=== PATIENT | female | born 1965 | race Caucasian/White ===

== ENCOUNTER 2016-03-02 14:25 | Outpatient (CLI) | payer MEDICAID | END 2016-03-02 14:26 | disposition home or self-care (01) | DX: Z13.9 Encounter for screening, unspecified (principal); Z79.899 Other long term (current) drug therapy; E03.9 Hypothyroidism, unspecified ==

== ENCOUNTER 2016-04-10 16:21 | Emergency (ER) | payer MEDICAID ==
[2016-04-10] MEDS ORDERED: oxyCOD/ACETAMIN 5 MG/325 MG TABLET PO STA (18:02)
[2016-04-10] MEDS ORDERED: oxyCOD/ACETAMIN 5 MG/325 MG TABLET PO ONE (18:12)
== END 2016-04-10 19:00 | disposition home or self-care (01) ==
DX: M79.671 Pain in right foot (principal); G89.29 Other chronic pain; Z87.81 Personal history of (healed) traumatic fracture; I10 Essential (primary) hypertension; E03.9 Hypothyroidism, unspecified; F17.200 Nicotine dependence, unspecified, uncomplicated
CPT/HCPCS: 73630; 99283; A9270

== ENCOUNTER 2016-04-14 11:06 | Outpatient (CLI) | payer MEDICAID | END 2016-04-14 11:07 | disposition home or self-care (01) | DX: M20.12 Hallux valgus (acquired), left foot (principal); M79.89 Other specified soft tissue disorders ==

== ENCOUNTER 2016-06-12 14:33 | Outpatient (CLI) | payer MEDICAID | END 2016-06-12 14:34 | disposition home or self-care (01) | DX: M19.071 Primary osteoarthritis, right ankle and foot (principal); R22.41 Localized swelling, mass and lump, right lower limb; Z98.890 Other specified postprocedural states ==

== ENCOUNTER 2016-06-19 18:24 | Emergency (ER) | payer MEDICAID ==
[2016-06-19 18:30] VITALS: BP 118/84
--- NOTE | 2016-06-19 18:45 | ED Physician Documentation ---
PD HPI LOWER EXT INJURY - Stated complaint Stated Complaint: LT ANKLE INJURY - Chief complaint Chief Complaint: Ext Problem - History obtained from History obtained from: Patient - History of Present Illness PD HPI LOW EXT INJURY LOCATION: Left, Ankle Type of injury: Fall Where injury occurred: Home Timing - onset: How many hours ago (1) Timing - duration: Hours (1) Timing - details: Abrupt onset Pain level max: 8 Pain level now: 8 Improved by: Rest, Ice Worsened by: Moving, Palpating Associated symptoms: No: Weakness, Numbness, Tingling, Swelling Contributing factors: No: Anticoagulated, Prior ortho surgery Recently seen: Not recently seen - Additional information Additional information: tripped and fell in the backyard today Review of Systems Constitutional: denies: Fever, Chills Skin: denies: Rash Musculoskeletal: denies: Neck pain, Back pain Neurologic: denies: Focal weakness, Numbness, Altered mental status, Head injury , LOC PD PAST MEDICAL HISTORY - Past Medical History Cardiovascular: Hypertension Respiratory: None Neuro: None Endocrine/Autoimmune: HyPOthyroidism GI: GERD, Ulcers, Other : None HEENT: Chronic vision loss Psych: Depression, Anxiety Musculoskeletal: Fibromyalgia, Chronic back pain Derm: None - Past Surgical History Past Surgical History: Yes 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, Tubal ligation - Present Medications Home Medications: Ambulatory Orders Medication Instructions Recorded Confirmed Levothyroxine [Synthroid] 100 mcg PO QDAC 06/23/12 05/27/14 Omeprazole 20 mg PO DAILY 06/23/12 05/27/14 Paroxetine HCl [Paxil] 40 mg PO DAILY 08/14/12 05/27/14 Baclofen 1 - 2 tab PO QPM PRN 10/07/12 05/27/14 Triamterene/Hydrochlorothiazid 1 each PO DAILY 10/07/12 05/27/14 [Triamterene-Hctz 37.5-25 mg Tb] Clonazepam 1 mg ORAL QPM 12/27/13 05/27/14 Iron 65 mg ORAL DAILY 12/27/13 05/27/14 Multivitamin [Multivitamins] 1 tab ORAL DAILY 12/27/13 05/27/14 Lisinopril 5 mg PO DAILY PRN 04/16/14 05/27/14 Trazodone HCl 100 mg PO DAILY 04/16/14 05/27/14 Baclofen 10 mg PO BID #14 tablet 04/05/15 Oxycodone HCl/Acetaminophen 1 - 2 each PO Q6H PRN #15 tablet 05/27/14 [Percocet 5-325 mg Tablet] HYDROcod/ACETAM 5/325 [[place] 5/325] 1 - 2 ea PO Q6H PRN #20 tablet 04/10/16 Hydrocodone/Acetaminophen 1 - 2 each PO Q6H PRN #14 tablet 06/19/16 [Hydrocodon-Acetaminophen 5-325] - Allergies Allergies/Adverse Reactions: Allergies Allergy/AdvReac Type Severity Reaction Status Date / Time felodipine Allergy Severe Respiratory Verified 04/10/16 16:37 Sulfa (Sulfonamide Allergy Intermediate Itching Verified 04/10/16 16:37 Antibiotics) gabapentin AdvReac Edema Verified 04/10/16 16:37 tramadol AdvReac Edema Verified 04/10/16 16:37 plendil Allergy Intermediate Unknown. Uncoded 05/27/14 12:01 tape Allergy Mild Hives Uncoded 05/27/14 12:01 - Social History Does the pt smoke?: Yes Smoking Status: Current every day smoker Does the pt drink ETOH?: No Does the pt have substance abuse?: No - Immunizations Immunizations are current?: Yes - POLST Patient has POLST: No PD ED PE NORMAL - Vitals Vital signs reviewed: Yes - General General: Alert and oriented X 3, No acute distress - HEENT HEENT: Moist mucous membranes - Derm Derm: Warm and dry - Extremities Extremities: Other (Tender to palpation over the lateral malleolus of the left ankle. Otherwise normal examination of the left lower extremity ankle and foot. Neurovascularly intact. No swelling or deformity) - Neuro Neuro: Alert and oriented X 3 - Psych Psych: Normal mood, Normal affect Results - Vitals Vitals: Vital Signs - 24 hr 06/19/16 18:28 Temperature 36.1 C L Heart Rate 82 Respiratory 18 Rate Blood Pressure 118/84 H O2 Saturation 99 Oxygen O2 Source Room air - Rads (name of study) Left ankle x-ray Radiology: Prelim report reviewed, EMP read contemporaneously, See rad report ( No acute fracture or dislocation) PD MEDICAL DECISION MAKING - ED course Complexity details: reviewed results, re-evaluated patient, considered differential, d/w patient ED course: Patient with a left ankle sprain. Placed in a gel splint for comfort. Has crutches at home. Counseled regarding missed fractures secondary to acute swelling and may need repeat xrays if not improving. Pain is well controlled. Patient counseled regarding signs and symptoms for which I believe and urgent re -evaluation would be necessary. Patient with good understanding of and agreement to plan and is comfortable going home at this time This document was made in part using voice recognition software. While efforts are made to proofread this document, sound alike and grammatical errors may occur. Departure - Departure Disposition: 01 Home, Self Care Clinical Impression: Left ankle sprain Qualifiers: Encounter type: initial encounter Involved ligament of ankle: unspecified ligament Qualified Code(s): S93.402A - Sprain of unspecified ligament of left ankle, initial encounter Condition: Good Instructions: ED Sprain Ankle W X Ray Follow-Up: Kwan Valdez MD [Primary Care Provider] - Within 1 week Prescriptions: Hydrocodone/Acetaminophen [Hydrocodon-Acetaminophen 5-325] 1 - 2 each PO Q6H PRN #14 tablet PRN Reason: pain Comments: Wear the splint as needed for comfort. Follow-up with your doctor in 1 week for further evaluation. Your x-rays are normal tonight. Do not drink alcohol or drive while on narcotic pain medicine. Note that many narcotic pain relievers also contain tylenol/acetaminophen. Please ensure that your total dose of acetaminophen from all sources does not exceed 3 grams (3000mg) per day. You may constipated on this medication, take a stool softener such as "Colace" twice a day while you are on it. Also recommend a [id number]-ufl-fldmphw laxative such as senna or MiraLAX any day that you do not have a bowel movement. If you received narcotic pain medication in the emergency department, do not drive or operate machinery for the next 24 hours. Discharge Date/Time: 06/19/16 19:35
[2016-06-19] MEDS ORDERED: IBUPROFEN 800 MG TABLET PO STA (19:17)
[2016-06-19] MEDS ORDERED: IBUPROFEN 800 MG TABLET PO ONE (19:18)
--- NOTE | 2016-06-19 19:19 | XRAY Preliminary Report ---
Exam: XR Ankle 3 View LT IMPRESSION: Normal ankle radiography. [facility] SITE ID: [id number]
--- NOTE | 2016-06-19 19:22 | XRAY Report ---
EXAM: LEFT ANKLE RADIOGRAPHY EXAM DATE: 06/19/2016 07:04 PM. CLINICAL HISTORY: Fall, L lateral malleolus TTP. COMPARISON: None. TECHNIQUE: 3 views. FINDINGS: Bones: Normal. No fractures or bone lesions. Joints: Normal. No effusion. No subluxations. The ankle mortise is normally aligned. Soft Tissues: Normal. No soft tissue swelling. IMPRESSION: Normal ankle radiography. [facility] Referring Provider Line: [phone] SITE ID: [id number]
[2016-06-19] MEDS ORDERED: HYDROcod/ACETAM 5/325 MG TABLET PO STA (19:25)
[2016-06-19] MEDS ORDERED: HYDROcod/ACETAM 5/325 MG TABLET ONE (19:25)
== END 2016-06-19 19:35 | disposition home or self-care (01) ==
LOC: ED 18:24
DX: S93.402A Sprain of unspecified ligament of left ankle, initial encounter (principal); W01.0XXA Fall on same level from slipping, tripping and stumbling without subsequent striking against object, initial encounter; Y92.017 Garden or yard in single-family (private) house as the place of occurrence of the external cause; E03.9 Hypothyroidism, unspecified; K21.9 Gastro-esophageal reflux disease without esophagitis; M79.7 Fibromyalgia; Z87.11 Personal history of peptic ulcer disease; F17.200 Nicotine dependence, unspecified, uncomplicated
CPT/HCPCS: 99283

== ENCOUNTER 2016-08-15 16:36 | Emergency (ER) | payer MEDICAID ==
[2016-08-15] MEDS ORDERED: oxyCOD/ACETAMIN 5 MG/325 MG TABLET PO STA (16:49)
[2016-08-15] MEDS ORDERED: DEXAMETHASONE 10 MG/ML VIAL PO STA (16:49)
[2016-08-15] MEDS ORDERED: oxyCOD/ACETAMIN 5 MG/325 MG TABLET PO ONE (16:51)
[2016-08-15] MEDS ORDERED: CHERRY SYRUP 10 ML UDC PO ONE (16:51)
[2016-08-15] MEDS ORDERED: DEXAMETHASONE 10 MG/ML VIAL ONE (16:51)
--- NOTE | 2016-08-15 16:53 | ED Physician Documentation ---
PD HPI BACK INJURY - Stated complaint Stated Complaint: GLF/BACK HIP PX - History obtained from History obtained from: Patient - History of Present Illness Location: Right, Lower Type of injury: Fall Where injury occurred: Home Timing - onset: How many days ago (3) Timing - duration: Days (3) Timing - details: Gradual onset, Still present Quality: Pain, Spasm, Sharp Improved by: Rest, Immobilization Worsened by: Moving, Palpating Associated symptoms: No: Fever, Weakness, Numbness, Incontinent of urine, Unable to urinate, Hematuria, Incontinent of stool Contributing factors: No: Anticoagulated Similar symptoms before: Has not had sx before Recently seen: Not recently seen - Additional information Additional information: 50y/o female fell at home landing on her buttocks and bruising the buttocks and causing some pain in the upper lumbar spine. She has pain with movement and she is able to walk with a slight limp. Review of Systems Constitutional: denies: Fever, Chills, Myalgias Eyes: denies: Decreased vision Ears: denies: Loss of hearing, Ear pain Nose: denies: Congestion Throat: denies: Sore throat Cardiac: denies: Chest pain / pressure Respiratory: denies: Dyspnea, Cough GI: reports: Nausea. denies: Abdominal Pain, Vomiting : denies: Dysuria, Frequency Musculoskeletal: reports: Back pain, Extremity pain. 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, Tubal ligation - Present Medications Home Medications: Ambulatory Orders Medication Instructions Recorded Confirmed Levothyroxine [Synthroid] 100 mcg PO QDAC 06/23/12 08/15/16 Omeprazole 20 mg PO DAILY 06/23/12 08/15/16 Paroxetine HCl [Paxil] 40 mg PO DAILY 08/14/12 08/15/16 Baclofen 1 - 2 tab PO QPM PRN 10/07/12 08/15/16 Triamterene/Hydrochlorothiazid 1 each PO DAILY 10/07/12 08/15/16 [Triamterene-Hctz 37.5-25 mg Tb] Clonazepam 1 mg ORAL QPM 12/27/13 08/15/16 Lisinopril 5 mg PO DAILY PRN 04/16/14 08/15/16 Baclofen 10 mg PO BID #14 tablet 05/27/14 08/15/16 Cyclobenzaprine [Flexeril] 10 mg PO TID PRN #20 tablet 08/15/16 Oxycodone HCl/Acetaminophen 1 - 2 each PO Q6HR PRN #20 tablet 08/15/16 [Oxycodone-Acetaminophen 5-325] - Allergies Allergies/Adverse Reactions: Allergies Allergy/AdvReac Type Severity Reaction Status Date / Time felodipine Allergy Severe Respiratory Verified 08/15/16 16:45 Sulfa (Sulfonamide Allergy Intermediate Itching Verified 08/15/16 16:45 Antibiotics) gabapentin AdvReac Edema Verified 08/15/16 16:45 tramadol AdvReac Edema Verified 08/15/16 16:45 plendil Allergy Intermediate Unknown. Uncoded 08/15/16 16:45 tape Allergy Mild Hives Uncoded 08/15/16 16:45 - Social History Does the pt smoke?: Yes Smoking Status: Current every day smoker Does the pt drink ETOH?: No Does the pt have substance abuse?: No - Immunizations Immunizations are current?: Yes - POLST Patient has POLST: No PD ED PE NORMAL - Vitals Vital signs reviewed: Yes (tachy ) - General General: Alert and oriented X 3, Well developed/nourished, Other (The patient appears to be in pain with working supervisor tone and flat affect as well as tears. ) - HEENT HEENT: Atraumatic, PERRL, EOMI - Respiratory Respiratory: No respiratory distress - Back Back: No CVA TTP, Other (point tenderness to the L1 area is mild ) - Derm Derm: Normal color, Warm and dry, No rash - Extremities Extremities: No deformity, No edema, Other (There is a bruise of the stated age over the left ishial tuberosity. ) - Neuro Neuro: Alert and oriented X 3, No motor deficit, No sensory deficit, Normal speech - Psych Psych: Normal mood, Normal affect Results - Vitals Vitals: Vital Signs - 24 hr 06/24/17 06/24/17 16:40 16:47 Temperature 37.1 C Heart Rate 108 H Respiratory 16 Rate Blood Pressure 122/93 H O2 Saturation 96 Oxygen O2 Source Room air - Rads (name of study) l/S spine Radiology: Prelim report reviewed (Impression: Minor thoracolumbar junction dextroscoliosis with anterolisthesis L4 on L5, new since 2013. No significant disc space narrowing or lumbar vertebral compression fracture. No other new findings.), EMP read indepedently, See rad report PD MEDICAL DECISION MAKING - ED course Complexity details: reviewed old records, reviewed results, re-evaluated patient , considered differential, d/w patient ED course: 50y/o female with a fall landing on her buttocks and causing back pain. There does not appear to be any compression fracture associated. She is given decadron and percocet and we will provide a small amount of pain medication and prescribe a muscle relaxant. Departure - Departure Disposition: 01 Home, Self Care Clinical Impression: Strain of back muscle Contusion of buttock Qualifiers: Encounter type: initial encounter Qualified Code(s): S30.0XXA - Contusion of lower back and pelvis, initial encounter Condition: Stable Instructions: ED Low Back Pain Injury Follow-Up: Kwan Valdez MD [Primary Care Provider] - Prescriptions: Oxycodone HCl/Acetaminophen [Oxycodone-Acetaminophen 5-325] 1 - 2 each PO Q6HR PRN #20 tablet PRN Reason: Pain Cyclobenzaprine [Flexeril] 10 mg PO TID PRN #20 tablet PRN Reason: Spasms
--- NOTE | 2016-08-15 17:38 | XRAY Preliminary Report ---
Exam: XR Lumbar Spine 2 View IMPRESSION: Minor thoracolumbar junction dextroscoliosis with anterior listhesis L4 on L5, both new s ashley 12/10/2013. No significant disk space narrowing or lumbar vertebral compression fracture. No oth er new findings. [facility] SITE ID: [id number]
--- NOTE | 2016-08-15 17:41 | XRAY Report ---
EXAM: LUMBOSACRAL SPINE RADIOGRAPHY EXAM DATE: 08/15/2016 05:21 PM. CLINICAL HISTORY: Fall/compression pain in the upper lumbar area. COMPARISONS: 11/30/[address] with reformatted images.. TECHNIQUE: 3 views. FINDINGS: Alignment: Minor thoracolumbar junction dextroscoliosis. Minimal anterior listhesis L4 on L5; vertebr al bodies otherwise unremarkable in alignment. Bones: No fractures or bone lesions. Disks: Normal. Disk heights are maintained. Facets: Minimal lower lumbar degenerative changes. Sacroiliac Joints: Unremarkable. Soft Tissues: Left upper quadrant surgical clips IMPRESSION: Minor thoracolumbar junction dextroscoliosis with anterior listhesis L4 on L5, both new s ashley 12/10/2013. No significant disk space narrowing or lumbar vertebral compression fracture. No oth er new findings. [facility] Referring Provider Line: [phone] SITE ID: [id number]
[2016-08-15 18:12] VITALS: BP 112/79
== END 2016-08-15 18:11 | disposition home or self-care (01) ==
LOC: ED 16:36
DX: S39.012A Strain of muscle, fascia and tendon of lower back, initial encounter (principal); S30.0XXA Contusion of lower back and pelvis, initial encounter; W18.30XA Fall on same level, unspecified, initial encounter; Y92.009 Unspecified place in unspecified non-institutional (private) residence as the place of occurrence of the external cause; I10 Essential (primary) hypertension; M79.7 Fibromyalgia; F17.200 Nicotine dependence, unspecified, uncomplicated
CPT/HCPCS: 72100; 99283; 99284; A9270

== ENCOUNTER 2016-09-10 18:23 | Emergency (ER) | payer MEDICAID ==
[2016-09-10 18:39] VITALS: BP 138/100
== END 2016-09-10 21:13 | disposition left against medical advice (07) ==
LOC: ED 18:23
DX: Z53.21 Procedure and treatment not carried out due to patient leaving prior to being seen by health care provider (principal)
CPT/HCPCS: 99281

== ENCOUNTER 2016-09-11 12:31 | Emergency (ER) | payer MEDICAID ==
[2016-09-11 12:48] VITALS: BP 138/92
--- NOTE | 2016-09-11 14:09 | ED Physician Documentation ---
PD HPI BACK PAIN - Stated complaint Stated Complaint: SHARP THORACIC PAIN - Chief complaint Chief Complaint: Back Pain - History obtained from History obtained from: Patient, Family - History of Present Illness Timing - onset: How many days ago (2) Timing - duration: Days (2) Timing - details: Gradual onset Pain level max: 8 Pain level now: 8 Location: Mid Quality: Pain, Spasm, Similar to prior episodes Associated symptoms: No: Fever, Weakness, Numbness, Incontinent of urine, Unable to urinate, Hematuria, Incontinent of stool Improves with: Rest Worsened by: Movement Contributing factors: No: Lifting, Twisting, Trauma, Anticoagulated, Cancer, IVDA Similar symptoms before: Diagnosis (chronic back pain.) Recently seen: Emergency Dept ([facility] last night for same.) - Additional information Additional information: Patient is a 50-year-old female with a history of fibromyalgia and chronic back pain who states she has been having increasing pain over the past few days. Saw her primary care provider who did trigger point injections and Depo-Medrol injections into her back. She states the last time that was used, created a pain crisis for her. She states that Tylenol 3's have helped in the past. Denies any fevers, vomiting, IV drug use. 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 : None HEENT: Chronic vision loss Psych: Depression, Anxiety Musculoskeletal: Fibromyalgia, Chronic back pain Derm: None - Past Surgical History Past Surgical History: Yes 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, Tubal ligation - Present Medications Home Medications: Ambulatory Orders Medication Instructions Recorded Confirmed Levothyroxine [Synthroid] 100 mcg PO QDAC 06/23/12 08/15/16 Omeprazole 20 mg PO DAILY 06/23/12 08/15/16 Paroxetine HCl [Paxil] 40 mg PO DAILY 08/14/12 08/15/16 Triamterene/Hydrochlorothiazid 1 each PO DAILY 10/07/12 08/15/16 [Triamterene-Hctz 37.5-25 mg Tb] Clonazepam 1 mg ORAL QPM 12/27/13 08/15/16 Lisinopril 5 mg PO DAILY PRN 04/16/14 08/15/16 Cyclobenzaprine [Flexeril] 10 mg PO TID PRN #20 tablet 08/15/16 Acetaminophen/Cod 300/30 [Tylenol 1 each PO Q4-6H PRN #20 tablet 09/11/16 #3] - Allergies Allergies/Adverse Reactions: Allergies Allergy/AdvReac Type Severity Reaction Status Date / Time felodipine Allergy Severe Respiratory Verified 09/11/16 12:48 Sulfa (Sulfonamide Allergy Intermediate Itching Verified 09/11/16 12:48 Antibiotics) gabapentin AdvReac Edema Verified 09/11/16 12:48 tramadol AdvReac Edema Verified 09/11/16 12:48 plendil Allergy Intermediate Unknown. Uncoded 09/11/16 12:48 tape Allergy Mild Hives Uncoded 09/11/16 12:48 - Social History Does the pt smoke?: Yes Smoking Status: Current every day smoker Does the pt drink ETOH?: No Does the pt have substance abuse?: No - Immunizations Immunizations are current?: Yes - POLST Patient has POLST: No PD ED PE NORMAL - Vitals Vital signs reviewed: Yes - General General: Alert and oriented X 3, No acute distress - HEENT HEENT: Moist mucous membranes - Neck Neck: Supple, no meningeal sign - Cardiac Cardiac: RRR, Strong equal pulses - Respiratory Respiratory: No respiratory distress, Clear bilaterally - Abdomen Abdomen: Soft, Non tender, Non distended - Back Back: No spinal TTP, Other (Mild swelling and ecchymosis from the trigger point injections to the right of the thoracic spine. No midline tenderness. No step- off or deformity. No tenderness to palpation or percussion. There is mild paraspinal spasm) - Derm Derm: Warm and dry - Extremities Extremities: No tenderness to palpate, No edema, No calf tenderness / cord - Neuro Neuro: Alert and oriented X 3, No motor deficit, No sensory deficit - Psych Psych: Normal mood, Normal affect Results - Vitals Vitals: Vital Signs - 24 hr 09/11/16 12:44 Temperature 37.1 C Heart Rate 81 Respiratory 14 Rate Blood Pressure 138/92 H O2 Saturation 100 Oxygen O2 Source Room air PD MEDICAL DECISION MAKING - ED course Complexity details: reviewed old records, considered differential (no cauda equina, no spinal epidural abscess, no fracture, no aortic dissection or evidence of aneursym rupture), d/w patient ED course: Patient is a 50-year-old female who presents to the emergency department with acute on chronic back pain. States the Tylenol with codeine is helped in the past. Will prescribe this for her. We will have her follow-up with her doctor for further evaluation and care. She is ambulating quite well in the emergency department. No acute distress. No evidence of epidural abscess or cauda equina. Patient counseled regarding signs and symptoms for which I believe and urgent re-evaluation would be necessary. Patient with good understanding of and agreement to plan and is comfortable going home at this time This document was made in part using voice recognition software. While efforts are made to proofread this document, sound alike and grammatical errors may occur. Departure - Departure Disposition: 01 Home, Self Care Clinical Impression: Back pain Qualifiers: Back pain location: thoracic back pain Chronicity: unspecified Back pain laterality: bilateral Qualified Code(s): M54.6 - Pain in thoracic spine Condition: Good Instructions: ED Neck Back Pain General Follow-Up: Kwan Valdez MD [Primary Care Provider] - Within 1 week Prescriptions: Acetaminophen/Cod 300/30 [Tylenol #3] 1 each PO Q4-6H PRN #20 tablet PRN Reason: back pain Comments: Return if you worsen. This should improve over the next few days. Do not drink alcohol or drive while on narcotic pain medicine. Note that many narcotic pain relievers also contain tylenol/acetaminophen. Please ensure that your total dose of acetaminophen from all sources does not exceed 3 grams (3000mg) per day. You may constipated on this medication, take a stool softener such as "Colace" twice a day while you are on it. Also recommend a yirz-wvj-madsaud laxative such as senna or MiraLAX any day that you do not have a bowel movement. If you received narcotic pain medication in the emergency department, do not drive or operate machinery for the next 24 hours. Discharge Date/Time: 09/11/16 14:33
== END 2016-09-11 14:33 | disposition home or self-care (01) ==
LOC: ED 12:31
DX: M54.6 Pain in thoracic spine (principal); I10 Essential (primary) hypertension; M79.7 Fibromyalgia; G89.29 Other chronic pain; F17.200 Nicotine dependence, unspecified, uncomplicated
CPT/HCPCS: 99283

== ENCOUNTER 2016-09-13 16:51 | Emergency (ER) | payer MEDICAID ==
--- NOTE | 2016-09-13 17:18 | ED Physician Documentation ---
PD HPI BACK PAIN - Stated complaint Stated Complaint: BACK PX/TYLER - Chief complaint Chief Complaint: Back Pain - History obtained from History obtained from: Patient - History of Present Illness Timing - onset: How many days ago (several) Timing - duration: Days (several) Timing - details: Gradual onset Pain level max: 10 Pain level now: 10 Location: Mid Quality: Pain, Spasm, Aching, Similar to prior episodes Associated symptoms: No: Fever, Weakness, Numbness, Incontinent of urine, Unable to urinate, Hematuria, Incontinent of stool Improves with: Rest Worsened by: Movement Contributing factors: No: Lifting, Twisting, Trauma, IVDA Similar symptoms before: Diagnosis (Chronic back pain) Recently seen: Emergency Dept (Has been seen in the emergency department a few days ago, was seen by her doctor before that and seen at [facility] emergency department as well. Recently prescribed Tylenol 3 here as this has helped in the past, but states the pain is increasing again.) Review of Systems Constitutional: denies: Fever, Chills Nose: denies: Rhinorrhea / runny nose, Congestion GI: denies: Abdominal Pain, Nausea, Vomiting, Diarrhea Skin: denies: Rash Musculoskeletal: denies: Neck pain Neurologic: denies: Focal weakness, Numbness, Seizure, Confused, Altered mental status, Headache PD PAST MEDICAL HISTORY - Past Medical History Past Medical History: Yes Cardiovascular: Hypertension Respiratory: None Neuro: None Endocrine/Autoimmune: HyPOthyroidism GI: GERD, Ulcers, Other MARKET CONSULTANT: None : None HEENT: Chronic vision loss Psych: Depression, Anxiety Musculoskeletal: Fibromyalgia, Chronic back pain Derm: None - Past Surgical History Past Surgical History: Yes General: Appendectomy /MARKET CONSULTANT: section, Tubal ligation - Present Medications Home Medications: Ambulatory Orders Medication Instructions Recorded Confirmed Levothyroxine [Synthroid] 100 mcg PO QDAC 06/23/12 09/13/16 Omeprazole 20 mg PO DAILY 06/23/12 09/13/16 Paroxetine HCl [Paxil] 40 mg PO DAILY 08/14/12 09/13/16 Triamterene/Hydrochlorothiazid 1 each PO DAILY 10/07/12 09/13/16 [Triamterene-Hctz 37.5-25 mg Tb] Clonazepam 1 mg ORAL QPM 12/27/13 09/13/16 Lisinopril 5 mg PO DAILY PRN 04/16/14 09/13/16 Cyclobenzaprine [Flexeril] 10 mg PO TID PRN #20 tablet 08/15/16 09/13/16 Acetaminophen/Cod 300/30 [Tylenol 1 each PO Q4-6H PRN #20 tablet 09/11/16 #3] Oxycodone HCl/Acetaminophen 1 - 2 each PO Q6H PRN #10 tablet 09/13/16 [Percocet 5-325 mg Tablet] diazePAM [Valium] 5 - 10 mg PO TID PRN #15 tablet 09/13/16 - Allergies Allergies/Adverse Reactions: Allergies Allergy/AdvReac Type Severity Reaction Status Date / Time felodipine Allergy Severe Respiratory Verified 09/11/16 12:48 Sulfa (Sulfonamide Allergy Intermediate Itching Verified 09/11/16 12:48 Antibiotics) gabapentin AdvReac Edema Verified 09/11/16 12:48 tramadol AdvReac Edema Verified 09/11/16 12:48 plendil Allergy Intermediate Unknown. Uncoded 09/11/16 12:48 tape Allergy Mild Hives Uncoded 09/11/16 12:48 - Social History Does the pt smoke?: Yes Smoking Status: Current every day smoker Does the pt drink ETOH?: No Does the pt have substance abuse?: No - Immunizations Immunizations are current?: Yes - POLST Patient has POLST: No PD ED PE NORMAL - Vitals Vital signs reviewed: Yes - General General: Alert and oriented X 3, No acute distress, Well developed/nourished - HEENT HEENT: Atraumatic, PERRL, Ears normal, Moist mucous membranes, Pharynx benign - Neck Neck: Supple, no meningeal sign, No bony TTP - Cardiac Cardiac: RRR, Strong equal pulses - Respiratory Respiratory: No respiratory distress, Clear bilaterally - Abdomen Abdomen: Soft, Non tender, Non distended - Back Back: No spinal TTP, Other (Tender to palpation to the right of the lower thoracic spine, approximately T10 through T12. No midline tenderness. paraspinal spasm present.) - Derm Derm: Warm and dry - Extremities Extremities: Other (normal bilateral lower extremity patellar and ankle jerk reflexes. Normal great toe extension bilaterally) - Neuro Neuro: Alert and oriented X 3, registered dietetic technician 2-12 intact, No motor deficit, No sensory deficit, Normal speech - Psych Psych: Normal mood, Normal affect Results - Vitals Vitals: Vital Signs - 24 hr 09/13/16 09/13/16 16:55 18:44 Temperature 36.6 C Heart Rate 93 76 Respiratory 18 19 Rate Blood Pressure 123/84 H 122/65 O2 Saturation 98 97 Oxygen O2 Source Room air - Rads (name of study) Thoracic spine x-ray Radiology: Prelim report reviewed, EMP read contemporaneously, See rad report ( Normal thoracic spine radiography. ) PD MEDICAL DECISION MAKING - ED course Complexity details: reviewed old records, reviewed results, re-evaluated patient , considered differential (no cauda equina, no spinal epidural abscess, no fracture, no aortic dissection or evidence of aneursym rupture), d/w patient ED course: Patient is a 50-year-old female who presents to the emergency department with acute on chronic back pain. States that the pain medications at home are not helping. She was given pain medication here and greatly improved. Is able to ambulate well. Has a friend driving her home. She is well-appearing, nontoxic. Afebrile. No evidence of epidural abscess, cauda equina. No evidence of fracture. Patient counseled regarding signs and symptoms for which I believe and urgent re-evaluation would be necessary. Patient with good understanding of and agreement to plan and is comfortable going home at this time This document was made in part using voice recognition software. While efforts are made to proofread this document, sound alike and grammatical errors may occur. Departure - Departure Disposition: 01 Home, Self Care Clinical Impression: Back pain Qualifiers: Back pain location: thoracic back pain Chronicity: acute Back pain laterality: right Qualified Code(s): M54.6 - Pain in thoracic spine Back strain Qualifiers: Encounter type: initial encounter Qualified Code(s): S39.012A - Strain of muscle, fascia and tendon of lower back, initial encounter Condition: Good Instructions: ED Spasm Back No Trauma Follow-Up: Kwan Valdez MD [Primary Care Provider] - Within 1 week Prescriptions: Oxycodone HCl/Acetaminophen [Percocet 5-325 mg Tablet] 1 - 2 each PO Q6H PRN # 10 tablet PRN Reason: pain diazePAM [Valium] 5 - 10 mg PO TID PRN #15 tablet PRN Reason: Spasms Comments: Return if you worsen. This should improve over the next few days. Do not drink alcohol or drive while on narcotic pain medicine. Note that many narcotic pain relievers also contain tylenol/acetaminophen. Please ensure that your total dose of acetaminophen from all sources does not exceed 3 grams (3000mg) per day. You may constipated on this medication, take a stool softener such as "Colace" twice a day while you are on it. Also recommend a [id number] laxative such as senna or MiraLAX any day that you do not have a bowel movement. If you received narcotic pain medication in the emergency department, do not drive or operate machinery for the next 24 hours. Discharge Date/Time: 09/13/16 18:48
[2016-09-13] MEDS ORDERED: diazePAM 5 MG TABLET PO STA ×2 (17:31→18:34)
[2016-09-13] MEDS ORDERED: oxyCODONE 5 MG TABLET PO STA (17:31)
[2016-09-13] MEDS ORDERED: oxyCODONE 5 MG TABLET ONE (17:33)
[2016-09-13] MEDS ORDERED: diazePAM 5 MG TABLET PO ONE ×2 (17:33→18:40)
--- NOTE | 2016-09-13 18:27 | XRAY Preliminary Report ---
Exam: XR Thoracic Spine 2 View IMPRESSION: Normal thoracic spine radiography. [facility] SITE ID: [id number]
--- NOTE | 2016-09-13 18:29 | XRAY Report ---
EXAM: THORACIC SPINE RADIOGRAPHY EXAM DATE: 09/13/2016 05:57 PM. CLINICAL HISTORY: Low thoracic back pain. COMPARISON: None. TECHNIQUE: 2 views. FINDINGS: Alignment: Normal. No spondylolisthesis or scoliosis. Bones: No fractures or bone lesions. Disks: Normal. Disk heights are maintained. Soft Tissues: Normal. The visualized lungs and cardiomediastinal silhouette are normal. IMPRESSION: Normal thoracic spine radiography. [facility] Referring Provider Line: [phone] SITE ID: [id number]
[2016-09-13 18:46] VITALS: BP 122/65
== END 2016-09-13 18:48 | disposition home or self-care (01) ==
LOC: ED 16:51
DX: M54.6 Pain in thoracic spine (principal); S39.012A Strain of muscle, fascia and tendon of lower back, initial encounter; X50.0XXA Overexertion from strenuous movement or load, initial encounter; I10 Essential (primary) hypertension; E03.9 Hypothyroidism, unspecified; K21.9 Gastro-esophageal reflux disease without esophagitis; M79.7 Fibromyalgia; Z87.11 Personal history of peptic ulcer disease; F17.200 Nicotine dependence, unspecified, uncomplicated
CPT/HCPCS: 72070; 99283; A9270

== ENCOUNTER 2016-10-09 07:50 | Outpatient (CLI) | payer MEDICAID ==
[2016-10-09 12:33] LABS: BASOPHILS # (AUTO) 0.1 10^3/uL (0.0-0.1); EOSINOPHILS # (AUTO) 0.2 10^3/uL (0.0-0.7); LYMPHOCYTES # (AUTO) 3.1 10^3/uL (1.5-3.5)
[2016-10-09 12:37] LABS: EOSINOPHILS % (AUTO) 1.4 %; HCT - HEMATOCRIT 45.4 % (37.0-47.0); HGB - HEMOGLOBIN 15.3 g/dL (12.0-16.0); IMMATURE RETIC FRACTION 0.51; LYMPHOCYTES % (AUTO) 24.4 %; MEAN CORPUSCULAR HEMOGLOBIN 30.8 pg (27.0-31.0); MEAN CORPUSCULAR HGB CONC 33.6 g/dL (32.0-36.0); MEAN CORPUSCULAR VOLUME 91.8 fL (81.0-99.0); MEAN PLATELET VOLUME 7.7 fL (7.9-10.8); MONOCYTES # (AUTO) 0.7 10^3/uL (0.0-1.0); MONOCYTES % (AUTO) 5.6 %; NEUTROPHILS # (AUTO) 8.6 10^3/uL (1.5-6.6); NEUTROPHILS % (AUTO) 67.6 %; RED BLOOD COUNT 4.95 10^6/uL (4.20-5.40); RED CELL DISTRIBUTION WIDTH 13.6 % (12.0-15.0); UNCORRECTED WHITE BLOOD COUNT 12.8 x10^3/uL; WHITE BLOOD COUNT 12.8 x10^3/uL (4.8-10.8)
[2016-10-09 13:23] LABS: FERRITIN 91.3 ng/mL (11.0-306.8)
[2016-10-09 13:25] LABS: ALBUMIN/GLOBULIN RATIO 1.2 (1.0-2.2); BILIRUBIN,TOTAL 0.6 mg/dL (0.2-1.0); CALCIUM 9.9 mg/dL (8.5-10.3); CREATININE 0.9 mg/dL (0.4-1.0); POTASSIUM 3.5 mmol/L (3.5-5.0); TOTAL PROTEIN 8.6 g/dL (6.7-8.2)
[2016-10-09 13:36] LABS: THYROID STIMULATING HORMONE 1.41 uIU/mL (0.34-5.60)
== END 2016-10-09 07:51 | disposition home or self-care (01) ==
LOC: LAB.N 07:50
PROVIDERS: ATTEND Family Medicine
DX: R60.9 Edema, unspecified (principal); E03.9 Hypothyroidism, unspecified
CPT/HCPCS: 36415; 80053; 82728; 83540; 84439; 84443; 84466; 84481; 85025; 85044

== ENCOUNTER 2016-10-14 09:01 | Emergency (ER) | payer MEDICAID ==
--- NOTE | 2016-10-14 09:30 | ED Physician Documentation ---
PD HPI LOWER EXT INJURY - Stated complaint Stated Complaint: FOOT PX - Chief complaint Chief Complaint: General - History obtained from History obtained from: Patient, Family - History of Present Illness PD HPI LOW EXT INJURY LOCATION: Right, Foot Type of injury: Blunt / blow Where injury occurred: Home Timing - onset: Enter time (1614), Yesterday Timing - duration: Hours Timing - details: Abrupt onset, Still present Improved by: Rest, Immobilization Worsened by: Moving, Palpating Associated symptoms: Swelling. No: Weakness, Numbness, Tingling Contributing factors: No: Anticoagulated Similar symptoms before: Diagnosis (foot fracture) Recently seen: Not recently seen - Additional information Additional information: 50-year-old female with a history of fibromyalgia and chronic back pain has had a lot of surgery done to her right foot and last night or yesterday afternoon she was in front of her vanity putting on her contact lens when she put her foot behind her and then when she let her foot go forward it kicked the vanity. She has pain over the first and second metatarsal and is limping she was unable to sleep last night. Review of Systems Constitutional: denies: Fever Eyes: denies: Decreased vision Ears: denies: Ear pain Nose: denies: Congestion Respiratory: denies: Cough GI: denies: Vomiting Skin: denies: Rash Musculoskeletal: reports: Back pain, Extremity pain, Joint pain, Extremity swelling, Joint swelling, Pain with weight bearing. 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 : None HEENT: Chronic vision loss Psych: Depression, Anxiety Musculoskeletal: Fibromyalgia, Chronic back pain Derm: None - Past Surgical History Past Surgical History: Yes General: Appendectomy /BALLISTICS EXPERT FORENSIC: section, Tubal ligation - Present Medications Home Medications: Ambulatory Orders Medication Instructions Recorded Confirmed Levothyroxine [Synthroid] 100 mcg PO QDAC 06/23/12 10/14/16 Omeprazole 40 mg PO DAILY 06/23/12 10/14/16 Paroxetine HCl [Paxil] 40 mg PO DAILY 08/14/12 10/14/16 Triamterene/Hydrochlorothiazid 1 each PO DAILY 10/07/12 10/14/16 [Triamterene-Hctz 37.5-25 mg Tb] Lisinopril 2.5 mg PO DAILY PRN 04/16/14 10/14/16 Cyclobenzaprine [Flexeril] 10 mg PO TID PRN #20 tablet 08/15/16 10/14/16 Oxycodone HCl/Acetaminophen 1 each PO Q4HR PRN #10 tablet 10/14/16 [Oxycodone-Acetaminophen 5-325] - Allergies Allergies/Adverse Reactions: Allergies Allergy/AdvReac Type Severity Reaction Status Date / Time felodipine Allergy Severe Respiratory Verified 09/11/16 12:48 Sulfa (Sulfonamide Allergy Intermediate Itching Verified 09/11/16 12:48 Antibiotics) gabapentin AdvReac Edema Verified 09/11/16 12:48 tramadol AdvReac Edema Verified 09/11/16 12:48 plendil Allergy Intermediate Unknown. Uncoded 09/11/16 12:48 tape Allergy Mild Hives Uncoded 09/11/16 12:48 depomedrol Allergy Unknown Uncoded 10/14/16 09:19 - Social History Does the pt smoke?: Yes Smoking Status: Current every day smoker Does the pt drink ETOH?: No Does the pt have substance abuse?: No - Immunizations Immunizations are current?: Yes - POLST Patient has POLST: No PD ED PE NORMAL - Vitals Vital signs reviewed: Yes (Hypertensive and tachycardic) - General General: Alert and oriented X 3, No acute distress, Well developed/nourished - HEENT HEENT: Atraumatic, PERRL - Respiratory Respiratory: No respiratory distress - Derm Derm: Normal color, Warm and dry, No rash - Extremities Extremities: Other (There are surgical scars of the first and second metatarsals on the right foot. She has tenderness over the distal interphalangeal space of the first and second metatarsal. She is able to bear weight on her heel and has pain with any movement of the foot. The distal neurovascular components are intact.) - Neuro Neuro: Alert and oriented X 3, No motor deficit, No sensory deficit, Normal speech - Psych Psych: Normal mood, Normal affect Results - Vitals Vitals: Vital Signs - 24 hr 10/14/16 10/14/16 09:25 09:59 Temperature 37.1 C Heart Rate 108 H 87 Respiratory 16 16 Rate Blood Pressure 144/116 H 130/100 H O2 Saturation 99 98 Oxygen O2 Source Room air - Rads (name of study) right foot Radiology: Prelim report reviewed (Impression: 1. Stable appearance of extensive fusion hardware across the first and second tarsometatarsal joints. No evidence of for hardware loosening or failure.2. No acute fractures or dislocations are seen.3. Less distinct transverse lucency at the base of the second metatarsal could represent a healed fracture.4. Stable medial subluxation at the first MTP joint.), EMP read indepedently, See rad report Departure - Departure Disposition: 01 Home, Self Care Clinical Impression: Foot contusion Qualifiers: Encounter type: initial encounter Laterality: right Qualified Code(s): S90.31XA - Contusion of right foot, initial encounter Condition: Stable Instructions: ED Contusion Foot Follow-Up: Kwan Valdez MD [Primary Care Provider] - Prescriptions: Oxycodone HCl/Acetaminophen [Oxycodone-Acetaminophen 5-325] 1 each PO Q4HR PRN # 10 tablet PRN Reason: Pain Discharge Date/Time: 10/14/16 10:41
[2016-10-14] MEDS ORDERED: DEXAMETHASONE 10 MG/ML VIAL PO STA (09:47)
[2016-10-14] MEDS ORDERED: DEXAMETHASONE 10 MG/ML VIAL ONE (09:53)
[2016-10-14 10:00] VITALS: BP 130/100
--- NOTE | 2016-10-14 10:08 | XRAY Preliminary Report ---
Exam: XR Foot 3 View RT IMPRESSION: 1. Stable appearance of extensive fusion hardware across the first and second tarsometatarsal joints. No evidence for hardware loosening or failure. 2. No acute fractures or dislocations are seen. 3. Less distinct transverse lucency at the base of the second metatarsal could represent healed fract ure. 4. Stable medial subluxation at the first MTP joint. [facility] SITE ID: [id number]
--- NOTE | 2016-10-14 10:11 | XRAY Report ---
EXAM: RIGHT FOOT RADIOGRAPHY EXAM DATE: 10/14/2016 09:43 AM. CLINICAL HISTORY: Kick, 1st and 2nd MT pain. COMPARISON: 04/10/2016. TECHNIQUE: 3 views. FINDINGS: Bones: Again noted is hardware for fusion across the first and second tarsometatarsal joints. Hardwar e appears intact without evidence for loosening or break. The subtle lucency at the base of the secon d metatarsal is less distinct compared to prior. No other fracture lines are seen. Joints: Again seen is mild medial subluxation of the first MTP joint. Otherwise alignment is preserve d. Soft Tissues: Normal. No soft tissue swelling. IMPRESSION: 1. Stable appearance of extensive fusion hardware across the first and second tarsometatarsal joints. No evidence for hardware loosening or failure. 2. No acute fractures or dislocations are seen. 3. Less distinct transverse lucency at the base of the second metatarsal could represent healed fract ure. 4. Stable medial subluxation at the first MTP joint. [facility] Referring Provider Line: [phone] SITE ID: [id number]
== END 2016-10-14 10:41 | disposition home or self-care (01) ==
LOC: ED 09:01
DX: S90.31XA Contusion of right foot, initial encounter (principal); W22.09XA Striking against other stationary object, initial encounter; Y92.009 Unspecified place in unspecified non-institutional (private) residence as the place of occurrence of the external cause; I10 Essential (primary) hypertension; M79.7 Fibromyalgia; G89.29 Other chronic pain
CPT/HCPCS: 99283

== ENCOUNTER 2016-10-23 16:50 | Outpatient (CLI) | payer MEDICAID ==
--- NOTE | 2016-10-24 16:58 | Ultrasound Report ---
EXAM: THYROID ULTRASOUND EXAM DATE: 10/23/2016 05:21 p.m. CLINICAL HISTORY: Dysphagia, goiter, hypothyroidism. COMPARISON: 09/21/2012. TECHNIQUE: Real time sonographic imaging of the thyroid was performed by the tapper hand. Multiple re presentative static images were saved for review. FINDINGS: THYROID GLAND: Right Lobe: 5.7 x 2.4 x 3.3 cm, volume 23.3 cc, previously 5.5 x 2.8 x 2.8 cm. There is again severe nodular heterogeneous echotexture without increased blood flow or calcification. Right Lobe Nodules: No discrete nodule can be measured. Left Lobe: 4.9 x 2.4 x 2.5 cm, volume 14.9 cc, previously 4.3 x 2.4 x 2.1 cm. There is again severe n odular heterogeneous echotexture without increased blood flow or calcification.. Left Lobe Nodules: No discrete nodule can be measured. Isthmus: 0.8 cm AP, previously 0.7 cm. Isthmic Nodules: No discrete nodule can be measured.. LYMPH NODES: No adenopathy demonstrated in the central or lateral compartment. IMPRESSION: Minimal interval change of the diffusely enlarged thyroid with severe nodular heterogeneous echotextu re without increased blood flow or calcification, suggesting multinodular goiter, otherwise, nonspeci fic. [facility] Referring Provider Line: [phone] SITE ID: [id number]
== END 2016-10-23 16:51 | disposition home or self-care (01) ==
LOC: DI 16:50
PROVIDERS: ATTEND Family Medicine
DX: E04.0 Nontoxic diffuse goiter (principal); E03.9 Hypothyroidism, unspecified; R13.10 Dysphagia, unspecified
CPT/HCPCS: 76536

== ENCOUNTER 2016-10-25 17:52 | Emergency (ER) | payer MEDICAID ==
[2016-10-25 18:03] VITALS: BP 131/86
--- NOTE | 2016-10-25 18:45 | ED Physician Documentation ---
PD HPI LOWER EXT INJURY - Stated complaint Stated Complaint: L FOOT PX - Chief complaint Chief Complaint: Ext Problem - History obtained from History obtained from: Patient - History of Present Illness PD HPI LOW EXT INJURY LOCATION: Left, Ankle Type of injury: Twist Where injury occurred: Home Timing - onset: Today Timing - duration: Hours (1) Timing - details: Abrupt onset Pain level max: 8 Pain level now: 8 Improved by: Rest, Immobilization Worsened by: Moving, Palpating Associated symptoms: No: Weakness, Numbness, Tingling, Swelling Contributing factors: No: Anticoagulated Recently seen: Not recently seen - Additional information Additional information: states inverted her L ankle stepping on a dog toy today. Review of Systems Neurologic: denies: Focal weakness, Numbness PD PAST MEDICAL HISTORY - Past Medical History Cardiovascular: Hypertension Respiratory: None Neuro: None Endocrine/Autoimmune: HyPOthyroidism GI: GERD, Ulcers, Other CONNIE SCRATCHER: None : None HEENT: Chronic vision loss Psych: Depression, Anxiety Musculoskeletal: Fibromyalgia, Chronic back pain Derm: None - Past Surgical History Past Surgical History: Yes General: Appendectomy /CONNIE SCRATCHER: section, Tubal ligation - Present Medications Home Medications: Ambulatory Orders Medication Instructions Recorded Confirmed Levothyroxine [Synthroid] 100 mcg PO QDAC 06/23/12 10/25/16 Omeprazole 40 mg PO DAILY 06/23/12 10/25/16 Paroxetine HCl [Paxil] 40 mg PO DAILY 08/14/12 10/25/16 Triamterene/Hydrochlorothiazid 1 each PO DAILY 10/07/12 10/25/16 [Triamterene-Hctz 37.5-25 mg Tb] Lisinopril 2.5 mg PO DAILY PRN 04/16/14 10/25/16 Cyclobenzaprine [Flexeril] 10 mg PO TID PRN #20 tablet 08/15/16 10/25/16 oxyCODONE [Roxicodone] 5 mg PO Q4-6H PRN #10 tablet 10/25/16 - Allergies Allergies/Adverse Reactions: Allergies Allergy/AdvReac Type Severity Reaction Status Date / Time felodipine Allergy Severe Respiratory Verified 10/25/16 18:16 Sulfa (Sulfonamide Allergy Intermediate Itching Verified 10/25/16 18:16 Antibiotics) gabapentin AdvReac Edema Verified 10/25/16 18:16 tramadol AdvReac Edema Verified 10/25/16 18:16 plendil Allergy Intermediate Unknown. Uncoded 10/25/16 18:16 tape Allergy Mild Hives Uncoded 10/25/16 18:16 depomedrol Allergy Unknown Uncoded 10/25/16 18:16 - Social History Does the pt smoke?: Yes Smoking Status: Current every day smoker Does the pt drink ETOH?: No Does the pt have substance abuse?: No - Immunizations Immunizations are current?: Yes - POLST Patient has POLST: No PD ED PE NORMAL - Vitals Vital signs reviewed: Yes - General General: Alert and oriented X 3, No acute distress - Derm Derm: Warm and dry - Extremities Extremities: Other (L ankle - TTP over the medial malleolus. NVI. no STS. o/w normal exam of the foot and ankle. ) - Neuro Neuro: Alert and oriented X 3 Results - Vitals Vitals: Vital Signs - 24 hr 10/25/16 18:01 Temperature 36.7 C Heart Rate 109 H Respiratory 18 Rate Blood Pressure 131/86 H O2 Saturation 99 Oxygen O2 Source Room air - Rads (name of study) L ankle xray Radiology: Prelim report reviewed, EMP read contemporaneously, See rad report ( Normal ankle radiography. ) PD MEDICAL DECISION MAKING - ED course Complexity details: reviewed results, re-evaluated patient, considered differential, d/w patient ED course: Patient is a 50-year-old female who presents to the emergency department with what appears to be a left ankle sprain. She states she cannot use crutches, so was placed in a walking boot. Will prescribe a small amount of pain medication for home. She is well-appearing, nontoxic. Afebrile. Counseled regarding missed fractures secondary to acute swelling and may need repeat xrays if not improving. Patient counseled regarding signs and symptoms for which I believe and urgent re-evaluation would be necessary. Patient with good understanding of and agreement to plan and is comfortable going home at this time This document was made in part using voice recognition software. While efforts are made to proofread this document, sound alike and grammatical errors may occur. Departure - Departure Disposition: 01 Home, Self Care Clinical Impression: Left ankle sprain Qualifiers: Encounter type: initial encounter Involved ligament of ankle: unspecified ligament Qualified Code(s): S93.402A - Sprain of unspecified ligament of left ankle, initial encounter Condition: Good Instructions: ED Sprain Ankle Follow-Up: Kwan Valdez MD [Primary Care Provider] - Within 1 week Prescriptions: oxyCODONE [Roxicodone] 5 mg PO Q4-6H PRN #10 tablet PRN Reason: ankle pain Comments: Return if you worsen. Wear the boot for the next several days, then start ranging your foot and ankle gently. Follow up with your doctor in 1 week for further evaluation. Do not drink alcohol or drive while on narcotic pain medicine. Note that many narcotic pain relievers also contain tylenol/acetaminophen. Please ensure that your total dose of acetaminophen from all sources does not exceed 3 grams (3000mg) per day. You may constipated on this medication, take a stool softener such as "Colace" twice a day while you are on it. Also recommend a agof-tvt-uyctpnl laxative such as senna or MiraLAX any day that you do not have a bowel movement. If you received narcotic pain medication in the emergency department, do not drive or operate machinery for the next 24 hours. Discharge Date/Time: 10/25/16 19:51
--- NOTE | 2016-10-25 19:18 | XRAY Preliminary Report ---
Exam: XR Ankle 3 View LT IMPRESSION: Normal ankle radiography. [facility] SITE ID: [id number]
--- NOTE | 2016-10-25 19:20 | XRAY Report ---
EXAM: LEFT ANKLE RADIOGRAPHY EXAM DATE: 10/25/2016 06:26 PM. CLINICAL HISTORY: Rolled ankle stepping on a dog toy. COMPARISON: 06/19/2016. TECHNIQUE: 3 views. FINDINGS: Bones: Normal. No fractures or bone lesions. Joints: Normal. No effusion. No subluxations. The ankle mortise is normally aligned. Soft Tissues: Normal. No soft tissue swelling. IMPRESSION: Normal ankle radiography. [facility] Referring Provider Line: [phone] SITE ID: [id number]
[2016-10-25] MEDS ORDERED: oxyCODONE 5 MG TABLET PO STA (19:33)
[2016-10-25] MEDS ORDERED: oxyCODONE 5 MG TABLET ONE (19:41)
== END 2016-10-25 19:51 | disposition home or self-care (01) ==
LOC: ED 17:52
DX: S93.402A Sprain of unspecified ligament of left ankle, initial encounter (principal); X50.0XXA Overexertion from strenuous movement or load, initial encounter; Y92.019 Unspecified place in single-family (private) house as the place of occurrence of the external cause; I10 Essential (primary) hypertension; E03.9 Hypothyroidism, unspecified; K21.9 Gastro-esophageal reflux disease without esophagitis; M79.7 Fibromyalgia; Z87.11 Personal history of peptic ulcer disease; F17.200 Nicotine dependence, unspecified, uncomplicated
CPT/HCPCS: 73610; 99283; A9270

== ENCOUNTER 2016-11-08 14:10 | Emergency (ER) | payer MEDICAID ==
[2016-11-08 14:20] VITALS: BP 129/89
[2016-11-08] MEDS ORDERED: PROCHLORPERAZINE 10 MG/2 ML VIAL IVP STA (15:33)
[2016-11-08] MEDS ORDERED: diphenhydrAMINE INJ 50 MG/ML VIAL IVP STA (15:33)
[2016-11-08] MEDS ORDERED: SODIUM CHLORIDE 0.9% 1,000 ML IV ONE (15:33)
[2016-11-08] MEDS ORDERED: ACETAMINOPHEN 1,000 MG/100 ML 100 ML IV STA (15:33)
[2016-11-08] MEDS ORDERED: ACETAMINOPHEN 1,000 MG/100 ML 100 ML IV ONE (15:55)
[2016-11-08] MEDS ORDERED: diphenhydrAMINE INJ 50 MG/ML VIAL ONE (15:55)
[2016-11-08] MEDS ORDERED: METOCLOPRAMIDE 10 MG/2 ML VIAL ONE (15:55)
--- NOTE | 2016-11-08 15:56 | ED Physician Documentation ---
History of Present Illness - Stated complaint Stated Complaint: HEADACHE - Chief complaint Chief Complaint: Neuro - Additonal information Additional information: hx from pt to ER with a diffuse TYLER R > L spreads down neck and into upper back gradually worsening since yesterday no fever no neck stiffness no numbness no weakness denies CO exposure - on one else at home is ill and not using furnace this year yet Review of Systems Constitutional: denies: Fever, Chills GI: denies: Abdominal Pain, Nausea, Vomiting Neurologic: reports: Headache. 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 HEENT: Chronic vision loss Psych: Depression, Anxiety Musculoskeletal: Fibromyalgia, Chronic back pain Derm: None - Past Surgical History Past Surgical History: Yes General: Appendectomy /SPORTS TRAINER: section, Tubal ligation - Present Medications Home Medications: Ambulatory Orders Medication Instructions Recorded Confirmed Levothyroxine [Synthroid] 100 mcg PO QDAC 06/23/12 11/08/16 Omeprazole 40 mg PO DAILY 06/23/12 11/08/16 Paroxetine HCl [Paxil] 40 mg PO DAILY 08/14/12 11/08/16 Triamterene/Hydrochlorothiazid 1 each PO DAILY 10/07/12 11/08/16 [Triamterene-Hctz 37.5-25 mg Tb] Lisinopril 2.5 mg PO DAILY PRN 04/16/14 11/08/16 Butalbital/Aspirin/Caffeine 1 each PO Q6H PRN #4 capsule 11/08/16 [Fiorinal 50-325-40 mg Capsule] - Allergies Allergies/Adverse Reactions: Allergies Allergy/AdvReac Type Severity Reaction Status Date / Time felodipine Allergy Severe Respiratory Verified 11/08/16 15:28 Sulfa (Sulfonamide Allergy Intermediate Itching Verified 11/08/16 15:28 Antibiotics) gabapentin AdvReac Edema Verified 11/08/16 15:28 tramadol AdvReac Edema Verified 11/08/16 15:28 plendil Allergy Intermediate Unknown. Uncoded 11/08/16 15:28 tape Allergy Mild Hives Uncoded 11/08/16 15:28 depomedrol Allergy Unknown Uncoded 11/08/16 15:28 - Social History Does the pt smoke?: Yes Smoking Status: Current every day smoker Does the pt drink ETOH?: No Does the pt have substance abuse?: No - Immunizations Immunizations are current?: Yes - POLST Patient has POLST: No PD ED PE NORMAL - Vitals Vital signs reviewed: Yes - General General: Alert and oriented X 3 - HEENT HEENT: PERRL, Other (globes soft, no TA TTP) - Neck Neck: Supple, no meningeal sign - Cardiac Cardiac: RRR - Respiratory Respiratory: No respiratory distress, Clear bilaterally - Derm Derm: Normal color - Extremities Extremities: No deformity - Neuro Neuro: Alert and oriented X 3, occupational therapy technician 2-12 intact, No motor deficit, No sensory deficit, Normal speech Results - Vitals Vitals: Vital Signs - 24 hr 11/08/16 11/08/16 14:17 14:20 Temperature 36.5 C Heart Rate 77 Respiratory 17 Rate Blood Pressure 129/89 H O2 Saturation 100 Oxygen O2 Source Room air PD MEDICAL DECISION MAKING - ED course ED course: TYLER without red flags will tx symptomatically planned on ofirmev or toradol but pt states she has maxed out apap and motrin already tried just compazine and benadryl and IVF but complazine burned her arm and the IV was painful so not all IVF got infused so gave 10 PO oxycodone and pt felt better and was able to go home did consider fiorinal but not avaiable at so wrote rx for same - hx PUD but if takes with food should be OK for isolated doses Departure - Departure Disposition: 01 Home, Self Care Clinical Impression: Headache Qualifiers: Headache type: unspecified Headache chronicity pattern: acute headache Intractability: not intractable Qualified Code(s): R51 - Headache Condition: Good Instructions: ED Cephalgia Unspecified Follow-Up: Kwan Valdez MD [Primary Care Provider] - Prescriptions: Butalbital/Aspirin/Caffeine [Fiorinal 50-325-40 mg Capsule] 1 each PO Q6H PRN # 4 capsule PRN Reason: Headache Comments: Rest and drink fluids Off work two days Follow up with your PMD for a recheck Return if worse Forms: Activity restrictions Discharge Date/Time: 11/08/16 17:49
[2016-11-08] MEDS ORDERED: KETOROLAC 60 MG/2 ML VIAL IVP STA (15:59)
[2016-11-08] MEDS ORDERED: PROCHLORPERAZINE 10 MG/2 ML VIAL ONE (16:00)
[2016-11-08] MEDS ORDERED: MORPHINE 2 MG/ML SYRINGE IVP STA (16:50)
[2016-11-08] MEDS ORDERED: oxyCODONE 5 MG TABLET PO STA (16:50)
[2016-11-08] MEDS ORDERED: oxyCODONE 5 MG TABLET ONE (16:58)
== END 2016-11-08 17:49 | disposition home or self-care (01) ==
LOC: ED 14:10
DX: R51 Headache (principal); M54.2 Cervicalgia; M54.6 Pain in thoracic spine; M79.7 Fibromyalgia; I10 Essential (primary) hypertension; E03.9 Hypothyroidism, unspecified; F17.200 Nicotine dependence, unspecified, uncomplicated
CPT/HCPCS: 96361; 96374; 96375; 99283; 99284; A9270; J0131

== ENCOUNTER 2016-11-10 18:17 | Emergency (ER) | payer MEDICAID ==
[2016-11-10] MEDS ORDERED: KETOROLAC 30 MG/ML VIAL IM STA (19:41)
[2016-11-10] MEDS ORDERED: SUMAtriptan 6 MG/0.5 ML VIAL SUBQ STA (19:41)
--- NOTE | 2016-11-10 19:43 | ED Physician Documentation ---
PD HPI HEADACHE - Stated complaint Stated Complaint: TYLER - Chief complaint Chief Complaint: Neuro - History obtained from History obtained from: Patient - History of Present Illness Timing - onset: How many days ago (3) Timing - onset during: Rest Timing - duration: Days (3) Timing - details: Gradual onset Pain level max: 8 Pain level now: 8 Worst headache ever?: No: Worst headache ever? Location: Global Quality: Throbbing, Aching. No: Thunderclap Associated symptoms: Eye pain (+photophobia). No: Fever, Stiff neck, Nausea, Vomiting, Weakness, Numbness, Syncope, Seizure, Vision changes Improved by: Rest, Dark room Worsened by: Light, Noise, Moving Contributing factors: No: Anticoagulated, Possible carbon monoxide, Recent illness, Trauma Similar symptoms before: Diagnosis (migraine) Recently seen: Other (seen here recently for same, states not improved and unable to see her PCP.) Review of Systems Ten Systems: 10 systems reviewed and negative Constitutional: denies: Fever, Chills Nose: denies: Rhinorrhea / runny nose, Congestion Respiratory: denies: Cough Skin: denies: Rash Neurologic: denies: Focal weakness, Numbness, Confused, Altered mental status PD PAST MEDICAL HISTORY - Past Medical History Cardiovascular: Hypertension Respiratory: None Neuro: None Endocrine/Autoimmune: HyPOthyroidism GI: GERD, Ulcers, Other 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 HEENT: Chronic vision loss Psych: Depression, Anxiety Musculoskeletal: Fibromyalgia, Chronic back pain Derm: None - Past Surgical History Past Surgical History: Yes General: Appendectomy /AUTO CLUTCH SPECIALIST: section, Tubal ligation - Present Medications Home Medications: Ambulatory Orders Medication Instructions Recorded Confirmed Levothyroxine [Synthroid] 100 mcg PO QDAC 06/23/12 11/10/16 Omeprazole 40 mg PO DAILY 06/23/12 11/10/16 Paroxetine HCl [Paxil] 40 mg PO DAILY 08/14/12 11/10/16 Triamterene/Hydrochlorothiazid 1 each PO DAILY 10/07/12 11/10/16 [Triamterene-Hctz 37.5-25 mg Tb] Lisinopril 2.5 mg PO DAILY PRN 04/16/14 11/10/16 Butalbital/Aspirin/Caffeine 1 each PO Q6H PRN #4 capsule 11/08/16 11/10/16 [Fiorinal 50-325-40 mg Capsule] Promethazine [Phenergan] 25 - 50 mg PO Q6H PRN #10 tab 11/10/16 Sumatriptan [Imitrex] 20 mg NS ONCE PRN #5 spray 11/10/16 Oxycodone HCl/Acetaminophen 1 each PO Q6HR PRN #4 tablet 11/11/16 [Percocet 5-325 mg Tablet] - Allergies Allergies/Adverse Reactions: Allergies Allergy/AdvReac Type Severity Reaction Status Date / Time felodipine Allergy Severe Respiratory Verified 11/10/16 18:34 Sulfa (Sulfonamide Allergy Intermediate Itching Verified 11/10/16 18:34 Antibiotics) gabapentin AdvReac Edema Verified 11/10/16 18:34 tramadol AdvReac Edema Verified 11/10/16 18:34 plendil Allergy Intermediate Unknown. Uncoded 11/10/16 18:34 tape Allergy Mild Hives Uncoded 11/10/16 18:34 depomedrol Allergy Unknown Uncoded 11/10/16 18:34 - Social History Does the pt smoke?: Yes Smoking Status: Current every day smoker Does the pt drink ETOH?: No Does the pt have substance abuse?: No - Immunizations Immunizations are current?: Yes - POLST Patient has POLST: No PD ED PE NORMAL - Vitals Vital signs reviewed: Yes - General General: Alert and oriented X 3, No acute distress, Well developed/nourished, Other (Wearing sunglasses over her glasses) - HEENT HEENT: Atraumatic, PERRL, EOMI, Ears normal, Moist mucous membranes, Pharynx benign - Neck Neck: Supple, no meningeal sign, No bony TTP - Cardiac Cardiac: RRR, Strong equal pulses - Respiratory Respiratory: No respiratory distress, Clear bilaterally - Abdomen Abdomen: Soft, Non tender, Non distended - Back Back: No spinal TTP - Derm Derm: Warm and dry, No rash - Extremities Extremities: No edema - Neuro Neuro: Alert and oriented X 3, pump tender 2-12 intact, No motor deficit, No sensory deficit, Normal speech, Other (Normal cerebellar test) - Psych Psych: Normal mood, Normal affect Results - Vitals Vitals: Oxygen O2 Source Room air PD MEDICAL DECISION MAKING - ED course Complexity details: reviewed old records, reviewed results, re-evaluated patient , considered differential, d/w patient ED course: Patient is a 51-year-old female with a headache for the past several days, given Toradol, Phenergan, Imitrex and her headache nearly resolved. She requests to go home and sleep at this time. No evidence of subarachnoid hemorrhage, tumor, mass. She is very well-appearing, nontoxic. Afebrile. Normal neurological exam. GCS 15. She refused the Benadryl IM. Patient counseled regarding signs and symptoms for which I believe and urgent re- evaluation would be necessary. Patient with good understanding of and agreement to plan and is comfortable going home at this time This document was made in part using voice recognition software. While efforts are made to proofread this document, sound alike and grammatical errors may occur. Departure - Departure Disposition: Home, Self Care Clinical Impression: Headache Qualifiers: Headache type: unspecified Headache chronicity pattern: acute headache Intractability: not intractable Qualified Code(s): R51 - Headache Condition: Good Instructions: ED Cephalgia Unspecified Follow-Up: Kwan Valdez MD [Primary Care Provider] - Within 3 Days Prescriptions: Sumatriptan [Imitrex] 20 mg NS ONCE PRN #5 spray PRN Reason: Headache Promethazine [Phenergan] 25 - 50 mg PO Q6H PRN #10 tab PRN Reason: Nausea / Vomiting Comments: Make sure to follow-up with your doctor on Wednesday as scheduled for further care. Return if you worsen. You are not to drive until tomorrow morning because of the medications you were given tonight. Discharge Date/Time: 11/10/16 22:09
[2016-11-10] MEDS ORDERED: KETOROLAC 60 MG/2 ML VIAL ONE (19:55)
[2016-11-10] MEDS ORDERED: SUMAtriptan 6 MG/0.5 ML VIAL SUBQ ONE (19:55)
[2016-11-10] MEDS ORDERED: PROMETHAZINE 25 MG/1 ML VIAL IM STA (20:52)
[2016-11-10] MEDS ORDERED: diphenhydrAMINE INJ 50 MG/ML VIAL IM STA (20:52)
[2016-11-10] MEDS ORDERED: PROMETHAZINE 25 MG/1 ML VIAL ONE (21:26)
[2016-11-10] MEDS ORDERED: diphenhydrAMINE INJ 50 MG/ML VIAL ONE (21:26)
[2016-11-10 21:56] VITALS: BP 140/84
== END 2016-11-10 22:09 | disposition home or self-care (01) ==
LOC: ED 18:17
DX: R51 Headache (principal); I10 Essential (primary) hypertension; E03.9 Hypothyroidism, unspecified; K21.9 Gastro-esophageal reflux disease without esophagitis; M79.7 Fibromyalgia; Z87.11 Personal history of peptic ulcer disease; F17.200 Nicotine dependence, unspecified, uncomplicated
CPT/HCPCS: 96372; 99283

== ENCOUNTER 2016-11-11 11:42 | Emergency (ER) | payer MEDICAID ==
[2016-11-11] MEDS ORDERED: KETOROLAC 60 MG/2 ML VIAL IM STA (15:39)
[2016-11-11] MEDS ORDERED: oxyCOD/ACETAMIN 5 MG/325 MG TABLET PO STA (15:39)
[2016-11-11] MEDS ORDERED: KETOROLAC 60 MG/2 ML VIAL ONE (15:58)
[2016-11-11] MEDS ORDERED: oxyCOD/ACETAMIN 5 MG/325 MG TABLET PO ONE (15:58)
--- NOTE | 2016-11-11 16:18 | CT Preliminary Report ---
Exam: CT Head W/O IMPRESSION: Normal head CT. [facility] SITE ID: [id number]
--- NOTE | 2016-11-11 16:21 | CT Report ---
EXAM: CT HEAD EXAM DATE: 11/11/2016 03:57 PM. CLINICAL HISTORY: Headache for 3 days. COMPARISON: None. TECHNIQUE: Multiaxial CT images were obtained from the foramen magnum to the vertex. IV contrast: Non e. Reformats: Coronal. In accordance with CT protocol optimization, one or more of the following dose reduction techniques w ere utilized for this exam: automated exposure control, adjustment of mA and/or KV based on patient s ize, or use of iterative reconstructive technique. FINDINGS: Parenchyma: No intraparenchymal hemorrhage. No evidence of mass, midline shift, or CT findings of inf arction. Pinto-white differentiation is distinct. Extraaxial Spaces: Normal for age. No subdural or epidural collections identified. Ventricles: Normal in size and position. Sinuses: Imaged paranasal sinuses, orbits, and mastoids show no significant abnormality. Bones: No evidence of fracture or calvarial defect. Other: None. IMPRESSION: Normal head CT. [facility] Referring Provider Line: [phone] SITE ID: [id number]
--- NOTE | 2016-11-11 16:50 | ED Physician Documentation ---
History of Present Illness - Stated complaint Stated Complaint: TYLER - Chief complaint Chief Complaint: Neuro - Additonal information Additional information: hx from pt 3rd visit for TYLER started approx 5 days gradually progressed to become severe no injury no exposure to ill contacts no fever no neck stiffness no numbnes or weakness no eye pain vision changes no CO exposure no hx same seen X 2 aleready for atraumatic TYLER with nl neuro exam and nor red flags and was txed with a variety of meds such as fiorinal and imitrex s relief Review of Systems Constitutional: denies: Fever, Chills Eyes: denies: Decreased vision, Photophobia Cardiac: denies: Chest pain / pressure Respiratory: denies: Dyspnea GI: denies: Abdominal Pain Musculoskeletal: denies: Neck pain Neurologic: reports: Headache. 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 HEENT: Chronic vision loss Psych: Depression, Anxiety Musculoskeletal: Fibromyalgia, Chronic back pain Derm: None - Past Surgical History Past Surgical History: Yes General: Appendectomy /ELECTRONIC PREPRESS OPERATOR: section, Tubal ligation - Present Medications Home Medications: Ambulatory Orders Medication Instructions Recorded Confirmed Levothyroxine [Synthroid] 100 mcg PO QDAC 06/23/12 11/10/16 Omeprazole 40 mg PO DAILY 06/23/12 11/10/16 Paroxetine HCl [Paxil] 40 mg PO DAILY 08/14/12 11/10/16 Triamterene/Hydrochlorothiazid 1 each PO DAILY 10/07/12 11/10/16 [Triamterene-Hctz 37.5-25 mg Tb] Lisinopril 2.5 mg PO DAILY PRN 04/16/14 11/10/16 Butalbital/Aspirin/Caffeine 1 each PO Q6H PRN #4 capsule 11/08/16 11/10/16 [Fiorinal 50-325-40 mg Capsule] Promethazine [Phenergan] 25 - 50 mg PO Q6H PRN #10 tab 11/10/16 Sumatriptan [Imitrex] 20 mg NS ONCE PRN #5 spray 11/10/16 - Allergies Allergies/Adverse Reactions: Allergies Allergy/AdvReac Type Severity Reaction Status Date / Time felodipine Allergy Severe Respiratory Verified 11/10/16 18:34 Sulfa (Sulfonamide Allergy Intermediate Itching Verified 11/10/16 18:34 Antibiotics) gabapentin AdvReac Edema Verified 11/10/16 18:34 tramadol AdvReac Edema Verified 11/10/16 18:34 plendil Allergy Intermediate Unknown. Uncoded 11/10/16 18:34 tape Allergy Mild Hives Uncoded 11/10/16 18:34 depomedrol Allergy Unknown Uncoded 11/10/16 18:34 - Social History Does the pt smoke?: Yes Smoking Status: Current every day smoker Does the pt drink ETOH?: No Does the pt have substance abuse?: No - Immunizations Immunizations are current?: Yes - POLST Patient has POLST: No PD ED PE NORMAL - Vitals Vital signs reviewed: Yes - General General: Alert and oriented X 3 - HEENT HEENT: PERRL, Other (globes soft no TA TTP) - Neck Neck: Supple, no meningeal sign - Cardiac Cardiac: RRR - Respiratory Respiratory: No respiratory distress, Clear bilaterally - Derm Derm: Normal color - Neuro Neuro: Alert and oriented X 3, internet marketing consultant 2-12 intact, No motor deficit, No sensory deficit, Normal speech Results - Vitals Vitals: Vital Signs - 24 hr 11/11/16 11:58 Temperature 36.2 C L Heart Rate 82 Respiratory 18 Rate Blood Pressure 116/86 H O2 Saturation 100 Oxygen O2 Source Room air - Rads (name of study) CTH Radiology: See rad report (neg) PD MEDICAL DECISION MAKING - ED course ED course: CTH neg no fever doubt meningitis gradual onset doubt SAH TYLER gone after toradol and one percocet Departure - Departure Disposition: 01 Home, Self Care Clinical Impression: Headache Qualifiers: Headache type: unspecified Headache chronicity pattern: acute headache Condition: Good Instructions: ED Cephalgia Unspecified Comments: The CT scan was normal You do not have a fever to suggest meningitis And you feel better So I think it is OK for you to go home now
[2016-11-11 17:06] VITALS: BP 120/90
== END 2016-11-11 17:07 | disposition home or self-care (01) ==
LOC: ED 11:42
DX: R51 Headache (principal); I10 Essential (primary) hypertension; F17.200 Nicotine dependence, unspecified, uncomplicated
CPT/HCPCS: 70450; 96372; 99283; A9270

== ENCOUNTER 2016-12-08 09:29 | Emergency (ER) | payer MEDICAID ==
[2016-12-08 11:23] VITALS: BP 135/93
--- NOTE | 2016-12-08 12:23 | ED Physician Documentation ---
History of Present Illness - Stated complaint Stated Complaint: BACK PX - Chief complaint Chief Complaint: Back Pain - Additonal information Additional information: hx from pt point tenderness to low T spine and numbness to a finger on her L hand no injury no fever no recent surgery dental work IV meds/drugs no other numbness weakness no abd pain no urinary sx no saddle anesthesia Review of Systems Constitutional: denies: Fever Throat: denies: Dental pain / toothache GI: denies: Abdominal Pain : denies: Dysuria, Incontinent, Hematuria Musculoskeletal: reports: Back pain Neurologic: reports: Numbness (a finger L hand - not in lower T dermatome). 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 HEENT: Chronic vision loss Psych: Depression, Anxiety Musculoskeletal: Fibromyalgia, Chronic back pain Derm: None - Past Surgical History Past Surgical History: Yes General: Appendectomy /GEOSPATIAL TECHNICIAN: section, Tubal ligation - Present Medications Home Medications: Ambulatory Orders Medication Instructions Recorded Confirmed Levothyroxine [Synthroid] 100 mcg PO QDAC 06/23/12 12/08/16 Omeprazole 40 mg PO DAILY 06/23/12 12/08/16 Paroxetine HCl [Paxil] 40 mg PO DAILY 08/14/12 12/08/16 Triamterene/Hydrochlorothiazid 1 each PO DAILY 10/07/12 12/08/16 [Triamterene-Hctz 37.5-25 mg Tb] Lisinopril 2.5 mg PO DAILY PRN 04/16/14 12/08/16 Carisoprodol [Soma] 350 mg PO Q8H PRN #15 tablet 12/08/16 Cyclobenzaprine [Flexeril] 10 mg PO TID PRN 12/08/16 12/08/16 Lidocaine Patch 5% [Lidoderm Patch] 1 each TOP DAILY PRN #10 patch 12/08/16 - Allergies Allergies/Adverse Reactions: Allergies Allergy/AdvReac Type Severity Reaction Status Date / Time felodipine Allergy Severe Respiratory Verified 12/08/16 09:47 Sulfa (Sulfonamide Allergy Intermediate Itching Verified 12/08/16 09:47 Antibiotics) gabapentin AdvReac Edema Verified 12/08/16 09:47 tramadol AdvReac Edema Verified 12/08/16 09:47 plendil Allergy Intermediate Unknown. Uncoded 12/08/16 09:47 tape Allergy Mild Hives Uncoded 12/08/16 09:47 depomedrol Allergy Unknown Uncoded 12/08/16 09:47 - Social History Does the pt smoke?: Yes Smoking Status: Current every day smoker Does the pt drink ETOH?: No Does the pt have substance abuse?: No - Immunizations Immunizations are current?: Yes - POLST Patient has POLST: No PD ED PE NORMAL - Vitals Vital signs reviewed: Yes - General General: Alert and oriented X 3 - HEENT HEENT: PERRL - Neck Neck: Supple, no meningeal sign - Cardiac Cardiac: RRR, No murmur - Respiratory Respiratory: No respiratory distress, Clear bilaterally - Abdomen Abdomen: Soft, Non tender, Other (no pulsatile mass) - Back Back: Other (focal TTP approx T 10 s redness warmth swelling etc) - Neuro Neuro: Alert and oriented X 3, Other (denies saddle anesthesia, hip flex knee ext knee dorsi plantar flexion and great toe ext all 5/5, no sensation to legs, no clonus, neg SLR dorinda) Results - Vitals Vitals: Vital Signs - 24 hr 12/08/16 12/08/16 09:43 11:22 Temperature 36.7 C 36.4 C L Heart Rate 83 77 Respiratory 16 18 Rate Blood Pressure 136/91 H 135/93 H O2 Saturation 100 98 Oxygen O2 Source Room air - Rads (name of study) T spine Radiology: See rad report (no acute process, spondylosis) Departure - Departure Disposition: 01 Home, Self Care Clinical Impression: Back pain Qualifiers: Back pain location: thoracic back pain Chronicity: acute Back pain laterality: midline Qualified Code(s): M54.6 - Pain in thoracic spine Condition: Good Instructions: ED Neck Back Pain General Follow-Up: Kwan Valdez MD [Primary Care Provider] - Prescriptions: Carisoprodol [Soma] 350 mg PO Q8H PRN #15 tablet PRN Reason: muscle spasm Lidocaine Patch 5% [Lidoderm Patch] 1 each TOP DAILY PRN #10 patch PRN Reason: Pain Comments: The xray is fine. You have no sign of a spine infection or a herniated disk. I think it is safe for you to go home. I recommend lidocaine patches, muscle relaxants, and tylenol for the pain. Please follow up with your PMD to get your blood pressure rechecked - it was high today Forms: Activity restrictions
--- NOTE | 2016-12-08 12:54 | XRAY Preliminary Report ---
Exam: XR THORACIC SPINE 2 VIEW IMPRESSION: Mild to moderate thoracic spondylosis. No appreciable change. [facility] SITE ID: [id number]
--- NOTE | 2016-12-08 12:56 | XRAY Report ---
EXAM: THORACIC SPINE RADIOGRAPHY EXAM DATE: 12/08/2016 12:23 PM. CLINICAL HISTORY: Point tender T 10. COMPARISON: Thoracic spine 09/13/2016. TECHNIQUE: 2 views. FINDINGS: Alignment: Normal. No spondylolisthesis or scoliosis. There are small anterior osteophytes at multiple levels. There is mild to moderate disk space narrowi ng. No apparent change. Soft Tissues: Unremarkable. The visualized lungs and cardiomediastinal silhouette are normal. IMPRESSION: Mild to moderate thoracic spondylosis. No appreciable change. [facility] Referring Provider Line: [phone] SITE ID: [id number]
== END 2016-12-08 13:17 | disposition home or self-care (01) ==
LOC: ED 09:29
DX: M54.6 Pain in thoracic spine (principal); I10 Essential (primary) hypertension; E03.9 Hypothyroidism, unspecified; F17.200 Nicotine dependence, unspecified, uncomplicated
CPT/HCPCS: 72070; 99283

== ENCOUNTER 2016-12-16 10:33 | Emergency (ER) | payer MEDICAID ==
--- NOTE | 2016-12-16 10:47 | ED Physician Documentation ---
PD HPI BACK PAIN - Stated complaint Stated Complaint: BACK PX - Chief complaint Chief Complaint: Back Pain - History obtained from History obtained from: Patient - History of Present Illness Timing - onset: Yesterday Timing - duration: Days (1) Timing - details: Abrupt onset, Still present Location: Upper, Right Quality: Pain, Spasm, Sharp, Similar to prior episodes Associated symptoms: No: Fever, Weakness, Numbness, Incontinent of urine, Unable to urinate, Hematuria, Incontinent of stool Improves with: Rest, Position Worsened by: Movement Similar symptoms before: Diagnosis (back spasm) Recently seen: Emergency Dept - Additional information Additional information: 51-year-old female with a history of chronic back pain has developed pain in her upper back and the muscles next to her spine. She was seen in the emergency department last week and given lidocaine patches which she states she shredded because they do not stick to her skin. She does have lidocaine gel which she has been using without much relief. She does have some Flexeril at home and she is taking this only at night. She relates that her pain did seem to get better and this is suddenly and abruptly worse beginning yesterday.She states the pain is a very specific area. 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 : None HEENT: Chronic vision loss Psych: Depression, Anxiety Musculoskeletal: Fibromyalgia, Chronic back pain Derm: None - Past Surgical History Past Surgical History: Yes General: Appendectomy /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 EDUCATION: section, Tubal ligation - Present Medications Home Medications: Ambulatory Orders Medication Instructions Recorded Confirmed Levothyroxine [Synthroid] 100 mcg PO QDAC 06/23/12 12/16/16 Omeprazole 40 mg PO DAILY 06/23/12 12/16/16 Paroxetine HCl [Paxil] 40 mg PO DAILY 08/14/12 12/16/16 Triamterene/Hydrochlorothiazid 1 each PO DAILY 10/07/12 12/16/16 [Triamterene-Hctz 37.5-25 mg Tb] Lisinopril 2.5 mg PO DAILY PRN 04/16/14 12/16/16 Cyclobenzaprine [Flexeril] 10 mg PO TID PRN 12/08/16 12/16/16 Acetaminophen [Tylenol] 650 mg PO Q6H PRN 12/16/16 12/16/16 Calcium Acetate 667 mg PO DAILY 12/16/16 12/16/16 Cholecalciferol [Vitamin D3] 5,000 unit PO DAILY 12/16/16 12/16/16 Ferrous Sulfate 325 mg PO DAILY 12/16/16 12/16/16 Multivitamin [Multiple Vitamins] 1 each PO DAILY 12/16/16 12/16/16 Turmeric/Turmeric Root Extract 1 each PO BID 12/16/16 12/16/16 [Turmeric 500 mg Capsule] - Allergies Allergies/Adverse Reactions: Allergies Allergy/AdvReac Type Severity Reaction Status Date / Time felodipine Allergy Severe Respiratory Verified 12/08/16 09:47 Sulfa (Sulfonamide Allergy Intermediate Itching Verified 12/08/16 09:47 Antibiotics) eletriptan [From Relpax] Allergy Unknown Verified 12/16/16 11:42 pregabalin Allergy Unknown Verified 12/16/16 11:42 gabapentin AdvReac Edema Verified 12/08/16 09:47 tramadol AdvReac Edema Verified 12/08/16 09:47 plendil Allergy Intermediate Unknown. Uncoded 12/08/16 09:47 tape Allergy Mild Hives Uncoded 12/08/16 09:47 depomedrol Allergy Unknown Uncoded 12/08/16 09:47 - Social History Does the pt smoke?: Yes Smoking Status: Current every day smoker Does the pt drink ETOH?: No Does the pt have substance abuse?: No - Immunizations Immunizations are current?: Yes - POLST Patient has POLST: No PD ED PE NORMAL - Vitals Vital signs reviewed: Yes (hypertensive) - General General: No acute distress, Well developed/nourished - HEENT HEENT: Atraumatic, PERRL, Other (dry mucous membranes) - Neck Neck: Supple, no meningeal sign - Respiratory Respiratory: No respiratory distress - Back Back: No CVA TTP, No spinal TTP, Other (There is specific tendernes to the right paraspinous muscles at the T6 level. The muscle is firm and appears to be in spasm) - Derm Derm: Normal color, Warm and dry, No rash, Other - Extremities Extremities: No deformity, No edema - Neuro Neuro: No motor deficit, No sensory deficit - Psych Psych: Normal mood, Normal affect Results - Vitals Vitals: Vital Signs - 24 hr 12/16/16 10:36 Temperature 36.0 C L Heart Rate 93 Respiratory 14 Rate Blood Pressure 139/104 H O2 Saturation 99 Oxygen O2 Source Room air PD MEDICAL DECISION MAKING - ED course Complexity details: reviewed old records, considered differential, d/w patient ED course: 51-year-old female with chronic back pain has a specific area of pain and spams and is dehydrated. She is encouraged to hydrate orally and here in the ED we have given her toradal and decadron. Departure - Departure Disposition: 01 Home, Self Care Clinical Impression: Spasm of back muscles, Dehydration Condition: Stable Instructions: ED Dehydration, ED Spasm Back No Trauma Follow-Up: Kwan Valdez MD [Primary Care Provider] -
[2016-12-16] MEDS ORDERED: DEXAMETHASONE 10 MG/ML VIAL PO STA (11:08)
[2016-12-16] MEDS ORDERED: KETOROLAC 60 MG/2 ML VIAL IM STA (11:08)
[2016-12-16] MEDS ORDERED: KETOROLAC 60 MG/2 ML VIAL ONE (11:22)
[2016-12-16] MEDS ORDERED: CHERRY SYRUP 10 ML UDC PO ONE (11:23)
[2016-12-16] MEDS ORDERED: DEXAMETHASONE 10 MG/ML VIAL ONE (11:23)
[2016-12-16 12:04] VITALS: BP 126/97
== END 2016-12-16 12:07 | disposition home or self-care (01) ==
LOC: ED 10:33
DX: E86.0 Dehydration (principal); M62.830 Muscle spasm of back; I10 Essential (primary) hypertension; E03.9 Hypothyroidism, unspecified; K21.9 Gastro-esophageal reflux disease without esophagitis; M79.7 Fibromyalgia; Z87.11 Personal history of peptic ulcer disease; F17.200 Nicotine dependence, unspecified, uncomplicated
CPT/HCPCS: 96372; 99283; 99284; A9270

== ENCOUNTER 2017-01-12 12:38 | Day surgery (SDC) | payer MEDICAID ==
[2017-01-12 13:00] LABS: HCG UR QUAL NEGATIVE
[2017-01-12] MEDS ORDERED: LACTATED RINGERS 1,000 ML IV ONE (13:23)
[2017-01-12] MEDS ORDERED: BENZOCAINE/TETRACAINE/BUTAMBEN SPRAY 56 GM TOP ONE ×2 (14:20→14:38)
[2017-01-12] MEDS ORDERED: PROPOFOL 200 MG/20 ML VIAL IVP ONE (14:45)
[2017-01-12] MEDS ORDERED: MORPHINE 10 MG/ML VIAL IVP ONE (14:45)
[2017-01-12] MEDS ORDERED: LIDOCAINE-MPF 2% 5 ML VIAL IM ONE (14:45)
[2017-01-12 15:27] VITALS: BP 141/85
== END 2017-01-12 12:39 | disposition home or self-care (01) ==
LOC: SDS 12:38
PROVIDERS: ATTEND Surgery
PROC: 0DB38ZX Excision of Lower Esophagus, Via Natural or Artificial Opening Endoscopic, Diagnostic (ICD-10-PCS; principal; 2017-01-12 14:00)
DX: R13.10 Dysphagia, unspecified (principal); B37.81 Candidal esophagitis
CPT/HCPCS: 43239; 81025; A9270; J7120

== ENCOUNTER 2017-01-13 13:21 | Emergency (ER) | payer MEDICAID ==
[2017-01-13 13:40] VITALS: BP 156/97
[2017-01-13] MEDS ORDERED: oxyCOD/ACETAMIN 5 MG/325 MG TABLET PO STA (14:08)
[2017-01-13] MEDS ORDERED: LIDOCAINE VISCOUS 2% 15 ML UDC MM STA (14:08)
[2017-01-13] MEDS ORDERED: MAG HYDROX/AL HYDROX/SIMETH 30 ML UDC PO STA (14:08)
--- NOTE | 2017-01-13 14:11 | ED Physician Documentation ---
PD HPI HEENT - Stated complaint Stated Complaint: TYLER/ST - Chief complaint Chief Complaint: Heent - History obtained from History obtained from: Patient - History of Present Illness Timing - onset: Other (She had an upper endoscopy yesterday for chronic dysphagia. Upon awakening from anesthesia she noted pain of the soft palate that has been persistent ever since. She denies any throat pain/ retropharyngeal pain, chest pain. She is not coughing up anything. No vomiting. 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 HEENT: Chronic vision loss Psych: Depression, Anxiety Musculoskeletal: Fibromyalgia, Chronic back pain Derm: None - Past Surgical History Past Surgical History: Yes General: Appendectomy Ortho: Other /CONSTRUCTION PROJECT 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: section, Tubal ligation - Present Medications Home Medications: Ambulatory Orders Medication Instructions Recorded Confirmed Levothyroxine [Synthroid] 100 mcg PO QDAC 06/23/12 01/13/17 Omeprazole 40 mg PO BID 06/23/12 01/13/17 Paroxetine HCl [Paxil] 40 mg PO DAILY 08/14/12 01/13/17 Triamterene/Hydrochlorothiazid 1 each PO DAILY 10/07/12 01/13/17 [Triamterene-Hctz 37.5-25 mg Tb] Lisinopril 2.5 mg PO DAILY PRN 04/16/14 01/13/17 Cyclobenzaprine [Flexeril] 10 mg PO TID PRN 12/08/16 01/13/17 Acetaminophen [Tylenol] 650 mg PO Q6H PRN 12/16/16 01/13/17 Calcium Acetate 667 mg PO DAILY 12/16/16 01/13/17 Cholecalciferol [Vitamin D3] 5,000 unit PO DAILY 12/16/16 01/13/17 Ferrous Sulfate 325 mg PO DAILY 12/16/16 01/13/17 Multivitamin [Multiple Vitamins] 1 each PO DAILY 12/16/16 01/13/17 Turmeric/Turmeric Root Extract 1 each PO BID 12/16/16 01/13/17 [Turmeric 500 mg Capsule] Oxycodone HCl/Acetaminophen 1 - 2 tab PO Q4H PRN #10 tablet 01/13/17 [Percocet 5-325 mg Tablet] - Allergies Allergies/Adverse Reactions: Allergies Allergy/AdvReac Type Severity Reaction Status Date / Time felodipine Allergy Severe Respiratory Verified 12/23/16 15:17 Sulfa (Sulfonamide Allergy Intermediate Itching Verified 12/23/16 15:17 Antibiotics) eletriptan [From Relpax] Allergy Unknown Verified 12/23/16 15:17 pregabalin Allergy Unknown Verified 12/23/16 15:17 gabapentin AdvReac Edema Verified 12/23/16 15:17 tramadol AdvReac Edema Verified 12/23/16 15:17 plendil Allergy Intermediate Unknown. Uncoded 12/23/16 15:17 tape Allergy Mild Hives Uncoded 12/23/16 15:17 depomedrol Allergy Unknown Uncoded 12/23/16 15:17 - Social History Does the pt smoke?: Yes Smoking Status: Current every day smoker Does the pt drink ETOH?: No Does the pt have substance abuse?: No - Immunizations Immunizations are current?: Yes - POLST Patient has POLST: No PD ED PE NORMAL - Vitals Vital signs reviewed: Yes - General General: Alert and oriented X 3, No acute distress - HEENT HEENT: Other (Mild redness of the tonsillar pillars and soft palate without overt obvious injury. The retropharynx that is visualized appears normal.) - Cardiac Cardiac: RRR, No murmur - Respiratory Respiratory: No respiratory distress, Clear bilaterally - Neuro Neuro: Alert and oriented X 3, Normal speech - Psych Psych: Normal mood, Normal affect Results - Vitals Vitals: Vital Signs - 24 hr 01/13/17 13:38 Temperature 36.9 C Heart Rate 115 H Respiratory 18 Rate Blood Pressure 156/97 H O2 Saturation 98 Oxygen O2 Source Room air PD MEDICAL DECISION MAKING - ED course ED course: Given that the pain is of the soft palate not where the biopsies were taken I have a low suspicion for significant injury. She was administered a GI cocktail and a few Percocet. Departure - Departure Disposition: 01 Home, Self Care Clinical Impression: Post procedure discomfort Condition: Good Record reviewed to determine appropriate education?: Yes Prescriptions: Oxycodone HCl/Acetaminophen [Percocet 5-325 mg Tablet] 1 - 2 tab PO Q4H PRN #10 tablet PRN Reason: Pain Comments: Return if worse or if you develop throat pain or chest pain or fevers. Your blood pressure was elevated today on check into the emergency department. This does not mean that you have hypertension, it is a common phenomenon to come to the emergency department and have elevated blood pressure. I recommend that you see your primary care physician within the week to have it rechecked when you are feeling better. Do not drink or drive while taking narcotic pain medication. Note that many narcotic pain relievers also contain Tylenol/acetaminophen. Please ensure that your total dose of acetaminophen from all sources does not exceed 3 g (3000 mg) per day. You may get constipated while on this medication. Take a stool softener such as Colace twice a day while you are on it. Also add an euim-[id number] laxative such as senna or MiraLAX on any day that you do not have a bowel movement. If you received a narcotic pain medication or sedative while in the emergency department, do not drive for the next 24 hours.
[2017-01-13] MEDS ORDERED: HYDROcod/ACETAM 5/325 MG TABLET ONE (14:20)
[2017-01-13] MEDS ORDERED: MAG HYDROX/AL HYDROX/SIMETH 30 ML UDC ONE (14:20)
[2017-01-13] MEDS ORDERED: LIDOCAINE VISCOUS 2% 15 ML UDC MM ONE (14:20)
[2017-01-13] MEDS ORDERED: oxyCOD/ACETAMIN 5 MG/325 MG TABLET PO ONE (14:25)
== END 2017-01-13 14:22 | disposition home or self-care (01) ==
LOC: ED 13:21
DX: G89.18 Other acute postprocedural pain (principal); I10 Essential (primary) hypertension; E78.00 Pure hypercholesterolemia, unspecified; K21.9 Gastro-esophageal reflux disease without esophagitis; Z87.11 Personal history of peptic ulcer disease; M79.7 Fibromyalgia; F17.200 Nicotine dependence, unspecified, uncomplicated
CPT/HCPCS: 99283; A9270

== ENCOUNTER 2017-01-22 10:26 | Emergency (ER) | payer MEDICAID ==
[2017-01-22 10:42] VITALS: BP 140/107
--- NOTE | 2017-01-22 11:20 | XRAY Preliminary Report ---
Exam: XR HAND 3 VIEW RT IMPRESSION: No acute bony pathology right hand radiography. [facility] SITE ID: [id number]
--- NOTE | 2017-01-22 11:23 | XRAY Report ---
EXAM: RIGHT HAND RADIOGRAPHY EXAM DATE: 01/22/2017 11:09 AM. CLINICAL HISTORY: Trauma. Pain COMPARISON: None. TECHNIQUE: 3 views. FINDINGS: Bones: Normal. No fractures or bone lesions. Joints: Normal. No subluxations or significant degenerative change. Soft Tissues: Mild soft tissue swelling. IMPRESSION: No acute bony pathology right hand radiography. [facility] Referring Provider Line: [phone] SITE ID: [id number]
[2017-01-22] MEDS ORDERED: ACETAMINOPHEN 325 MG TABLET PO STA (12:12)
[2017-01-22] MEDS ORDERED: ACETAMINOPHEN 325 MG TABLET PO ONE (12:12)
--- NOTE | 2017-01-22 12:19 | ED Physician Documentation ---
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 HEENT: Chronic vision loss Psych: Depression, Anxiety Musculoskeletal: Fibromyalgia, Chronic back pain Derm: None - Past Surgical History Past Surgical History: Yes General: Appendectomy Ortho: Other /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: section, Tubal ligation - Present Medications Home Medications: Ambulatory Orders Medication Instructions Recorded Confirmed Levothyroxine [Synthroid] 100 mcg PO QDAC 06/23/12 01/22/17 Omeprazole 40 mg PO BID 06/23/12 01/22/17 Paroxetine HCl [Paxil] 40 mg PO DAILY 08/14/12 01/22/17 Triamterene/Hydrochlorothiazid 1 each PO DAILY 10/07/12 01/22/17 [Triamterene-Hctz 37.5-25 mg Tb] Lisinopril 2.5 mg PO DAILY PRN 04/16/14 01/22/17 Cyclobenzaprine [Flexeril] 10 mg PO TID PRN 12/08/16 01/22/17 Acetaminophen [Tylenol] 650 mg PO Q6H PRN 12/16/16 01/22/17 Calcium Acetate 667 mg PO DAILY 12/16/16 01/22/17 Cholecalciferol [Vitamin D3] 5,000 unit PO DAILY 12/16/16 01/22/17 Ferrous Sulfate 325 mg PO DAILY 12/16/16 01/22/17 Multivitamin [Multiple Vitamins] 1 each PO DAILY 12/16/16 01/22/17 Turmeric/Turmeric Root Extract 1 each PO BID 12/16/16 01/22/17 [Turmeric 500 mg Capsule] - Allergies Allergies/Adverse Reactions: Allergies Allergy/AdvReac Type Severity Reaction Status Date / Time felodipine Allergy Severe Respiratory Verified 01/22/17 10:42 Sulfa (Sulfonamide Allergy Intermediate Itching Verified 01/22/17 10:42 Antibiotics) eletriptan [From Relpax] Allergy Unknown Verified 01/22/17 10:42 pregabalin Allergy Unknown Verified 01/22/17 10:42 gabapentin AdvReac Edema Verified 01/22/17 10:42 tramadol AdvReac Edema Verified 01/22/17 10:42 plendil Allergy Intermediate Unknown. Uncoded 01/22/17 10:42 tape Allergy Mild Hives Uncoded 01/22/17 10:42 depomedrol Allergy Unknown Uncoded 01/22/17 10:42 - Social History Does the pt smoke?: Yes Smoking Status: Current every day smoker Does the pt drink ETOH?: No Does the pt have substance abuse?: No - Immunizations Immunizations are current?: Yes - POLST Patient has POLST: No PD ED PE NORMAL - Vitals Vital signs reviewed: Yes - Extremities Extremities: Other (R hand with bruising and swelling over 3rd and 4th MC distally, no open wound, nl cascade, limited ROM 2/2 pain, MSV intact) Results - Vitals Vitals: Vital Signs - 24 hr 01/22/17 10:38 Temperature 36.2 C L Heart Rate 96 Respiratory 18 Rate Blood Pressure 140/107 H O2 Saturation 100 Oxygen O2 Source Room air - Rads (name of study) hand Radiology: See rad report (neg) Departure - Departure Disposition: Home, Self Care Clinical Impression: Hand contusion Qualifiers: Encounter type: initial encounter Laterality: right Qualified Code(s): S60.221A - Contusion of right hand, initial encounter Condition: Good Instructions: ED Contusion Hand Comments: Thankfully the xray does not show a fracture Recommend using an MARIA ISABEL wrap and ice for 20 min at a time to decrease the swelling Wear the splint for support and comfort Since you cannot take motrin due to your ulcer history, recommend tylenol for the pain Please get your blood pressure rechecked - it was high today
== END 2017-01-22 12:30 | disposition home or self-care (01) ==
LOC: ED 10:26
DX: S60.221A Contusion of right hand, initial encounter (principal); W22.8XXA Striking against or struck by other objects, initial encounter; I10 Essential (primary) hypertension; E03.9 Hypothyroidism, unspecified; K21.9 Gastro-esophageal reflux disease without esophagitis; Z87.11 Personal history of peptic ulcer disease; M79.7 Fibromyalgia; F17.200 Nicotine dependence, unspecified, uncomplicated
CPT/HCPCS: 99283

== ENCOUNTER 2017-01-22 18:36 | Emergency (ER) | payer MEDICAID ==
--- NOTE | 2017-01-22 20:07 | ED Physician Documentation ---
History of Present Illness - Stated complaint Stated Complaint: COLD FINGERS - Chief complaint Chief Complaint: Ext Problem - History obtained from History obtained from: Patient - History of Present Illness Timing: Today Pain level now: 8 Improved by: rest Worsened by: movement - Additonal information Additional information: patient was T+R from this ED earlier today for right hand injury ,patient states she punched a wood post early this morning. Xrays performed earlier today of right hand were negative for acute process such as fracture. She returns because she feels the fingers have become cold and decreased sensation in 4th webspace. 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 HEENT: Chronic vision loss Psych: Depression, Anxiety Musculoskeletal: Fibromyalgia, Chronic back pain Derm: None - Past Surgical History Past Surgical History: Yes General: Appendectomy Ortho: Other /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 FINISHER: section, Tubal ligation - Present Medications Home Medications: Ambulatory Orders Medication Instructions Recorded Confirmed Levothyroxine [Synthroid] 100 mcg PO QDAC 06/23/12 01/22/17 Omeprazole 40 mg PO BID 06/23/12 01/22/17 Paroxetine HCl [Paxil] 40 mg PO DAILY 08/14/12 01/22/17 Triamterene/Hydrochlorothiazid 1 each PO DAILY 10/07/12 01/22/17 [Triamterene-Hctz 37.5-25 mg Tb] Lisinopril 2.5 mg PO DAILY PRN 04/16/14 01/22/17 Cyclobenzaprine [Flexeril] 10 mg PO TID PRN 12/08/16 01/22/17 Acetaminophen [Tylenol] 650 mg PO Q6H PRN 12/16/16 01/22/17 Calcium Acetate 667 mg PO DAILY 12/16/16 01/22/17 Cholecalciferol [Vitamin D3] 5,000 unit PO DAILY 12/16/16 01/22/17 Ferrous Sulfate 325 mg PO DAILY 12/16/16 01/22/17 Multivitamin [Multiple Vitamins] 1 each PO DAILY 12/16/16 01/22/17 Turmeric/Turmeric Root Extract 1 each PO BID 12/16/16 01/22/17 [Turmeric 500 mg Capsule] - Allergies Allergies/Adverse Reactions: Allergies Allergy/AdvReac Type Severity Reaction Status Date / Time felodipine Allergy Severe Respiratory Verified 01/22/17 10:42 Sulfa (Sulfonamide Allergy Intermediate Itching Verified 01/22/17 10:42 Antibiotics) eletriptan [From Relpax] Allergy Unknown Verified 01/22/17 10:42 pregabalin Allergy Unknown Verified 01/22/17 10:42 gabapentin AdvReac Edema Verified 01/22/17 10:42 tramadol AdvReac Edema Verified 01/22/17 10:42 plendil Allergy Intermediate Unknown. Uncoded 01/22/17 10:42 tape Allergy Mild Hives Uncoded 01/22/17 10:42 depomedrol Allergy Unknown Uncoded 01/22/17 10:42 - Social History Does the pt smoke?: Yes Smoking Status: Current every day smoker Does the pt drink ETOH?: No Does the pt have substance abuse?: No - Immunizations Immunizations are current?: Yes - POLST Patient has POLST: No PD ED PE NORMAL - Vitals Vital signs reviewed: Yes - General General: Alert and oriented X 3, No acute distress, Well developed/nourished - Neuro Neuro: No motor deficit, No sensory deficit (LTS intact right hand including 4th webspace) PD ED PE EXPANDED - Extremities Extremities: Tenderness, Swelling, Bruising, Other (brisk capillary refill in all digits of right hand. I do not appreciate any significant difference in tactile temperature of the right hand and right digits compared to other hand or right wrist) BEATRICE UE/Hands Visual: 1 - bruising, swelling, tenderness Results - Vitals Vitals: Vital Signs - 24 hr 01/22/17 01/22/17 19:00 21:17 Temperature 36.8 C 36.7 C Heart Rate 85 86 Respiratory 16 20 Rate Blood Pressure 139/98 H 137/79 H O2 Saturation 99 98 Oxygen O2 Source Room air PD MEDICAL DECISION MAKING - ED course Complexity details: reviewed old records, considered differential, d/w patient ED course: Patient requests Toradol, a dose of which is given in ED. She also feels the splint provided on previous visit is not adequately covering the injured area, and thus a sugar-tong splint is placed and patient provided with sling. Departure - Departure Disposition: 01 Home, Self Care Clinical Impression: Hand contusion Condition: Good Instructions: ED Sling, ED Splint Care Fiberglass, ED Sprain Hand Follow-Up: Kwan Valdez MD [Primary Care Provider] - Discharge Date/Time: 01/22/17 21:22
[2017-01-22] MEDS ORDERED: KETOROLAC 60 MG/2 ML VIAL IM STA (20:25)
[2017-01-22] MEDS ORDERED: KETOROLAC 60 MG/2 ML VIAL ONE (20:56)
[2017-01-22] MEDS ORDERED: HYDROcod/ACET 5/325 Prepack 6 PO STA (21:16)
[2017-01-22 21:19] VITALS: BP 137/79
[2017-01-22] MEDS ORDERED: HYDROcod/ACET 5/325 Prepack 6 PO ONE (21:25)
--- NOTE | 2017-01-22 21:39 | ED Physician Documentation ---
ED Addendum - Addendum Addendum: 01/22/17 21:39 unscheduled return visit - chart accessed for follow up and educational purposes
== END 2017-01-22 21:22 | disposition home or self-care (01) ==
LOC: ED 18:36
DX: S60.221A Contusion of right hand, initial encounter (principal); W22.8XXA Striking against or struck by other objects, initial encounter; I10 Essential (primary) hypertension; E03.9 Hypothyroidism, unspecified; K21.9 Gastro-esophageal reflux disease without esophagitis; M79.7 Fibromyalgia; Z87.11 Personal history of peptic ulcer disease; F17.200 Nicotine dependence, unspecified, uncomplicated
CPT/HCPCS: 29105; 73130; 96372; 99283; A9270

== ENCOUNTER 2017-02-07 10:48 | Emergency (ER) | payer MEDICAID ==
[2017-02-07] MEDS ORDERED: oxyCODONE 5 MG TABLET PO STA (12:32)
--- NOTE | 2017-02-07 12:36 | ED Physician Documentation ---
PD HPI BACK PAIN - Stated complaint Stated Complaint: BACK PAIN - Chief complaint Chief Complaint: Back Pain - History obtained from History obtained from: Patient - History of Present Illness Timing - onset: Other (She developed moderate to severe knifelike sharp back pain in the mid thorax yesterday which is nonradiating. There is no associated weakness, numbness, or tingling of the extremities. No saddle anesthesia, no fevers, no cough.) Review of Systems Constitutional: denies: Fever, Chills Ears: reports: Reviewed and negative Cardiac: denies: Chest pain / pressure, Palpitations Respiratory: denies: Dyspnea, Cough PD PAST MEDICAL HISTORY - Past Medical History Past Medical History: Yes Cardiovascular: Hypertension Respiratory: None Neuro: None Endocrine/Autoimmune: HyPOthyroidism GI: GERD, Ulcers, Other IMPRESS ASSOCIATE: None : None HEENT: Chronic vision loss Psych: Depression, Anxiety Musculoskeletal: Fibromyalgia, Chronic back pain Derm: None - Past Surgical History Past Surgical History: Yes General: Appendectomy Ortho: Other /IMPRESS ASSOCIATE: section, Tubal ligation - Present Medications Home Medications: Ambulatory Orders Medication Instructions Recorded Confirmed Levothyroxine [Synthroid] 100 mcg PO QDAC 06/23/12 02/07/17 Omeprazole 20 mg PO BID 06/23/12 02/07/17 Paroxetine HCl [Paxil] 40 mg PO DAILY 08/14/12 02/07/17 Triamterene/Hydrochlorothiazid 1 each PO DAILY 10/07/12 02/07/17 [Triamterene-Hctz 37.5-25 mg Tb] Lisinopril 2.5 mg PO DAILY PRN 04/16/14 02/07/17 Cyclobenzaprine [Flexeril] 10 mg PO DAILY 12/08/16 02/07/17 Acetaminophen [Tylenol] 650 mg PO Q6H PRN 12/16/16 02/07/17 Calcium Acetate 667 mg PO DAILY 12/16/16 02/07/17 Cholecalciferol [Vitamin D3] 10,000 unit PO DAILY 12/16/16 02/07/17 Ferrous Sulfate 325 mg PO DAILY 12/16/16 02/07/17 Multivitamin [Multiple Vitamins] 1 each PO DAILY 12/16/16 02/07/17 Turmeric/Turmeric Root Extract 2 each PO BID 12/16/16 02/07/17 [Turmeric 500 mg Capsule] oxyCODONE [Roxicodone] 5 mg PO Q4-6H PRN #10 tablet 02/07/17 - Allergies Allergies/Adverse Reactions: Allergies Allergy/AdvReac Type Severity Reaction Status Date / Time felodipine Allergy Severe Respiratory Verified 02/07/17 10:56 Sulfa (Sulfonamide Allergy Intermediate Itching Verified 02/07/17 10:56 Antibiotics) eletriptan [From Relpax] Allergy Unknown Verified 02/07/17 10:56 pregabalin Allergy Unknown Verified 02/07/17 10:56 gabapentin AdvReac Edema Verified 02/07/17 10:56 tramadol AdvReac Edema Verified 02/07/17 10:56 plendil Allergy Intermediate Unknown. Uncoded 02/07/17 10:56 tape Allergy Mild Hives Uncoded 02/07/17 10:56 depomedrol Allergy Unknown Uncoded 02/07/17 10:56 - Social History Does the pt smoke?: Yes Smoking Status: Current every day smoker Does the pt drink ETOH?: No Does the pt have substance abuse?: No - Immunizations Immunizations are current?: Yes - POLST Patient has POLST: No PD ED PE NORMAL - Vitals Vital signs reviewed: Yes - General General: Alert and oriented X 3, No acute distress - Cardiac Cardiac: RRR, No murmur - Respiratory Respiratory: No respiratory distress, Clear bilaterally - Extremities Extremities: Other (Tenderness of the musculature of the mid back, around T8, no overlying skin changes or rash to suggest shingles. The patient has equal and normal Achilles and patellar reflexes bilaterally. Normal sensation in all areas of the legs. Patient denies saddle anesthesia. Normal strength in flexion-extension at the ankles, knees, and flexion of the hips.) - Neuro Neuro: Alert and oriented X 3 Eye Opening: Spontaneous Motor: Obeys Commands Verbal: Oriented GCS Score: 15 - Psych Psych: Normal mood, Normal affect Results - Vitals Vitals: Vital Signs - 24 hr 02/07/17 10:54 Temperature 36.4 C L Heart Rate 97 Respiratory 18 Rate Blood Pressure 140/115 H O2 Saturation 92 Oxygen O2 Source Room air Departure - Departure Disposition: 01 Home, Self Care Clinical Impression: Back pain Qualifiers: Back pain location: thoracic back pain Chronicity: acute Back pain laterality: midline Qualified Code(s): M54.6 - Pain in thoracic spine Condition: Good Record reviewed to determine appropriate education?: Yes Instructions: ED Neck Back Pain General Prescriptions: oxyCODONE [Roxicodone] 5 mg PO Q4-6H PRN #10 tablet PRN Reason: Pain Comments: Call your doctor to arrange a follow-up appointment, make the next available appointment. In the interim, return anytime if worse or if new symptoms develop. Your blood pressure was elevated today on check into the emergency department. This does not mean that you have hypertension, it is a common phenomenon to come to the emergency department and have elevated blood pressure. I recommend that you see your primary care physician within the week to have it rechecked when you are feeling better.
[2017-02-07 12:50] VITALS: BP 127/87
== END 2017-02-07 12:45 | disposition home or self-care (01) ==
LOC: ED 10:48
DX: M54.6 Pain in thoracic spine (principal); I10 Essential (primary) hypertension; E03.9 Hypothyroidism, unspecified; K21.9 Gastro-esophageal reflux disease without esophagitis; M79.7 Fibromyalgia; Z87.11 Personal history of peptic ulcer disease; F17.200 Nicotine dependence, unspecified, uncomplicated
CPT/HCPCS: 99283; A9270

== ENCOUNTER 2017-02-19 12:20 | Emergency (ER) | payer MEDICAID ==
[2017-02-19 12:27] VITALS: BP 150/96
--- NOTE | 2017-02-19 13:36 | ED Physician Documentation ---
PD HPI HEENT - Stated complaint Stated Complaint: TOOTH PAIN - Chief complaint Chief Complaint: Heent - History obtained from History obtained from: Patient - History of Present Illness Timing - onset: Yesterday Timing - details: Abrupt onset (tooth broke and is hurting. She tried to get into dentist but no appt until next week.), Still present Location: Tooth (right upper 2nd molar.) Associated symptoms: No: Fever, Congestion, Swollen nodes Similar symptoms before: Diagnosis (dental pain/infection.) Recently seen: Not recently seen Review of Systems Constitutional: denies: Fever, Chills Nose: denies: Rhinorrhea / runny nose, Congestion Throat: reports: Dental pain / toothache. denies: Oral lesions / sores, Sore throat PD PAST MEDICAL HISTORY - Past Medical History Cardiovascular: Hypertension Respiratory: None Neuro: None Endocrine/Autoimmune: HyPOthyroidism GI: GERD, Ulcers, Other DRILL RUNNER: None : None HEENT: Chronic vision loss Psych: Depression, Anxiety Musculoskeletal: Fibromyalgia, Chronic back pain Derm: None - Past Surgical History Past Surgical History: Yes General: Appendectomy Ortho: Other /DRILL RUNNER: section, Tubal ligation - Present Medications Home Medications: Ambulatory Orders Medication Instructions Recorded Confirmed Levothyroxine [Synthroid] 100 mcg PO QDAC 06/23/12 02/19/17 Omeprazole 20 mg PO BID 06/23/12 02/19/17 Paroxetine HCl [Paxil] 40 mg PO DAILY 08/14/12 02/19/17 Triamterene/Hydrochlorothiazid 1 each PO DAILY 10/07/12 02/19/17 [Triamterene-Hctz 37.5-25 mg Tb] Lisinopril 2.5 mg PO DAILY PRN 04/16/14 02/19/17 Cyclobenzaprine [Flexeril] 10 mg PO DAILY 12/08/16 02/19/17 Acetaminophen [Tylenol] 650 mg PO Q6H PRN 12/16/16 02/19/17 Calcium Acetate 667 mg PO DAILY 12/16/16 02/19/17 Cholecalciferol [Vitamin D3] 10,000 unit PO DAILY 12/16/16 02/19/17 Ferrous Sulfate 325 mg PO DAILY 12/16/16 02/19/17 Multivitamin [Multiple Vitamins] 1 each PO DAILY 12/16/16 02/19/17 Turmeric/Turmeric Root Extract 2 each PO BID 12/16/16 02/19/17 [Turmeric 500 mg Capsule] Cephalexin [Keflex] 500 mg PO TID #15 capsule 02/19/17 HYDROcod/ACETAM 5/325 [[place] 5/325] 1 tab PO Q6H PRN #15 tablet 02/19/17 - Allergies Allergies/Adverse Reactions: Allergies Allergy/AdvReac Type Severity Reaction Status Date / Time felodipine Allergy Severe Respiratory Verified 02/07/17 10:56 Sulfa (Sulfonamide Allergy Intermediate Itching Verified 02/07/17 10:56 Antibiotics) eletriptan [From Relpax] Allergy Unknown Verified 02/07/17 10:56 pregabalin Allergy Unknown Verified 02/07/17 10:56 gabapentin AdvReac Edema Verified 02/07/17 10:56 tramadol AdvReac Edema Verified 02/07/17 10:56 plendil Allergy Intermediate Unknown. Uncoded 02/07/17 10:56 tape Allergy Mild Hives Uncoded 02/07/17 10:56 depomedrol Allergy Unknown Uncoded 02/07/17 10:56 - Social History Does the pt smoke?: Yes Smoking Status: Current every day smoker Does the pt drink ETOH?: No Does the pt have substance abuse?: No - Immunizations Immunizations are current?: Yes - POLST Patient has POLST: No PD ED PE NORMAL - Vitals Vital signs reviewed: Yes - General General: Alert and oriented X 3, No acute distress, Well developed/nourished - HEENT HEENT: Ears normal, Pharynx benign. No: Dentition benign (terrible teeth generally. The one hurting has broken back quarter with caries to center. Amenable to temporary filling. Mild swelling of gum. No fluctuance. ) - Neck Neck: Supple, no meningeal sign, No adenopathy - Cardiac Cardiac: RRR, No murmur - Respiratory Respiratory: Clear bilaterally - Abdomen Abdomen: Soft, Non tender - Derm Derm: Normal color, Warm and dry, No rash Results - Vitals Vitals: Oxygen O2 Source Room air PD MEDICAL DECISION MAKING - ED course Complexity details: considered differential (temporary filling with Cavit. Meds for pain and infection. Has many ED visits, with pattern to suggest poor pain tolerance rather than abuse. ), d/w patient Departure - Departure Disposition: 01 Home, Self Care Clinical Impression: Pain, dental, Dental caries Condition: Stable Record reviewed to determine appropriate education?: Yes Instructions: ED Cavity Dental Follow-Up: SAMY TY [Primary Care Provider] - Prescriptions: Cephalexin [Keflex] 500 mg PO TID #15 capsule HYDROcod/ACETAM 5/325 [[place] 5/325] 1 tab PO Q6H PRN #15 tablet PRN Reason: Pain Comments: Drink lots of fluids. Try not to chew on that side. Hopefully the temporary filling will stay in place until he follow-up with the dentist next week. Use some ibuprofen or Aleve naproxen twice daily. Add Tylenol or hydrocodone if needed for pain. There is concern for early infection with the pain and so use cephalexin 3 times a day for the next 5 days. Follow-up with the dentist next week if possible. Discharge Date/Time: 02/19/17 14:03
== END 2017-02-19 14:03 | disposition home or self-care (01) ==
LOC: ED 12:20
DX: K02.9 Dental caries, unspecified (principal); K08.89 Other specified disorders of teeth and supporting structures; I10 Essential (primary) hypertension; K21.9 Gastro-esophageal reflux disease without esophagitis; E03.9 Hypothyroidism, unspecified; M79.7 Fibromyalgia; Z87.11 Personal history of peptic ulcer disease; F17.200 Nicotine dependence, unspecified, uncomplicated
CPT/HCPCS: 99283

== ENCOUNTER 2017-02-22 12:26 | Emergency (ER) | payer MEDICAID ==
[2017-02-22 12:33] VITALS: BP 137/109
--- NOTE | 2017-02-22 12:50 | ED Physician Documentation ---
History of Present Illness - Stated complaint Stated Complaint: TOOTH PX - Chief complaint Chief Complaint: Heent - Additonal information Additional information: hx from pt 51 f freq ER pt last seen 02/19 when her upper right first molar broke cavit placed, keflex and #15 vicodin rx cannot get into dentist until 03/11 temp cavity fell out it hurts again no fever Review of Systems Constitutional: denies: Fever Throat: reports: Dental pain / toothache PD PAST MEDICAL HISTORY - Past Medical History Cardiovascular: Hypertension Respiratory: None Neuro: None Endocrine/Autoimmune: HyPOthyroidism GI: GERD, Ulcers, Other 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 ASSEMBLER: None : None HEENT: Chronic vision loss Psych: Depression, Anxiety Musculoskeletal: Fibromyalgia, Chronic back pain Derm: None - Past Surgical History Past Surgical History: Yes General: Appendectomy Ortho: Other /CRUSHER ASSEMBLER: section, Tubal ligation - Present Medications Home Medications: Ambulatory Orders Medication Instructions Recorded Confirmed Levothyroxine [Synthroid] 100 mcg PO QDAC 06/23/12 02/22/17 Omeprazole 20 mg PO BID 06/23/12 02/22/17 Paroxetine HCl [Paxil] 40 mg PO DAILY 08/14/12 02/22/17 Triamterene/Hydrochlorothiazid 1 each PO DAILY 10/07/12 02/22/17 [Triamterene-Hctz 37.5-25 mg Tb] Lisinopril 2.5 mg PO DAILY PRN 04/16/14 02/22/17 Cyclobenzaprine [Flexeril] 10 mg PO DAILY 12/08/16 02/22/17 Acetaminophen [Tylenol] 650 mg PO Q6H PRN 12/16/16 02/22/17 Calcium Acetate 667 mg PO DAILY 12/16/16 02/22/17 Cholecalciferol [Vitamin D3] 10,000 unit PO DAILY 12/16/16 02/22/17 Ferrous Sulfate 325 mg PO DAILY 12/16/16 02/22/17 Multivitamin [Multiple Vitamins] 1 each PO DAILY 12/16/16 02/22/17 Turmeric/Turmeric Root Extract 2 each PO BID 12/16/16 02/22/17 [Turmeric 500 mg Capsule] Cephalexin [Keflex] 500 mg PO TID #15 capsule 02/19/17 02/22/17 HYDROcod/ACETAM 5/325 [[place] 5/325] 1 tab PO Q6H PRN #15 tablet 02/19/17 - Allergies Allergies/Adverse Reactions: Allergies Allergy/AdvReac Type Severity Reaction Status Date / Time felodipine Allergy Severe Respiratory Verified 02/22/17 12:33 Sulfa (Sulfonamide Allergy Intermediate Itching Verified 02/22/17 12:33 Antibiotics) eletriptan [From Relpax] Allergy Unknown Verified 02/22/17 12:33 pregabalin Allergy Unknown Verified 02/22/17 12:33 gabapentin AdvReac Edema Verified 02/22/17 12:33 tramadol AdvReac Edema Verified 02/22/17 12:33 plendil Allergy Intermediate Unknown. Uncoded 02/22/17 12:33 tape Allergy Mild Hives Uncoded 02/22/17 12:33 depomedrol Allergy Unknown Uncoded 02/22/17 12:33 - Social History Does the pt smoke?: Yes Smoking Status: Current every day smoker Does the pt drink ETOH?: No Does the pt have substance abuse?: No - Immunizations Immunizations are current?: Yes - POLST Patient has POLST: No PD ED PE NORMAL - Vitals Vital signs reviewed: Yes - HEENT HEENT: Other (upper right 1st molar with posterior inner corner of enamel broken on but no visibl dentin, no trismus) - Cardiac Cardiac: RRR - Respiratory Respiratory: No respiratory distress, Clear bilaterally Results - Vitals Vitals: Vital Signs - 24 hr 02/22/17 12:28 Temperature 36.5 C Heart Rate 100 Respiratory 16 Rate Blood Pressure 137/109 H O2 Saturation 100 Oxygen O2 Source Room air PD MEDICAL DECISION MAKING - ED course ED course: pt has an [facility] per [facility] (and most recent er visit 02/19) pt has had 524 controlled substance units rxed by 7 diff providers over the last 6 months including #10 percocet on 02/07, #30 percocet on 02/12, and then another 15 vicodin on 02/19 not yet in [facility] system (so #55 narcotics in last 2 weeks) offered pt tylenol for pain and to replace cavit she requests another doctor other EMP on at this time is with another pt pt has received a medical screening exam and does not appear to have an imminently life threatening issue - will dc to fup dental pt advised she did want cavit placed used topical lido first then carefully dried tooth and filled defect with cavit and smoothed it down pt was upset, says she never asked for narcotics, I advised that I has simply told the nurse when nurse came to me to advise pt was in pain after I had offered tylenol that i did not feel narcotics were the correct / appropriate med for this type of issue, and that I was happy to tx her with lidocaine tylenol and the cavit cavit placed pt still seems disgruntled pt departed - did not wait for dc instructions as she already had similar from Dr Garsia two days ago verbally advised to fup high BP Departure - Departure Disposition: Home, Self Care Clinical Impression: Pain, dental Condition: Good Instructions: ED Tooth Pain Follow-Up: SAMY TY [Primary Care Provider] - Comments: At this point the tooth does not look infected Although painful this does not appear to b a life or limb threatening medical problem Finish the antibiotics you have already started Call the dentist again tomorrow to try and get seen sooner. Tylenol and orajel as needed for the pain
== END 2017-02-22 13:14 | disposition home or self-care (01) ==
LOC: ED 12:26
DX: K08.89 Other specified disorders of teeth and supporting structures (principal); I10 Essential (primary) hypertension; E03.9 Hypothyroidism, unspecified; F17.200 Nicotine dependence, unspecified, uncomplicated
CPT/HCPCS: 99282; 99283

== ENCOUNTER 2017-02-24 12:09 | Emergency (ER) | payer MEDICAID ==
[2017-02-24 12:21] VITALS: BP 134/97
[2017-02-24] MEDS ORDERED: BUPIVACAINE 0.5% PF 30 ML VIAL SUBQ STA (12:41)
--- NOTE | 2017-02-24 12:44 | ED Physician Documentation ---
History of Present Illness - Stated complaint Stated Complaint: TOOTH PX - Chief complaint Chief Complaint: Heent - History obtained from History obtained from: Patient, Family - History of Present Illness Timing: How many weeks ago (1) Pain level max: 8 Pain level now: 8 - Additonal information Additional information: Patient is a 51 year old female that presents to the emergency department with dental pain for the past week. States chipped her tooth and unable to see her dentist until 03/11. Told today to come in every day at 0745 and they will work her in. Seen here twice in the past week for this. No fevers. no facial swelling. Review of Systems Constitutional: denies: Fever, Chills Throat: denies: Sore throat Respiratory: denies: Cough GI: denies: Vomiting PD PAST MEDICAL HISTORY - Past Medical History Past Medical History: Yes Cardiovascular: Hypertension Respiratory: None Neuro: None Endocrine/Autoimmune: HyPOthyroidism GI: GERD, Ulcers, Other PRACTICE LEAD: None : None HEENT: Chronic vision loss Psych: Depression, Anxiety Musculoskeletal: Fibromyalgia, Chronic back pain Derm: None - Past Surgical History Past Surgical History: Yes General: Appendectomy Ortho: Other /PRACTICE LEAD: section, Tubal ligation - Present Medications Home Medications: Ambulatory Orders Medication Instructions Recorded Confirmed Levothyroxine [Synthroid] 100 mcg PO QDAC 06/23/12 02/22/17 Omeprazole 20 mg PO BID 06/23/12 02/22/17 Paroxetine HCl [Paxil] 40 mg PO DAILY 08/14/12 02/22/17 Triamterene/Hydrochlorothiazid 1 each PO DAILY 10/07/12 02/22/17 [Triamterene-Hctz 37.5-25 mg Tb] Lisinopril 2.5 mg PO DAILY PRN 04/16/14 02/22/17 Cyclobenzaprine [Flexeril] 10 mg PO DAILY 12/08/16 02/22/17 Acetaminophen [Tylenol] 650 mg PO Q6H PRN 12/16/16 02/22/17 Calcium Acetate 667 mg PO DAILY 12/16/16 02/22/17 Cholecalciferol [Vitamin D3] 10,000 unit PO DAILY 12/16/16 02/22/17 Ferrous Sulfate 325 mg PO DAILY 12/16/16 02/22/17 Multivitamin [Multiple Vitamins] 1 each PO DAILY 12/16/16 02/22/17 Turmeric/Turmeric Root Extract 2 each PO BID 12/16/16 02/22/17 [Turmeric 500 mg Capsule] Cephalexin [Keflex] 500 mg PO TID #15 capsule 02/19/17 02/22/17 HYDROcod/ACETAM 5/325 [[place] 5/325] 1 tab PO Q6H PRN #15 tablet 02/19/17 - Allergies Allergies/Adverse Reactions: Allergies Allergy/AdvReac Type Severity Reaction Status Date / Time felodipine Allergy Severe Respiratory Verified 02/22/17 12:33 Sulfa (Sulfonamide Allergy Intermediate Itching Verified 02/22/17 12:33 Antibiotics) eletriptan [From Relpax] Allergy Unknown Verified 02/22/17 12:33 pregabalin Allergy Unknown Verified 02/22/17 12:33 gabapentin AdvReac Edema Verified 02/22/17 12:33 tramadol AdvReac Edema Verified 02/22/17 12:33 plendil Allergy Intermediate Unknown. Uncoded 02/22/17 12:33 tape Allergy Mild Hives Uncoded 02/22/17 12:33 depomedrol Allergy Unknown Uncoded 02/22/17 12:33 - Social History Does the pt smoke?: Yes Smoking Status: Current every day smoker Does the pt drink ETOH?: No Does the pt have substance abuse?: No - Immunizations Immunizations are current?: Yes - POLST Patient has POLST: No PD ED PE NORMAL - Vitals Vital signs reviewed: Yes - General General: Alert and oriented X 3, No acute distress - Derm Derm: Warm and dry - Neuro Neuro: Alert and oriented X 3 PD ED PE EXPANDED - HEENT HEENT Visual: 1 - tenderness (small chip on posterior buccal aspect of tooth 2) Results - Vitals Vitals: Vital Signs - 24 hr 02/24/17 12:19 Temperature 36.3 C L Heart Rate 110 H Respiratory 20 Rate Blood Pressure 134/97 H O2 Saturation 100 Oxygen O2 Source Room air PD MEDICAL DECISION MAKING - ED course Complexity details: reviewed old records, re-evaluated patient, considered differential, d/w patient ED course: Patient is a 51-year-old female who presents to the emergency department with recurrent dental pain. 6ml of 0.5% Marcaine with epinephrine was used to anesthetize the area, she states she had minimal relief with this. Cavit was then placed over the tooth and she states that at least the cold air is not hurting anymore. She states that she cannot take nonsteroidal anti- inflammatories for pain secondary to a GI issue approximately 7 years ago. She has had several narcotic prescriptions over the past year from multiple different providers and I do not feel comfortable prescribing narcotics at this time. Will utilize Tylenol until she can see her dentist in the morning. Patient counseled regarding signs and symptoms for which I believe and urgent re -evaluation would be necessary. Patient with good understanding of and agreement to plan and is comfortable going home at this time This document was made in part using voice recognition software. While efforts are made to proofread this document, sound alike and grammatical errors may occur. Departure - Departure Disposition: 01 Home, Self Care Clinical Impression: Pain, dental Condition: Good Instructions: ED Tooth Pain Follow-Up: SAMY TY [Primary Care Provider] - Tomorrow Comments: You need to follow up with your doctor and dentist tomorrow for further care. Please arrive at [facility] at [phone] for help
== END 2017-02-24 13:47 | disposition home or self-care (01) ==
LOC: ED 12:09
DX: K08.89 Other specified disorders of teeth and supporting structures (principal); I10 Essential (primary) hypertension; F17.200 Nicotine dependence, unspecified, uncomplicated; E03.9 Hypothyroidism, unspecified
CPT/HCPCS: 99282; 99283

== ENCOUNTER 2017-04-09 09:18 | Emergency (ER) | payer MEDICAID ==
--- NOTE | 2017-04-09 09:30 | ED Physician Documentation ---
PD HPI UPPER EXT INJURY - Stated complaint Stated Complaint: RIGHT FINGER INJURY - Chief complaint Chief Complaint: Ext Problem - History obtained from History obtained from: Patient - History of Present Illness Location: Right, Finger Type of injury: Blunt / blow Where injury occurred: Home Timing - onset: How many days ago (3) Worsened by: Palpating Associated symptoms: Swelling Similar symptoms before: Has not had sx before - Treatment prior to arrival Treatment prior to arrival: Tylenol - Additonal information Additional information: The patient is a 51-year-old female who slammed her right index finger in a sliding glass door at home 3 days ago. She presents now because of increased pain and swelling. She is right-hand dominant. She denies any other injuries. 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 HEENT: Chronic vision loss Psych: Depression, Anxiety Musculoskeletal: Fibromyalgia, Chronic back pain Derm: None - Past Surgical History Past Surgical History: Yes General: Appendectomy Ortho: Other /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: section, Tubal ligation - Present Medications Home Medications: Ambulatory Orders Medication Instructions Recorded Confirmed Levothyroxine [Synthroid] 112 mcg PO QDAC 06/23/12 04/09/17 Omeprazole 20 mg PO BID 06/23/12 04/09/17 Paroxetine HCl [Paxil] 40 mg PO DAILY 08/14/12 04/09/17 Triamterene/Hydrochlorothiazid 1 each PO DAILY 10/07/12 04/09/17 [Triamterene-Hctz 37.5-25 mg Tb] Acetaminophen [Tylenol] 650 mg PO Q6H PRN 12/16/16 04/09/17 Calcium Acetate 667 mg PO DAILY 12/16/16 04/09/17 Cholecalciferol [Vitamin D3] 10,000 unit PO DAILY 12/16/16 04/09/17 Ferrous Sulfate 325 mg PO DAILY 12/16/16 04/09/17 Multivitamin [Multiple Vitamins] 1 each PO DAILY 12/16/16 04/09/17 Turmeric/Turmeric Root Extract 2 each PO BID 12/16/16 04/09/17 [Turmeric 500 mg Capsule] Cephalexin [Keflex] 500 mg PO TID #15 capsule 02/19/17 04/09/17 Atorvastatin [Lipitor] 1 tab PO DAILY 04/09/17 04/09/17 HYDROcod/ACETAM 5/325 [Vicodin 1 ea PO Q6H PRN #12 tablet 04/09/17 5/325] - Allergies Allergies/Adverse Reactions: Allergies Allergy/AdvReac Type Severity Reaction Status Date / Time felodipine Allergy Severe Respiratory Verified 04/09/17 09:29 Sulfa (Sulfonamide Allergy Intermediate Itching Verified 04/09/17 09:29 Antibiotics) eletriptan [From Relpax] Allergy Unknown Verified 04/09/17 09:29 pregabalin Allergy Unknown Verified 04/09/17 09:29 gabapentin AdvReac Edema Verified 04/09/17 09:29 tramadol AdvReac Edema Verified 04/09/17 09:29 plendil Allergy Intermediate Unknown. Uncoded 04/09/17 09:29 tape Allergy Mild Hives Uncoded 04/09/17 09:29 depomedrol Allergy Unknown Uncoded 04/09/17 09:29 - Social History Does the pt smoke?: Yes Smoking Status: Current every day smoker Does the pt drink ETOH?: No Does the pt have substance abuse?: No - Immunizations Immunizations are current?: Yes - POLST Patient has POLST: No PD ED PE NORMAL - Vitals Vital signs reviewed: Yes (normal) - General General: Alert and oriented X 3, Well developed/nourished, Other (Odor of cigarette smoke.) - HEENT HEENT: Atraumatic - Respiratory Respiratory: No respiratory distress - Derm Derm: No rash - Extremities Extremities: Other (There is swelling at the distal phalanx of the right index finger, with associated tenderness to palpation. There is no ecchymosis or break in the integument. There is no tenderness at the PIP or MCP joints. Distal neurovascular is intact.) - Neuro Neuro: Alert and oriented X 3, No motor deficit, No sensory deficit Results - Vitals Vitals: Vital Signs - 24 hr 04/09/17 09:23 Temperature 36.6 C Heart Rate 101 H Respiratory 12 Rate Blood Pressure 114/80 O2 Saturation 99 Oxygen O2 Source Room air - Rads (name of study) Right index finger Radiology: Prelim report reviewed, EMP read contemporaneously, See rad report ( Normal right index finger radiography.) PD MEDICAL DECISION MAKING - ED course Complexity details: reviewed results, re-evaluated patient, considered differential, d/w patient ED course: The patient's presentation is most consistent with contusion to the right index finger. There is no evidence of fracture or dislocation on radiographic imaging. I discussed with the patient the x-ray results, expected course of healing, symptomatic treatment and outpatient follow-up, as well as potentially worrisome signs or symptoms that should prompt reevaluation in the emergency department. Departure - Departure Disposition: 01 Home, Self Care Clinical Impression: Contusion of right index finger Condition: Stable Instructions: ED Contusion Finger Follow-Up: SAMY TY [Primary Care Provider] - Prescriptions: HYDROcod/ACETAM 5/325 [Vicodin 5/325] 1 ea PO Q6H PRN #12 tablet PRN Reason: Pain Comments: Keep your right hand elevated as much of the time as possible. Using Tylenol as needed for discomfort. Follow up with your primary physician, or return to the emergency department, if you develop increasing pain or swelling, any sign of infection, or otherwise worsening symptoms.
--- NOTE | 2017-04-09 10:18 | XRAY Report ---
EXAM: RIGHT INDEX FINGER DIGIT RADIOGRAPHY EXAM DATE: 04/09/2017 09:45 AM. CLINICAL HISTORY: Injury distal phalanx right index finger. Pain and swelling 3 days after crush inju ry to distal phalanx. COMPARISON: None. TECHNIQUE: 3 views. FINDINGS: Bones: Normal. No fracture or bone lesion. Joints: Normal. No subluxations. Soft Tissues: Normal. No soft tissue swelling. IMPRESSION: Normal right index finger radiography. [facility] Referring Provider Line: [phone] SITE ID: [id number]
[2017-04-09 10:49] VITALS: BP 141/99
== END 2017-04-09 10:48 | disposition home or self-care (01) ==
LOC: ED 09:18
DX: S60.021A Contusion of right index finger without damage to nail, initial encounter (principal); W23.0XXA Caught, crushed, jammed, or pinched between moving objects, initial encounter; Y92.009 Unspecified place in unspecified non-institutional (private) residence as the place of occurrence of the external cause; I10 Essential (primary) hypertension; E03.9 Hypothyroidism, unspecified; F17.200 Nicotine dependence, unspecified, uncomplicated
CPT/HCPCS: 73140; 99283

== ENCOUNTER 2017-04-14 09:52 | Emergency (ER) | payer MEDICAID ==
[2017-04-14 10:11] VITALS: BP 143/103
--- NOTE | 2017-04-14 11:00 | ED Physician Documentation ---
History of Present Illness - Stated complaint Stated Complaint: JAW PX - Chief complaint Chief Complaint: Heent - Additonal information Additional information: hx from pt had upper right tooth extraction mid February Dr Makenna Srivastava per pt she has had pain since, she states the tooth was difficult to extract and she thinks there was a fracture to the underlying bone and tooth shards have been coming out of the site no fever pt states her dentist referred her to oral surgery Dr Roe Srivastava but her appt is not until 06/16 per [facility] pt has had approx 160 percocet 10/325 from her dentist in the last month Review of Systems Constitutional: denies: Fever Throat: reports: Dental pain / toothache PD PAST MEDICAL HISTORY - Past Medical History Cardiovascular: Hypertension Respiratory: None Neuro: None Endocrine/Autoimmune: HyPOthyroidism GI: GERD, Ulcers, Other HEAD OF STRATEGY: None : None HEENT: Chronic vision loss Psych: Depression, Anxiety Musculoskeletal: Fibromyalgia, Chronic back pain Derm: None - Past Surgical History Past Surgical History: Yes General: Appendectomy Ortho: Other /HEAD OF STRATEGY: section, Tubal ligation - Present Medications Home Medications: Ambulatory Orders Medication Instructions Recorded Confirmed Levothyroxine [Synthroid] 112 mcg PO QDAC 06/23/12 04/09/17 Omeprazole 20 mg PO BID 06/23/12 04/09/17 Paroxetine HCl [Paxil] 40 mg PO DAILY 08/14/12 04/09/17 Triamterene/Hydrochlorothiazid 1 each PO DAILY 10/07/12 04/09/17 [Triamterene-Hctz 37.5-25 mg Tb] Acetaminophen [Tylenol] 650 mg PO Q6H PRN 12/16/16 04/09/17 Calcium Acetate 667 mg PO DAILY 12/16/16 04/09/17 Cholecalciferol [Vitamin D3] 10,000 unit PO DAILY 12/16/16 04/09/17 Ferrous Sulfate 325 mg PO DAILY 12/16/16 04/09/17 Multivitamin [Multiple Vitamins] 1 each PO DAILY 12/16/16 04/09/17 Turmeric/Turmeric Root Extract 2 each PO BID 12/16/16 04/09/17 [Turmeric 500 mg Capsule] Cephalexin [Keflex] 500 mg PO TID #15 capsule 02/19/17 04/09/17 Atorvastatin [Lipitor] 1 tab PO DAILY 04/09/17 04/09/17 HYDROcod/ACETAM 5/325 [Vicodin 1 ea PO Q6H PRN #12 tablet 04/09/17 5/325] Amoxicillin 500 mg PO Q8H #21 capsule 04/14/17 - Allergies Allergies/Adverse Reactions: Allergies Allergy/AdvReac Type Severity Reaction Status Date / Time felodipine Allergy Severe Respiratory Verified 04/09/17 09:29 Sulfa (Sulfonamide Allergy Intermediate Itching Verified 04/09/17 09:29 Antibiotics) eletriptan [From Relpax] Allergy Unknown Verified 04/09/17 09:29 pregabalin Allergy Unknown Verified 04/09/17 09:29 gabapentin AdvReac Edema Verified 04/09/17 09:29 tramadol AdvReac Edema Verified 04/09/17 09:29 plendil Allergy Intermediate Unknown. Uncoded 04/09/17 09:29 tape Allergy Mild Hives Uncoded 04/09/17 09:29 depomedrol Allergy Unknown Uncoded 04/09/17 09:29 - Social History Does the pt smoke?: Yes Smoking Status: Current every day smoker Does the pt drink ETOH?: No Does the pt have substance abuse?: No - Immunizations Immunizations are current?: Yes - POLST Patient has POLST: No PD ED PE NORMAL - Vitals Vital signs reviewed: Yes - HEENT HEENT: Other (upper right molar extraction site s bleeding or drainage or sig swelling, tender, no trismus) - Cardiac Cardiac: RRR - Respiratory Respiratory: No respiratory distress, Clear bilaterally Results - Vitals Vitals: Vital Signs - 24 hr 04/14/17 10:08 Temperature 36.4 C L Heart Rate 83 Respiratory 17 Rate Blood Pressure 143/103 H O2 Saturation 100 Oxygen O2 Source Room air PD MEDICAL DECISION MAKING - ED course ED course: I called oral surgeon office - staff confirm appt 06/16, state referral was for continued pain, will ask dr jackson can be seen sooner but he is not available at this time Departure - Departure Disposition: 01 Home, Self Care Clinical Impression: Pain, dental Condition: Good Instructions: ED Tooth Pain Follow-Up: Joce Srivastava DDS [Provider Admit Priv/Credential] - Prescriptions: Amoxicillin 500 mg PO Q8H #21 capsule Comments: Unfortunately this post extraction dental pain is not a problem that can be fixed in the ER The site does not look infected but I cannot be sure that there is not an infection developing deep in the socket and causing the increased pain so I have prescribed an antibiotic. I called the oral surgeon and the staff state they will ask the doctor if you can be sooner and call you if that is possible Please get your blood pressure rechecked - it is high today
== END 2017-04-14 11:10 | disposition home or self-care (01) ==
LOC: ED 09:52
DX: K08.89 Other specified disorders of teeth and supporting structures (principal); E03.9 Hypothyroidism, unspecified; K21.9 Gastro-esophageal reflux disease without esophagitis; M79.7 Fibromyalgia; Z87.11 Personal history of peptic ulcer disease; F17.200 Nicotine dependence, unspecified, uncomplicated
CPT/HCPCS: 99283

== ENCOUNTER 2017-05-04 09:19 | Outpatient (CLI) | payer MEDICAID ==
--- NOTE | 2017-05-04 10:24 | Ultrasound Report ---
THYROID ULTRASOUND: 05/04/2017 COMPARISON: Thyroid ultrasound 10/23/2016. INDICATION: Goiter. TECHNIQUE: Sonographic evaluation of the thyroid was performed. FINDINGS: Right lobe 5.8 x 3.7 x 3.2 cm. Volume 36 mL. Left lobe 5.2 x 2.7 x 2.3 cm. Volume 17 mL. The thyroid is overall enlarged and heterogeneous. It contains too many to count nodules throughout that abut each other. No dominant nodule is identified. No lymphadenopathy. IMPRESSION: MULTINODULAR THYROID WITH A GROSSLY ENLARGED AND HETEROGENEOUS APPEARANCE. THE NODULES ARE ABUTTING EACH OTHER AND CANNOT BE EVALUATED SEPARATELY. NO APPRECIABLE DIRECTOR OF ADULT EPILEPSY THE STUDY INTERVAL. TD: 05/04/2017 10:23 PRIYANK
== END 2017-05-04 09:20 | disposition home or self-care (01) ==
LOC: DI 09:19
PROVIDERS: ATTEND Surgery
DX: E04.2 Nontoxic multinodular goiter (principal)
CPT/HCPCS: 76536

== ENCOUNTER 2017-05-18 13:05 | Emergency (ER) | payer MEDICAID ==
[2017-05-18 13:23] VITALS: BP 127/96
--- NOTE | 2017-05-18 13:55 | ED Physician Documentation ---
PD HPI HEENT - Stated complaint Stated Complaint: RT SIDE FACIAL PX - Chief complaint Chief Complaint: Heent - History obtained from History obtained from: Patient - History of Present Illness Timing - duration: Weeks Timing - details: Gradual onset, Still present, Waxing and waning Location: Tooth (with pain extending to face area.) Associated symptoms: No: Fever, Facial swelling Similar symptoms before: Diagnosis (dental pain and had extraction of one tooth and needs another out, but referrred to oral surgeon but appt not until May ( Dr. 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 - Present Medications Home Medications: Ambulatory Orders Medication Instructions Recorded Confirmed Levothyroxine [Synthroid] 112 mcg PO QDAC 06/23/12 04/09/17 Omeprazole 20 mg PO BID 06/23/12 04/09/17 Paroxetine HCl [Paxil] 40 mg PO DAILY 08/14/12 04/09/17 Triamterene/Hydrochlorothiazid 1 each PO DAILY 10/07/12 04/09/17 [Triamterene-Hctz 37.5-25 mg Tb] Acetaminophen [Tylenol] 650 mg PO Q6H PRN 12/16/16 04/09/17 Calcium Acetate 667 mg PO DAILY 12/16/16 04/09/17 Cholecalciferol [Vitamin D3] 10,000 unit PO DAILY 12/16/16 04/09/17 Ferrous Sulfate 325 mg PO DAILY 12/16/16 04/09/17 Multivitamin [Multiple Vitamins] 1 each PO DAILY 12/16/16 04/09/17 Turmeric/Turmeric Root Extract 2 each PO BID 12/16/16 04/09/17 [Turmeric 500 mg Capsule] Atorvastatin [Lipitor] 1 tab PO DAILY 04/09/17 04/09/17 HYDROcod/ACETAM 5/325 [Lutz 5/325] 1 tab PO TID PRN #20 tablet 05/18/17 - Allergies Allergies/Adverse Reactions: Allergies Allergy/AdvReac Type Severity Reaction Status Date / Time felodipine Allergy Severe Respiratory Verified 04/09/17 09:29 Sulfa (Sulfonamide Allergy Intermediate Itching Verified 04/09/17 09:29 Antibiotics) eletriptan [From Relpax] Allergy Unknown Verified 04/09/17 09:29 pregabalin Allergy Unknown Verified 04/09/17 09:29 gabapentin AdvReac Edema Verified 04/09/17 09:29 tramadol AdvReac Edema Verified 04/09/17 09:29 plendil Allergy Intermediate Unknown. Uncoded 04/09/17 09:29 tape Allergy Mild Hives Uncoded 04/09/17 09:29 depomedrol Allergy Unknown Uncoded 04/09/17 09:29 - Social History Does the pt smoke?: Yes Smoking Status: Current every day smoker Does the pt drink ETOH?: No Does the pt have substance abuse?: No - Immunizations Immunizations are current?: Yes - POLST Patient has POLST: No PD ED PE NORMAL - Vitals Vital signs reviewed: Yes - General General: Alert and oriented X 3, Well developed/nourished - HEENT HEENT: Pharynx benign, Other (no redness nor swelling of the upper teeth nor gums. Tender to touch. No rash of face. ). No: Dentition benign - Neck Neck: Supple, no meningeal sign, No adenopathy - Cardiac Cardiac: RRR, No murmur - Respiratory Respiratory: Clear bilaterally Results - Vitals Vitals: Oxygen O2 Source Room air PD MEDICAL DECISION MAKING - ED course Complexity details: reviewed old records (she did not have an [facility] report.), re- evaluated patient (dental block infraorbital with good cessation of the pain. ) , d/w patient Departure - Departure Disposition: 01 Home, Self Care Clinical Impression: Pain, dental Condition: Stable Record reviewed to determine appropriate education?: Yes Instructions: ED Tooth Pain Follow-Up: Joce Srivastava DDS [Provider Admit Priv/Credential] - Prescriptions: HYDROcod/ACETAM 5/325 [Lutz 5/325] 1 tab PO TID PRN #20 tablet PRN Reason: Pain Comments: Follow-up with oral surgeon at their earliest availability. Tylenol initially for pain. Add hydrocodone if needed. The numbing medicine will help for a good part of the afternoon into this evening should. Hopefully will be easier controlling the pain starting from at a lower level. Discharge Date/Time: 05/18/17 14:34
[2017-05-18] MEDS ORDERED: oxyCOD/ACETAMIN 5 MG/325 MG TABLET PO STA (14:16)
== END 2017-05-18 14:34 | disposition home or self-care (01) ==
LOC: ED 13:05
DX: K08.89 Other specified disorders of teeth and supporting structures (principal); I10 Essential (primary) hypertension; E03.9 Hypothyroidism, unspecified; K21.9 Gastro-esophageal reflux disease without esophagitis; Z87.11 Personal history of peptic ulcer disease; M79.7 Fibromyalgia; F17.200 Nicotine dependence, unspecified, uncomplicated
CPT/HCPCS: 64450; 99283; A9270

== ENCOUNTER 2017-06-06 16:06 | Emergency (ER) | payer MEDICAID ==
[2017-06-06 16:16] VITALS: BP 153/89
--- NOTE | 2017-06-06 16:19 | ED Physician Documentation ---
PD HPI UPPER EXT INJURY - Stated complaint Stated Complaint: L THUMB PX - Chief complaint Chief Complaint: Ext Problem - History obtained from History obtained from: Patient - History of Present Illness Location: Left, Finger (thumb base) Type of injury: Twist (she picked up a can of beans at the grocery store and felt abrupt onset of pain at the base of the thumb. 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 : None HEENT: Chronic vision loss Psych: Depression, Anxiety Musculoskeletal: Fibromyalgia, Chronic back pain Derm: None - Past Surgical History Past Surgical History: Yes General: Appendectomy Ortho: Other /SUPERVISOR HOME ECONOMICS: section, Tubal ligation - Present Medications Home Medications: Ambulatory Orders Medication Instructions Recorded Confirmed Levothyroxine [Synthroid] 112 mcg PO QDAC 06/23/12 06/06/17 Omeprazole 20 mg PO BID 06/23/12 06/06/17 Paroxetine HCl [Paxil] 40 mg PO DAILY 08/14/12 06/06/17 Triamterene/Hydrochlorothiazid 1 each PO DAILY 10/07/12 06/06/17 [Triamterene-Hctz 37.5-25 mg Tb] Acetaminophen [Tylenol] 650 mg PO Q6H PRN 12/16/16 06/06/17 Calcium Acetate 667 mg PO DAILY 12/16/16 06/06/17 Cholecalciferol [Vitamin D3] 10,000 unit PO DAILY 12/16/16 06/06/17 Ferrous Sulfate 325 mg PO DAILY 12/16/16 06/06/17 Multivitamin [Multiple Vitamins] 1 each PO DAILY 12/16/16 06/06/17 Turmeric/Turmeric Root Extract 2 each PO BID 12/16/16 06/06/17 [Turmeric 500 mg Capsule] Atorvastatin [Lipitor] 1 tab PO DAILY 04/09/17 06/06/17 - Allergies Allergies/Adverse Reactions: Allergies Allergy/AdvReac Type Severity Reaction Status Date / Time felodipine Allergy Severe Respiratory Verified 06/06/17 16:21 Sulfa (Sulfonamide Allergy Intermediate Itching Verified 06/06/17 16:21 Antibiotics) eletriptan [From Relpax] Allergy Unknown Verified 06/06/17 16:21 pregabalin Allergy Unknown Verified 06/06/17 16:21 gabapentin AdvReac Edema Verified 06/06/17 16:21 tramadol AdvReac Edema Verified 06/06/17 16:21 plendil Allergy Intermediate Unknown. Uncoded 06/06/17 16:21 tape Allergy Mild Hives Uncoded 06/06/17 16:21 depomedrol Allergy Unknown Uncoded 06/06/17 16:21 - Social History Does the pt smoke?: Yes Smoking Status: Current every day smoker Does the pt drink ETOH?: No Does the pt have substance abuse?: No - Immunizations Immunizations are current?: Yes - POLST Patient has POLST: No PD ED PE NORMAL - Vitals Vital signs reviewed: Yes - General General: Alert and oriented X 3, Well developed/nourished, Other (appears in pain and is holding thumb stiffly to reduce motion. ) Results - Vitals Vitals: Vital Signs - 24 hr 06/06/17 16:13 Temperature 36.2 C L Heart Rate 100 Respiratory 18 Rate Blood Pressure 153/89 H O2 Saturation 99 Oxygen O2 Source Room air - Rads (name of study) left thumb Radiology: Prelim report reviewed (arthritic changes; no fractures), EMP read contemporaneously PD MEDICAL DECISION MAKING - ED course Complexity details: reviewed results, re-evaluated patient (Patient more comfortable with the splint but still hurting. Requests "something stronger" for the pain of it; I discussed with her that the pain came with movement and the splint should minimize and thus treat that. ), considered differential, d/w patient Departure - Departure Disposition: 01 Home, Self Care Clinical Impression: Thumb sprain Qualifiers: Encounter type: initial encounter Sprain of finger site: metacarpophalangeal joint Laterality: left Qualified Code(s): S63.642A - Sprain of metacarpophalangeal joint of left thumb, initial encounter Condition: Stable Record reviewed to determine appropriate education?: Yes Instructions: ED Sprain Finger Follow-Up: SAMY TY [Primary Care Provider] - Comments: The x-ray appears normal except maybe a little arthritis in the base of the thumb. No chips or fractures. 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 Use the thumb splint for the next several days to week. Tylenol or ibuprofen if needed for pains. Recheck if not improved over the next several days to a week. As it does improve, you can progress range of motion as tolerated. Discharge Date/Time: 06/06/17 17:03
[2017-06-06] MEDS ORDERED: HYDROcod/ACETAM 5/325 MG TABLET PO STA (16:26)
--- NOTE | 2017-06-06 16:53 | XRAY Report ---
EXAM: LEFT FIRST DIGIT RADIOGRAPHY EXAM DATE: 06/06/2017 04:28 PM. CLINICAL HISTORY: Left thumb pain abruptly today. No known trauma. COMPARISON: None. TECHNIQUE: 3 views. FINDINGS: Bones: Normal. No fracture or bone lesion. Joints: Mild first carpometacarpal osteoarthritis with mild osteophytes. No subluxation. Soft Tissues: Normal. No soft tissue swelling. IMPRESSION: No acute findings. Mild first carpometacarpal osteoarthritis. [facility] Referring Provider Line: [phone] SITE ID: [id number]
--- NOTE | 2017-06-06 16:53 | XRAY Preliminary Report ---
Exam: XR FINGER(S) LT IMPRESSION: No acute findings. Mild first carpometacarpal osteoarthritis. [facility] SITE ID: [id number]
== END 2017-06-06 17:03 | disposition home or self-care (01) ==
LOC: ED 16:06
DX: S63.642A Sprain of metacarpophalangeal joint of left thumb, initial encounter (principal); X50.1XXA Overexertion from prolonged static or awkward postures, initial encounter; Y92.512 Supermarket, store or market as the place of occurrence of the external cause; I10 Essential (primary) hypertension; E03.9 Hypothyroidism, unspecified; K21.9 Gastro-esophageal reflux disease without esophagitis; M79.7 Fibromyalgia; Z87.11 Personal history of peptic ulcer disease; F17.200 Nicotine dependence, unspecified, uncomplicated
CPT/HCPCS: 29125; 73140; 99283; A9270

== ENCOUNTER 2017-06-14 19:01 | Emergency (ER) | payer MEDICAID ==
[2017-06-14 19:11] VITALS: BP 146/101
[2017-06-14] MEDS ORDERED: oxyCOD/ACETAMIN 5 MG/325 MG TABLET PO STA (19:16)
--- NOTE | 2017-06-14 19:18 | ED Physician Documentation ---
PD HPI LOWER EXT INJURY - Stated complaint Stated Complaint: RIGHT FOOT INJ - Chief complaint Chief Complaint: Ext Problem - History obtained from History obtained from: Patient - History of Present Illness PD HPI LOW EXT INJURY LOCATION: Other (She has a history of Lisfranc fracture and extensive surgeries of the right foot. She presents with acute severe foot pain in the area of the distal first metatarsal that started while driving today. 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 : None HEENT: Chronic vision loss Psych: Depression, Anxiety Musculoskeletal: Fibromyalgia, Chronic back pain Derm: None - Past Surgical History Past Surgical History: Yes General: Appendectomy Ortho: Other /MEDICAL RECORD LIBRARIAN: section, Tubal ligation - Present Medications Home Medications: Ambulatory Orders Medication Instructions Recorded Confirmed Levothyroxine [Synthroid] 112 mcg PO QDAC 06/23/12 06/06/17 Omeprazole 20 mg PO BID 06/23/12 06/06/17 Paroxetine HCl [Paxil] 40 mg PO DAILY 08/14/12 06/06/17 Triamterene/Hydrochlorothiazid 1 each PO DAILY 10/07/12 06/06/17 [Triamterene-Hctz 37.5-25 mg Tb] Acetaminophen [Tylenol] 650 mg PO Q6H PRN 12/16/16 06/06/17 Calcium Acetate 667 mg PO DAILY 12/16/16 06/06/17 Cholecalciferol [Vitamin D3] 10,000 unit PO DAILY 12/16/16 06/06/17 Ferrous Sulfate 325 mg PO DAILY 12/16/16 06/06/17 Multivitamin [Multiple Vitamins] 1 each PO DAILY 12/16/16 06/06/17 Turmeric/Turmeric Root Extract 2 each PO BID 12/16/16 06/06/17 [Turmeric 500 mg Capsule] Atorvastatin [Lipitor] 1 tab PO DAILY 04/09/17 06/06/17 - Allergies Allergies/Adverse Reactions: Allergies Allergy/AdvReac Type Severity Reaction Status Date / Time felodipine Allergy Severe Respiratory Verified 06/14/17 19:11 Sulfa (Sulfonamide Allergy Intermediate Itching Verified 06/14/17 19:11 Antibiotics) eletriptan [From Relpax] Allergy Unknown Verified 06/14/17 19:11 pregabalin Allergy Unknown Verified 06/14/17 19:11 gabapentin AdvReac Edema Verified 06/14/17 19:11 tramadol AdvReac Edema Verified 06/14/17 19:11 plendil Allergy Intermediate Unknown. Uncoded 06/06/17 16:21 tape Allergy Mild Hives Uncoded 06/06/17 16:21 depomedrol Allergy Unknown Uncoded 06/06/17 16:21 - Social History Does the pt smoke?: Yes Smoking Status: Current every day smoker Does the pt drink ETOH?: No Does the pt have substance abuse?: No - Immunizations Immunizations are current?: Yes - POLST Patient has POLST: No PD ED PE NORMAL - Vitals Vital signs reviewed: Yes - General General: Alert and oriented X 3, Other (She is tearful but consolable and distractible.) - Extremities Extremities: Other (Right foot has surgical scars over the top and she has significant pes planus, She is focally tender on the underside of the distal first metacarpal without warmth or swelling. She has pain especially with dorsiflexion of the first toe.) - Neuro Neuro: Alert and oriented X 3, Normal speech Results - Vitals Vitals: Vital Signs - 24 hr 06/14/17 19:09 Temperature 36.7 C Heart Rate 103 H Respiratory 19 Rate Blood Pressure 146/101 H O2 Saturation 97 Oxygen O2 Source Room air - Rads (name of study) R foot XR Radiology: EMP read contemporaneously (Stable fusions, no acute disease.) PD MEDICAL DECISION MAKING - ED course Complexity details: reviewed old records ([facility]/[employer]TR[employer]ION OPER[facility] and records here- 26 ED visits in the last year, many narcotics from a variety of providers (quantity 429 per SEAL EXTRUSION OPERATOR), was comfortable appearing at dischg until told no rx for narcs then tearful again but understanding.) Departure - Departure Disposition: 01 Home, Self Care Clinical Impression: Right foot pain Condition: Good Record reviewed to determine appropriate education?: Yes Comments: Follow-up with your primary care physician or orthopedic surgeon for further evaluation and treatment. The policy of this emergency department is to not give more than 3 prescriptions for narcotics or other controlled substances in any 1 year. You have already surpassed this benchmark and we cannot prescribe narcotics for you. I encourage you to follow up with your primary care physician or to establish care with a primary care physician for ongoing pain management. You are always welcome to seek emergency care here for this or new issues but there will likely be limitations in the prescription of narcotic pain medication. Your blood pressure was elevated today on check into the emergency department. This does not mean that you have hypertension, it is a common phenomenon to come to the emergency department and have elevated blood pressure. I recommend that you see your primary care physician within the week to have it rechecked when you are feeling better. Discharge Date/Time: 06/14/17 20:21
--- NOTE | 2017-06-14 20:16 | XRAY Report ---
EXAM: RIGHT FOOT RADIOGRAPHY EXAM DATE: 06/14/2017 07:39 PM. CLINICAL HISTORY: Foot pain, extensive surgeries. COMPARISON: 04/10/2016. TECHNIQUE: 3 views. FINDINGS: Bones: Stable appearance of first and second tarsal metatarsal fusion hardware. No evidence of hardwa re fracture or loosening. Lucency at the proximal second metatarsal is stable most likely postoperati ve or posttraumatic fracture defect. Joints: Stable moderate first MTP joint subluxation. No new dislocations. Soft Tissues: Normal. No soft tissue swelling. IMPRESSION: 1. No acute fracture or dislocation. 2. Stable appearance of first and second tarsometatarsal joint fusion. 3. Stable moderate first MTP joint subluxation. [facility] Referring Provider Line: [phone] SITE ID: [id number]
== END 2017-06-14 20:21 | disposition home or self-care (01) ==
LOC: ED 19:01
DX: M79.671 Pain in right foot (principal); I10 Essential (primary) hypertension; E03.8 Other specified hypothyroidism; F17.200 Nicotine dependence, unspecified, uncomplicated
CPT/HCPCS: 73630; 99282; 99283; A9270

== ENCOUNTER 2018-02-11 13:37 | Emergency (ER) | payer MEDICAID ==
[2018-02-11 13:47] VITALS: BP 156/90
[2018-02-11] MEDS: HYDROcod/ACETAM 5/325 MG TABLET PO STA (16:22)
--- NOTE | 2018-02-11 16:25 | XRAY Report ---
Reason: Bilateral ankle pain, sudden onset today Procedure Date: 02/11/2018 Accession Number: [id number] / [id number] Procedure: XR - Ankle 3 View LT CPT Code: FULL RESULT: EXAM: LEFT ANKLE RADIOGRAPHY EXAM DATE: 02/11/2018 04:04 PM. CLINICAL HISTORY: Bilateral ankle pain, sudden onset today. COMPARISON: LEG LOWER RT 12/23/2016 3:41 PM. TECHNIQUE: 3 views. FINDINGS: Bones: No fracture. There is moderate sclerosis and spurring at the dorsal midfoot. Joints: Joint space and alignment is preserved. Soft Tissues: No radiodense foreign body. IMPRESSION: 1. No fracture. 2. Chronic appearing spurring and degenerative disease of the dorsal midfoot [facility]
--- NOTE | 2018-02-11 16:30 | XRAY Report ---
Reason: Bilateral ankle pain; no trauma. Procedure Date: 02/11/2018 Accession Number: [id number] / [id number] Procedure: XR - Ankle 3 View RT CPT Code: FULL RESULT: EXAM: RIGHT ANKLE RADIOGRAPHY EXAM DATE: 02/11/2018 04:04 PM. CLINICAL HISTORY: Bilateral ankle pain; no trauma. COMPARISON: LEG LOWER RT 12/23/2016 3:41 PM XR ANKLE COMPLETE MIN 3 VIEW 01/27/2011 12:10 PM. TECHNIQUE: 3 views. FINDINGS: Bones: No inferior tibia or fibula fracture. There are findings of previous surgery of the first and second cuneiforms and metatarsals. Joints: Joint space and alignment of the ankle is preserved. Soft Tissues: Normal. No soft tissue swelling. IMPRESSION: 1. No acute fracture or dislocation of the ankle. 2. Chronic deformity of the midfoot with previous surgery and ORIF. [facility]
--- NOTE | 2018-02-11 16:47 | ED Physician Documentation ---
PD HPI LOWER EXT INJURY - Stated complaint Stated Complaint: BILAT ANKLE PX - Chief complaint Chief Complaint: Ext Problem - History obtained from History obtained from: Patient - History of Present Illness PD HPI LOW EXT INJURY LOCATION: Right, Left, Ankle Type of injury: Other (No specific injury.) Worsened by: Other (Weightbearing.) - Additional information Additional information: The patient is a 52-year-old female with a history of chronic back pain and fibromyalgia, who presents with bilateral ankle pain that she describes as chronic aching pain secondary arthritis, but that became suddenly much worse this morning. She denies any recent traumatic injury. She has undergone surgery on her right foot for a Lisfranc fracture in the remote past. 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 HEENT: Chronic vision loss Psych: Depression, Anxiety Musculoskeletal: Fibromyalgia, Chronic back pain Derm: None - Past Surgical History Past Surgical History: Yes General: Appendectomy Ortho: Other /TEACHER'S ASSISTANT: section, Tubal ligation - Present Medications Home Medications: Ambulatory Orders Medication Instructions Recorded Confirmed Levothyroxine [Synthroid] 112 mcg PO QDAC 06/23/12 06/06/17 Omeprazole 20 mg PO BID 06/23/12 06/06/17 Paroxetine HCl [Paxil] 40 mg PO DAILY 08/14/12 06/06/17 Triamterene/Hydrochlorothiazid 1 each PO DAILY 10/07/12 06/06/17 [Triamterene-Hctz 37.5-25 mg Tb] Acetaminophen [Tylenol] 650 mg PO Q6H PRN 12/16/16 06/06/17 Calcium Acetate 667 mg PO DAILY 12/16/16 06/06/17 Cholecalciferol [Vitamin D3] 10,000 unit PO DAILY 12/16/16 06/06/17 Ferrous Sulfate 325 mg PO DAILY 12/16/16 06/06/17 Multivitamin [Multiple Vitamins] 1 each PO DAILY 12/16/16 06/06/17 Atorvastatin [Lipitor] 1 tab PO DAILY 04/09/17 06/06/17 Hydrocodone/Acetaminophen 1 - 2 each PO Q6H PRN #14 tablet 02/11/18 [Hydrocodon-Acetaminophen 5-325] - Allergies Allergies/Adverse Reactions: Allergies Allergy/AdvReac Type Severity Reaction Status Date / Time felodipine Allergy Severe Respiratory Verified 06/14/17 19:11 Sulfa (Sulfonamide Allergy Intermediate Itching Verified 06/14/17 19:11 Antibiotics) eletriptan [From Relpax] Allergy Unknown Verified 06/14/17 19:11 pregabalin Allergy Unknown Verified 06/14/17 19:11 gabapentin AdvReac Edema Verified 06/14/17 19:11 tramadol AdvReac Edema Verified 06/14/17 19:11 plendil Allergy Intermediate Unknown. Uncoded 06/06/17 16:21 tape Allergy Mild Hives Uncoded 06/06/17 16:21 depomedrol Allergy Unknown Uncoded 06/06/17 16:21 - Social History Does the pt smoke?: Yes Smoking Status: Current every day smoker Does the pt drink ETOH?: No Does the pt have substance abuse?: No - Immunizations Immunizations are current?: Yes - POLST Patient has POLST: No PD ED PE NORMAL - Vitals Vital signs reviewed: Yes (hypertensive) - General General: Alert and oriented X 3, Well developed/nourished, Other (Overweight and ill kempt, with poor dental and body hygiene.) - HEENT HEENT: Atraumatic - Respiratory Respiratory: No respiratory distress - Derm Derm: No rash - Extremities Extremities: No calf tenderness / cord, Other (Examination of the right lower extremity reveals well-healed surgical scars over the dorsum of the right foot. There is soft tissue tenderness to palpation around both the right and left ankles, with no specific bony tenderness palpated. There is no ecchymosis, erythema, warmth to palpation, or break in the integument. Distal neurovascular is intact. The tenderness is located mostly over the anterior aspects of the ankles.) - Neuro Neuro: Alert and oriented X 3, No motor deficit, No sensory deficit Results - Vitals Vitals: Oxygen O2 Source Room air - Rads (name of study) Right ankle Radiology: Prelim report reviewed, EMP read contemporaneously, See rad report (No acute fracture or dislocation of the ankle. Chronic deformity of the midfoot with previous surgery and ORIF.) Left ankle Radiology: Prelim report reviewed, EMP read contemporaneously, See rad report (No fracture. Chronic appearing spurring and degenerative disease of the dorsal midfoot.) PD MEDICAL DECISION MAKING - ED course Complexity details: reviewed old records, reviewed results, re-evaluated patient, considered differential, d/w patient, d/w family ED course: The patient's presentation is most consistent with arthritic type pain of both ankles. There is no evidence of acute bony abnormality on radiographic imaging. There is no warmth or erythema to suggest an acute infectious process. I doubt gouty arthritis. Treatment in the emergency department included administration of Vicodin one tablet orally. She is being discharged with prescription for Vicodin, 14 tablets. I discussed with her the results of the x-rays, symptomatic treatment and outpatient follow-up, as well as potentially worrisome signs or symptoms that should prompt reevaluation in the emergency department. Departure - Departure Disposition: 01 Home, Self Care Clinical Impression: Arthritic-like pain Qualifiers: Joint pain location: ankle Laterality: bilateral Qualified Code(s): M25.571 - Pain in right ankle and joints of right foot Condition: Stable Instructions: ED Joint Pain Follow-Up: SAMY TY [Primary Care Provider] - Prescriptions: Hydrocodone/Acetaminophen [Hydrocodon-Acetaminophen 5-325] 1 - 2 each PO Q6H PRN #14 tablet PRN Reason: pain Comments: Soak your feet and ankles in Epsom salts. Keep your feet elevated as much of the time as possible. You can use Vicodin as prescribed if needed for pain. You can also use Tylenol, but be aware that there is also acetaminophen (Tylenol) in Vicodin. Follow-up with your primary physician within 2 weeks. Call to schedule an appointment. Return to the emergency department if you develop increasing pain or swelling in your ankles, or otherwise worsening symptoms. Discharge Date/Time: 02/11/18 16:58
== END 2018-02-11 16:58 | disposition home or self-care (01) ==
LOC: ED 13:37
DX: M25.571 Pain in right ankle and joints of right foot (principal); M79.7 Fibromyalgia; I10 Essential (primary) hypertension; E03.9 Hypothyroidism, unspecified; F17.200 Nicotine dependence, unspecified, uncomplicated
CPT/HCPCS: 73610; 99283; A9270

== ENCOUNTER 2018-03-14 12:58 | Emergency (ER) | payer MEDICAID ==
--- NOTE | 2018-03-14 15:32 | ED Physician Documentation ---
PD HPI LOWER EXT INJURY - Stated complaint Stated Complaint: R LEG PX - Chief complaint Chief Complaint: General - History obtained from History obtained from: Patient - History of Present Illness PD HPI LOW EXT INJURY LOCATION: Right, Thigh (inguinal area) Type of injury: Fall, Twist (she tripped over her dog when walking in hallway during the night, and had external rotation and abduction of right leg with onset of pain in right inguinal area, which was worse the next morning and has continue to pain her with walking into today.) Where injury occurred: Home Timing - onset: Yesterday Timing - duration: Days (02/23) Timing - details: Abrupt onset, Still present Worsened by: Palpating, Other (walking and internally rotating her leg.) Associated symptoms: No: Weakness, Numbness, Swelling Contributing factors: No: Anticoagulated Similar symptoms before: Has not had sx before Recently seen: Not recently seen Review of Systems Constitutional: denies: Fever, Chills, Myalgias Skin: denies: Rash, Lesions Neurologic: denies: Focal weakness, Numbness PD PAST MEDICAL HISTORY - Past Medical History Cardiovascular: Hypertension Respiratory: None Neuro: None Endocrine/Autoimmune: HyPOthyroidism GI: GERD, Ulcers, Other 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 HEENT: Chronic vision loss Psych: Depression, Anxiety Musculoskeletal: Fibromyalgia, Chronic back pain Derm: None - Past Surgical History Past Surgical History: Yes General: Appendectomy Ortho: Other /BOAT WORKER: section, Tubal ligation - Present Medications Home Medications: Ambulatory Orders Medication Instructions Recorded Confirmed Levothyroxine [Synthroid] 112 mcg PO QDAC 06/23/12 06/06/17 Omeprazole 20 mg PO BID 06/23/12 06/06/17 Paroxetine HCl [Paxil] 40 mg PO DAILY 08/14/12 06/06/17 Triamterene/Hydrochlorothiazid 1 each PO DAILY 10/07/12 06/06/17 [Triamterene-Hctz 37.5-25 mg Tb] Acetaminophen [Tylenol] 650 mg PO Q6H PRN 12/16/16 06/06/17 Calcium Acetate 667 mg PO DAILY 12/16/16 06/06/17 Cholecalciferol [Vitamin D3] 10,000 unit PO DAILY 12/16/16 06/06/17 Ferrous Sulfate 325 mg PO DAILY 12/16/16 06/06/17 Multivitamin [Multiple Vitamins] 1 each PO DAILY 12/16/16 06/06/17 Atorvastatin [Lipitor] 1 tab PO DAILY 04/09/17 06/06/17 Hydrocodone/Acetaminophen [[place] 1 each PO Q6H PRN #15 tablet 03/14/18 5-325 Tablet] - Allergies Allergies/Adverse Reactions: Allergies Allergy/AdvReac Type Severity Reaction Status Date / Time felodipine Allergy Severe Respiratory Verified 03/14/18 13:13 Sulfa (Sulfonamide Allergy Intermediate Itching Verified 03/14/18 13:13 Antibiotics) eletriptan [From Relpax] Allergy Unknown Verified 03/14/18 13:13 pregabalin Allergy Unknown Verified 03/14/18 13:13 gabapentin AdvReac Edema Verified 03/14/18 13:13 tramadol AdvReac Edema Verified 03/14/18 13:13 plendil Allergy Intermediate Unknown. Uncoded 03/14/18 13:13 tape Allergy Mild Hives Uncoded 03/14/18 13:13 depomedrol Allergy Unknown Uncoded 03/14/18 13:13 - Social History Does the pt smoke?: Yes Smoking Status: Current every day smoker Does the pt drink ETOH?: No Does the pt have substance abuse?: No - Immunizations Immunizations are current?: Yes - POLST Patient has POLST: No PD ED PE NORMAL - Vitals Vital signs reviewed: Yes - General General: Alert and oriented X 3, No acute distress, Well developed/nourished - Abdomen Abdomen: Soft, Non tender - Female Female : Deferred - Rectal Rectal: Deferred - Back Back: No CVA TTP - Derm Derm: Normal color, Warm and dry - Extremities Extremities: Other (right inguinal area with tenderness at muscle. No limitation on rotational movement. ) - Neuro Neuro: No motor deficit, No sensory deficit Results - Vitals Vitals: Oxygen O2 Source Room air - Rads (name of study) right hip Radiology: Prelim report reviewed (no fracture) Departure - Departure Disposition: 01 Home, Self Care Clinical Impression: Strain of right inguinal muscle Qualifiers: Encounter type: initial encounter Qualified Code(s): S39.013A - Strain of muscle, fascia and tendon of pelvis, initial encounter Condition: Stable Record reviewed to determine appropriate education?: Yes Instructions: ED Strain Groin Follow-Up: NEWLON,SAMY A [Primary Care Provider] - Prescriptions: Hydrocodone/Acetaminophen [[place] 5-325 Tablet] 1 each PO Q6H PRN #15 tablet PRN Reason: Pain Comments: Your x-ray appears normal. Presume a muscle strain and inguinal area. Heat and gentle stretching to the area. Tylenol for mild pain. Add hydrocodone if needed for worse pain short-term. I presume that should get better over several days or so. Discharge Date/Time: 03/14/18 17:11
[2018-03-14] MEDS ORDERED: HYDROcod/ACETAM 5/325 MG TABLET PO STA (16:01)
[2018-03-14 17:09] VITALS: BP 129/93
--- NOTE | 2018-03-14 17:12 | XRAY Report ---
Reason: fall last night; hip pain with walking Procedure Date: 03/14/2018 Accession Number: [id number] / [id number] Procedure: XR - Hip w/Pelvis 2-3V RT CPT Code: FULL RESULT: EXAM: RIGHT HIP RADIOGRAPHY EXAM DATE: 03/14/2018 04:14 PM. CLINICAL HISTORY: Fall last night; hip pain with walking. COMPARISON: XR HIP UNILAT MIN 2 VIEW 06/03/2012 12:56 PM. TECHNIQUE: 2 views. FINDINGS: Bones: Normal. No fractures or bone lesion. Joints: Normal. No dislocation. The hip joint space is preserved. Soft Tissues: Normal. No soft tissue swelling. IMPRESSION: Normal hip radiography. If symptoms persist, a MRI may be beneficial. [facility]
== END 2018-03-14 17:11 | disposition home or self-care (01) ==
LOC: ED 12:58
DX: S39.013A Strain of muscle, fascia and tendon of pelvis, initial encounter (principal); M79.651 Pain in right thigh; W01.0XXA Fall on same level from slipping, tripping and stumbling without subsequent striking against object, initial encounter; X50.1XXA Overexertion from prolonged static or awkward postures, initial encounter; Y93.01 Activity, walking, marching and hiking; Y92.009 Unspecified place in unspecified non-institutional (private) residence as the place of occurrence of the external cause; I10 Essential (primary) hypertension; M79.7 Fibromyalgia; F17.200 Nicotine dependence, unspecified, uncomplicated
CPT/HCPCS: 73502; 99283; A9270

== ENCOUNTER 2018-06-11 14:05 | Emergency (ER) | payer MEDICAID ==
[2018-06-11 14:09] VITALS: BP 149/108
--- NOTE | 2018-06-11 14:14 | ED Physician Documentation ---
PD HPI LOWER EXT INJURY - Stated complaint Stated Complaint: R KNEE PX - Chief complaint Chief Complaint: Ext Problem - History obtained from History obtained from: Patient - History of Present Illness PD HPI LOW EXT INJURY LOCATION: Right, Knee Type of injury: Other (She is not aware of any particular injury but has noticed pain in the anterior medial aspect of the knee with some clicking and popping at times and giving out at times. She notes it uncomfortable mostly with walking down steps. It is not as uncomfortable going up steps. She states she does have some arthritis in the knee. No known meniscal problems in the past.). No: Fall, Twist Timing - onset: How many days ago Timing - duration: Days Timing - details: Gradual onset, Waxing and waning Worsened by: Other (walking) Associated symptoms: No: Weakness, Numbness, Swelling Similar symptoms before: Has not had sx before Review of Systems Constitutional: denies: Fever, Chills, Myalgias Skin: denies: Rash, Lesions Musculoskeletal: reports: Back pain (chronic) Neurologic: denies: Focal weakness, Numbness PD PAST MEDICAL HISTORY - Past Medical History Cardiovascular: Hypertension Respiratory: None Neuro: None Endocrine/Autoimmune: HyPOthyroidism GI: GERD, Ulcers, Other SAP ARCHITECT: None : None HEENT: Chronic vision loss Psych: Depression, Anxiety Musculoskeletal: Fibromyalgia, Chronic back pain Derm: None - Past Surgical History Past Surgical History: Yes General: Appendectomy Ortho: Other /SAP ARCHITECT: section, Tubal ligation - Present Medications Home Medications: Ambulatory Orders Medication Instructions Recorded Confirmed Levothyroxine [Synthroid] 112 mcg PO QDAC 06/23/12 06/06/17 RX: Omeprazole 20 mg PO BID 06/23/12 06/06/17 Paroxetine HCl [Paxil] 40 mg PO DAILY 08/14/12 06/06/17 Triamterene/Hydrochlorothiazid 1 each PO DAILY 10/07/12 06/06/17 [Triamterene-Hctz 37.5-25 mg Tb] Acetaminophen [Tylenol] 650 mg PO Q6H PRN 12/16/16 06/06/17 Cholecalciferol [Vitamin D3] 10,000 unit PO DAILY 12/16/16 06/06/17 Multivitamin [Multiple Vitamins] 1 each PO DAILY 12/16/16 06/06/17 RX: Calcium Acetate 667 mg PO DAILY 12/16/16 06/06/17 RX: Ferrous Sulfate 325 mg PO DAILY 12/16/16 06/06/17 RX: Atorvastatin [Lipitor] 1 tab PO DAILY 04/09/17 06/06/17 Hydrocodone/Acetaminophen [[place] 1 each PO Q6H PRN #15 tablet 03/14/18 5-325 Tablet] Hydrocodone/Acetaminophen [[place] 1 each PO Q6H PRN #20 tablet 06/11/18 5-325 Tablet] - Allergies Allergies/Adverse Reactions: Allergies Allergy/AdvReac Type Severity Reaction Status Date / Time felodipine Allergy Severe Respiratory Verified 03/14/18 13:13 Sulfa (Sulfonamide Allergy Intermediate Itching Verified 03/14/18 13:13 Antibiotics) eletriptan [From Relpax] Allergy Unknown Verified 03/14/18 13:13 pregabalin Allergy Unknown Verified 03/14/18 13:13 gabapentin AdvReac Edema Verified 03/14/18 13:13 tramadol AdvReac Edema Verified 03/14/18 13:13 plendil Allergy Intermediate Unknown. Uncoded 03/14/18 13:13 tape Allergy Mild Hives Uncoded 03/14/18 13:13 depomedrol Allergy Unknown Uncoded 03/14/18 13:13 - Social History Does the pt smoke?: Yes Smoking Status: Current every day smoker Does the pt drink ETOH?: No Does the pt have substance abuse?: No - Immunizations Immunizations are current?: Yes - POLST Patient has POLST: No PD ED PE NORMAL - Vitals Vital signs reviewed: Yes - General General: Alert and oriented X 3, Well developed/nourished - Derm Derm: Normal color, Warm and dry, No rash - Extremities Extremities: Other (The right knee is tender along the anterior aspect and slightly to the medial. There is some tenderness along the joint line anteromedially as well. No effusion is noted. The back of the knee is not tender. There is no calf tenderness. Cruciate ligament testing is without any pain or laxity. There is some pain but no clicking noted on meniscal stress testing. She can go to full extension. There is no locking.) - Neuro Neuro: No motor deficit, No sensory deficit Results - Vitals Vitals: Vital Signs - 24 hr 06/11/18 14:07 Temperature 36.9 C Heart Rate 104 H Respiratory 16 Rate Blood Pressure 149/108 H O2 Saturation 100 Oxygen O2 Source Room air Departure - Departure Disposition: 01 Home, Self Care Clinical Impression: Right anterior knee pain, Acute meniscal injury of right knee Condition: Stable Record reviewed to determine appropriate education?: Yes Instructions: ED Meniscal Injury Knee Poss Follow-Up: [facility] [Provider Group] Prescriptions: Hydrocodone/Acetaminophen [[place] 5-325 Tablet] 1 each PO Q6H PRN #20 tablet PRN Reason: Pain Comments: Use the knee brace when up and around for the next couple of weeks. It sounds likely that you have a meniscal injury and this may improve with just the knee brace given a bit of time. Consider the possibility of a patellar tendon inflammation as well though that typically when give you the popping and giving out. Follow-up with your primary care or more appropriately the orthopedic folk in the next week or 2 to see how much improvement you have had with the knee brace and any further treatment or testing. Discharge Date/Time: 06/11/18 14:51
[2018-06-11] MEDS ORDERED: HYDROcod/ACETAM 5/325 MG TABLET PO STA (14:37)
== END 2018-06-11 14:51 | disposition home or self-care (01) ==
LOC: ED 14:05
DX: M25.561 Pain in right knee (principal); S83.8X1A Sprain of other specified parts of right knee, initial encounter; X50.9XXA Other and unspecified overexertion or strenuous movements or postures, initial encounter; W19.XXXA Unspecified fall, initial encounter; I10 Essential (primary) hypertension; E03.9 Hypothyroidism, unspecified; M79.7 Fibromyalgia; F17.200 Nicotine dependence, unspecified, uncomplicated
CPT/HCPCS: 99283; A9270

== ENCOUNTER 2018-07-06 17:51 | Emergency (ER) | payer MEDICAID ==
[2018-07-06 18:08] LABS: BILIRUBIN,URINE NEGATIVE (NEGATIVE); GLUCOSE, URINE (UA) NEGATIVE (NEGATIVE); KETONES,URINE (UA) NEGATIVE (NEGATIVE); LEUKOCYTE ESTERASE, URINE NEGATIVE (NEGATIVE); NITRITE,URINE NEGATIVE (NEGATIVE); OCCULT BLOOD,URINE TRACE-INTA (NEGATIVE); PH,URINE 7.5 PH (5.0-7.5); PROTEIN,URINE NEGATIVE (NEGATIVE); UROBILINOGEN,URINE 0.2 (NORMAL) E.U./dL (NORMAL)
[2018-07-06 18:11] LABS: CLARITY,URINE CLEAR (CLEAR); HCG UR QUAL NEGATIVE
[2018-07-06] MEDS ORDERED: HYDROmorphone 1 MG/ML CARPUJECT IVP STA ×3 (18:31→20:03)
[2018-07-06 18:32] LABS: BASOPHILS % (AUTO) 0.2 %; EOSINOPHILS # (AUTO) 0.2 10^3/uL (0.0-0.7); EOSINOPHILS % (AUTO) 1.4 %; HGB - HEMOGLOBIN 14.2 g/dL (12.0-16.0); LYMPHOCYTES # (AUTO) 4.4 10^3/uL (1.5-3.5); LYMPHOCYTES % (AUTO) 31.4 %; MEAN CORPUSCULAR HGB CONC 33.8 g/dL (32.0-36.0); MEAN CORPUSCULAR VOLUME 91.7 fL (81.0-99.0); MEAN PLATELET VOLUME 7.7 fL (7.9-10.8); MONOCYTES # (AUTO) 0.6 10^3/uL (0.0-1.0); MONOCYTES % (AUTO) 4.2 %; NEUTROPHILS # (AUTO) 8.8 10^3/uL (1.5-6.6); NEUTROPHILS % (AUTO) 62.8 %; PLT - PLATELET COUNT 389 10^3/uL (130-450); RED BLOOD COUNT 4.58 10^6/uL (4.20-5.40); RED CELL DISTRIBUTION WIDTH 13.2 % (12.0-15.0)
--- NOTE | 2018-07-06 18:33 | ED Physician Documentation ---
PD HPI ABD PAIN - Stated complaint Stated Complaint: R SIDE PX - Chief complaint Chief Complaint: Abd Pain - History obtained from History obtained from: Patient - History of Present Illness Timing - onset: Today Timing - duration: Days (1) Timing - details: Abrupt onset Pain level max: 10 Pain level now: 10 Quality: Aching, Pain Location: RUQ Radiation: Other (nothing) Improved by: Other (nothing) Worsened by: Eating, Palpation, Other Associated symptoms: Nausea. No: Fever, Vomiting, Hematemesis, Diarrhea, Constipation, Melena, Hematochezia Similar symptoms before: Has not had sx before Review of Systems Ten Systems: 10 systems reviewed and negative Constitutional: reports: Chills. 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 : None HEENT: Chronic vision loss Psych: Depression, Anxiety Musculoskeletal: Fibromyalgia, Chronic back pain Derm: None - Past Surgical History Past Surgical History: Yes General: Appendectomy Ortho: Other /CHILD WELFARE COUNSELOR: section, Tubal ligation - Present Medications Home Medications: Ambulatory Orders Medication Instructions Recorded Confirmed Levothyroxine [Synthroid] 112 mcg PO QDAC 06/23/12 07/06/18 Omeprazole 20 mg PO BID 06/23/12 07/06/18 Paroxetine HCl [Paxil] 40 mg PO DAILY 08/14/12 07/06/18 Triamterene/Hydrochlorothiazid 1 each PO DAILY 10/07/12 07/06/18 [Triamterene-Hctz 37.5-25 mg Tb] Acetaminophen [Tylenol] 650 mg PO Q6H PRN 12/16/16 06/06/17 Calcium Acetate 667 mg PO DAILY 12/16/16 06/06/17 Cholecalciferol [Vitamin D3] 10,000 unit PO DAILY 12/16/16 06/06/17 Ferrous Sulfate 325 mg PO DAILY 12/16/16 06/06/17 Multivitamin [Multiple Vitamins] 1 each PO DAILY 12/16/16 06/06/17 Atorvastatin [Lipitor] 1 tab PO DAILY 04/09/17 07/06/18 Hydrocodone/Acetaminophen [[place] 1 each PO Q6H PRN #15 tablet 03/14/18 5-325 Tablet] Hydrocodone/Acetaminophen [[place] 1 each PO Q6H PRN #20 tablet 06/11/18 5-325 Tablet] Oxycodone HCl/Acetaminophen 1 - 2 each PO Q6H PRN #10 tablet 07/06/18 [Percocet 5-325 mg Tablet] - Allergies Allergies/Adverse Reactions: Allergies Allergy/AdvReac Type Severity Reaction Status Date / Time felodipine Allergy Severe Respiratory Verified 07/06/18 18:54 Sulfa (Sulfonamide Allergy Intermediate Itching Verified 07/06/18 18:54 Antibiotics) eletriptan [From Relpax] Allergy Unknown Verified 07/06/18 18:54 pregabalin Allergy Unknown Verified 07/06/18 18:54 gabapentin AdvReac Edema Verified 07/06/18 18:54 tramadol AdvReac Edema Verified 07/06/18 18:54 plendil Allergy Intermediate Unknown. Uncoded 07/06/18 18:54 tape Allergy Mild Hives Uncoded 07/06/18 18:54 depomedrol Allergy Unknown Uncoded 07/06/18 18:54 - Social History Does the pt smoke?: Yes Smoking Status: Current every day smoker Does the pt drink ETOH?: No Does the pt have substance abuse?: No - Immunizations Immunizations are current?: Yes - POLST Patient has POLST: No PD ED PE NORMAL - Vitals Vital signs reviewed: Yes - General General: Alert and oriented X 3, Well developed/nourished, Other (Appears uncomfortable) - HEENT HEENT: Moist mucous membranes - Neck Neck: Supple, no meningeal sign - Cardiac Cardiac: RRR - Respiratory Respiratory: No respiratory distress, Clear bilaterally - Abdomen Abdomen: Soft, Non distended, Other (Tender palpation right upper quadrant. Positive Fox sign) - Back Back: No CVA TTP, No spinal TTP - Derm Derm: Warm and dry - Extremities Extremities: No calf tenderness / cord - Neuro Neuro: Alert and oriented X 3 Results - Vitals Vitals: Vital Signs - 24 hr 07/06/18 07/06/18 07/06/18 18:03 19:54 21:18 Temperature 36.3 C L 37.1 C Heart Rate 94 65 86 Respiratory 18 16 18 Rate Blood Pressure 137/109 H 136/82 H 137/119 H O2 Saturation 99 100 99 Oxygen O2 Source Room air - Labs Labs: Laboratory Tests 07/06/18 07/06/18 07/06/18 18:03 18:25 18:25 WBC 14.0 H RBC 4.58 Hgb 14.2 Hct 42.0 MCV 91.7 MCH 31.0 MCHC 33.8 RDW 13.2 Plt Count 389 MPV 7.7 L Neut # (Auto) 8.8 H Lymph # (Auto) 4.4 [place] # (Auto) 0.6 Eos # (Auto) 0.2 Baso # (Auto) 0.0 Absolute Nucleated RBC 0.01 Nucleated RBC % 0.0 Sodium 135 Potassium 3.5 Chloride 96 L Carbon Dioxide 26 Anion Gap 13.0 BUN 17 Creatinine 0.9 Estimated GFR (MDRD) 66 L Glucose 90 Calcium 9.5 Total Bilirubin 0.5 AST 25 ALT 20 Alkaline Phosphatase 61 Total Protein 7.3 Albumin 4.2 Globulin 3.1 Albumin/Globulin Ratio 1.4 Lipase 31 Urine Color YELLOW Urine Clarity CLEAR Urine pH 7.5 Ur Specific [place] 1.010 Urine Protein NEGATIVE Urine Glucose (UA) NEGATIVE Urine Ketones NEGATIVE Urine Occult Blood TRACE-INTA Urine Nitrite NEGATIVE Urine Bilirubin NEGATIVE Urine Urobilinogen 0.2 (NORMAL) Ur Leukocyte Esterase NEGATIVE Ur Microscopic Review NOT INDICATED Urine Culture Comments NOT INDICATED Urine HCG, Qual NEGATIVE - Rads (name of study) Right upper quadrant ultrasound Radiology: Prelim report reviewed, EMP read contemporaneously, See rad report (Negative right upper quadrant ultrasound. ) CT abd/pelvis Radiology: Prelim report reviewed, EMP read contemporaneously, See rad report (No bowel obstruction, fluid collection or acute inflammatory process. 2. No urinary tract stones or obstructive changes. ) PD MEDICAL DECISION MAKING - ED course Complexity details: reviewed old records, reviewed results, re-evaluated patient, considered differential, d/w patient ED course: 52-year-old female with abdominal pain of unclear etiology. Pain controlled in the emergency department. Will prescribe a small amount of pain medication for home. She is well-appearing, nontoxic. Afebrile. No vomiting. No acute findings on CT or ultrasound. Patient counseled regarding signs and symptoms for which I believe and urgent re-evaluation would be necessary. Patient with good understanding of and agreement to plan and is comfortable going home at this time This document was made in part using voice recognition software. While efforts are made to proofread this document, sound alike and grammatical errors may occur. Departure - Departure Disposition: 01 Home, Self Care Clinical Impression: Abdominal pain Qualifiers: Abdominal location: generalized Qualified Code(s): R10.84 - Generalized abdominal pain Condition: Good Instructions: ED Abdominal Pain Unkn Cause Follow-Up: [facility] [Primary Care Provider] - Within 1 week Prescriptions: Oxycodone HCl/Acetaminophen [Percocet 5-325 mg Tablet] 1 - 2 each PO Q6H PRN #10 tablet PRN Reason: pain Comments: The cause of your pain is unclear today. Return if you worsen. Follow-up with your doctor for further care. There are no acute laboratory abnormalities, ultrasound abnormalities or CT scan abnormalities to explain your symptoms today. Do not drink alcohol or drive while on narcotic pain medicine. Note that many narcotic pain relievers also contain tylenol/acetaminophen. Please ensure that your total dose of acetaminophen from all sources does not exceed 3 grams (3000mg) per day. You may constipated on this medication, take a stool softener such as "Colace" twice a day while you are on it. Also recommend a [id number] laxative such as senna or MiraLAX any day that you do not have a bowel movement. If you received narcotic pain medication in the emergency department, do not drive or operate machinery for the next 24 hours.
[2018-07-06 18:55] LABS: ALBUMIN 4.2 g/dL (3.2-5.5); ALBUMIN/GLOBULIN RATIO 1.4 (1.0-2.2); BILIRUBIN,TOTAL 0.5 mg/dL (0.2-1.0); CALCIUM 9.5 mg/dL (8.5-10.3); CREATININE 0.9 mg/dL (0.4-1.0); TOTAL PROTEIN 7.3 g/dL (6.7-8.2)
[2018-07-06] MEDS ORDERED: IOVERSOL 320 100 ML VIAL IVP ONE ×2 (20:47→21:12)
--- NOTE | 2018-07-06 21:00 | Ultrasound Report ---
Reason: RUQ abd pain Procedure Date: 07/06/2018 Accession Number: [id number] / [id number] Procedure: US - Abdomen Limited CPT Code: FULL RESULT: EXAM: ABDOMEN ULTRASOUND LIMITED, RUQ EXAM DATE: 07/06/2018 08:00 PM. CLINICAL HISTORY: Right upper quadrant pain COMPARISON: ABDOMEN/PELVIS W/ 11/30/2013 3:13 PM. TECHNIQUE: Real-time scanning was performed with static images obtained. FINDINGS: Liver: Submitted images of liver demonstrate no focal lesions. Main portal vein flow: Hepatopetal. Gallbladder: No stones, wall thickening, or sonographic Fox's sign. Biliary System: CBD measures 4 mm. No intrahepatic or extrahepatic ductal dilatation. Other: The visualized pancreas is unremarkable. The right kidney demonstrates no hydronephrosis. IMPRESSION: Negative right upper quadrant ultrasound. RADIA
--- NOTE | 2018-07-06 21:53 | CT Report ---
Reason: R abd pain Procedure Date: 07/06/2018 Accession Number: [id number] / [id number] Procedure: CT - Abdomen/Pelvis W CPT Code: FULL RESULT: EXAM: CT ABDOMEN AND PELVIS EXAM DATE: 07/06/2018 09:14 PM. CLINICAL HISTORY: Right abdominal pain. COMPARISONS: ABDOMEN/PELVIS W/ 11/30/2013 3:13 PM. TECHNIQUE: Routine helical CT imaging was performed through the abdomen and pelvis. IV contrast: Optiray-320 100 mL. Enteric contrast: No. Reconstructions: Coronal and sagittal. In accordance with CT protocol optimization, one or more of the following dose reduction techniques were utilized for this exam: automated exposure control, adjustment of mA and/or KV based on patient size, or use of iterative reconstructive technique. FINDINGS: Lung Bases: Unremarkable. Liver: Normal. No masses. Gallbladder/Bile Ducts: Unremarkable. Spleen: Normal. Pancreas: Normal. Adrenal Glands: Normal. Kidneys: Normal. No masses or hydronephrosis. Peritoneal Cavity/Bowel: Normal. No free fluid, free air or adenopathy. No masses or acute inflammatory process. No evidence of appendicitis or other acute inflammatory process. Pelvic Organs: Normal. The bladder and visualized pelvic organs are within normal limits. Vasculature: No aneurysms or other significant abnormality. Bones: No significant abnormality. Other: None. IMPRESSION: 1. No bowel obstruction, fluid collection or acute inflammatory process. 2. No urinary tract stones or obstructive changes. RADIA
[2018-07-06] MEDS ORDERED: oxyCODONE 5 MG TABLET PO STA (22:19)
[2018-07-06 22:34] VITALS: BP 132/105
== END 2018-07-06 22:37 | disposition home or self-care (01) ==
LOC: ED 17:51
DX: R10.84 Generalized abdominal pain (principal); I10 Essential (primary) hypertension; F17.200 Nicotine dependence, unspecified, uncomplicated
CPT/HCPCS: 36415; 74177; 76705; 80053; 81003; 81025; 83690; 85025; 96374; 96376; 99283; 99284; A9270; J1170; Q9967; 81001; 87086

== ENCOUNTER 2018-07-08 12:21 | Emergency (ER) | payer MEDICAID ==
[2018-07-08] MEDS ORDERED: IOVERSOL 320 100 ML VIAL IVP ONE ×3 (12:22→17:09)
[2018-07-08] MEDS ORDERED: MAG HYDROX/AL HYDROX/SIMETH 30 ML UDC PO STA (12:41)
[2018-07-08] MEDS ORDERED: LIDOCAINE VISCOUS 2% 15 ML UDC MM STA (12:41)
--- NOTE | 2018-07-08 12:44 | ED Physician Documentation ---
PD HPI ABD PAIN - Stated complaint Stated Complaint: ABD PX - Chief complaint Chief Complaint: Abd Pain - History obtained from History obtained from: Patient - History of Present Illness Timing - onset: Other (52-year-old woman with history of perforated peptic ulcer and incisional hernia repair presents with 2 days of gradual but progressive aching right-sided upper abdominal pain radiating to the back. She was seen here 2 days ago, labs were notable for a white count of 14 but she always has a leukocytosis and that is within range for her, she had an abdominal CT that was basically normal. Since then the pain is worse. She has no appetite. Pain does not change with eating. She feels slightly short of breath with it, but she thinks because of the pain and anxiety of it. She denies pedal edema or calf pain. No recent travel. No fevers. No nausea or changes in her bowel movements.) Review of Systems Ten Systems: 10 systems reviewed and negative Constitutional: denies: Fever, Chills Cardiac: denies: Chest pain / pressure, Palpitations Respiratory: reports: Dyspnea. denies: Cough GI: reports: Abdominal Pain. 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 HEENT: Chronic vision loss Psych: Depression, Anxiety Musculoskeletal: Fibromyalgia, Chronic back pain Derm: None - Past Surgical History Past Surgical History: Yes General: Appendectomy Ortho: Other /PRECISION MACHINIST: section, Tubal ligation - Present Medications Home Medications: Ambulatory Orders Medication Instructions Recorded Confirmed Levothyroxine [Synthroid] 112 mcg PO QDAC 06/23/12 07/06/18 Omeprazole 20 mg PO BID 06/23/12 07/06/18 Paroxetine HCl [Paxil] 40 mg PO DAILY 08/14/12 07/06/18 Triamterene/Hydrochlorothiazid 1 each PO DAILY 10/07/12 07/06/18 [Triamterene-Hctz 37.5-25 mg Tb] Acetaminophen [Tylenol] 650 mg PO Q6H PRN 12/16/16 06/06/17 Calcium Acetate 667 mg PO DAILY 12/16/16 06/06/17 Cholecalciferol [Vitamin D3] 10,000 unit PO DAILY 12/16/16 06/06/17 Ferrous Sulfate 325 mg PO DAILY 12/16/16 06/06/17 Multivitamin [Multiple Vitamins] 1 each PO DAILY 12/16/16 06/06/17 Atorvastatin [Lipitor] 1 tab PO DAILY 04/09/17 07/06/18 Hydrocodone/Acetaminophen [[place] 1 each PO Q6H PRN #15 tablet 03/14/18 5-325 Tablet] Hydrocodone/Acetaminophen [[place] 1 each PO Q6H PRN #20 tablet 06/11/18 5-325 Tablet] Oxycodone HCl/Acetaminophen 1 - 2 each PO Q6H PRN #10 tablet 07/06/18 [Percocet 5-325 mg Tablet] Morphine Ir [Ms Ir] 15 mg PO Q6H PRN #15 tablet 07/08/18 - Allergies Allergies/Adverse Reactions: Allergies Allergy/AdvReac Type Severity Reaction Status Date / Time felodipine Allergy Severe Respiratory Verified 07/08/18 12:31 Sulfa (Sulfonamide Allergy Intermediate Itching Verified 07/08/18 12:31 Antibiotics) eletriptan [From Relpax] Allergy Unknown Verified 07/08/18 12:31 pregabalin Allergy Unknown Verified 07/08/18 12:31 gabapentin AdvReac Edema Verified 07/08/18 12:31 tramadol AdvReac Edema Verified 07/08/18 12:31 plendil Allergy Intermediate Unknown. Uncoded 07/08/18 12:31 depomedrol Allergy Unknown Uncoded 07/08/18 12:31 tape AdvReac Mild Hives Uncoded 07/08/18 12:31 - Living Situation Living Situation: reports: With spouse/s.o. - Social History Does the pt smoke?: Yes Smoking Status: Current every day smoker Does the pt drink ETOH?: No Does the pt have substance abuse?: No - Family History Family history: reports: Non contributory - Immunizations Immunizations are current?: Yes - POLST Patient has POLST: No PD ED PE NORMAL - Vitals Vital signs reviewed: Yes - General General: Alert and oriented X 3, Other (Uncomfortable and anxious) - HEENT HEENT: PERRL, EOMI - Neck Neck: Supple, no meningeal sign, No bony TTP - Cardiac Cardiac: RRR, No murmur - Respiratory Respiratory: No respiratory distress, Clear bilaterally - Abdomen Abdomen: Other (Tender in the right upper quadrant without skin changes or surgical signs) - Back Back: No CVA TTP, No spinal TTP - Derm Derm: No rash - Extremities Extremities: No edema, No calf tenderness / cord - Neuro Neuro: Alert and oriented X 3, Normal speech Results - Vitals Vitals: Vital Signs - 24 hr 07/08/18 12:27 Temperature 36.5 C Heart Rate 81 Respiratory 18 Rate Blood Pressure 138/101 H O2 Saturation 100 Oxygen O2 Source Room air - Labs Labs: Laboratory Tests 07/08/18 07/08/18 07/08/18 13:00 13:36 13:36 WBC 11.9 H RBC 4.59 Hgb 14.0 Hct 42.5 MCV 92.7 MCH 30.6 MCHC 33.0 RDW 13.2 Plt Count 385 MPV 7.6 L Neut # (Auto) 7.4 H Lymph # (Auto) 3.5 [place] # (Auto) 0.5 Eos # (Auto) 0.3 Baso # (Auto) 0.1 Absolute Nucleated RBC 0.00 Nucleated RBC % 0.0 D-Dimer Sodium 138 Potassium 3.9 Chloride 101 Carbon Dioxide 25 Anion Gap 12.0 BUN 16 Creatinine 0.9 Estimated GFR (MDRD) 66 L Glucose 104 H Calcium 9.6 Total Bilirubin 0.5 AST 23 ALT 20 Alkaline Phosphatase 65 Total Protein 7.3 Albumin 4.3 Globulin 3.0 Albumin/Globulin Ratio 1.4 Lipase 30 Urine Color DARK YELLOW Urine Clarity CLOUDY Urine pH 7.5 Ur Specific [place] 1.010 Urine Protein TRACE Urine Glucose (UA) NEGATIVE Urine Ketones NEGATIVE Urine Occult Blood TRACE-INTA Urine Nitrite NEGATIVE Urine Bilirubin NEGATIVE Urine Urobilinogen 0.2 (NORMAL) Ur Leukocyte Esterase SMALL H Urine RBC 0-5 Urine WBC 11-25 H Ur Squamous Epith Cells MANY Squamous H Urine Bacteria Few Ur Microscopic Review INDICATED Urine Culture Comments NOT INDICATED 07/08/18 13:36 WBC RBC Hgb Hct MCV MCH MCHC RDW Plt Count MPV Neut # (Auto) Lymph # (Auto) [place] # (Auto) Eos # (Auto) Baso # (Auto) Absolute Nucleated RBC Nucleated RBC % D-Dimer 292.2 H Sodium Potassium Chloride Carbon Dioxide Anion Gap BUN Creatinine Estimated GFR (MDRD) Glucose Calcium Total Bilirubin AST ALT Alkaline Phosphatase Total Protein Albumin Globulin Albumin/Globulin Ratio Lipase Urine Color Urine Clarity Urine pH Ur Specific [place] Urine Protein Urine Glucose (UA) Urine Ketones Urine Occult Blood Urine Nitrite Urine Bilirubin Urine Urobilinogen Ur Leukocyte Esterase Urine RBC Urine WBC Ur Squamous Epith Cells Urine Bacteria Ur Microscopic Review Urine Culture Comments - Rads (name of study) CT A/P with PO/IV contrast Radiology: EMP read contemporaneously (normal) PD MEDICAL DECISION MAKING - ED course ED course: 52-year-old woman with right upper quadrant pain. No shingles rash. She had a fairly thorough work-up the other day, but the pain is recurrent and she is very frustrated by it. We discussed potential repeat scanning and after discussion she wanted to go ahead with it, this was negative. Follow-up with GI was recommended. She chronically has a leukocytosis and this is within her normal range. Departure - Departure Disposition: 01 Home, Self Care Clinical Impression: Abdominal pain Qualifiers: Abdominal location: right upper quadrant Qualified Code(s): R10.11 - Right upper quadrant pain Condition: Good Record reviewed to determine appropriate education?: Yes Instructions: ED Abdominal Pain Unkn Cause Prescriptions: Morphine Ir [Ms Ir] 15 mg PO Q6H PRN #15 tablet PRN Reason: Pain Comments: Followup with your physician and discuss referral to GI. Return if worse.
[2018-07-08] MEDS ORDERED: HYDROmorphone 1 MG/ML CARPUJECT IVP STA (13:07)
[2018-07-08] MEDS ORDERED: ONDANSETRON 4 MG/2 ML VIAL IVP STA (13:18)
[2018-07-08 13:40] LABS: BASOPHILS # (AUTO) 0.1 10^3/uL (0.0-0.1); BASOPHILS % (AUTO) 1.2 %; EOSINOPHILS # (AUTO) 0.3 10^3/uL (0.0-0.7); EOSINOPHILS % (AUTO) 2.2 %; LYMPHOCYTES # (AUTO) 3.5 10^3/uL (1.5-3.5); LYMPHOCYTES % (AUTO) 29.7 %; MEAN CORPUSCULAR HEMOGLOBIN 30.6 pg (27.0-31.0); MEAN CORPUSCULAR VOLUME 92.7 fL (81.0-99.0); MEAN PLATELET VOLUME 7.6 fL (7.9-10.8); MONOCYTES # (AUTO) 0.5 10^3/uL (0.0-1.0); MONOCYTES % (AUTO) 4.4 %; NEUTROPHILS # (AUTO) 7.4 10^3/uL (1.5-6.6); NEUTROPHILS % (AUTO) 62.5 %; PLT - PLATELET COUNT 385 10^3/uL (130-450); RED BLOOD COUNT 4.59 10^6/uL (4.20-5.40); RED CELL DISTRIBUTION WIDTH 13.2 % (12.0-15.0); WHITE BLOOD COUNT 11.9 x10^3/uL (4.8-10.8)
[2018-07-08 13:52] LABS: ALBUMIN 4.3 g/dL (3.2-5.5); ALBUMIN/GLOBULIN RATIO 1.4 (1.0-2.2); BILIRUBIN,TOTAL 0.5 mg/dL (0.2-1.0); CALCIUM 9.6 mg/dL (8.5-10.3); CREATININE 0.9 mg/dL (0.4-1.0); TOTAL PROTEIN 7.3 g/dL (6.7-8.2)
[2018-07-08] MEDS ORDERED: MORPHINE 10 MG/ML VIAL IVP STA ×2 (13:55→16:24)
[2018-07-08] MEDS ORDERED: KETOROLAC 30 MG/ML VIAL IVP STA (13:55)
[2018-07-08 14:37] LABS: BILIRUBIN,URINE NEGATIVE (NEGATIVE); GLUCOSE, URINE (UA) NEGATIVE (NEGATIVE); KETONES,URINE (UA) NEGATIVE (NEGATIVE); LEUKOCYTE ESTERASE, URINE SMALL (NEGATIVE); NITRITE,URINE NEGATIVE (NEGATIVE); OCCULT BLOOD,URINE TRACE-INTA (NEGATIVE); PH,URINE 7.5 PH (5.0-7.5); PROTEIN,URINE TRACE mg/dL (NEGATIVE); UROBILINOGEN,URINE 0.2 (NORMAL) E.U./dL (NORMAL)
[2018-07-08 14:38] LABS: CLARITY,URINE CLOUDY (CLEAR)
[2018-07-08 14:46] LABS: BACTERIA,URINE Few /HPF (None Seen); RBC,URINE 0-5 /HPF (0-5); SQUAMOUS EPITHELIAL CELL,UR MANY Squamous (<= Few)
[2018-07-08] MEDS ORDERED: IOVERSOL 320 50 ML VIAL ONE (16:12)
[2018-07-08] MEDS ORDERED: IOVERSOL 320 50 ML VIAL PO ONE (17:09)
--- NOTE | 2018-07-08 17:58 | CT Report ---
Reason: IV and PO, RUQ pain Procedure Date: 07/08/2018 Accession Number: [id number] / [id number] Procedure: CT - Abdomen/Pelvis W CPT Code: FULL RESULT: EXAM: CT ABDOMEN AND PELVIS EXAM DATE: 07/08/2018 05:11 PM. CLINICAL HISTORY: IV and PO, RUQ pain. COMPARISONS: ABDOMEN/PELVIS W/ 07/06/2018 8:58 PM. TECHNIQUE: Routine helical CT imaging was performed through the abdomen and pelvis. IV contrast: opti 320 90 ml. Enteric contrast: No. Reconstructions: Coronal and sagittal. In accordance with CT protocol optimization, one or more of the following dose reduction techniques were utilized for this exam: automated exposure control, adjustment of mA and/or KV based on patient size, or use of iterative reconstructive technique. FINDINGS: Lung Bases: Unremarkable. Liver: Normal. No masses. Gallbladder/Bile Ducts: Unremarkable. Spleen: Normal. Pancreas: Normal. Adrenal Glands: Normal. Kidneys: Normal. No masses or hydronephrosis. Peritoneal Cavity/Bowel: Normal. No free fluid, free air or adenopathy. No masses or acute inflammatory process. The appendix is not definitively visualized in the right lower quadrant. Pelvic Organs: Normal. The bladder and visualized pelvic organs are within normal limits. Vasculature: No aneurysms or other significant abnormality. Bones: No significant abnormality. Other: None. IMPRESSION: No acute abdominal pathology. [facility]
[2018-07-08 18:20] VITALS: BP 136/98
== END 2018-07-08 18:22 | disposition home or self-care (01) ==
LOC: ED 12:21
DX: R10.11 Right upper quadrant pain (principal); Z87.11 Personal history of peptic ulcer disease; K21.9 Gastro-esophageal reflux disease without esophagitis; I10 Essential (primary) hypertension; F17.200 Nicotine dependence, unspecified, uncomplicated
CPT/HCPCS: 36415; 74177; 80053; 81001; 83690; 85025; 85379; 96374; 96375; 96376; 99283; 99284; A9270; J1170; Q9967; 81003; 87086

== ENCOUNTER 2018-07-14 14:48 | Emergency (ER) | payer MEDICAID ==
[2018-07-14 15:29] LABS: BASOPHILS # (AUTO) 0.2 10^3/uL (0.0-0.1); BASOPHILS % (AUTO) 1.9 %; EOSINOPHILS # (AUTO) 0.1 10^3/uL (0.0-0.7); EOSINOPHILS % (AUTO) 0.7 %; HGB - HEMOGLOBIN 13.7 g/dL (12.0-16.0); LYMPHOCYTES # (AUTO) 3.2 10^3/uL (1.5-3.5); LYMPHOCYTES % (AUTO) 29.3 %; MEAN CORPUSCULAR HEMOGLOBIN 30.9 pg (27.0-31.0); MEAN CORPUSCULAR VOLUME 90.8 fL (81.0-99.0); MEAN PLATELET VOLUME 7.7 fL (7.9-10.8); MONOCYTES # (AUTO) 0.5 10^3/uL (0.0-1.0); MONOCYTES % (AUTO) 4.4 %; NEUTROPHILS % (AUTO) 63.7 %; PLT - PLATELET COUNT 357 10^3/uL (130-450); RED BLOOD COUNT 4.43 10^6/uL (4.20-5.40); RED CELL DISTRIBUTION WIDTH 13.1 % (12.0-15.0)
[2018-07-14 15:56] LABS: ALBUMIN 4.2 g/dL (3.2-5.5); ALBUMIN/GLOBULIN RATIO 1.2 (1.0-2.2); BILIRUBIN,TOTAL 0.6 mg/dL (0.2-1.0); CALCIUM 9.3 mg/dL (8.5-10.3); CREATININE 0.8 mg/dL (0.4-1.0); TOTAL PROTEIN 7.7 g/dL (6.7-8.2)
[2018-07-14] MEDS ORDERED: MORPHINE 10 MG/ML VIAL IM STA (16:06)
[2018-07-14] MEDS ORDERED: METOCLOPRAMIDE 10 MG/2 ML VIAL IM STA (16:07)
--- NOTE | 2018-07-14 16:07 | ED Physician Documentation ---
PD HPI ABD PAIN - Stated complaint Stated Complaint: ABD PX - Chief complaint Chief Complaint: Abd Pain - History obtained from History obtained from: Patient - History of Present Illness Timing - onset: Other (She is on day 9 of right upper quadrant pain that is nonradiating. It is worse with deep breathing but she is not short of breath. New today as she has diarrhea and chills. She is been seen twice so far for this, had 2- CTs and a negative ultrasound. No transaminitis or significant lab abnormalities except for a mild leukocytosis which for her is chronic. She has an appoint with her doctor next . She does not smoke marijuana.) Review of Systems Ten Systems: 10 systems reviewed and negative Constitutional: reports: Chills. denies: Fever Cardiac: denies: Chest pain / pressure, Palpitations Respiratory: denies: Dyspnea, Cough GI: reports: Abdominal Pain, Diarrhea. 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 : None HEENT: Chronic vision loss Psych: Depression, Anxiety Musculoskeletal: Fibromyalgia, Chronic back pain Derm: None - Past Surgical History Past Surgical History: Yes General: Appendectomy Ortho: Other /CRACKER SPRAYER: section, Tubal ligation - Present Medications Home Medications: Ambulatory Orders Medication Instructions Recorded Confirmed Levothyroxine [Synthroid] 112 mcg PO QDAC 06/23/12 07/06/18 Omeprazole 20 mg PO BID 06/23/12 07/06/18 Paroxetine HCl [Paxil] 40 mg PO DAILY 08/14/12 07/06/18 Triamterene/Hydrochlorothiazid 1 each PO DAILY 10/07/12 07/06/18 [Triamterene-Hctz 37.5-25 mg Tb] Acetaminophen [Tylenol] 650 mg PO Q6H PRN 12/16/16 06/06/17 Calcium Acetate 667 mg PO DAILY 12/16/16 06/06/17 Cholecalciferol [Vitamin D3] 10,000 unit PO DAILY 12/16/16 06/06/17 Ferrous Sulfate 325 mg PO DAILY 12/16/16 06/06/17 Multivitamin [Multiple Vitamins] 1 each PO DAILY 12/16/16 06/06/17 Atorvastatin [Lipitor] 1 tab PO DAILY 04/09/17 07/06/18 Hydrocodone/Acetaminophen [[place] 1 each PO Q6H PRN #15 tablet 03/14/18 5-325 Tablet] Hydrocodone/Acetaminophen [[place] 1 each PO Q6H PRN #20 tablet 06/11/18 5-325 Tablet] Oxycodone HCl/Acetaminophen 1 - 2 each PO Q6H PRN #10 tablet 07/06/18 [Percocet 5-325 mg Tablet] Morphine Ir [Ms Ir] 15 mg PO Q6H PRN #15 tablet 07/08/18 oxyCODONE [Roxicodone] 5 mg PO Q4-6H PRN #15 tablet 07/14/18 - Allergies Allergies/Adverse Reactions: Allergies Allergy/AdvReac Type Severity Reaction Status Date / Time felodipine Allergy Severe Respiratory Verified 07/08/18 12:31 Sulfa (Sulfonamide Allergy Intermediate Itching Verified 07/08/18 12:31 Antibiotics) eletriptan [From Relpax] Allergy Unknown Verified 07/08/18 12:31 pregabalin Allergy Unknown Verified 07/08/18 12:31 gabapentin AdvReac Edema Verified 07/08/18 12:31 tramadol AdvReac Edema Verified 07/08/18 12:31 plendil Allergy Intermediate Unknown. Uncoded 07/08/18 12:31 depomedrol Allergy Unknown Uncoded 07/08/18 12:31 tape AdvReac Mild Hives Uncoded 07/08/18 12:31 - Social History Does the pt smoke?: Yes Smoking Status: Current every day smoker Does the pt drink ETOH?: No Does the pt have substance abuse?: No - Immunizations Immunizations are current?: Yes - POLST Patient has POLST: No PD ED PE NORMAL - Vitals Vital signs reviewed: Yes - General General: Alert and oriented X 3, No acute distress (But winces with laughing) - Cardiac Cardiac: RRR, No murmur - Respiratory Respiratory: No respiratory distress, Clear bilaterally - Abdomen Abdomen: Normal bowel sounds, Soft, Other (Focal tenderness in the right upper quadrant without surgical signs) - Extremities Extremities: No edema, No calf tenderness / cord - Neuro Neuro: Alert and oriented X 3, Normal speech - Psych Psych: Normal mood, Normal affect Results - Vitals Vitals: Vital Signs - 24 hr 07/14/18 07/14/18 15:04 16:22 Temperature 37.0 C Heart Rate 88 Respiratory 16 17 Rate Blood Pressure 148/105 H O2 Saturation 99 Oxygen O2 Source Room air - Labs Labs: Laboratory Tests 07/14/18 07/14/18 07/14/18 15:21 15:21 15:58 WBC 11.0 H RBC 4.43 Hgb 13.7 Hct 40.3 MCV 90.8 MCH 30.9 MCHC 34.0 RDW 13.1 Plt Count 357 MPV 7.7 L Neut # (Auto) 7.0 H Lymph # (Auto) 3.2 [place] # (Auto) 0.5 Eos # (Auto) 0.1 Baso # (Auto) 0.2 H Absolute Nucleated RBC 0.00 Nucleated RBC % 0.0 Sodium 137 Potassium 3.7 Chloride 98 L Carbon Dioxide 26 Anion Gap 13.0 BUN 12 Creatinine 0.8 Estimated GFR (MDRD) 76 L Glucose 100 Calcium 9.3 Total Bilirubin 0.6 AST 24 ALT 22 Alkaline Phosphatase 63 Total Protein 7.7 Albumin 4.2 Globulin 3.5 Albumin/Globulin Ratio 1.2 Lipase 31 Urine Color LT. YELLOW Urine Clarity CLEAR Urine pH 7.5 Ur Specific [place] 1.010 Urine Protein NEGATIVE Urine Glucose (UA) NEGATIVE Urine Ketones NEGATIVE Urine Occult Blood SMALL H Urine Nitrite NEGATIVE Urine Bilirubin NEGATIVE Urine Urobilinogen 0.2 (NORMAL) Ur Leukocyte Esterase TRACE H Urine RBC None Seen Urine WBC 4-5 Ur Squamous Epith Cells MOD Squamous H Urine Bacteria None Seen Ur Microscopic Review INDICATED Urine Culture Comments NOT INDICATED Urine HCG, Qual 07/14/18 15:58 WBC RBC Hgb Hct MCV MCH MCHC RDW Plt Count MPV Neut # (Auto) Lymph # (Auto) [place] # (Auto) Eos # (Auto) Baso # (Auto) Absolute Nucleated RBC Nucleated RBC % Sodium Potassium Chloride Carbon Dioxide Anion Gap BUN Creatinine Estimated GFR (MDRD) Glucose Calcium Total Bilirubin AST ALT Alkaline Phosphatase Total Protein Albumin Globulin Albumin/Globulin Ratio Lipase Urine Color Urine Clarity Urine pH Ur Specific [place] 1.010 Urine Protein Urine Glucose (UA) Urine Ketones Urine Occult Blood Urine Nitrite Urine Bilirubin Urine Urobilinogen Ur Leukocyte Esterase Urine RBC Urine WBC Ur Squamous Epith Cells Urine Bacteria Ur Microscopic Review Urine Culture Comments Urine HCG, Qual NEGATIVE PD MEDICAL DECISION MAKING - ED course ED course: This is a 52-year-old woman with ongoing right upper quadrant pain status post negative work-ups. She tried to follow-up with her PCPs office, but they do not have appointments. I did speak with Dr. Robert there and they will get her in for follow-up. Departure - Departure Disposition: 01 Home, Self Care Clinical Impression: Abdominal pain Qualifiers: Abdominal location: right upper quadrant Qualified Code(s): R10.11 - Right upper quadrant pain Condition: Good Record reviewed to determine appropriate education?: Yes Instructions: ED Abdominal Pain Unkn Cause Prescriptions: oxyCODONE [Roxicodone] 5 mg PO Q4-6H PRN #15 tablet PRN Reason: Pain Comments: As discussed, return for any new or worsening symptoms. Follow-up with your primary care physician, let them know I spoke with Dr. Robert today. I think you need follow-up for consideration for EGD and/or HIDA scan.
[2018-07-14 16:08] LABS: BILIRUBIN,URINE NEGATIVE (NEGATIVE); GLUCOSE, URINE (UA) NEGATIVE (NEGATIVE); KETONES,URINE (UA) NEGATIVE (NEGATIVE); LEUKOCYTE ESTERASE, URINE TRACE (NEGATIVE); NITRITE,URINE NEGATIVE (NEGATIVE); OCCULT BLOOD,URINE SMALL (NEGATIVE); PH,URINE 7.5 PH (5.0-7.5); PROTEIN,URINE NEGATIVE (NEGATIVE); UROBILINOGEN,URINE 0.2 (NORMAL) E.U./dL (NORMAL)
[2018-07-14 16:21] LABS: BACTERIA,URINE None Seen /HPF (None Seen); CLARITY,URINE CLEAR (CLEAR); HCG UR QUAL NEGATIVE; RBC,URINE None Seen /HPF (0-5); SQUAMOUS EPITHELIAL CELL,UR MOD Squamous (<= Few)
[2018-07-14 16:50] VITALS: BP 146/100
== END 2018-07-14 16:49 | disposition home or self-care (01) ==
LOC: ED 14:48
DX: R10.11 Right upper quadrant pain (principal); R19.7 Diarrhea, unspecified; I10 Essential (primary) hypertension; F17.200 Nicotine dependence, unspecified, uncomplicated
CPT/HCPCS: 36415; 80053; 81001; 81025; 83690; 85025; 96372; 99283; J2765; 81003; 87086

== ENCOUNTER 2018-07-23 17:47 | Emergency (ER) | payer MEDICAID ==
--- NOTE | 2018-07-23 18:08 | ED Physician Documentation ---
PD HPI ABD PAIN - Stated complaint Stated Complaint: ABDOMINAL PX - Chief complaint Chief Complaint: Abd Pain - History obtained from History obtained from: Patient - History of Present Illness Timing - onset: Today Timing - duration: Hours (2) Timing - details: Abrupt onset Quality: Other ("Intense") Location: RUQ Radiation: Right flank Associated symptoms: Chest pain (Feels bruised along her right anterior lateral chest margin). No: Fever, Nausea, Vomiting, Diarrhea, Dysuria, Hematuria, Dizzy Similar symptoms before: Work up / diagnostics (She has had this pain since July 03 waxing and waning.) Recently seen: Emergency Dept (She was here on July 14, July 05 and July 03) - Additional information Additional information: This is a 52-year-old presents with complaints that "this done saying" will not go away. She is been having right upper quadrant abdominal pain for these 2 weeks is kind of improved and waxing and waning and then it started today at 4 PM and its more intense and feels bruised along the rib margin. She is been into the emergency department 3 times and been to see her primary care provider with the most recent visit to her primary just 3 days ago. She has had ultrasound and CAT scans and now they are trying to get approval to have a HIDA scan done to make sure this is not her gallbladder. She is been nauseous but no vomiting or diarrhea. She had chills but no fever. She feels short of breath but she relates that to her "anxiety" she has not been coughing. She says she has been coming into the emergency department and getting several days with the pain medications. Oxycodone tends to give her good relief. Patient has had prior abdominal surgery in 2010 she had a perforated gastric ulcer in 2012 she had an incisional hernia repair with mesh. She is having pain, in the right flank but denies any history of kidney stones. No dysuria or hematuria. She is status post appendectomy. She does smoke tobacco, denies use of marijuana and only occasionally drinks alcohol. 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 Review of Systems Constitutional: reports: Chills. denies: Fever Cardiac: denies: Chest pain / pressure, Palpitations Respiratory: reports: Dyspnea. denies: Cough GI: reports: Abdominal Pain, Nausea. 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 : None HEENT: Chronic vision loss Psych: Depression, Anxiety Musculoskeletal: Fibromyalgia, Chronic back pain Derm: None - Past Surgical History Past Surgical History: Yes General: Appendectomy Ortho: Other /TIRE LAYER: section, Tubal ligation - Present Medications Home Medications: Ambulatory Orders Medication Instructions Recorded Confirmed Levothyroxine [Synthroid] 112 mcg PO QDAC 06/23/12 07/06/18 Omeprazole 20 mg PO BID 06/23/12 07/06/18 Paroxetine HCl [Paxil] 40 mg PO DAILY 08/14/12 07/06/18 Triamterene/Hydrochlorothiazid 1 each PO DAILY 10/07/12 07/06/18 [Triamterene-Hctz 37.5-25 mg Tb] Acetaminophen [Tylenol] 650 mg PO Q6H PRN 12/16/16 06/06/17 Calcium Acetate 667 mg PO DAILY 12/16/16 06/06/17 Cholecalciferol [Vitamin D3] 10,000 unit PO DAILY 12/16/16 06/06/17 Ferrous Sulfate 325 mg PO DAILY 12/16/16 06/06/17 Multivitamin [Multiple Vitamins] 1 each PO DAILY 12/16/16 06/06/17 Atorvastatin [Lipitor] 1 tab PO DAILY 04/09/17 07/06/18 Hydrocodone/Acetaminophen [[place] 1 each PO Q6H PRN #15 tablet 03/14/18 5-325 Tablet] Hydrocodone/Acetaminophen [[place] 1 each PO Q6H PRN #20 tablet 06/11/18 5-325 Tablet] Oxycodone HCl/Acetaminophen 1 - 2 each PO Q6H PRN #10 tablet 07/06/18 [Percocet 5-325 mg Tablet] Morphine Ir [Ms Ir] 15 mg PO Q6H PRN #15 tablet 07/08/18 oxyCODONE [Roxicodone] 5 mg PO Q4-6H PRN #15 tablet 07/14/18 - Allergies Allergies/Adverse Reactions: Allergies Allergy/AdvReac Type Severity Reaction Status Date / Time felodipine Allergy Severe Respiratory Verified 07/23/18 17:55 Sulfa (Sulfonamide Allergy Intermediate Itching Verified 07/23/18 17:55 Antibiotics) eletriptan [From Relpax] Allergy Unknown Verified 07/23/18 17:55 pregabalin Allergy Unknown Verified 07/23/18 17:55 gabapentin AdvReac Edema Verified 07/23/18 17:55 tramadol AdvReac Edema Verified 07/23/18 17:55 plendil Allergy Intermediate Unknown. Uncoded 07/23/18 17:55 depomedrol Allergy Unknown Uncoded 07/23/18 17:55 tape AdvReac Mild Hives Uncoded 07/23/18 17:55 - Social History Does the pt smoke?: Yes Smoking Status: Current every day smoker Does the pt drink ETOH?: No Does the pt have substance abuse?: No - Immunizations Immunizations are current?: Yes - POLST Patient has POLST: No PD ED PE NORMAL - Vitals Vital signs reviewed: Yes - General General: Alert and oriented X 3, No acute distress, Well developed/nourished, Other (Patient was lying down on her left side covered up with a blanket when I first entered the room. She was grimacing in pain and she rolled over but then sat up pretty much in a crosslegged position with one leg hanging over the edge of the bed did not seem to be in any distress.) - HEENT HEENT: Atraumatic, Moist mucous membranes, Other (No scleral icterus) - Cardiac Cardiac: RRR, No murmur - Respiratory Respiratory: No respiratory distress, Clear bilaterally - Abdomen Abdomen: Normal bowel sounds, Soft, Other (Diffuse tenderness. But the abdomen is soft. There is no guarding. There is a well-healed scar in the midline.) - Back Back: No CVA TTP - Derm Derm: Normal color, Warm and dry, No rash - Extremities Extremities: No edema - Neuro Neuro: Alert and oriented X 3, cryptanalyst 2-12 intact, No motor deficit, No sensory deficit, Normal speech Results - Vitals Vitals: Vital Signs - 24 hr 07/23/18 07/23/18 07/23/18 17:53 19:32 21:40 Temperature 35.7 C L Heart Rate 99 72 67 Respiratory 14 16 16 Rate Blood Pressure 133/97 H 136/90 H 128/77 O2 Saturation 98 100 100 Oxygen O2 Source Room air - Labs Labs: Laboratory Tests 07/23/18 07/23/18 07/23/18 18:00 18:30 18:30 WBC 12.8 H RBC 4.33 Hgb 13.7 Hct 39.1 MCV 90.2 MCH 31.5 H MCHC 35.0 RDW 13.4 Plt Count 315 MPV 8.1 Neut # (Auto) 7.6 H Lymph # (Auto) 4.1 H [place] # (Auto) 0.9 Eos # (Auto) 0.2 Baso # (Auto) 0.1 Absolute Nucleated RBC 0.00 Nucleated RBC % 0.0 Sodium 137 Potassium 3.2 L Chloride 96 L Carbon Dioxide 28 Anion Gap 13.0 BUN 20 Creatinine 0.9 Estimated GFR (MDRD) 66 L Glucose 101 H Calcium 9.7 Total Bilirubin 0.3 AST 23 ALT 19 Alkaline Phosphatase 66 Total Protein 7.5 Albumin 4.2 Globulin 3.3 Albumin/Globulin Ratio 1.3 Lipase 30 Urine Color YELLOW Urine Clarity CLEAR Urine pH 8.0 H Ur Specific [place] <=1.005 Urine Protein NEGATIVE Urine Glucose (UA) NEGATIVE Urine Ketones NEGATIVE Urine Occult Blood TRACE-LYSE Urine Nitrite NEGATIVE Urine Bilirubin NEGATIVE Urine Urobilinogen 0.2 (NORMAL) Ur Leukocyte Esterase NEGATIVE Ur Microscopic Review NOT INDICATED Urine Culture Comments NOT INDICATED PD MEDICAL DECISION MAKING - ED course Complexity details: re-evaluated patient, d/w patient ED course: Patient received 30 mg of Toradol IV. White blood cell count was mildly elevated she says it always runs under 16. Her potassium was slightly low at 3.2 so she was given oral potassium. She had no emesis here. She is not febrile. She is been worked up with CT scans and ultrasound just within the past 2 weeks. I did not feel that any further imaging was needed at this time. She is Trying to get preauthorized to get a HIDA scan done. Patient still com plaining of the same amount of pain that she had when she initially arrived here. I explained to her that I could not provide narcotic prescriptions at discharge but we did give her 4 mg of morphine and 4 Zofran prior to discharge. She needs to follow-up with her primary care provider for any further narcotic medications. She states understanding. Departure - Departure Disposition: 01 Home, Self Care Clinical Impression: Abdominal pain Qualifiers: Abdominal location: right upper quadrant Qualified Code(s): R10.11 - Right upper quadrant pain Condition: Good Instructions: ED Abdominal Pain Unkn Cause Follow-Up: SAMY TY [Primary Care Provider] - Comments: You should call your primary care provider's office on Wednesday about further pain medications and for arranging the HIDA scan.
[2018-07-23] MEDS ORDERED: KETOROLAC 30 MG/ML VIAL IVP STA (18:30)
[2018-07-23 18:40] LABS: BASOPHILS # (AUTO) 0.1 10^3/uL (0.0-0.1); BASOPHILS % (AUTO) 0.4 %; EOSINOPHILS # (AUTO) 0.2 10^3/uL (0.0-0.7); EOSINOPHILS % (AUTO) 1.8 %; HGB - HEMOGLOBIN 13.7 g/dL (12.0-16.0); LYMPHOCYTES # (AUTO) 4.1 10^3/uL (1.5-3.5); MEAN CORPUSCULAR HEMOGLOBIN 31.5 pg (27.0-31.0); MEAN CORPUSCULAR VOLUME 90.2 fL (81.0-99.0); MEAN PLATELET VOLUME 8.1 fL (7.9-10.8); MONOCYTES # (AUTO) 0.9 10^3/uL (0.0-1.0); MONOCYTES % (AUTO) 6.7 %; NEUTROPHILS # (AUTO) 7.6 10^3/uL (1.5-6.6); NEUTROPHILS % (AUTO) 59.1 %; PLT - PLATELET COUNT 315 10^3/uL (130-450); RED BLOOD COUNT 4.33 10^6/uL (4.20-5.40); RED CELL DISTRIBUTION WIDTH 13.4 % (12.0-15.0); WHITE BLOOD COUNT 12.8 x10^3/uL (4.8-10.8)
[2018-07-23 18:40] LABS: BILIRUBIN,URINE NEGATIVE (NEGATIVE); GLUCOSE, URINE (UA) NEGATIVE (NEGATIVE); KETONES,URINE (UA) NEGATIVE (NEGATIVE); LEUKOCYTE ESTERASE, URINE NEGATIVE (NEGATIVE); NITRITE,URINE NEGATIVE (NEGATIVE); OCCULT BLOOD,URINE TRACE-LYSE (NEGATIVE); PROTEIN,URINE NEGATIVE (NEGATIVE); UROBILINOGEN,URINE 0.2 (NORMAL) E.U./dL (NORMAL)
[2018-07-23 18:41] LABS: CLARITY,URINE CLEAR (CLEAR)
[2018-07-23 19:02] LABS: ALBUMIN 4.2 g/dL (3.2-5.5); ALBUMIN/GLOBULIN RATIO 1.3 (1.0-2.2); BILIRUBIN,TOTAL 0.3 mg/dL (0.2-1.0); CALCIUM 9.7 mg/dL (8.5-10.3); CREATININE 0.9 mg/dL (0.4-1.0); TOTAL PROTEIN 7.5 g/dL (6.7-8.2)
[2018-07-23] MEDS ORDERED: POTASSIUM CHLORIDE 20 MEQ TABLET PO STA (21:29)
[2018-07-23 21:41] VITALS: BP 128/77
[2018-07-23] MEDS ORDERED: ONDANSETRON 4 MG/2 ML VIAL IVP STA (22:06)
[2018-07-23] MEDS ORDERED: MORPHINE 2 MG/ML CARPUJECT IVP STA (22:06)
== END 2018-07-23 22:39 | disposition home or self-care (01) ==
LOC: ED 17:47
DX: R10.11 Right upper quadrant pain (principal); E87.6 Hypokalemia; I10 Essential (primary) hypertension; E03.9 Hypothyroidism, unspecified; K21.9 Gastro-esophageal reflux disease without esophagitis; F32.9 Major depressive disorder, single episode, unspecified; F41.9 Anxiety disorder, unspecified; M79.7 Fibromyalgia; G89.29 Other chronic pain; M54.9 Dorsalgia, unspecified; H54.7 Unspecified visual loss; F17.290 Nicotine dependence, other tobacco product, uncomplicated; Z79.891 Long term (current) use of opiate analgesic; Z87.11 Personal history of peptic ulcer disease
CPT/HCPCS: 36415; 80053; 81003; 83690; 85025; 96374; 96375; 99283; A9270; 81001; 87086

== ENCOUNTER 2018-08-28 15:10 | Emergency (ER) | payer MEDICAID ==
[2018-08-28] MEDS ORDERED: PHENAZOPYRIDINE 100 MG TABLET PO STA (15:38)
[2018-08-28] MEDS ORDERED: oxyCODONE 5 MG TABLET PO STA (15:38)
--- NOTE | 2018-08-28 15:40 | ED Physician Documentation ---
History of Present Illness - Stated complaint Stated Complaint: FEMALE - Chief complaint Chief Complaint: UTI - History obtained from History obtained from: Patient - History of Present Illness Timing: Other (She is had about a week and a half of increasing urinary frequency associated with cloudy urine and a low-grade tactile fever with suprapubic and bilateral low back pain without mono lateral flank pain per se. No history of frequent UTIs.) Review of Systems Constitutional: reports: Fever. 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 HEENT: Chronic vision loss Psych: Depression, Anxiety Musculoskeletal: Fibromyalgia, Chronic back pain Derm: None - Past Surgical History Past Surgical History: Yes General: Appendectomy Ortho: Other /TECHNICAL OPERATIONS VICE PRESIDENT: section, Tubal ligation - Present Medications Home Medications: Ambulatory Orders Medication Instructions Recorded Confirmed Levothyroxine [Synthroid] 112 mcg PO QDAC 06/23/12 07/06/18 Omeprazole 20 mg PO BID 06/23/12 07/06/18 Paroxetine HCl [Paxil] 40 mg PO DAILY 08/14/12 07/06/18 Triamterene/Hydrochlorothiazid 1 each PO DAILY 10/07/12 07/06/18 [Triamterene-Hctz 37.5-25 mg Tb] Acetaminophen [Tylenol] 650 mg PO Q6H PRN 12/16/16 06/06/17 Calcium Acetate 667 mg PO DAILY 12/16/16 06/06/17 Cholecalciferol [Vitamin D3] 10,000 unit PO DAILY 12/16/16 06/06/17 Ferrous Sulfate 325 mg PO DAILY 12/16/16 06/06/17 Multivitamin [Multiple Vitamins] 1 each PO DAILY 12/16/16 06/06/17 Atorvastatin [Lipitor] 1 tab PO DAILY 04/09/17 07/06/18 Hydrocodone/Acetaminophen [[place] 1 each PO Q6H PRN #15 tablet 03/14/18 5-325 Tablet] Hydrocodone/Acetaminophen [[place] 1 each PO Q6H PRN #20 tablet 06/11/18 5-325 Tablet] Oxycodone HCl/Acetaminophen 1 - 2 each PO Q6H PRN #10 tablet 07/06/18 [Percocet 5-325 mg Tablet] Morphine Ir [Ms Ir] 15 mg PO Q6H PRN #15 tablet 07/08/18 oxyCODONE [Roxicodone] 5 mg PO Q4-6H PRN #15 tablet 07/14/18 Cephalexin [Keflex] 500 mg PO Q6H #28 capsule 08/28/18 - Allergies Allergies/Adverse Reactions: Allergies Allergy/AdvReac Type Severity Reaction Status Date / Time felodipine Allergy Severe Respiratory Verified 07/23/18 17:55 Sulfa (Sulfonamide Allergy Intermediate Itching Verified 07/23/18 17:55 Antibiotics) eletriptan [From Relpax] Allergy Unknown Verified 07/23/18 17:55 pregabalin Allergy Unknown Verified 07/23/18 17:55 gabapentin AdvReac Edema Verified 07/23/18 17:55 tramadol AdvReac Edema Verified 07/23/18 17:55 plendil Allergy Intermediate Unknown. Uncoded 07/23/18 17:55 depomedrol Allergy Unknown Uncoded 07/23/18 17:55 tape AdvReac Mild Hives Uncoded 07/23/18 17:55 - Social History Does the pt smoke?: Yes Smoking Status: Current every day smoker Does the pt drink ETOH?: Yes Does the pt have substance abuse?: No - Immunizations Immunizations are current?: Yes - POLST Patient has POLST: No PD ED PE NORMAL - Vitals Vital signs reviewed: Yes - General General: Alert and oriented X 3, No acute distress - Abdomen Abdomen: Normal bowel sounds, Soft, Non tender - Back Back: No CVA TTP, No spinal TTP - Neuro Neuro: Alert and oriented X 3, Normal speech Results - Vitals Vitals: Vital Signs - 24 hr 08/28/18 15:19 Temperature 36.6 C Heart Rate 83 Respiratory 18 Rate Blood Pressure 144/92 H O2 Saturation 99 Oxygen O2 Source Room air - Labs Labs: Laboratory Tests 08/28/18 15:25 Urine Color YELLOW Urine Clarity CLEAR Urine pH 7.5 Ur Specific [place] <=1.005 Urine Protein NEGATIVE Urine Glucose (UA) NEGATIVE Urine Ketones NEGATIVE Urine Occult Blood TRACE-INTA Urine Nitrite NEGATIVE Urine Bilirubin NEGATIVE Urine Urobilinogen 0.2 (NORMAL) Ur Leukocyte Esterase TRACE H Urine RBC 0-5 Urine WBC 0-3 Ur Squamous Epith Cells MOD Squamous H Urine Bacteria None Seen Ur Microscopic Review INDICATED Urine Culture Comments NOT INDICATED Departure - Departure Disposition: 01 Home, Self Care Clinical Impression: Cystitis Condition: Good Record reviewed to determine appropriate education?: Yes Health Concerns: pain possible uti Plan of Treatment: +UA, given abx Care Goals: improve pain/infection Assessment: as above Instructions: ED UTI Cystitis Female Prescriptions: Cephalexin [Keflex] 500 mg PO Q6H #28 capsule
[2018-08-28 15:51] LABS: BILIRUBIN,URINE NEGATIVE (NEGATIVE); GLUCOSE, URINE (UA) NEGATIVE (NEGATIVE); KETONES,URINE (UA) NEGATIVE (NEGATIVE); LEUKOCYTE ESTERASE, URINE TRACE (NEGATIVE); NITRITE,URINE NEGATIVE (NEGATIVE); OCCULT BLOOD,URINE TRACE-INTA (NEGATIVE); PH,URINE 7.5 PH (5.0-7.5); PROTEIN,URINE NEGATIVE (NEGATIVE); UROBILINOGEN,URINE 0.2 (NORMAL) E.U./dL (NORMAL)
[2018-08-28 15:56] LABS: CLARITY,URINE CLEAR (CLEAR)
[2018-08-28 16:06] LABS: BACTERIA,URINE None Seen /HPF (None Seen); RBC,URINE 0-5 /HPF (0-5); SQUAMOUS EPITHELIAL CELL,UR MOD Squamous (<= Few)
[2018-08-28] MEDS ORDERED: cephALEXin 250 MG CAPSULE PO STA (16:20)
[2018-08-28] MEDS ORDERED: ONDANSETRON ODT 4 MG TABLET TL STA (16:26)
[2018-08-28 16:35] VITALS: BP 140/107
== END 2018-08-28 16:36 | disposition home or self-care (01) ==
LOC: ED 15:10
DX: N30.90 Cystitis, unspecified without hematuria (principal); I10 Essential (primary) hypertension; F17.200 Nicotine dependence, unspecified, uncomplicated
CPT/HCPCS: 81001; 99282; 99284; A9270; Q0162; 81003; 87086

== ENCOUNTER 2018-09-14 18:28 | Emergency (ER) | payer MEDICAID ==
[2018-09-14] MEDS ORDERED: KETOROLAC 60 MG/2 ML VIAL IM STA (18:54)
[2018-09-14] MEDS ORDERED: oxyCODONE 5 MG TABLET PO STA (18:54)
[2018-09-14] MEDS ORDERED: predniSONE 20 MG TABLET PO STA (18:54)
--- NOTE | 2018-09-14 18:59 | ED Physician Documentation ---
PD HPI BACK INJURY - Stated complaint Stated Complaint: LOW BACK PX - History obtained from History obtained from: Patient - History of Present Illness Location: Right (For the last 2 days after a minor fall 4 days ago she has had pain from the right sacroiliac area radiating into the right hip. Its worse with bending and twisting. No fevers, chills, midline back pain, saddle anesthesia, incontinence, weakness, numbness, or tingling.) Review of Systems Constitutional: denies: Fever, Chills Cardiac: reports: Reviewed and negative Respiratory: reports: Reviewed and negative GI: reports: Reviewed and negative PD PAST MEDICAL HISTORY - Past Medical History Cardiovascular: Hypertension Respiratory: None Neuro: None Endocrine/Autoimmune: HyPOthyroidism GI: GERD, Ulcers, Other EQUIPMENT MANAGER: None : None HEENT: Chronic vision loss Psych: Depression, Anxiety Musculoskeletal: Fibromyalgia, Chronic back pain Derm: None - Past Surgical History Past Surgical History: Yes General: Appendectomy Ortho: Other /EQUIPMENT MANAGER: section, Tubal ligation - Present Medications Home Medications: Ambulatory Orders Medication Instructions Recorded Confirmed Levothyroxine [Synthroid] 112 mcg PO QDAC 06/23/12 07/06/18 Omeprazole 20 mg PO BID 06/23/12 07/06/18 Paroxetine HCl [Paxil] 40 mg PO DAILY 08/14/12 07/06/18 Triamterene/Hydrochlorothiazid 1 each PO DAILY 10/07/12 07/06/18 [Triamterene-Hctz 37.5-25 mg Tb] Acetaminophen [Tylenol] 650 mg PO Q6H PRN 12/16/16 06/06/17 Calcium Acetate 667 mg PO DAILY 12/16/16 06/06/17 Cholecalciferol [Vitamin D3] 10,000 unit PO DAILY 12/16/16 06/06/17 Ferrous Sulfate 325 mg PO DAILY 12/16/16 06/06/17 Multivitamin [Multiple Vitamins] 1 each PO DAILY 12/16/16 06/06/17 Atorvastatin [Lipitor] 1 tab PO DAILY 04/09/17 07/06/18 Hydrocodone/Acetaminophen [[place] 1 each PO Q6H PRN #15 tablet 03/14/18 5-325 Tablet] Hydrocodone/Acetaminophen [[place] 1 each PO Q6H PRN #20 tablet 06/11/18 5-325 Tablet] Oxycodone HCl/Acetaminophen 1 - 2 each PO Q6H PRN #10 tablet 07/06/18 [Percocet 5-325 mg Tablet] Morphine Ir [Ms Ir] 15 mg PO Q6H PRN #15 tablet 07/08/18 oxyCODONE [Roxicodone] 5 mg PO Q4-6H PRN #15 tablet 07/14/18 Cephalexin [Keflex] 500 mg PO Q6H #28 capsule 08/28/18 Ondansetron Odt [Zofran] 4 mg TL Q6H PRN #10 tablet 08/28/18 Oxycodone HCl/Acetaminophen 1 - 2 each PO Q6H PRN #10 tablet 08/28/18 [Percocet 5-325 mg Tablet] Phenazopyridine HCl [Pyridium] 200 mg PO TID PRN #6 tablet 08/28/18 Oxycodone HCl/Acetaminophen 1 - 2 each PO Q6H PRN #10 tablet 09/14/18 [Percocet 5-325 mg Tablet] predniSONE [Deltasone] 20 mg PO [id number] #21 tab 09/14/18 - Allergies Allergies/Adverse Reactions: Allergies Allergy/AdvReac Type Severity Reaction Status Date / Time felodipine Allergy Severe Respiratory Verified 09/14/18 18:40 Sulfa (Sulfonamide Allergy Intermediate Itching Verified 09/14/18 18:40 Antibiotics) eletriptan [From Relpax] Allergy Unknown Verified 09/14/18 18:40 pregabalin Allergy Unknown Verified 09/14/18 18:40 gabapentin AdvReac Edema Verified 09/14/18 18:40 tramadol AdvReac Edema Verified 09/14/18 18:40 plendil Allergy Intermediate Unknown. Uncoded 09/14/18 18:40 depomedrol Allergy Unknown Uncoded 09/14/18 18:40 tape AdvReac Mild Hives Uncoded 09/14/18 18:40 - Social History Does the pt smoke?: Yes Smoking Status: Current every day smoker Does the pt drink ETOH?: Yes Does the pt have substance abuse?: No - Immunizations Immunizations are current?: Yes - POLST Patient has POLST: No PD ED PE NORMAL - Vitals Vital signs reviewed: Yes - General General: Alert and oriented X 3, No acute distress - Back Back: Other (Tender over the right sacroiliac joint without overlying skin changes.) - Extremities Extremities: Other (The patient has equal and normal Achilles and patellar reflexes bilaterally. Normal sensation in all areas of the legs. Patient denies saddle anesthesia. Normal strength in flexion-extension at the ankles, knees, and flexion of the hips.) - Neuro Neuro: Alert and oriented X 3, Normal speech Results - Vitals Vitals: Vital Signs - 24 hr 09/14/18 18:37 Temperature 36.5 C Heart Rate 91 Respiratory 19 Rate Blood Pressure 139/105 H O2 Saturation 98 Oxygen O2 Source Room air Departure - Departure Disposition: Home, Self Care Clinical Impression: Sacroiliac joint disease Condition: Good Record reviewed to determine appropriate education?: Yes Instructions: ED Low Back Pain Injury Prescriptions: Oxycodone HCl/Acetaminophen [Percocet 5-325 mg Tablet] 1 - 2 each PO Q6H PRN #10 tablet PRN Reason: pain predniSONE [Deltasone] 20 mg PO [id number] #21 tab Comments: Call your doctor to arrange a follow-up appointment, make the next available appointment. In the interim, return anytime if worse or if new symptoms develop. Your blood pressure was elevated today on check into the emergency department. This does not mean that you have hypertension, it is a common phenomenon to come to the emergency department and have elevated blood pressure. I recommend that you see your primary care physician within the week to have it rechecked when you are feeling better.
[2018-09-14 19:31] VITALS: BP 152/96
== END 2018-09-14 19:29 | disposition home or self-care (01) ==
LOC: ED 18:28
DX: M53.3 Sacrococcygeal disorders, not elsewhere classified (principal); I10 Essential (primary) hypertension; F17.200 Nicotine dependence, unspecified, uncomplicated
CPT/HCPCS: 96372; 99283; A9270; J7512

== ENCOUNTER 2018-09-16 14:08 | Emergency (ER) | payer MEDICAID ==
--- NOTE | 2018-09-16 14:45 | ED Physician Documentation ---
History of Present Illness - Stated complaint Stated Complaint: REACTION FROM MEDS - Chief complaint Chief Complaint: General - History obtained from History obtained from: Patient - Additonal information Additional information: Patient is a 52-year-old female with multiple neck and back issues at baseline and having recently been seen for lower back pain and placed on narcotic pain medication and oral steroids presenting with concern for reaction to oral steroids. Patient reports that she has had steroid injections in the past which she did not tolerate well. Today, patient reports headache and lightheadedness without syncope, chest pain, difficulty breathing, fever, rash, cough or other complaints. Patient reports persistent discomfort in the low back with pain radiating towards both buttocks and legs. Patient denies change in sensation, strength, range of motion to either leg from baseline, as well as any incontinence or abdominal issues. Patient has primary care follow-up within the next several days. Patient is already an established patient at the spine clinic in [place]. No other improving or worsening factors noted. Review of Systems Constitutional: denies: Fever Cardiac: denies: Chest pain / pressure Respiratory: denies: Dyspnea, Cough GI: denies: Nausea, Vomiting, Diarrhea : denies: Dysuria Skin: denies: Rash Musculoskeletal: reports: Back pain. denies: Extremity pain Neurologic: reports: Headache. denies: Focal weakness, Numbness PD PAST MEDICAL HISTORY - Past Medical History Past Medical History: Yes Cardiovascular: Hypertension Respiratory: None Neuro: None Endocrine/Autoimmune: HyPOthyroidism GI: GERD, Ulcers, Other DATA SUPPORT SPECIALIST: None : None HEENT: Chronic vision loss Psych: Depression, Anxiety Musculoskeletal: Fibromyalgia, Chronic back pain Derm: None - Past Surgical History Past Surgical History: Yes General: Appendectomy Ortho: Other /DATA SUPPORT SPECIALIST: section, Tubal ligation - Present Medications Home Medications: Ambulatory Orders Medication Instructions Recorded Confirmed Levothyroxine [Synthroid] 112 mcg PO QDAC 06/23/12 07/06/18 Omeprazole 20 mg PO BID 06/23/12 07/06/18 Paroxetine HCl [Paxil] 40 mg PO DAILY 08/14/12 07/06/18 Triamterene/Hydrochlorothiazid 1 each PO DAILY 10/07/12 07/06/18 [Triamterene-Hctz 37.5-25 mg Tb] Acetaminophen [Tylenol] 650 mg PO Q6H PRN 12/16/16 06/06/17 Calcium Acetate 667 mg PO DAILY 12/16/16 06/06/17 Cholecalciferol [Vitamin D3] 10,000 unit PO DAILY 12/16/16 06/06/17 Ferrous Sulfate 325 mg PO DAILY 12/16/16 06/06/17 Multivitamin [Multiple Vitamins] 1 each PO DAILY 12/16/16 06/06/17 Atorvastatin [Lipitor] 1 tab PO DAILY 04/09/17 07/06/18 Hydrocodone/Acetaminophen [[place] 1 each PO Q6H PRN #15 tablet 03/14/18 5-325 Tablet] Hydrocodone/Acetaminophen [[place] 1 each PO Q6H PRN #20 tablet 06/11/18 5-325 Tablet] Oxycodone HCl/Acetaminophen 1 - 2 each PO Q6H PRN #10 tablet 07/06/18 [Percocet 5-325 mg Tablet] Morphine Ir [Ms Ir] 15 mg PO Q6H PRN #15 tablet 07/08/18 oxyCODONE [Roxicodone] 5 mg PO Q4-6H PRN #15 tablet 07/14/18 Cephalexin [Keflex] 500 mg PO Q6H #28 capsule 08/28/18 Ondansetron Odt [Zofran] 4 mg TL Q6H PRN #10 tablet 08/28/18 Oxycodone HCl/Acetaminophen 1 - 2 each PO Q6H PRN #10 tablet 08/28/18 [Percocet 5-325 mg Tablet] Phenazopyridine HCl [Pyridium] 200 mg PO TID PRN #6 tablet 08/28/18 Oxycodone HCl/Acetaminophen 1 - 2 each PO Q6H PRN #10 tablet 09/14/18 [Percocet 5-325 mg Tablet] predniSONE [Deltasone] 20 mg PO [id number] #21 tab 09/14/18 - Allergies Allergies/Adverse Reactions: Allergies Allergy/AdvReac Type Severity Reaction Status Date / Time felodipine Allergy Severe Respiratory Verified 09/14/18 18:40 Sulfa (Sulfonamide Allergy Intermediate Itching Verified 09/14/18 18:40 Antibiotics) eletriptan [From Relpax] Allergy Unknown Verified 09/14/18 18:40 pregabalin Allergy Unknown Verified 09/14/18 18:40 gabapentin AdvReac Edema Verified 09/14/18 18:40 tramadol AdvReac Edema Verified 09/14/18 18:40 plendil Allergy Intermediate Unknown. Uncoded 09/14/18 18:40 depomedrol Allergy Unknown Uncoded 09/14/18 18:40 tape AdvReac Mild Hives Uncoded 09/14/18 18:40 - Social History Does the pt smoke?: Yes Smoking Status: Current every day smoker Does the pt drink ETOH?: Yes Does the pt have substance abuse?: No - Immunizations Immunizations are current?: Yes - POLST Patient has POLST: No PD ED PE NORMAL - Vitals Vital signs reviewed: Yes - General General: Alert and oriented X 3, No acute distress, Well developed/nourished - HEENT HEENT: Atraumatic, Moist mucous membranes - Neck Neck: Supple, no meningeal sign - Cardiac Cardiac: RRR, No murmur - Respiratory Respiratory: No respiratory distress, Clear bilaterally - Derm Derm: Normal color, Warm and dry, No rash - Extremities Extremities: No deformity, No tenderness to palpate - Neuro Neuro: Alert and oriented X 3, No motor deficit, No sensory deficit - Psych Psych: Normal mood, Normal affect Results - Vitals Vitals: Vital Signs - 24 hr 09/16/18 14:24 Temperature 36.5 C Heart Rate 84 Respiratory 16 Rate Blood Pressure 138/102 H O2 Saturation 98 Oxygen O2 Source Room air PD MEDICAL DECISION MAKING - ED course Complexity details: reviewed old records, considered differential, d/w patient ED course: Patient presenting with concern for possible reaction to prednisone. Do not see obvious signs of allergic reaction do not have high suspicion for anaphylaxis. Told patient that she may discontinue prednisone if she is not tolerating it well. Patient already has oral narcotic pain medications at home from recent visit to address her low back pain. Do feel this is likely related to herniated disc or sciatica as opposed to vertebral injury, epidural abscess, cauda equina, or other more emergent pathology. Do not feel patient requires further interventions for this or imaging today. Patient did request Toradol, which was provided. Otherwise, recommended close follow-up with primary care physician, spine surgeon, supportive cares, return precautions. Departure - Departure Disposition: 01 Home, Self Care Clinical Impression: Chronic back pain Qualifiers: Back pain location: low back pain Back pain laterality: unspecified Sciatica presence: with sciatica Sciatica laterality: bilateral sciatica Qualified Code(s): M54.41 - Lumbago with sciatica, right side; M54.42 - Lumbago with sciatica, left side; G89.29 - Other chronic pain Medication reaction Qualifiers: Encounter type: initial encounter Qualified Code(s): T50.905A - Adverse effect of unspecified drugs, medicaments and biological substances, initial encounter Condition: Good Instructions: ED Sciatica, ED Low Back Pain Injury Follow-Up: SAMY TY [Primary Care Provider] - Within 3 Days Comments: Recommend continuing home medications as previously instructed, as well as stretching, massage, heat application. Please follow-up with primary care physician in next 2 to 3 days or as scheduled. Also recommend contacting your spine surgeon. Return to ED sooner if experience new injury, worsening symptoms, or have other concerns.
[2018-09-16] MEDS ORDERED: KETOROLAC 60 MG/2 ML VIAL IM STA (14:59)
[2018-09-16 15:50] VITALS: BP 118/68
== END 2018-09-16 15:30 | disposition home or self-care (01) ==
LOC: ED 14:08
DX: R51 Headache (principal); R42 Dizziness and giddiness; T38.0X5A Adverse effect of glucocorticoids and synthetic analogues, initial encounter; M54.41 Lumbago with sciatica, right side; M54.42 Lumbago with sciatica, left side; G89.29 Other chronic pain; I10 Essential (primary) hypertension; F17.200 Nicotine dependence, unspecified, uncomplicated
CPT/HCPCS: 96372; 99282; 99283

== ENCOUNTER 2018-09-23 18:09 | Emergency (ER) | payer MEDICAID, OTHER ==
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
[2018-09-23] MEDS ORDERED: oxyCODONE 5 MG TABLET PO STA (22:29)
--- NOTE | 2018-09-23 23:12 | XRAY Report ---
Reason: injured left upper arm Procedure Date: 09/23/2018 Accession Number: [id number] / [id number] Procedure: XR - Humerus LT CPT Code: FULL RESULT: EXAM: LEFT HUMERUS RADIOGRAPHY EXAM DATE: 09/23/2018 10:46 PM. CLINICAL HISTORY: Pain after injury. COMPARISON: None. TECHNIQUE: 2 views. FINDINGS: Bones: No fracture seen. Joints: No dislocation seen. Joints appear intact as imaged. Soft Tissues: Grossly unremarkable. IMPRESSION: 1. No acute fracture or dislocation seen. [facility]
[2018-09-23] MEDS ORDERED: oxyCODONE/ACET 5/325 Prepack 4 PO STA (23:18)
[2018-09-23 23:40] VITALS: BP 124/94
== END 2018-09-23 23:39 | disposition home or self-care (01) ==
LOC: ED 18:09
DX: S40.022A Contusion of left upper arm, initial encounter (principal); Y04.2XXA Assault by strike against or bumped into by another person, initial encounter; Y92.009 Unspecified place in unspecified non-institutional (private) residence as the place of occurrence of the external cause; I10 Essential (primary) hypertension; F17.200 Nicotine dependence, unspecified, uncomplicated
CPT/HCPCS: 73060; 99283; 99284; A9270

== ENCOUNTER 2018-12-31 14:38 | Emergency (ER) | payer MEDICAID, OTHER ==
--- NOTE | 2018-12-31 17:19 | ED Physician Documentation ---
PD HPI BACK PAIN - Stated complaint Stated Complaint: HIPS/LOW BACK PX - Chief complaint Chief Complaint: Back Pain - History obtained from History obtained from: Patient - History of Present Illness Timing - onset: Today Timing - duration: Hours (3) Timing - details: Gradual onset Quality: Pain Associated symptoms: Numbness. No: Fever, Weakness, Incontinent of urine (Toes of the right foot), Unable to urinate Improves with: Nothing Contributing factors: Lifting, Twisting Recently seen: Not recently seen - Additional information Additional information: Is a 53-year-old woman who presents with complaints that she was moving rocks in the garden at 2 PM today and now she has pain in her lower back into the hips and pain in her between her ribs whenever she breathes. She did not take anything for it before coming in to be evaluated. She had a little nauseous but has had no vomiting. She complains of the middle toes on her right foot are numb. Pain radiates into the right butt cheek but no further down the leg. No dysuria and no incontinence. She reports she just got over "sacroiliitis". Review of Systems GI: reports: Nausea. denies: Abdominal Pain, Vomiting : denies: Dysuria Musculoskeletal: reports: Back pain Neurologic: reports: Numbness PD PAST MEDICAL HISTORY - Past Medical History Cardiovascular: Hypertension Respiratory: None Neuro: None Endocrine/Autoimmune: HyPOthyroidism GI: GERD, Ulcers, Other POEM WRITER: None : None HEENT: Chronic vision loss Psych: Depression, Anxiety Musculoskeletal: Fibromyalgia, Chronic back pain Derm: None - Past Surgical History Past Surgical History: Yes General: Appendectomy Ortho: Other /POEM WRITER: section, Tubal ligation - Present Medications Home Medications: Ambulatory Orders Medication Instructions Recorded Confirmed Levothyroxine [Synthroid] 112 mcg PO QDAC 06/23/12 07/06/18 Omeprazole 20 mg PO BID 06/23/12 07/06/18 PARoxetine HCl [Paxil] 40 mg PO DAILY 08/14/12 07/06/18 Triamterene/Hydrochlorothiazid 1 each PO DAILY 10/07/12 07/06/18 [Triamterene-Hctz 37.5-25 mg Tb] Acetaminophen [Tylenol] 650 mg PO Q6H PRN 12/16/16 06/06/17 Calcium Acetate 667 mg PO DAILY 12/16/16 06/06/17 Cholecalciferol [Vitamin D3] 10,000 unit PO DAILY 12/16/16 06/06/17 Ferrous Sulfate 325 mg PO DAILY 12/16/16 06/06/17 Multivitamin [Multiple Vitamins] 1 each PO DAILY 12/16/16 06/06/17 Atorvastatin [Lipitor] 1 tab PO DAILY 04/09/17 07/06/18 Hydrocodone/Acetaminophen [[place] 1 each PO Q6H PRN #15 tablet 03/14/18 5-325 Tablet] Hydrocodone/Acetaminophen [[place] 1 each PO Q6H PRN #20 tablet 06/11/18 5-325 Tablet] Oxycodone HCl/Acetaminophen 1 - 2 each PO Q6H PRN #10 tablet 07/06/18 [Percocet 5-325 mg Tablet] Morphine Ir [Ms Ir] 15 mg PO Q6H PRN #15 tablet 07/08/18 oxyCODONE [Roxicodone] 5 mg PO Q4-6H PRN #15 tablet 07/14/18 Cephalexin [Keflex] 500 mg PO Q6H #28 capsule 08/28/18 Ondansetron Odt [Zofran] 4 mg TL Q6H PRN #10 tablet 08/28/18 Oxycodone HCl/Acetaminophen 1 - 2 each PO Q6H PRN #10 tablet 08/28/18 [Percocet 5-325 mg Tablet] Phenazopyridine HCl [Pyridium] 200 mg PO TID PRN #6 tablet 08/28/18 Oxycodone HCl/Acetaminophen 1 - 2 each PO Q6H PRN #10 tablet 09/14/18 [Percocet 5-325 mg Tablet] predniSONE [Deltasone] 20 mg PO [id number] #21 tab 09/14/18 Oxycodone HCl/Acetaminophen 1 each PO Q6H PRN #12 tablet 09/23/18 [Percocet 5-325 mg Tablet] - Allergies Allergies/Adverse Reactions: Allergies Allergy/AdvReac Type Severity Reaction Status Date / Time felodipine Allergy Severe Respiratory Verified 12/31/18 14:57 Sulfa (Sulfonamide Allergy Intermediate Itching Verified 12/31/18 14:57 Antibiotics) eletriptan [From Relpax] Allergy Unknown Verified 12/31/18 14:57 prednisone Allergy Unknown Verified 12/31/18 14:57 pregabalin Allergy Unknown Verified 12/31/18 14:57 gabapentin AdvReac Edema Verified 12/31/18 14:57 tramadol AdvReac Edema Verified 12/31/18 14:57 plendil Allergy Intermediate Unknown. Uncoded 09/14/18 18:40 depomedrol Allergy Unknown Uncoded 09/14/18 18:40 tape AdvReac Mild Hives Uncoded 09/14/18 18:40 - Social History Does the pt smoke?: Yes Smoking Status: Current every day smoker Does the pt drink ETOH?: Yes Does the pt have substance abuse?: No - Immunizations Immunizations are current?: Yes - POLST Patient has POLST: No PD ED PE NORMAL - Vitals Vital signs reviewed: Yes - General General: Alert and oriented X 3, No acute distress, Well developed/nourished, Other (Obese 53-year-old woman in no acute distress.) - Back Back: Other (She complains of pain with palpation into the right butt cheek but not in the lumbar midline. There is no bruising or rash.) - Derm Derm: Normal color, Warm and dry, No rash - Extremities Extremities: Other (The right foot has 3 distinct well-healed lacerations across the dorsal aspect of it from prior surgeries. She does have sensation in all of her digits but they are diminished in the second third and fourth toe.) - Neuro Neuro: Alert and oriented X 3, telephone repairer 2-12 intact, No motor deficit, Normal speech - Psych Psych: Normal mood, Normal affect Results - Vitals Vitals: Vital Signs - 24 hr 12/31/18 14:57 Temperature 36.8 C Heart Rate 88 Respiratory 15 Rate Blood Pressure 154/114 H O2 Saturation 96 Oxygen O2 Source Room air PD MEDICAL DECISION MAKING - ED course Complexity details: d/w patient ED course: Patient was given hydrocodone tablet here prior to discharge. She is encouraged to use ibuprofen [id number] which she refused to receive here because she "has a whole bottle at home". Follow-up with her primary care provider if not improving. Departure - Departure Disposition: 01 Home, Self Care Clinical Impression: Back pain Qualifiers: Back pain location: low back pain Chronicity: acute Back pain laterality: right Sciatica presence: with sciatica Sciatica laterality: sciatica of right side Qualified Code(s): M54.41 - Lumbago with sciatica, right side Condition: Good Instructions: ED Low Back Pain Injury, ED Sciatica Follow-Up: SAMY TY [Primary Care Provider] - Comments: Rest and ice the back. Avoid lifting twisting pushing or pulling. Take ibuprofen 4 tablets every 8 hours with food. Gentle stretching exercises are fine. Follow-up with your primary doctor if this is not improving for reevaluation.
[2018-12-31] MEDS ORDERED: HYDROcod/ACETAM 5/325 MG TABLET PO STA (17:24)
[2018-12-31 17:29] LABS: BILIRUBIN,URINE NEGATIVE (NEGATIVE); GLUCOSE, URINE (UA) NEGATIVE (NEGATIVE); KETONES,URINE (UA) NEGATIVE (NEGATIVE); LEUKOCYTE ESTERASE, URINE TRACE (NEGATIVE); NITRITE,URINE NEGATIVE (NEGATIVE); OCCULT BLOOD,URINE TRACE-LYSE (NEGATIVE); PH,URINE 6.5 PH (5.0-7.5); PROTEIN,URINE NEGATIVE (NEGATIVE); UROBILINOGEN,URINE 0.2 (NORMAL) E.U./dL (NORMAL)
[2018-12-31 17:32] LABS: CLARITY,URINE CLEAR (CLEAR)
[2018-12-31 17:37] LABS: BACTERIA,URINE Few /HPF (None Seen); SQUAMOUS EPITHELIAL CELL,UR MOD Squamous (<= Few)
[2018-12-31 17:56] VITALS: BP 131/100
== END 2018-12-31 17:57 | disposition home or self-care (01) ==
LOC: ED 14:38
DX: M54.41 Lumbago with sciatica, right side (principal); I10 Essential (primary) hypertension; F17.200 Nicotine dependence, unspecified, uncomplicated
CPT/HCPCS: 81001; 99282; 99283; A9270; 81003; 87086

== ENCOUNTER 2019-04-12 12:38 | Emergency (ER) | payer OTHER ==
[2019-04-12 12:58] VITALS: BP 123/95
--- NOTE | 2019-04-12 14:41 | ED Physician Documentation ---
PD HPI LOWER EXT INJURY - Stated complaint Stated Complaint: R KNEE PX - Chief complaint Chief Complaint: Trauma Ext - History obtained from History obtained from: Patient - History of Present Illness PD HPI LOW EXT INJURY LOCATION: Right, Knee Type of injury: Fall, Twist (Patient states she was walking down a couple of steps and 1 of them was slippery and she lost her footing. She fell with the twisting of her right knee varus direction and then landed onto the knee with an abrasion and local swelling. She states it hurts for extension of the knee and weightbearing. She denies any locking clicking or giving out. She has an abrasion on the front of the knee and some swelling locally. She states she does have arthritis of the knee but no prior ligament or cartilage problems.) Timing - onset: Yesterday Timing - details: Abrupt onset, Still present Worsened by: Moving, Palpating (anteriorly) Associated symptoms: Swelling. No: Weakness, Numbness Contributing factors: No: Anticoagulated, Prior ortho surgery Similar symptoms before: Has not had sx before Review of Systems Skin: reports: Abrasion (s). denies: Laceration (s) Musculoskeletal: denies: Back pain PD PAST MEDICAL HISTORY - Past Medical History Past Medical History: Yes Cardiovascular: Hypertension Respiratory: None Neuro: None Endocrine/Autoimmune: HyPOthyroidism GI: GERD, Ulcers, Other COOPERER: None : None HEENT: Chronic vision loss Psych: Depression, Anxiety Musculoskeletal: Fibromyalgia, Chronic back pain Derm: None - Past Surgical History Past Surgical History: Yes General: Appendectomy Ortho: Other /COOPERER: section, Tubal ligation - Present Medications Home Medications: Ambulatory Orders Medication Instructions Recorded Confirmed Levothyroxine [Synthroid] 112 mcg PO QDAC 06/23/12 07/06/18 Omeprazole 20 mg PO BID 06/23/12 07/06/18 PARoxetine HCl [Paxil] 40 mg PO DAILY 08/14/12 07/06/18 Triamterene/Hydrochlorothiazid 1 each PO DAILY 10/07/12 07/06/18 [Triamterene-Hctz 37.5-25 mg Tb] Acetaminophen [Tylenol] 650 mg PO Q6H PRN 12/16/16 06/06/17 Calcium Acetate 667 mg PO DAILY 12/16/16 06/06/17 Cholecalciferol [Vitamin D3] 10,000 unit PO DAILY 12/16/16 06/06/17 Ferrous Sulfate 325 mg PO DAILY 12/16/16 06/06/17 Multivitamin [Multiple Vitamins] 1 each PO DAILY 12/16/16 06/06/17 Atorvastatin [Lipitor] 1 tab PO DAILY 04/09/17 07/06/18 Hydrocodone/Acetaminophen [[place] 1 each PO Q6H PRN #15 tablet 03/14/18 5-325 Tablet] Hydrocodone/Acetaminophen [[place] 1 each PO Q6H PRN #20 tablet 06/11/18 5-325 Tablet] Oxycodone HCl/Acetaminophen 1 - 2 each PO Q6H PRN #10 tablet 07/06/18 [Percocet 5-325 mg Tablet] Morphine Ir [Ms Ir] 15 mg PO Q6H PRN #15 tablet 07/08/18 oxyCODONE [Roxicodone] 5 mg PO Q4-6H PRN #15 tablet 07/14/18 Cephalexin [Keflex] 500 mg PO Q6H #28 capsule 08/28/18 Ondansetron Odt [Zofran] 4 mg TL Q6H PRN #10 tablet 08/28/18 Oxycodone HCl/Acetaminophen 1 - 2 each PO Q6H PRN #10 tablet 08/28/18 [Percocet 5-325 mg Tablet] Phenazopyridine HCl [Pyridium] 200 mg PO TID PRN #6 tablet 08/28/18 Oxycodone HCl/Acetaminophen 1 - 2 each PO Q6H PRN #10 tablet 09/14/18 [Percocet 5-325 mg Tablet] predniSONE [Deltasone] 20 mg PO [id number] #21 tab 09/14/18 Oxycodone HCl/Acetaminophen 1 each PO Q6H PRN #12 tablet 09/23/18 [Percocet 5-325 mg Tablet] Oxycodone HCl/Acetaminophen 1 each PO TID PRN #15 tablet 04/12/19 [Percocet 5-325 mg Tablet] - Allergies Allergies/Adverse Reactions: Allergies Allergy/AdvReac Type Severity Reaction Status Date / Time felodipine Allergy Severe Respiratory Verified 04/12/19 12:53 Sulfa (Sulfonamide Allergy Intermediate Itching Verified 04/12/19 12:53 Antibiotics) eletriptan [From Relpax] Allergy Unknown Verified 04/12/19 12:53 prednisone Allergy Unknown Verified 04/12/19 12:53 pregabalin Allergy Unknown Verified 04/12/19 12:53 gabapentin AdvReac Edema Verified 04/12/19 12:53 tramadol AdvReac Edema Verified 04/12/19 12:53 plendil Allergy Intermediate Unknown. Uncoded 09/14/18 18:40 depomedrol Allergy Unknown Uncoded 09/14/18 18:40 tape AdvReac Mild Hives Uncoded 09/14/18 18:40 - Social History Does the pt smoke?: Yes Smoking Status: Current every day smoker Does the pt drink ETOH?: Yes Does the pt have substance abuse?: No - Immunizations Immunizations are current?: Yes - POLST Patient has POLST: No PD ED PE NORMAL - Vitals Vital signs reviewed: Yes - General General: Alert and oriented X 3, No acute distress, Well developed/nourished - Derm Derm: Normal color, Warm and dry - Extremities Extremities: Other (right knee with anterior swelling and abrasion. No redness. No pain nor laxity with cruciate nor collateral testing. Anterior muscular pain with ROM stress. No shifting point of pain medially with ROM, but is locally tender medial anterior joint line around vastus medialis ) - Neuro Neuro: Alert and oriented X 3, No motor deficit, No sensory deficit Results - Vitals Vitals: Vital Signs - 24 hr 04/12/19 12:53 Temperature 36.9 C Heart Rate 102 H Respiratory 18 Rate Blood Pressure 123/95 H O2 Saturation 99 Oxygen O2 Source Room air - Rads (name of study) right knee Radiology: Prelim report reviewed (No fractures.), See rad report PD MEDICAL DECISION MAKING - ED course Complexity details: reviewed old records (Her ID was reviewed. She had been getting consistent prescriptions of oxycodone for a few months the end of last year related to an acute back problem. She states her last prescription was early February and she was tapering down on pain medicine at that time. She is not planned to get a refill and is not on a pain contract. Her any form corroborated this scenario and so I felt it reasonably appropriate to prescribe short-term pain medicine for her acute injury now.), considered differential, d/w patient Departure - Departure Disposition: 01 Home, Self Care Clinical Impression: Accidental fall Qualifiers: Encounter type: initial encounter Qualified Code(s): W19.XXXA - Unspecified fall, initial encounter Knee strain Qualifiers: Encounter type: initial encounter Laterality: right Qualified Code(s): S86.911A - Strain of unspecified muscle(s) and tendon(s) at lower leg level, right leg, initial encounter Knee contusion Qualifiers: Encounter type: initial encounter Laterality: right Qualified Code(s): S80.01XA - Contusion of right knee, initial encounter Condition: Stable Record reviewed to determine appropriate education?: Yes Instructions: ED Sprain Knee Follow-Up: SAMY TY [Primary Care Provider] - Prescriptions: Oxycodone HCl/Acetaminophen [Percocet 5-325 mg Tablet] 1 each PO TID PRN #15 tablet PRN Reason: pain Comments: Elevate the knee often today and tomorrow to reduce swelling. Use the [place] wrap to help reduce swelling as well. Cleanse the abrasion twice daily with soap and water and apply lightly some ointment. Use the knee brace to support the knee when up and around for the next several days to a week or 2 until feeling much improved. Recheck if not improved well over the next several days to week and resolved within 1 to 2 weeks. Discharge Date/Time: 04/12/19 15:34
[2019-04-12] MEDS ORDERED: oxyCODONE 5 MG TABLET PO STA (14:59)
[2019-04-12] MEDS ORDERED: ACETAMINOPHEN 325 MG TABLET PO STA (14:59)
--- NOTE | 2019-04-12 15:17 | XRAY Report ---
Reason: pain/injury Procedure Date: 04/12/2019 Accession Number: [id number] / [id number] Procedure: XR - Knee 3 View RT CPT Code: Final Report FULL RESULT: EXAM: RIGHT KNEE RADIOGRAPHY EXAM DATE: 04/12/2019 01:31 PM. CLINICAL HISTORY: Pain/injury. COMPARISON: None. TECHNIQUE: 3 views. FINDINGS: Bones: No acute fracture or bony lesion. Joints: Normal alignment. Right knee effusion. No significant joint space narrowing. No dislocation. Soft Tissues: No radiopaque foreign bodies. IMPRESSION: 1. No acute osseous abnormalities. 2. Right knee effusion. RADIA
== END 2019-04-12 15:34 | disposition home or self-care (01) ==
LOC: ED 12:38
DX: S86.911A Strain of unspecified muscle(s) and tendon(s) at lower leg level, right leg, initial encounter (principal); M25.461 Effusion, right knee; S80.211A Abrasion, right knee, initial encounter; W10.8XXA Fall (on) (from) other stairs and steps, initial encounter; I10 Essential (primary) hypertension; F17.200 Nicotine dependence, unspecified, uncomplicated
CPT/HCPCS: 73562; 99283; A9270

== ENCOUNTER 2019-06-07 17:48 | Outpatient (CLI) | payer OTHER | END 2019-06-07 17:49 | disposition critical access hospital (66) | LOC: EMS 17:48 | PROVIDERS: ATTEND Surgery | DX: M25.561 Pain in right knee (principal); W18.30XA Fall on same level, unspecified, initial encounter; Y92.009 Unspecified place in unspecified non-institutional (private) residence as the place of occurrence of the external cause | CPT/HCPCS: A0425; A0429 ==

== ENCOUNTER 2019-06-07 18:09 | Emergency (ER) | payer OTHER ==
--- NOTE | 2019-06-07 18:46 | ED Physician Documentation ---
PD HPI LOWER EXT INJURY - Stated complaint Stated Complaint: GLF - Chief complaint Chief Complaint: Ext Problem - History obtained from History obtained from: Patient (the pt states that she occasionally drinks alcohol, several shots at a time. Today, around 1500 she started having shots. She had approximately six shots in a 45 min period. She recalls standing talking with her neice when she fell to the group. She denies hitting her head, losing consciousness. she does have pain to the right knee, medial aspect. She denies nausea, vomiting, dizzinesss ar present. 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 HEENT: Chronic vision loss Psych: Depression, Anxiety Musculoskeletal: Fibromyalgia, Chronic back pain Derm: None - Past Surgical History Past Surgical History: Yes General: Appendectomy Ortho: Other /BROADBAND TECHNICIAN: section, Tubal ligation - Present Medications Home Medications: Ambulatory Orders Medication Instructions Recorded Confirmed Levothyroxine [Synthroid] 112 mcg PO QDAC 06/23/12 07/06/18 Omeprazole 20 mg PO BID 06/23/12 07/06/18 PARoxetine HCl [Paxil] 40 mg PO DAILY 08/14/12 07/06/18 Triamterene/Hydrochlorothiazid 1 each PO DAILY 10/07/12 07/06/18 [Triamterene-Hctz 37.5-25 mg Tb] Acetaminophen [Tylenol] 650 mg PO Q6H PRN 12/16/16 06/06/17 Calcium Acetate 667 mg PO DAILY 12/16/16 06/06/17 Cholecalciferol [Vitamin D3] 10,000 unit PO DAILY 12/16/16 06/06/17 Ferrous Sulfate 325 mg PO DAILY 12/16/16 06/06/17 Multivitamin [Multiple Vitamins] 1 each PO DAILY 12/16/16 06/06/17 Atorvastatin [Lipitor] 1 tab PO DAILY 04/09/17 07/06/18 Hydrocodone/Acetaminophen [[place] 1 each PO Q6H PRN #15 tablet 03/14/18 5-325 Tablet] Hydrocodone/Acetaminophen [[place] 1 each PO Q6H PRN #20 tablet 06/11/18 5-325 Tablet] Oxycodone HCl/Acetaminophen 1 - 2 each PO Q6H PRN #10 tablet 07/06/18 [Percocet 5-325 mg Tablet] Morphine Ir [Ms Ir] 15 mg PO Q6H PRN #15 tablet 07/08/18 oxyCODONE [Roxicodone] 5 mg PO Q4-6H PRN #15 tablet 07/14/18 Cephalexin [Keflex] 500 mg PO Q6H #28 capsule 08/28/18 Ondansetron Odt [Zofran] 4 mg TL Q6H PRN #10 tablet 08/28/18 Oxycodone HCl/Acetaminophen 1 - 2 each PO Q6H PRN #10 tablet 08/28/18 [Percocet 5-325 mg Tablet] Phenazopyridine HCl [Pyridium] 200 mg PO TID PRN #6 tablet 08/28/18 Oxycodone HCl/Acetaminophen 1 - 2 each PO Q6H PRN #10 tablet 09/14/18 [Percocet 5-325 mg Tablet] predniSONE [Deltasone] 20 mg PO [id number] #21 tab 09/14/18 Oxycodone HCl/Acetaminophen 1 each PO Q6H PRN #12 tablet 09/23/18 [Percocet 5-325 mg Tablet] Oxycodone HCl/Acetaminophen 1 each PO TID PRN #15 tablet 04/12/19 [Percocet 5-325 mg Tablet] - Allergies Allergies/Adverse Reactions: Allergies Allergy/AdvReac Type Severity Reaction Status Date / Time felodipine Allergy Severe Respiratory Verified 04/12/19 12:53 Sulfa (Sulfonamide Allergy Intermediate Itching Verified 04/12/19 12:53 Antibiotics) eletriptan [From Relpax] Allergy Unknown Verified 04/12/19 12:53 prednisone Allergy Unknown Verified 04/12/19 12:53 pregabalin Allergy Unknown Verified 04/12/19 12:53 gabapentin AdvReac Edema Verified 04/12/19 12:53 tramadol AdvReac Edema Verified 04/12/19 12:53 plendil Allergy Intermediate Unknown. Uncoded 09/14/18 18:40 depomedrol Allergy Unknown Uncoded 09/14/18 18:40 tape AdvReac Mild Hives Uncoded 09/14/18 18:40 - Social History Does the pt smoke?: Yes Smoking Status: Current every day smoker Does the pt drink ETOH?: Yes Does the pt have substance abuse?: No - Immunizations Immunizations are current?: Yes - POLST Patient has POLST: No PD ED PE NORMAL - General General: Alert and oriented X 3, No acute distress, Well developed/nourished - HEENT HEENT: Atraumatic, PERRL, EOMI, Ears normal, Moist mucous membranes, Pharynx benign - Neck Neck: No bony TTP, No adenopathy - Cardiac Cardiac: RRR, No murmur - Respiratory Respiratory: No respiratory distress, Clear bilaterally - Abdomen Abdomen: Normal bowel sounds, Soft, Non tender, Non distended - Back Back: No CVA TTP - Derm Derm: Normal color, Warm and dry, No rash - Extremities Extremities: No deformity, No calf tenderness / cord. No: No tenderness to palpate PD ED PE EXPANDED - Extremities Extremities: Right knee (mild edema; TTP to the MCL region; w/o crepitus. ) Results - Vitals Vitals: Vital Signs - 24 hr 06/07/19 18:14 Temperature 36.4 C L Heart Rate 80 Respiratory 16 Rate Blood Pressure 139/102 H O2 Saturation 98 Oxygen O2 Source Room air - Rads (name of study) No standard instances Radiology: Final report received (Mild edema/ tissue swelling; no acute fracture noted.) PD MEDICAL DECISION MAKING - ED course Complexity details: reviewed results, re-evaluated patient, d/w patient Departure - Departure Disposition: 01 Home, Self Care Clinical Impression: Knee pain, acute Qualifiers: Laterality: right Qualified Code(s): M25.561 - Pain in right knee Condition: Good Instructions: MCL Sprain, ED Sprain Knee Comments: As I discussed with you, you might want to consider cutting back little bit on your drinking especially given that you are on the peroxetine. There is clinical evidence to show that the paroxetine makes the effects of alcohol worse. You can apply ice to your right knee, inside of and on top to help reduce swelling. Make sure you stay well-hydrated over the next 24 to 36 hours to counteract the alcohol intake & dehydration from it. You may follow-up with your PCP in 1 week should your right knee pain persist that long, sooner if your symptoms worsen. .
--- NOTE | 2019-06-07 19:14 | XRAY Report ---
Reason: right knee pain 2/2 GLF with twisting motion. Procedure Date: 06/07/2019 Accession Number: [id number] / [id number] Procedure: XR - Knee 4 View RT CPT Code: Final Report FULL RESULT: EXAM: RIGHT KNEE RADIOGRAPHY EXAM DATE: 06/07/2019 07:02 PM. CLINICAL HISTORY: Right knee pain 2/2, GLF with twisting motion. COMPARISON: KNEE 3 VIEW RT 04/12/2019 1:03 PM. TECHNIQUE: 4 views. FINDINGS: Bones: Normal. No fractures or bone lesions. Joints: The joint space and alignment appears normal. There is a small suprapatellar joint effusion. Soft Tissues: Normal. No soft tissue swelling. IMPRESSION: Small joint effusion. No acute fracture. RADIA
[2019-06-07 20:30] VITALS: BP 133/92
== END 2019-06-07 20:38 | disposition home or self-care (01) ==
LOC: ED 18:09
DX: M25.561 Pain in right knee (principal); W18.30XA Fall on same level, unspecified, initial encounter; I10 Essential (primary) hypertension; F32.9 Major depressive disorder, single episode, unspecified; F17.200 Nicotine dependence, unspecified, uncomplicated; M25.461 Effusion, right knee; Z79.899 Other long term (current) drug therapy
CPT/HCPCS: 99281; 99283

== ENCOUNTER 2019-07-08 12:13 | Emergency (ER) | payer OTHER ==
[2019-07-08 13:06] LABS: BASOPHILS # (AUTO) 0.1 10^3/uL (0.0-0.1); BASOPHILS % (AUTO) 0.9 %; EOSINOPHILS # (AUTO) 0.2 10^3/uL (0.0-0.7); EOSINOPHILS % (AUTO) 2.2 %; HGB - HEMOGLOBIN 13.2 g/dL (12.0-16.0); LYMPHOCYTES # (AUTO) 3.6 10^3/uL (1.5-3.5); LYMPHOCYTES % (AUTO) 32.2 %; MEAN CORPUSCULAR HEMOGLOBIN 30.7 pg (27.0-31.0); MEAN CORPUSCULAR HGB CONC 32.2 g/dL (32.0-36.0); MEAN CORPUSCULAR VOLUME 95.3 fL (81.0-99.0); MEAN PLATELET VOLUME 9.3 fL (7.9-10.8); MONOCYTES # (AUTO) 0.7 10^3/uL (0.0-1.0); MONOCYTES % (AUTO) 6.7 %; NEUTROPHILS # (AUTO) 6.4 10^3/uL (1.5-6.6); NEUTROPHILS % (AUTO) 57.4 %; PLT - PLATELET COUNT 356 10^3/uL (130-450); RED CELL DISTRIBUTION WIDTH 13.7 % (12.0-15.0); WHITE BLOOD COUNT 11.1 x10^3/uL (4.8-10.8)
[2019-07-08 13:21] LABS: ALBUMIN 4.1 g/dL (3.2-5.5); ALBUMIN/GLOBULIN RATIO 1.3 (1.0-2.2); BILIRUBIN,TOTAL 0.6 mg/dL (0.2-1.0); CALCIUM 9.1 mg/dL (8.5-10.3); CREATININE 0.8 mg/dL (0.4-1.0); TOTAL PROTEIN 7.2 g/dL (6.7-8.2)
[2019-07-08] MEDS ORDERED: HYDROmorphone 1 MG/ML CARPUJECT IVP STA (14:43)
--- NOTE | 2019-07-08 14:50 | ED Physician Documentation ---
PD HPI ABD PAIN - Stated complaint Stated Complaint: ABD PX - Chief complaint Chief Complaint: Abd Pain - History obtained from History obtained from: Patient - History of Present Illness Timing - onset: How many days ago (2) Timing - duration: Days (2) Timing - details: Gradual onset Pain level max: 9 Pain level now: 9 Quality: Aching, Pain Location: RUQ Radiation: Other (Right flank) Improved by: Other (Nothing) Worsened by: Eating Associated symptoms: No: Fever, Nausea, Vomiting, Hematemesis, Diarrhea, Constipation, Melena, Hematochezia, Dysuria, Hematuria, Chest pain Similar symptoms before: Diagnosis (Has had similar pains in the past without cause found) Recently seen: Not recently seen Review of Systems Ten Systems: 10 systems reviewed and negative Constitutional: denies: Fever, Chills Ears: denies: Ear pain Nose: denies: Rhinorrhea / runny nose, Congestion Throat: denies: Sore throat Cardiac: denies: Chest pain / pressure Respiratory: denies: Cough GI: denies: Vomiting, Diarrhea, Hematemesis, Bloody / black stool Skin: denies: Rash Musculoskeletal: denies: Neck pain, Back pain Neurologic: denies: Headache PD PAST MEDICAL HISTORY - Past Medical History Cardiovascular: Hypertension Respiratory: None Neuro: None Endocrine/Autoimmune: HyPOthyroidism GI: GERD, Ulcers, Other 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 : 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 HEENT: Chronic vision loss Psych: Depression, Anxiety Musculoskeletal: Fibromyalgia, Chronic back pain Derm: None - Past Surgical History Past Surgical History: Yes General: Appendectomy Ortho: Other /LINE HELPER: section, Tubal ligation - Present Medications Home Medications: Ambulatory Orders Medication Instructions Recorded Confirmed Levothyroxine [Synthroid] 112 mcg PO QDAC 06/23/12 07/06/18 Omeprazole 20 mg PO BID 06/23/12 07/06/18 PARoxetine HCl [Paxil] 40 mg PO DAILY 08/14/12 07/06/18 Triamterene/Hydrochlorothiazid 1 each PO DAILY 10/07/12 07/06/18 [Triamterene-Hctz 37.5-25 mg Tb] Acetaminophen [Tylenol] 650 mg PO Q6H PRN 12/16/16 06/06/17 Calcium Acetate 667 mg PO DAILY 12/16/16 06/06/17 Cholecalciferol [Vitamin D3] 10,000 unit PO DAILY 12/16/16 06/06/17 Ferrous Sulfate 325 mg PO DAILY 12/16/16 06/06/17 Multivitamin [Multiple Vitamins] 1 each PO DAILY 12/16/16 06/06/17 Atorvastatin [Lipitor] 1 tab PO DAILY 04/09/17 07/06/18 Hydrocodone/Acetaminophen [[place] 1 each PO Q6H PRN #15 tablet 03/14/18 5-325 Tablet] Hydrocodone/Acetaminophen [[place] 1 each PO Q6H PRN #20 tablet 06/11/18 5-325 Tablet] Oxycodone HCl/Acetaminophen 1 - 2 each PO Q6H PRN #10 tablet 07/06/18 [Percocet 5-325 mg Tablet] Morphine Ir [Ms Ir] 15 mg PO Q6H PRN #15 tablet 07/08/18 oxyCODONE [Roxicodone] 5 mg PO Q4-6H PRN #15 tablet 07/14/18 Cephalexin [Keflex] 500 mg PO Q6H #28 capsule 08/28/18 Ondansetron Odt [Zofran] 4 mg TL Q6H PRN #10 tablet 08/28/18 Oxycodone HCl/Acetaminophen 1 - 2 each PO Q6H PRN #10 tablet 08/28/18 [Percocet 5-325 mg Tablet] Phenazopyridine HCl [Pyridium] 200 mg PO TID PRN #6 tablet 08/28/18 Oxycodone HCl/Acetaminophen 1 - 2 each PO Q6H PRN #10 tablet 09/14/18 [Percocet 5-325 mg Tablet] predniSONE [Deltasone] 20 mg PO [id number] #21 tab 09/14/18 Oxycodone HCl/Acetaminophen 1 each PO Q6H PRN #12 tablet 09/23/18 [Percocet 5-325 mg Tablet] Oxycodone HCl/Acetaminophen 1 each PO TID PRN #15 tablet 04/12/19 [Percocet 5-325 mg Tablet] Oxycodone HCl 5 - 10 mg PO Q6H PRN #14 tablet 07/08/19 Sucralfate [Carafate] 1 gm PO ACHS #60 tablet 07/08/19 - Allergies Allergies/Adverse Reactions: Allergies Allergy/AdvReac Type Severity Reaction Status Date / Time felodipine Allergy Severe Respiratory Verified 04/12/19 12:53 Sulfa (Sulfonamide Allergy Intermediate Itching Verified 04/12/19 12:53 Antibiotics) eletriptan [From Relpax] Allergy Unknown Verified 04/12/19 12:53 prednisone Allergy Unknown Verified 04/12/19 12:53 pregabalin Allergy Unknown Verified 04/12/19 12:53 gabapentin AdvReac Edema Verified 04/12/19 12:53 tramadol AdvReac Edema Verified 04/12/19 12:53 plendil Allergy Intermediate Unknown. Uncoded 09/14/18 18:40 depomedrol Allergy Unknown Uncoded 09/14/18 18:40 tape AdvReac Mild Hives Uncoded 09/14/18 18:40 - Social History Does the pt smoke?: Yes Smoking Status: Current every day smoker Does the pt drink ETOH?: Yes Does the pt have substance abuse?: No - Immunizations Immunizations are current?: Yes - POLST Patient has POLST: No PD ED PE NORMAL - Vitals Vital signs reviewed: Yes - General General: Alert and oriented X 3, No acute distress, Well developed/nourished - HEENT HEENT: Moist mucous membranes - Neck Neck: Supple, no meningeal sign - Cardiac Cardiac: RRR, Strong equal pulses - Respiratory Respiratory: No respiratory distress, Clear bilaterally - Abdomen Abdomen: Soft, Non distended, Other (Tender to palpation right upper quadrant. Positive Fox sign) - Back Back: No spinal TTP - Derm Derm: Warm and dry - Extremities Extremities: No edema - Neuro Neuro: Alert and oriented X 3 - Psych Psych: Normal mood, Normal affect Results - Vitals Vitals: Vital Signs - 24 hr 07/08/19 07/08/19 07/08/19 12:24 14:30 15:30 Temperature 36.9 C Heart Rate 86 85 97 Respiratory 18 18 18 Rate Blood Pressure 169/107 H 180/107 H 170/108 H O2 Saturation 99 99 99 07/08/19 16:30 Temperature Heart Rate 75 Respiratory 16 Rate Blood Pressure 164/105 H O2 Saturation 99 Oxygen O2 Source Room air - Labs Labs: Laboratory Tests 07/08/19 07/08/19 12:28 12:48 WBC 11.1 H RBC 4.30 Hgb 13.2 Hct 41.0 MCV 95.3 MCH 30.7 MCHC 32.2 RDW 13.7 Plt Count 356 MPV 9.3 Neut # (Auto) 6.4 Lymph # (Auto) 3.6 H [place] # (Auto) 0.7 Eos # (Auto) 0.2 Baso # (Auto) 0.1 Absolute Nucleated RBC 0.00 Nucleated RBC % 0.0 Sodium 141 Potassium 3.3 L Chloride 102 Carbon Dioxide 30 Anion Gap 9.0 BUN 18 Creatinine 0.8 Estimated GFR (MDRD) 75 L Glucose 114 H Calcium 9.1 Total Bilirubin 0.6 AST 20 ALT 24 Alkaline Phosphatase 72 Total Protein 7.2 Albumin 4.1 Globulin 3.1 Albumin/Globulin Ratio 1.3 Lipase 36 - Rads (name of study) Right upper quadrant ultrasound Radiology: Prelim report reviewed, EMP read contemporaneously, See rad report ( No cholelithiasis or sonographic evidence for acute cholecystitis. 2. Nonspecific mild hepatic enlargement has not significantly changed from prior examinations. This is commonly normal variant, related to patient body habitus. ) PD MEDICAL DECISION MAKING - ED course Complexity details: reviewed results, re-evaluated patient, considered differential, d/w patient ED course: No acute findings on ultrasound or laboratory testing. Pain well controlled. Patient is well-appearing, nontoxic. Afebrile. Tolerating p.o. without difficulty. We will have her follow-up with her doctor for further care. Patient counseled regarding signs and symptoms for which I believe and urgent re-evaluation would be necessary. Patient with good understanding of and agreement to plan and is comfortable going home at this time This document was made in part using voice recognition software. While efforts are made to proofread this document, sound alike and grammatical errors may occur. Departure - Departure Disposition: 01 Home, Self Care Clinical Impression: Abdominal pain Qualifiers: Abdominal location: right upper quadrant Qualified Code(s): R10.11 - Right upper quadrant pain Condition: Good Instructions: ED Abdominal Pain Unkn Cause Follow-Up: SAMY TY [Primary Care Provider] - Within 1 week Prescriptions: Oxycodone HCl 5 - 10 mg PO Q6H PRN #14 tablet PRN Reason: pain Sucralfate [Carafate] 1 gm PO ACHS #60 tablet Comments: The cause of your symptoms is unclear today. Your testing is normal today. Follow-up with your doctor for further care. They may want to repeat an endoscopy. Do not drink alcohol or drive while on narcotic pain medicine. Note that many narcotic pain relievers also contain tylenol/acetaminophen. Please ensure that your total dose of acetaminophen from all sources does not exceed 3 grams (3000mg) per day. You may constipated on this medication, take a stool softener such as "Colace" twice a day while you are on it. Also recommend a hlji-afv-zslcpib laxative such as senna or MiraLAX any day that you do not have a bowel movement. If you received narcotic pain medication in the emergency department, do not drive or operate machinery for the next 24 hours. Discharge Date/Time: 07/08/19 17:54
--- NOTE | 2019-07-08 15:57 | Ultrasound Report ---
Reason: RUQ pain, + fox sign Procedure Date: 07/08/2019 Accession Number: [id number] / [id number] Procedure: US - Abdomen Limited CPT Code: Final Report FULL RESULT: EXAM: ABDOMEN ULTRASOUND LIMITED, RUQ EXAM DATE: 07/08/2019 03:40 PM. CLINICAL HISTORY: RUQ pain, positive Fox sign. COMPARISON: Abdominal ultrasound from 07/06/2018, CT of the abdomen and pelvis from 07/08/2018. TECHNIQUE: Real-time scanning was performed with static images obtained. FINDINGS: Liver: There is mildly coarsened hepatic echotexture. Right hepatic lobe is mildly elongated at 18.1 cm, which is not significantly changed from prior examinations. Hepatic echotexture is within normal limits. Main portal vein flow: Hepatopetal. Gallbladder: No gallstones or gallbladder wall thickening. No pericholecystic fluid. Biliary System: CBD measures 5 mm. No intrahepatic or extrahepatic ductal dilatation. Other: The visualized portions of the pancreas are unremarkable. The distal body and tail are obscured by bowel gas. Right kidney measures 10.2 cm longitudinally. No hydronephrosis. IMPRESSION: 1. No cholelithiasis or sonographic evidence for acute cholecystitis. 2. Nonspecific mild hepatic enlargement has not significantly changed from prior examinations. This is commonly normal variant, related to patient body habitus. RADIA
[2019-07-08 16:31] VITALS: BP 164/105
== END 2019-07-08 17:54 | disposition home or self-care (01) ==
LOC: ED 12:13
DX: R10.11 Right upper quadrant pain (principal); I10 Essential (primary) hypertension; F17.200 Nicotine dependence, unspecified, uncomplicated
CPT/HCPCS: 36415; 76705; 80053; 83690; 85025; 96374; 99284; 99285; J1170

== ENCOUNTER 2019-08-04 18:47 | Outpatient (CLI) | payer OTHER | END 2019-08-04 18:48 | disposition critical access hospital (66) | LOC: EMS 18:47 | PROVIDERS: ATTEND Surgery | DX: R10.9 Unspecified abdominal pain (principal) | CPT/HCPCS: A0425; A0427 ==

== ENCOUNTER 2019-08-04 19:08 | Emergency (ER) | payer OTHER ==
[2019-08-04] MEDS ORDERED: HYDROmorphone 1 MG/ML CARPUJECT IVP STA ×2 (19:29→20:01)
--- NOTE | 2019-08-04 19:30 | ED Physician Documentation ---
PD HPI ABD PAIN - Stated complaint Stated Complaint: ABD PAIN - Chief complaint Chief Complaint: Abd Pain - History obtained from History obtained from: Patient - History of Present Illness Timing - onset: Other (53-year-old woman who had a remote perforated gastric ulcer and followed by an incisional hernia. She has on and off issues with abdominal pain without clear source. Current pain has been going on for about a month, its right upper quadrant pain radiating to the right shoulder and back. Is worse after eating heavy meals. She was seen here and an ultrasound was done that was negative about a month ago. Subsequently followed up with a surgeon who is planning an EGD, but pain was worse today. No vomiting.) Review of Systems Constitutional: denies: Fever, Chills Cardiac: denies: Chest pain / pressure, Palpitations GI: reports: Abdominal Pain. 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 HEENT: Chronic vision loss Psych: Depression, Anxiety Musculoskeletal: Fibromyalgia, Chronic back pain Derm: None - Past Surgical History Past Surgical History: Yes General: Appendectomy Ortho: Other /WOODEN FRAME BUILDER: section, Tubal ligation - Present Medications Home Medications: Ambulatory Orders Medication Instructions Recorded Confirmed Levothyroxine [Synthroid] 112 mcg PO QDAC 06/23/12 07/06/18 Omeprazole 20 mg PO BID 06/23/12 07/06/18 PARoxetine HCl [Paxil] 40 mg PO DAILY 08/14/12 07/06/18 Triamterene/Hydrochlorothiazid 1 each PO DAILY 10/07/12 07/06/18 [Triamterene-Hctz 37.5-25 mg Tb] Acetaminophen [Tylenol] 650 mg PO Q6H PRN 12/16/16 06/06/17 Calcium Acetate 667 mg PO DAILY 12/16/16 06/06/17 Cholecalciferol [Vitamin D3] 10,000 unit PO DAILY 12/16/16 06/06/17 Ferrous Sulfate 325 mg PO DAILY 12/16/16 06/06/17 Multivitamin [Multiple Vitamins] 1 each PO DAILY 12/16/16 06/06/17 Atorvastatin [Lipitor] 1 tab PO DAILY 04/09/17 07/06/18 Hydrocodone/Acetaminophen [[place] 1 each PO Q6H PRN #15 tablet 03/14/18 5-325 Tablet] Hydrocodone/Acetaminophen [[place] 1 each PO Q6H PRN #20 tablet 06/11/18 5-325 Tablet] Oxycodone HCl/Acetaminophen 1 - 2 each PO Q6H PRN #10 tablet 07/06/18 [Percocet 5-325 mg Tablet] Morphine Ir [Ms Ir] 15 mg PO Q6H PRN #15 tablet 07/08/18 oxyCODONE [Roxicodone] 5 mg PO Q4-6H PRN #15 tablet 07/14/18 Cephalexin [Keflex] 500 mg PO Q6H #28 capsule 08/28/18 Ondansetron Odt [Zofran] 4 mg TL Q6H PRN #10 tablet 08/28/18 Oxycodone HCl/Acetaminophen 1 - 2 each PO Q6H PRN #10 tablet 08/28/18 [Percocet 5-325 mg Tablet] Phenazopyridine HCl [Pyridium] 200 mg PO TID PRN #6 tablet 08/28/18 Oxycodone HCl/Acetaminophen 1 - 2 each PO Q6H PRN #10 tablet 09/14/18 [Percocet 5-325 mg Tablet] predniSONE [Deltasone] 20 mg PO [id number] #21 tab 09/14/18 Oxycodone HCl/Acetaminophen 1 each PO Q6H PRN #12 tablet 09/23/18 [Percocet 5-325 mg Tablet] Oxycodone HCl/Acetaminophen 1 each PO TID PRN #15 tablet 04/12/19 [Percocet 5-325 mg Tablet] Oxycodone HCl 5 - 10 mg PO Q6H PRN #14 tablet 07/08/19 Sucralfate [Carafate] 1 gm PO ACHS #60 tablet 07/08/19 - Allergies Allergies/Adverse Reactions: Allergies Allergy/AdvReac Type Severity Reaction Status Date / Time felodipine Allergy Severe Respiratory Verified 04/12/19 12:53 Sulfa (Sulfonamide Allergy Intermediate Itching Verified 04/12/19 12:53 Antibiotics) eletriptan [From Relpax] Allergy Unknown Verified 04/12/19 12:53 prednisone Allergy Unknown Verified 04/12/19 12:53 pregabalin Allergy Unknown Verified 04/12/19 12:53 gabapentin AdvReac Edema Verified 04/12/19 12:53 tramadol AdvReac Edema Verified 04/12/19 12:53 plendil Allergy Intermediate Unknown. Uncoded 09/14/18 18:40 depomedrol Allergy Unknown Uncoded 09/14/18 18:40 tape AdvReac Mild Hives Uncoded 09/14/18 18:40 - Social History Does the pt smoke?: Yes Smoking Status: Current every day smoker Does the pt drink ETOH?: Yes Does the pt have substance abuse?: No - Immunizations Immunizations are current?: Yes - POLST Patient has POLST: No PD ED PE NORMAL - Vitals Vital signs reviewed: Yes - General General: Alert and oriented X 3, No acute distress - Abdomen Abdomen: Normal bowel sounds, Other (Modest right upper quadrant tenderness without surgical signs, extensive midline laparotomy scar) - Neuro Neuro: Alert and oriented X 3, Normal speech Results - Vitals Vitals: Vital Signs - 24 hr 08/04/19 08/04/19 19:10 19:35 Temperature 37.3 C Heart Rate 109 H 105 H Respiratory 18 18 Rate Blood Pressure 152/124 H 141/106 H O2 Saturation 96 100 Oxygen O2 Source Room air - Labs Labs: Laboratory Tests 08/04/19 08/04/19 19:36 19:36 WBC 14.3 H RBC 4.62 Hgb 15.0 Hct 43.5 MCV 94.2 MCH 32.5 H MCHC 34.5 RDW 12.9 Plt Count 355 MPV 9.1 Manual Slide Review Indicated Sodium 137 Potassium 3.5 Chloride 98 L Carbon Dioxide 25 Anion Gap 14.0 H BUN 17 Creatinine 0.8 Estimated GFR (MDRD) 75 L Glucose 88 Calcium 9.2 Total Bilirubin 0.5 AST 20 ALT 24 Alkaline Phosphatase 76 Total Protein 8.0 Albumin 4.4 Globulin 3.6 Albumin/Globulin Ratio 1.2 Lipase 39 PD MEDICAL DECISION MAKING - ED course ED course: 53-year-old woman presents with an exacerbation of chronic unclear abdominal pain. She has appropriate follow-up scheduled with EGD to be done and if normal planning on a HIDA scan and then eventually cholecystectomy even if that is normal per her understanding of the plan. She will much better after pain medication. Note made of the leukocytosis but this is a chronic phenomenon and her baseline is between about 11 and 16,000 for the last several years. Departure - Departure Disposition: Home, Self Care Clinical Impression: Chronic bilateral upper abdominal pain Condition: Good Record reviewed to determine appropriate education?: Yes Instructions: Abdominal Pain Comments: Continue current plan for upper endoscopy followed by HIDA scan and surgical follow-up. Return for new or worsening symptoms.
[2019-08-04 19:42] LABS: BASOPHILS # (AUTO) 0.2 10^3/uL (0.0-0.1); BASOPHILS % (AUTO) 1.2 %; EOSINOPHILS # (AUTO) 0.6 10^3/uL (0.0-0.7); EOSINOPHILS % (AUTO) 4.3 %; LYMPHOCYTES # (AUTO) 6.3 10^3/uL (1.5-3.5); LYMPHOCYTES % (AUTO) 44.4 %; MEAN CORPUSCULAR HEMOGLOBIN 32.5 pg (27.0-31.0); MEAN CORPUSCULAR HGB CONC 34.5 g/dL (32.0-36.0); MEAN CORPUSCULAR VOLUME 94.2 fL (81.0-99.0); MEAN PLATELET VOLUME 9.1 fL (7.9-10.8); MONOCYTES # (AUTO) 0.7 10^3/uL (0.0-1.0); NEUTROPHILS # (AUTO) 6.4 10^3/uL (1.5-6.6); NEUTROPHILS % (AUTO) 44.5 %; PLT - PLATELET COUNT 355 10^3/uL (130-450); RED BLOOD COUNT 4.62 10^6/uL (4.20-5.40); RED CELL DISTRIBUTION WIDTH 12.9 % (12.0-15.0); WHITE BLOOD COUNT 14.3 x10^3/uL (4.8-10.8)
[2019-08-04 19:56] LABS: ALBUMIN 4.4 g/dL (3.2-5.5); ALBUMIN/GLOBULIN RATIO 1.2 (1.0-2.2); BILIRUBIN,TOTAL 0.5 mg/dL (0.2-1.0); CALCIUM 9.2 mg/dL (8.5-10.3); CREATININE 0.8 mg/dL (0.4-1.0)
[2019-08-04] MEDS ORDERED: oxyCODONE/ACET 5/325 Prepack 4 PO STA (20:01)
[2019-08-04 20:28] VITALS: BP 111/94
[2019-08-04 20:33] LABS: DIFFERENTIAL COMMENT MANUAL=AUTO DIFF; PLATELET ESTIMATE, MANUAL NORMAL (130-450,000) (NORMAL); PLATELET MORPHOLOGY NORMAL APPEARANCE (NORMAL); RBC MORPHOLOGY (MULTIPLE) NORMAL APPEARANCE (NORMAL)
== END 2019-08-04 20:29 | disposition home or self-care (01) ==
LOC: EDBD → EDUNIT# → ED 19:08
DX: R10.11 Right upper quadrant pain (principal); R10.12 Left upper quadrant pain; G89.29 Other chronic pain; D72.829 Elevated white blood cell count, unspecified; Z87.11 Personal history of peptic ulcer disease; I10 Essential (primary) hypertension; F17.200 Nicotine dependence, unspecified, uncomplicated
CPT/HCPCS: 36415; 80053; 83690; 85025; 96374; 96376; 99283; J1170

== ENCOUNTER 2019-08-11 19:25 | Outpatient (CLI) | payer OTHER | END 2019-08-11 19:26 | disposition critical access hospital (66) | LOC: EMS 19:25 | PROVIDERS: ATTEND Surgery | DX: R10.9 Unspecified abdominal pain (principal); R39.89 Other symptoms and signs involving the genitourinary system; R11.0 Nausea | CPT/HCPCS: A0425; A0429 ==

== ENCOUNTER 2019-08-11 19:44 | Emergency (ER) | payer OTHER ==
[2019-08-11 20:03] LABS: BILIRUBIN,URINE NEGATIVE (NEGATIVE); GLUCOSE, URINE (UA) NEGATIVE (NEGATIVE); KETONES,URINE (UA) NEGATIVE (NEGATIVE); LEUKOCYTE ESTERASE, URINE NEGATIVE (NEGATIVE); NITRITE,URINE NEGATIVE (NEGATIVE); OCCULT BLOOD,URINE TRACE-INTA (NEGATIVE); PROTEIN,URINE NEGATIVE (NEGATIVE); UROBILINOGEN,URINE 0.2 (NORMAL) E.U./dL (NORMAL)
[2019-08-11 20:04] LABS: CLARITY,URINE CLEAR (CLEAR)
[2019-08-11 20:32] LABS: BACTERIA,URINE None Seen /HPF (None Seen); RBC,URINE 0-5 /HPF (0-5); SQUAMOUS EPITHELIAL CELL,UR FEW Squamous (<= Few)
[2019-08-11] MEDS ORDERED: HYDROmorphone 1 MG/ML CARPUJECT IVP STA (20:34)
[2019-08-11] MEDS ORDERED: IOVERSOL 320 100 ML VIAL IVP ONE ×2 (21:00→22:59)
--- NOTE | 2019-08-11 21:34 | ED Physician Documentation ---
PD HPI ABD PAIN - Stated complaint Stated Complaint: GALLBLADDER PX - Chief complaint Chief Complaint: Abd Pain - History obtained from History obtained from: Patient - History of Present Illness Pain level max: 10 Pain level now: 10 Quality: Aching, Pain Location: RUQ, Epigastric Recently seen: Not recently seen - Additional information Additional information: 53-year-old female presents to the emergency department with abdominal pain. This been ongoing for the past month or 2. Nothing makes it better or worse. She states that she is being worked up for her gallbladder. Has a HIDA scan scheduled. Has had nausea but no vomiting. Patient with diarrhea. No fevers. No recent antibiotics. She had an endoscopy a few days ago that showed gastritis. She states that they looked at her duodenum and was told it was normal. There are no ulcers. 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 HEENT: Chronic vision loss Psych: Depression, Anxiety Musculoskeletal: Fibromyalgia, Chronic back pain Derm: None - Past Surgical History Past Surgical History: Yes General: Appendectomy Ortho: Other /EXHIBIT CARPENTER: section, Tubal ligation - Present Medications Home Medications: Ambulatory Orders Medication Instructions Recorded Confirmed Levothyroxine [Synthroid] 112 mcg PO QDAC 06/23/12 07/06/18 Omeprazole 20 mg PO BID 06/23/12 07/06/18 PARoxetine HCl [Paxil] 40 mg PO DAILY 08/14/12 07/06/18 Triamterene/Hydrochlorothiazid 1 each PO DAILY 10/07/12 07/06/18 [Triamterene-Hctz 37.5-25 mg Tb] Acetaminophen [Tylenol] 650 mg PO Q6H PRN 12/16/16 06/06/17 Calcium Acetate 667 mg PO DAILY 12/16/16 06/06/17 Cholecalciferol [Vitamin D3] 10,000 unit PO DAILY 12/16/16 06/06/17 Ferrous Sulfate 325 mg PO DAILY 12/16/16 06/06/17 Multivitamin [Multiple Vitamins] 1 each PO DAILY 12/16/16 06/06/17 Atorvastatin [Lipitor] 1 tab PO DAILY 04/09/17 07/06/18 Hydrocodone/Acetaminophen [[place] 1 each PO Q6H PRN #15 tablet 03/14/18 5-325 Tablet] Hydrocodone/Acetaminophen [[place] 1 each PO Q6H PRN #20 tablet 06/11/18 5-325 Tablet] Oxycodone HCl/Acetaminophen 1 - 2 each PO Q6H PRN #10 tablet 07/06/18 [Percocet 5-325 mg Tablet] Morphine Ir [Ms Ir] 15 mg PO Q6H PRN #15 tablet 07/08/18 oxyCODONE [Roxicodone] 5 mg PO Q4-6H PRN #15 tablet 07/14/18 Cephalexin [Keflex] 500 mg PO Q6H #28 capsule 08/28/18 Ondansetron Odt [Zofran] 4 mg TL Q6H PRN #10 tablet 08/28/18 Oxycodone HCl/Acetaminophen 1 - 2 each PO Q6H PRN #10 tablet 08/28/18 [Percocet 5-325 mg Tablet] Phenazopyridine HCl [Pyridium] 200 mg PO TID PRN #6 tablet 08/28/18 Oxycodone HCl/Acetaminophen 1 - 2 each PO Q6H PRN #10 tablet 09/14/18 [Percocet 5-325 mg Tablet] predniSONE [Deltasone] 20 mg PO [id number] #21 tab 09/14/18 Oxycodone HCl/Acetaminophen 1 each PO Q6H PRN #12 tablet 09/23/18 [Percocet 5-325 mg Tablet] Oxycodone HCl/Acetaminophen 1 each PO TID PRN #15 tablet 04/12/19 [Percocet 5-325 mg Tablet] Oxycodone HCl 5 - 10 mg PO Q6H PRN #14 tablet 07/08/19 Sucralfate [Carafate] 1 gm PO ACHS #60 tablet 07/08/19 - Allergies Allergies/Adverse Reactions: Allergies Allergy/AdvReac Type Severity Reaction Status Date / Time felodipine Allergy Severe Respiratory Verified 08/11/19 19:51 Sulfa (Sulfonamide Allergy Intermediate Itching Verified 08/11/19 19:51 Antibiotics) eletriptan [From Relpax] Allergy Unknown Verified 08/11/19 19:51 prednisone Allergy Unknown Verified 08/11/19 19:51 pregabalin Allergy Unknown Verified 08/11/19 19:51 gabapentin AdvReac Edema Verified 08/11/19 19:51 tramadol AdvReac Edema Verified 08/11/19 19:51 plendil Allergy Intermediate Unknown. Uncoded 08/11/19 19:51 depomedrol Allergy Unknown Uncoded 08/11/19 19:51 tape AdvReac Mild Hives Uncoded 08/11/19 19:51 - Social History Does the pt smoke?: Yes Smoking Status: Current every day smoker Does the pt drink ETOH?: Yes Does the pt have substance abuse?: No - Immunizations Immunizations are current?: Yes - POLST Patient has POLST: No PD ED PE NORMAL - Vitals Vital signs reviewed: Yes - General General: Alert and oriented X 3, No acute distress, Well developed/nourished - HEENT HEENT: Moist mucous membranes - Neck Neck: Supple, no meningeal sign - Cardiac Cardiac: RRR - Respiratory Respiratory: No respiratory distress, Clear bilaterally - Abdomen Abdomen: Soft, Other (TTP R flank and RUQ. + spencer's sign) - Back Back: No CVA TTP, No spinal TTP - Derm Derm: Warm and dry - Extremities Extremities: No edema - Neuro Neuro: Alert and oriented X 3 Results - Vitals Vitals: Vital Signs - 24 hr 08/11/19 08/11/19 08/11/19 19:45 19:57 21:38 Temperature 36.9 C Heart Rate 103 H 98 90 Respiratory 20 18 18 Rate Blood Pressure 134/87 H 142/110 H 131/96 H O2 Saturation 98 98 97 Oxygen O2 Source Room air - Labs Labs: Laboratory Tests 08/11/19 08/11/19 08/11/19 19:52 20:40 20:40 WBC 16.2 H RBC 4.32 Hgb 13.6 Hct 40.4 MCV 93.5 MCH 31.5 H MCHC 33.7 RDW 12.9 Plt Count 367 MPV 9.5 Neut # (Auto) 9.3 H Lymph # (Auto) 5.3 H [place] # (Auto) 1.0 Eos # (Auto) 0.4 Baso # (Auto) 0.1 Absolute Nucleated RBC 0.00 Band Neuts % (Manual) Not Reportable Abnorm Lymph % (Manual) Not Reportable Nucleated RBC % 0.0 Neutrophils # (Manual) Not Reportable Lymphocytes # (Manual) Not Reportable Monocytes # (Manual) Not Reportable Eosinophils # (Manual) Not Reportable Basophils # (Manual) Not Reportable Differential Comment MANUAL=AUTO DIFF Manual Slide Review Indicated Platelet Estimate NORMAL (130-450,000) Platelet Morphology NORMAL APPEARANCE RBC Morph Micro Appear NORMAL APPEARANCE Sodium 138 Potassium 2.9 L Chloride 104 Carbon Dioxide 24 Anion Gap 10.0 BUN 17 Creatinine 0.7 Estimated GFR (MDRD) 88 L Glucose 88 Calcium 9.1 Total Bilirubin 0.6 AST 16 ALT 20 Alkaline Phosphatase 69 Total Protein 7.1 Albumin 3.8 Globulin 3.3 Albumin/Globulin Ratio 1.2 Lipase 46 Urine Color YELLOW Urine Clarity CLEAR Urine pH 6.0 Ur Specific [place] <=1.005 Urine Protein NEGATIVE Urine Glucose (UA) NEGATIVE Urine Ketones NEGATIVE Urine Occult Blood TRACE-INTA Urine Nitrite NEGATIVE Urine Bilirubin NEGATIVE Urine Urobilinogen 0.2 (NORMAL) Ur Leukocyte Esterase NEGATIVE Urine RBC 0-5 Urine WBC 0-3 Ur Squamous Epith Cells FEW Squamous Urine Bacteria None Seen Urine Culture Comments NOT INDICATED - Rads (name of study) CT abd pelvis Radiology: Prelim report reviewed, EMP read contemporaneously RUQ US Radiology: Prelim report reviewed, EMP read contemporaneously PD MEDICAL DECISION MAKING - ED course Complexity details: reviewed results, re-evaluated patient, considered differential, d/w patient ED course: Patient with ongoing abdominal pain. Recent endoscopy did not reveal anything other than gastritis. We will order an ultrasound and CT scan tonight. She has chronic leukocytosis as well. Patient will be signed out to the [facility] emergency department physician awaiting final interpretation of her ultrasound and CAT scan. If these do not show any acute findings, she will likely be able to go home and follow-up as an outpatient with her doctor. This document was made in part using voice recognition software. While efforts are made to proofread this document, sound alike and grammatical errors may occur. Departure - Departure Clinical Impression: Abdominal pain Qualifiers: Abdominal location: right upper quadrant Qualified Code(s): R10.11 - Right upper quadrant pain Condition: Stable
[2019-08-11 21:55] LABS: BASOPHILS # (AUTO) 0.1 10^3/uL (0.0-0.1); BASOPHILS % (AUTO) 0.9 %; EOSINOPHILS # (AUTO) 0.4 10^3/uL (0.0-0.7); EOSINOPHILS % (AUTO) 2.5 %; HGB - HEMOGLOBIN 13.6 g/dL (12.0-16.0); LYMPHOCYTES # (AUTO) 5.3 10^3/uL (1.5-3.5); LYMPHOCYTES % (AUTO) 32.8 %; MEAN CORPUSCULAR HEMOGLOBIN 31.5 pg (27.0-31.0); MEAN CORPUSCULAR HGB CONC 33.7 g/dL (32.0-36.0); MEAN CORPUSCULAR VOLUME 93.5 fL (81.0-99.0); MEAN PLATELET VOLUME 9.5 fL (7.9-10.8); MONOCYTES % (AUTO) 5.9 %; NEUTROPHILS # (AUTO) 9.3 10^3/uL (1.5-6.6); NEUTROPHILS % (AUTO) 57.1 %; PLT - PLATELET COUNT 367 10^3/uL (130-450); RED BLOOD COUNT 4.32 10^6/uL (4.20-5.40); RED CELL DISTRIBUTION WIDTH 12.9 % (12.0-15.0); WHITE BLOOD COUNT 16.2 x10^3/uL (4.8-10.8)
[2019-08-11 22:05] LABS: ALBUMIN 3.8 g/dL (3.2-5.5); ALBUMIN/GLOBULIN RATIO 1.2 (1.0-2.2); BILIRUBIN,TOTAL 0.6 mg/dL (0.2-1.0); CALCIUM 9.1 mg/dL (8.5-10.3); CREATININE 0.7 mg/dL (0.4-1.0); TOTAL PROTEIN 7.1 g/dL (6.7-8.2)
[2019-08-11 22:15] LABS: DIFFERENTIAL COMMENT MANUAL=AUTO DIFF; PLATELET ESTIMATE, MANUAL NORMAL (130-450,000) (NORMAL); PLATELET MORPHOLOGY NORMAL APPEARANCE (NORMAL); RBC MORPHOLOGY (MULTIPLE) NORMAL APPEARANCE (NORMAL)
--- NOTE | 2019-08-11 23:33 | ED Physician Documentation ---
History of Present Illness - Stated complaint Stated Complaint: GALLBLADDER PX - Chief complaint Chief Complaint: Abd Pain - History obtained from History obtained from: Patient (Patient signed out to me at shift change by Dr. John Amanda. Please see complete history and physical by Dr. Amanda for further details.) Review of Systems Constitutional: reports: Reviewed and negative Eyes: reports: Reviewed and negative Ears: reports: Reviewed and negative Nose: reports: Reviewed and negative Throat: reports: Reviewed and negative Cardiac: reports: Reviewed and negative Respiratory: reports: Reviewed and negative GI: reports: Abdominal Pain : reports: Reviewed and negative Skin: reports: Reviewed and negative Musculoskeletal: reports: Reviewed and negative Neurologic: reports: Reviewed and negative Psychiatric: reports: Reviewed and negative Endocrine: reports: Reviewed and negative Immunocompromised: reports: Reviewed and negative PD PAST MEDICAL HISTORY - Past Medical History Cardiovascular: Hypertension Respiratory: None Neuro: None Endocrine/Autoimmune: HyPOthyroidism GI: GERD, Ulcers, Other 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 HEENT: Chronic vision loss Psych: Depression, Anxiety Musculoskeletal: Fibromyalgia, Chronic back pain Derm: None - Past Surgical History Past Surgical History: Yes General: Appendectomy Ortho: Other /DESTINATION IMAGINATION COORDINATOR: section, Tubal ligation - Present Medications Home Medications: Ambulatory Orders Medication Instructions Recorded Confirmed Levothyroxine [Synthroid] 112 mcg PO QDAC 06/23/12 07/06/18 Omeprazole 20 mg PO BID 06/23/12 07/06/18 PARoxetine HCl [Paxil] 40 mg PO DAILY 08/14/12 07/06/18 Triamterene/Hydrochlorothiazid 1 each PO DAILY 10/07/12 07/06/18 [Triamterene-Hctz 37.5-25 mg Tb] Acetaminophen [Tylenol] 650 mg PO Q6H PRN 12/16/16 06/06/17 Calcium Acetate 667 mg PO DAILY 12/16/16 06/06/17 Cholecalciferol [Vitamin D3] 10,000 unit PO DAILY 12/16/16 06/06/17 Ferrous Sulfate 325 mg PO DAILY 12/16/16 06/06/17 Multivitamin [Multiple Vitamins] 1 each PO DAILY 12/16/16 06/06/17 Atorvastatin [Lipitor] 1 tab PO DAILY 04/09/17 07/06/18 Hydrocodone/Acetaminophen [[place] 1 each PO Q6H PRN #15 tablet 03/14/18 5-325 Tablet] Hydrocodone/Acetaminophen [[place] 1 each PO Q6H PRN #20 tablet 06/11/18 5-325 Tablet] Oxycodone HCl/Acetaminophen 1 - 2 each PO Q6H PRN #10 tablet 07/06/18 [Percocet 5-325 mg Tablet] Morphine Ir [Ms Ir] 15 mg PO Q6H PRN #15 tablet 07/08/18 oxyCODONE [Roxicodone] 5 mg PO Q4-6H PRN #15 tablet 07/14/18 Cephalexin [Keflex] 500 mg PO Q6H #28 capsule 08/28/18 Ondansetron Odt [Zofran] 4 mg TL Q6H PRN #10 tablet 08/28/18 Oxycodone HCl/Acetaminophen 1 - 2 each PO Q6H PRN #10 tablet 08/28/18 [Percocet 5-325 mg Tablet] Phenazopyridine HCl [Pyridium] 200 mg PO TID PRN #6 tablet 08/28/18 Oxycodone HCl/Acetaminophen 1 - 2 each PO Q6H PRN #10 tablet 09/14/18 [Percocet 5-325 mg Tablet] predniSONE [Deltasone] 20 mg PO [id number] #21 tab 09/14/18 Oxycodone HCl/Acetaminophen 1 each PO Q6H PRN #12 tablet 09/23/18 [Percocet 5-325 mg Tablet] Oxycodone HCl/Acetaminophen 1 each PO TID PRN #15 tablet 04/12/19 [Percocet 5-325 mg Tablet] Oxycodone HCl 5 - 10 mg PO Q6H PRN #14 tablet 07/08/19 Sucralfate [Carafate] 1 gm PO ACHS #60 tablet 07/08/19 - Allergies Allergies/Adverse Reactions: Allergies Allergy/AdvReac Type Severity Reaction Status Date / Time felodipine Allergy Severe Respiratory Verified 08/11/19 19:51 Sulfa (Sulfonamide Allergy Intermediate Itching Verified 08/11/19 19:51 Antibiotics) eletriptan [From Relpax] Allergy Unknown Verified 08/11/19 19:51 prednisone Allergy Unknown Verified 08/11/19 19:51 pregabalin Allergy Unknown Verified 08/11/19 19:51 gabapentin AdvReac Edema Verified 08/11/19 19:51 tramadol AdvReac Edema Verified 08/11/19 19:51 plendil Allergy Intermediate Unknown. Uncoded 08/11/19 19:51 depomedrol Allergy Unknown Uncoded 08/11/19 19:51 tape AdvReac Mild Hives Uncoded 08/11/19 19:51 - Social History Does the pt smoke?: Yes Smoking Status: Current every day smoker Does the pt drink ETOH?: Yes Does the pt have substance abuse?: No - Immunizations Immunizations are current?: Yes - POLST Patient has POLST: No PD ED PE NORMAL - Vitals Vital signs reviewed: Yes - General General: Alert and oriented X 3, No acute distress - HEENT HEENT: PERRL - Neck Neck: Supple, no meningeal sign - Cardiac Cardiac: RRR, No murmur - Respiratory Respiratory: Clear bilaterally - Abdomen Abdomen: Normal bowel sounds, Soft, Non tender, Non distended - Derm Derm: Warm and dry - Extremities Extremities: No deformity - Neuro Neuro: Alert and oriented X 3 - Psych Psych: Normal mood, Normal affect Results - Vitals Vitals: Vital Signs - 24 hr 08/11/19 08/11/19 08/11/19 19:45 19:57 21:38 Temperature 36.9 C Heart Rate 103 H 98 90 Respiratory 20 18 18 Rate Blood Pressure 134/87 H 142/110 H 131/96 H O2 Saturation 98 98 97 Oxygen O2 Source Room air - Labs Labs: Laboratory Tests 08/11/19 08/11/19 08/11/19 19:52 20:40 20:40 WBC 16.2 H RBC 4.32 Hgb 13.6 Hct 40.4 MCV 93.5 MCH 31.5 H MCHC 33.7 RDW 12.9 Plt Count 367 MPV 9.5 Neut # (Auto) 9.3 H Lymph # (Auto) 5.3 H [place] # (Auto) 1.0 Eos # (Auto) 0.4 Baso # (Auto) 0.1 Absolute Nucleated RBC 0.00 Band Neuts % (Manual) Not Reportable Abnorm Lymph % (Manual) Not Reportable Nucleated RBC % 0.0 Neutrophils # (Manual) Not Reportable Lymphocytes # (Manual) Not Reportable Monocytes # (Manual) Not Reportable Eosinophils # (Manual) Not Reportable Basophils # (Manual) Not Reportable Differential Comment MANUAL=AUTO DIFF Manual Slide Review Indicated Platelet Estimate NORMAL (130-450,000) Platelet Morphology NORMAL APPEARANCE RBC Morph Micro Appear NORMAL APPEARANCE Sodium 138 Potassium 2.9 L Chloride 104 Carbon Dioxide 24 Anion Gap 10.0 BUN 17 Creatinine 0.7 Estimated GFR (MDRD) 88 L Glucose 88 Calcium 9.1 Total Bilirubin 0.6 AST 16 ALT 20 Alkaline Phosphatase 69 Total Protein 7.1 Albumin 3.8 Globulin 3.3 Albumin/Globulin Ratio 1.2 Lipase 46 Urine Color YELLOW Urine Clarity CLEAR Urine pH 6.0 Ur Specific [place] <=1.005 Urine Protein NEGATIVE Urine Glucose (UA) NEGATIVE Urine Ketones NEGATIVE Urine Occult Blood TRACE-INTA Urine Nitrite NEGATIVE Urine Bilirubin NEGATIVE Urine Urobilinogen 0.2 (NORMAL) Ur Leukocyte Esterase NEGATIVE Urine RBC 0-5 Urine WBC 0-3 Ur Squamous Epith Cells FEW Squamous Urine Bacteria None Seen Urine Culture Comments NOT INDICATED PD MEDICAL DECISION MAKING - ED course Complexity details: re-evaluated patient, considered differential, d/w patient, other (Patient CT scan abdomen pelvis is unremarkable ultrasound of the abdomen is unremarkable as well. Patient updated and informed of discharge she is agreeable to plan.) Departure - Departure Disposition: 01 Home, Self Care Clinical Impression: Abdominal pain Qualifiers: Abdominal location: right upper quadrant Qualified Code(s): R10.11 - Right upper quadrant pain Condition: Stable Instructions: Abdominal Pain Follow-Up: SAMY TY [Primary Care Provider] - Comments: Follow-up with your primary care provider.
[2019-08-11 23:41] VITALS: BP 127/86
--- NOTE | 2019-08-12 09:11 | CT Report ---
PROCEDURE: Abdomen/Pelvis W INDICATIONS: R sided abd pain CONTRAST: IV CONTRAST: Optiray 320 ml: 100 PO CONTRAST: *NO PO CONTRAST TECHNIQUE: After the administration of oral and intravenous contrast, 5 mm thick sections acquired from the diap hragms to the symphysis. 5 mm thick coronal and sagittal reformats were acquired. For radiation dos e reduction, the following was used: automated exposure control, adjustment of mA and/or kV accordin g to patient size. COMPARISON: Ultrasound abdomen from the same day and 07/08/2019. CT of abdomen dated 07/08/2018.. FINDINGS: Image quality: Excellent. ABDOMEN: Lung bases: Lung bases are clear. Heart size is normal. Solid organs: Liver is enlarged with decreased liver parenchymal density suggestive of mild hepatic s teatosis. No discrete hepatic lesion is noted. Spleen is normal in size and enhancement. Gallbladder is within normal limits Biliary system is non dilated. Pancreas enhances normally. No adrenal nod ules. Kidneys demonstrate normal size and enhancement, without hydronephrosis. Peritoneum and bowel: Bowel loops demonstrate normal wall thickness and caliber. No free fluid or a ir. Nodes and vessels: No retroperitoneal or mesenteric adenopathy by size criteria. Aorta and inferior vena cava are normal in size. Miscellaneous: No ventral hernias. PELVIS: Genitourinary: Bladder wall thickness is normal. Miscellaneous: No inguinal hernias or adenopathy. Bones: No suspicious bony lesions. No vertebral body compression fractures. IMPRESSION: 1. No acute inflammatory process is seen in abdomen or pelvis. No bowel obstruction. No free fluid of free air. 2. Hepatomegaly and hepatic steatosis. No discrete hepatic lesion. No discrepancies from preliminary report. Reviewed by: Alfredo Aguilera MD on 08/12/2019 9:09 AM PDT Approved by: Alfredo Aguilera MD on 08/12/2019 9:09 AM PDT Station ID: [id number]
--- NOTE | 2019-08-12 09:22 | Ultrasound Report ---
PROCEDURE: Abdomen Limited INDICATIONS: RUQ abd pain TECHNIQUE: Real-time focused scanning was performed of the abdomen, with image documentation. COMPARISON: 07/08/2019 FINDINGS: Liver is enlarged in size measures 21 cm in length. Heterogeneously increased liver parenchymal echot exture is seen consistent with hepatic steatosis. No discrete hepatic lesion. There is no gallstone. No gallbladder wall thickening or pericholecystic fluid. No sonographic Fox 's sign. There is no intrahepatic biliary ductal dilatation. Common bile duct measures 6 mm in diameter and is within normal limits. Pancreas is obscured by overlying bowel gas. Right kidney measures 7.6 cm in length. No hydronephrosis. No abdominal free fluid. IMPRESSION: 1. Hepatic steatosis and hepatomegaly. No discrete hepatic lesion. 2. No evidence of cholelithiasis or acute cholecystitis. No biliary ductal dilatation. No discrepancies. Reviewed by: Alfredo Aguilera MD on 08/12/2019 9:21 AM PDT Approved by: Alfredo Aguilera MD on 08/12/2019 9:21 AM PDT Station ID: [id number]
== END 2019-08-11 23:41 | disposition home or self-care (01) ==
LOC: EDUNIT# → ED 19:44
DX: R10.11 Right upper quadrant pain (principal); K76.0 Fatty (change of) liver, not elsewhere classified; R16.0 Hepatomegaly, not elsewhere classified; D72.829 Elevated white blood cell count, unspecified; I10 Essential (primary) hypertension; F17.200 Nicotine dependence, unspecified, uncomplicated
CPT/HCPCS: 36415; 74177; 76705; 80053; 81001; 83690; 85025; 96374; 99284; J1170; Q9967; 87086

== ENCOUNTER 2019-08-16 18:18 | Outpatient (CLI) | payer OTHER | END 2019-08-16 18:19 | disposition critical access hospital (66) | LOC: EMS 18:18 | PROVIDERS: ATTEND Surgery | DX: R10.11 Right upper quadrant pain (principal); R11.0 Nausea | CPT/HCPCS: A0425; A0427 ==

== ENCOUNTER 2019-08-16 18:37 | Emergency (ER) | payer OTHER ==
[2019-08-16 19:07] LABS: MEAN PLATELET VOLUME 8.9 fL (7.9-10.8)
[2019-08-16 19:13] LABS: BASOPHILS # (AUTO) 0.1 10^3/uL (0.0-0.1); BASOPHILS % (AUTO) 0.8 %; EOSINOPHILS # (AUTO) 0.2 10^3/uL (0.0-0.7); EOSINOPHILS % (AUTO) 1.8 %; HGB - HEMOGLOBIN 13.2 g/dL (12.0-16.0); LYMPHOCYTES # (AUTO) 4.8 10^3/uL (1.5-3.5); LYMPHOCYTES % (AUTO) 38.8 %; MEAN CORPUSCULAR HEMOGLOBIN 30.8 pg (27.0-31.0); MEAN CORPUSCULAR HGB CONC 33.1 g/dL (32.0-36.0); MEAN CORPUSCULAR VOLUME 93.2 fL (81.0-99.0); MONOCYTES # (AUTO) 0.7 10^3/uL (0.0-1.0); MONOCYTES % (AUTO) 5.6 %; NEUTROPHILS # (AUTO) 6.5 10^3/uL (1.5-6.6); NEUTROPHILS % (AUTO) 52.3 %; PLT - PLATELET COUNT 367 10^3/uL (130-450); RED BLOOD COUNT 4.28 10^6/uL (4.20-5.40); RED CELL DISTRIBUTION WIDTH 13.1 % (12.0-15.0); WHITE BLOOD COUNT 12.3 x10^3/uL (4.8-10.8)
--- NOTE | 2019-08-16 19:18 | ED Physician Documentation ---
PD HPI ABD PAIN - Stated complaint Stated Complaint: ABD PX - Chief complaint Chief Complaint: Abd Pain - History obtained from History obtained from: Patient - History of Present Illness Timing - onset: How many days ago (3 days of pain RUQ similar to prior episodes the past few months. No Dx yet; has HIDA scheduled next Wednesday. Pain worse with eating.) Timing - duration: Days (3) Timing - details: Gradual onset, Still present (worse today), Waxing and waning Quality: Cramping, Aching, Pain Location: RUQ, Epigastric Radiation: No: Lower back, Upper back Improved by: No: Eating Worsened by: Eating Associated symptoms: Nausea. No: Fever, Vomiting, Diarrhea Similar symptoms before: No diagnosis (had EGD showing gastritis. On Omeprazole but still pain. Consideration of biliary colic, with no stones. HIDA scheduled.) Recently seen: Emergency Dept (twice this month for similar. Twice last month.) Review of Systems Constitutional: denies: Fever, Chills, Myalgias Nose: denies: Rhinorrhea / runny nose, Congestion Throat: denies: Sore throat Respiratory: denies: Cough GI: reports: Abdominal Pain, Nausea. 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 ligation - Present Medications Home Medications: Ambulatory Orders Medication Instructions Recorded Confirmed Levothyroxine [Synthroid] 112 mcg PO QDAC 06/23/12 07/06/18 Omeprazole 20 mg PO BID 06/23/12 07/06/18 PARoxetine HCl [Paxil] 40 mg PO DAILY 08/14/12 07/06/18 Triamterene/Hydrochlorothiazid 1 each PO DAILY 10/07/12 07/06/18 [Triamterene-Hctz 37.5-25 mg Tb] Acetaminophen [Tylenol] 650 mg PO Q6H PRN 12/16/16 06/06/17 Calcium Acetate 667 mg PO DAILY 12/16/16 06/06/17 Cholecalciferol [Vitamin D3] 10,000 unit PO DAILY 12/16/16 06/06/17 Ferrous Sulfate 325 mg PO DAILY 12/16/16 06/06/17 Multivitamin [Multiple Vitamins] 1 each PO DAILY 12/16/16 06/06/17 Atorvastatin [Lipitor] 1 tab PO DAILY 04/09/17 07/06/18 Hydrocodone/Acetaminophen [[place] 1 each PO Q6H PRN #15 tablet 03/14/18 5-325 Tablet] Hydrocodone/Acetaminophen [[place] 1 each PO Q6H PRN #20 tablet 06/11/18 5-325 Tablet] Oxycodone HCl/Acetaminophen 1 - 2 each PO Q6H PRN #10 tablet 07/06/18 [Percocet 5-325 mg Tablet] Morphine Ir [Ms Ir] 15 mg PO Q6H PRN #15 tablet 07/08/18 oxyCODONE [Roxicodone] 5 mg PO Q4-6H PRN #15 tablet 07/14/18 Cephalexin [Keflex] 500 mg PO Q6H #28 capsule 08/28/18 Ondansetron Odt [Zofran] 4 mg TL Q6H PRN #10 tablet 08/28/18 Oxycodone HCl/Acetaminophen 1 - 2 each PO Q6H PRN #10 tablet 08/28/18 [Percocet 5-325 mg Tablet] Phenazopyridine HCl [Pyridium] 200 mg PO TID PRN #6 tablet 08/28/18 Oxycodone HCl/Acetaminophen 1 - 2 each PO Q6H PRN #10 tablet 09/14/18 [Percocet 5-325 mg Tablet] predniSONE [Deltasone] 20 mg PO [id number] #21 tab 09/14/18 Oxycodone HCl/Acetaminophen 1 each PO Q6H PRN #12 tablet 09/23/18 [Percocet 5-325 mg Tablet] Oxycodone HCl/Acetaminophen 1 each PO TID PRN #15 tablet 04/12/19 [Percocet 5-325 mg Tablet] Oxycodone HCl 5 - 10 mg PO Q6H PRN #14 tablet 07/08/19 Sucralfate [Carafate] 1 gm PO ACHS #60 tablet 07/08/19 Dicyclomine [Bentyl] 10 mg PO BID #20 capsule 08/16/19 Docusate Sodium 100 mg PO DAILY #30 capsule 08/16/19 Oxycodone HCl/Acetaminophen 1 each PO TID PRN #12 tablet 08/16/19 [Percocet 5-325 mg Tablet] Pantoprazole Sodium 20 mg PO DAILY #30 tablet. 08/16/19 - Allergies Allergies/Adverse Reactions: Allergies Allergy/AdvReac Type Severity Reaction Status Date / Time felodipine Allergy Severe Respiratory Verified 08/11/19 19:51 Sulfa (Sulfonamide Allergy Intermediate Itching Verified 08/11/19 19:51 Antibiotics) eletriptan [From Relpax] Allergy Unknown Verified 08/11/19 19:51 prednisone Allergy Unknown Verified 08/11/19 19:51 pregabalin Allergy Unknown Verified 08/11/19 19:51 gabapentin AdvReac Edema Verified 08/11/19 19:51 tramadol AdvReac Edema Verified 08/11/19 19:51 plendil Allergy Intermediate Unknown. Uncoded 08/11/19 19:51 depomedrol Allergy Unknown Uncoded 08/11/19 19:51 tape AdvReac Mild Hives Uncoded 08/11/19 19:51 - Social History Does the pt smoke?: Yes Smoking Status: Current every day smoker Does the pt drink ETOH?: Yes Does the pt have substance abuse?: No - Immunizations Immunizations are current?: Yes - POLST Patient has POLST: No PD ED PE NORMAL - Vitals Vital signs reviewed: Yes - General General: Alert and oriented X 3, Well developed/nourished, Other (seems in pain and holding upper abd. ) - HEENT HEENT: Pharynx benign - Neck Neck: Supple, no meningeal sign, No adenopathy - Cardiac Cardiac: RRR, No murmur - Respiratory Respiratory: Clear bilaterally - Abdomen Abdomen: Soft, Non distended, No organomegaly, Other (Tender in the epigastric to right upper quadrant area with localized guarding and some percussion tenderness. The lower abdomen is nontender and there is no referred tenderness from the rest of the abdomen. Bowel sounds are present and hypoactive.) - Female Female : Deferred - Rectal Rectal: Deferred - Back Back: No CVA TTP - Derm Derm: Normal color, Warm and dry, No rash Results - Vitals Vitals: Vital Signs - 24 hr 08/16/19 20:28 Heart Rate 101 H Respiratory 18 Rate Blood Pressure 140/114 H O2 Saturation 93 Oxygen O2 Source Room air - Labs Labs: Laboratory Tests 08/16/19 08/16/19 08/16/19 19:00 19:00 19:44 WBC 12.3 H RBC 4.28 Hgb 13.2 Hct 39.9 MCV 93.2 MCH 30.8 MCHC 33.1 RDW 13.1 Plt Count 367 MPV 8.9 Neut # (Auto) 6.5 Lymph # (Auto) 4.8 H [place] # (Auto) 0.7 Eos # (Auto) 0.2 Baso # (Auto) 0.1 Absolute Nucleated RBC 0.00 Nucleated RBC % 0.0 Sodium 136 Potassium 3.3 L Chloride 100 L Carbon Dioxide 24 Anion Gap 12.0 BUN 17 Creatinine 0.8 Estimated GFR (MDRD) 75 L Glucose 90 Calcium 8.9 Total Bilirubin 0.4 AST 18 ALT 16 Alkaline Phosphatase 63 Total Protein 7.3 Albumin 3.9 Globulin 3.4 Albumin/Globulin Ratio 1.1 Lipase 38 Urine Color YELLOW Urine Clarity CLEAR Urine pH 6.0 Ur Specific [place] 1.010 Urine Protein NEGATIVE Urine Glucose (UA) NEGATIVE Urine Ketones NEGATIVE Urine Occult Blood SMALL H Urine Nitrite NEGATIVE Urine Bilirubin NEGATIVE Urine Urobilinogen 0.2 (NORMAL) Ur Leukocyte Esterase NEGATIVE Urine RBC 0-5 Urine WBC 0-3 Ur Squamous Epith Cells MOD Squamous H Urine Bacteria None Seen Ur Microscopic Review INDICATED Urine Culture Comments NOT INDICATED Departure - Departure Disposition: 01 Home, Self Care Clinical Impression: Upper abdominal pain Condition: Stable Record reviewed to determine appropriate education?: Yes Instructions: ED Abdominal Pain Unkn Cause Follow-Up: SAMY TY [Primary Care Provider] - Prescriptions: Dicyclomine [Bentyl] 10 mg PO BID #20 capsule Docusate Sodium 100 mg PO DAILY #30 capsule Pantoprazole Sodium 20 mg PO DAILY #30 tablet. Oxycodone HCl/Acetaminophen [Percocet 5-325 mg Tablet] 1 each PO TID PRN #12 tablet PRN Reason: pain Comments: Change from your omeprazole to pantoprazole and see if that works better for your stomach acids. Dicyclomine as a intestinal antispasmodic in case this is gallbladder spasms. Take it twice daily. Add docusate stool softener daily as well. Tylenol 4 times daily 500 mg for the pains. Add oxycodone if needed for worse pain at times. Follow-up with your planned HIDA scan next week. Follow-up with your primary care. Discharge Date/Time: 08/16/19 21:41
[2019-08-16 19:20] LABS: ALBUMIN 3.9 g/dL (3.2-5.5); ALBUMIN/GLOBULIN RATIO 1.1 (1.0-2.2); BILIRUBIN,TOTAL 0.4 mg/dL (0.2-1.0); CALCIUM 8.9 mg/dL (8.5-10.3); CREATININE 0.8 mg/dL (0.4-1.0); TOTAL PROTEIN 7.3 g/dL (6.7-8.2)
[2019-08-16] MEDS ORDERED: SODIUM CHLORIDE 0.9% 1,000 ML IV STA (19:21)
[2019-08-16] MEDS ORDERED: FAMOTIDINE 20 MG/2 ML SYRINGE IVP STA (19:21)
[2019-08-16] MEDS ORDERED: HYDROmorphone 1 MG/ML CARPUJECT IVP STA ×2 (19:21→20:11)
[2019-08-16] MEDS ORDERED: METOCLOPRAMIDE 10 MG/2 ML VIAL IVP STA (19:21)
[2019-08-16 19:54] LABS: BILIRUBIN,URINE NEGATIVE (NEGATIVE); CLARITY,URINE CLEAR (CLEAR); GLUCOSE, URINE (UA) NEGATIVE (NEGATIVE); KETONES,URINE (UA) NEGATIVE (NEGATIVE); LEUKOCYTE ESTERASE, URINE NEGATIVE (NEGATIVE); NITRITE,URINE NEGATIVE (NEGATIVE); OCCULT BLOOD,URINE SMALL (NEGATIVE); PROTEIN,URINE NEGATIVE (NEGATIVE); UROBILINOGEN,URINE 0.2 (NORMAL) E.U./dL (NORMAL)
[2019-08-16 20:01] LABS: BACTERIA,URINE None Seen /HPF (None Seen); RBC,URINE 0-5 /HPF (0-5); SQUAMOUS EPITHELIAL CELL,UR MOD Squamous (<= Few)
[2019-08-16] MEDS ORDERED: LIDOCAINE VISCOUS 2% 15 ML UDC MM STA (20:14)
[2019-08-16] MEDS ORDERED: MAG HYDROX/AL HYDROX/SIMETH 30 ML UDC PO STA (20:14)
[2019-08-16 20:29] VITALS: BP 140/114
[2019-08-16] MEDS ORDERED: oxyCODONE/ACET 5/325 Prepack 4 PO STA (20:58)
[2019-08-16] MEDS ORDERED: ONDANSETRON ODT 4 MG Prepack 2 TL PRN (20:58)
== END 2019-08-16 21:41 | disposition home or self-care (01) ==
LOC: EDUNIT# → ED 18:37
DX: R10.11 Right upper quadrant pain (principal); R10.13 Epigastric pain; R11.0 Nausea; Z87.19 Personal history of other diseases of the digestive system; Z87.11 Personal history of peptic ulcer disease; I10 Essential (primary) hypertension; F17.200 Nicotine dependence, unspecified, uncomplicated
CPT/HCPCS: 36415; 80053; 81001; 83690; 85025; 96361; 96374; 96375; 99283; 99284; A9270; J1170; J2765; 81003; 87086

== ENCOUNTER 2019-08-22 16:47 | Outpatient (CLI) | payer OTHER | END 2019-08-22 16:48 | disposition critical access hospital (66) | LOC: EMS 16:47 | PROVIDERS: ATTEND Surgery | DX: R10.11 Right upper quadrant pain (principal); R11.0 Nausea | CPT/HCPCS: A0425; A0429 ==

== ENCOUNTER 2019-08-22 17:06 | Emergency (ER) | payer OTHER ==
[2019-08-22 17:50] LABS: BASOPHILS # (AUTO) 0.1 10^3/uL (0.0-0.1); MONOCYTES # (AUTO) 0.6 10^3/uL (0.0-1.0); RED CELL DISTRIBUTION WIDTH 13.2 % (12.0-15.0)
--- NOTE | 2019-08-22 17:53 | ED Physician Documentation ---
PD HPI ABD PAIN - Stated complaint Stated Complaint: ABD PX - Chief complaint Chief Complaint: Abd Pain - History obtained from History obtained from: Patient - History of Present Illness Timing - details: Intermittant Quality: Sharp, Throbbing Location: RUQ Radiation: Other (none) Worsened by: Eating Associated symptoms: Vomiting. No: Fever, Hematemesis, Diarrhea, Hematuria, Near syncope / syncope, Weight loss - Additional information Additional information: 53-year-old female presents to the emergency department with chief complaint of right upper quadrant abdominal pain. She has had this complaint for many months now. She has been seen twice within the last 2 weeks at our local ED for this abdominal pain. She has had both abdominal ultrasound and CT scan that did not show evidence of acute cholecystitis. She is being followed by surgery at [facility]. She had a HIDA scan this morning at [facility]. She is to follow-up with her surgeon early next week. Here today because the pain is not tolerated well at home. She occasionally vomits. Pain is worsened usually by eating and drinking.She denies any fever. Review of Systems Constitutional: denies: Fever, Chills Cardiac: denies: Chest pain / pressure, Palpitations Respiratory: denies: Dyspnea, Cough GI: reports: Abdominal Pain, Nausea, Vomiting. 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 HEENT: Chronic vision loss Psych: Depression, Anxiety Musculoskeletal: Fibromyalgia, Chronic back pain Derm: None - Past Surgical History Past Surgical History: Yes General: Appendectomy Ortho: Other /BROADCAST NEWS PRODUCER: section, Tubal ligation - Present Medications Home Medications: Ambulatory Orders Medication Instructions Recorded Confirmed Levothyroxine [Synthroid] 112 mcg PO QDAC 06/23/12 07/06/18 Omeprazole 20 mg PO BID 06/23/12 07/06/18 PARoxetine HCl [Paxil] 40 mg PO DAILY 08/14/12 07/06/18 Triamterene/Hydrochlorothiazid 1 each PO DAILY 10/07/12 07/06/18 [Triamterene-Hctz 37.5-25 mg Tb] Acetaminophen [Tylenol] 650 mg PO Q6H PRN 12/16/16 06/06/17 Calcium Acetate 667 mg PO DAILY 12/16/16 06/06/17 Cholecalciferol [Vitamin D3] 10,000 unit PO DAILY 12/16/16 06/06/17 Ferrous Sulfate 325 mg PO DAILY 12/16/16 06/06/17 Multivitamin [Multiple Vitamins] 1 each PO DAILY 12/16/16 06/06/17 Atorvastatin [Lipitor] 1 tab PO DAILY 04/09/17 07/06/18 Hydrocodone/Acetaminophen [[place] 1 each PO Q6H PRN #15 tablet 03/14/18 5-325 Tablet] Hydrocodone/Acetaminophen [[place] 1 each PO Q6H PRN #20 tablet 06/11/18 5-325 Tablet] Oxycodone HCl/Acetaminophen 1 - 2 each PO Q6H PRN #10 tablet 07/06/18 [Percocet 5-325 mg Tablet] Morphine Ir [Ms Ir] 15 mg PO Q6H PRN #15 tablet 07/08/18 oxyCODONE [Roxicodone] 5 mg PO Q4-6H PRN #15 tablet 07/14/18 Cephalexin [Keflex] 500 mg PO Q6H #28 capsule 08/28/18 Ondansetron Odt [Zofran] 4 mg TL Q6H PRN #10 tablet 08/28/18 Oxycodone HCl/Acetaminophen 1 - 2 each PO Q6H PRN #10 tablet 08/28/18 [Percocet 5-325 mg Tablet] Phenazopyridine HCl [Pyridium] 200 mg PO TID PRN #6 tablet 08/28/18 Oxycodone HCl/Acetaminophen 1 - 2 each PO Q6H PRN #10 tablet 09/14/18 [Percocet 5-325 mg Tablet] predniSONE [Deltasone] 20 mg PO [id number] #21 tab 09/14/18 Oxycodone HCl/Acetaminophen 1 each PO Q6H PRN #12 tablet 09/23/18 [Percocet 5-325 mg Tablet] Oxycodone HCl/Acetaminophen 1 each PO TID PRN #15 tablet 04/12/19 [Percocet 5-325 mg Tablet] Oxycodone HCl 5 - 10 mg PO Q6H PRN #14 tablet 07/08/19 Sucralfate [Carafate] 1 gm PO ACHS #60 tablet 07/08/19 Dicyclomine [Bentyl] 10 mg PO BID #20 capsule 08/16/19 Docusate Sodium 100 mg PO DAILY #30 capsule 08/16/19 Oxycodone HCl/Acetaminophen 1 each PO TID PRN #12 tablet 08/16/19 [Percocet 5-325 mg Tablet] Pantoprazole Sodium 20 mg PO DAILY #30 tablet. 08/16/19 - Allergies Allergies/Adverse Reactions: Allergies Allergy/AdvReac Type Severity Reaction Status Date / Time felodipine Allergy Severe Respiratory Verified 08/11/19 19:51 Sulfa (Sulfonamide Allergy Intermediate Itching Verified 08/11/19 19:51 Antibiotics) eletriptan [From Relpax] Allergy Unknown Verified 08/11/19 19:51 prednisone Allergy Unknown Verified 08/11/19 19:51 pregabalin Allergy Unknown Verified 08/11/19 19:51 gabapentin AdvReac Edema Verified 08/11/19 19:51 tramadol AdvReac Edema Verified 08/11/19 19:51 plendil Allergy Intermediate Unknown. Uncoded 08/11/19 19:51 depomedrol Allergy Unknown Uncoded 08/11/19 19:51 tape AdvReac Mild Hives Uncoded 08/11/19 19:51 - Social History Does the pt smoke?: Yes Smoking Status: Current every day smoker Does the pt drink ETOH?: Yes Does the pt have substance abuse?: No - Immunizations Immunizations are current?: Yes - POLST Patient has POLST: No PD ED PE NORMAL - General General: Alert and oriented X 3, No acute distress, Well developed/nourished - Cardiac Cardiac: RRR, No murmur - Respiratory Respiratory: No respiratory distress - Abdomen Abdomen: Normal bowel sounds, Soft, Other (Positive Fox's right upper quadrant. No guarding) - Back Back: No: No CVA TTP, No spinal TTP Results - Vitals Vitals: Vital Signs - 24 hr 08/22/19 17:08 Temperature 36.8 C Heart Rate 99 Respiratory 20 Rate Blood Pressure 131/85 H O2 Saturation 97 Oxygen O2 Source Room air - Labs Labs: Laboratory Tests 08/22/19 08/22/19 17:43 17:43 WBC 11.9 H RBC 4.33 Hgb 13.4 Hct 40.9 MCV 94.5 MCH 30.9 MCHC 32.8 RDW 13.2 Plt Count 330 MPV 9.2 Neut # (Auto) 6.6 Lymph # (Auto) 4.3 H [place] # (Auto) 0.6 Eos # (Auto) 0.2 Baso # (Auto) 0.1 Absolute Nucleated RBC 0.00 Nucleated RBC % 0.0 Sodium 139 Potassium 3.3 L Chloride 100 L Carbon Dioxide 24 Anion Gap 15.0 H BUN 14 Creatinine 1.1 H Estimated GFR (MDRD) 52 L Glucose 92 Calcium 9.2 Total Bilirubin 0.4 AST 19 ALT 18 Alkaline Phosphatase 66 Total Protein 7.1 Albumin 4.0 Globulin 3.1 Albumin/Globulin Ratio 1.3 Lipase 42 PD MEDICAL DECISION MAKING - ED course Complexity details: reviewed old records, reviewed results, re-evaluated patient, considered differential, d/w patient ED course: 53-year-old female presents to the emergency department with chief complaint of right upper quadrant abdominal pain and vomiting. She has been seen multiple times for this in the past with CT scan and abdominal ultrasound showing no acute cholecystitis or gallstones. Patient is connected to [facility] and this a.m. had a HIDA scan for further work-up of her chronic right upper quadrant pain - Today in the emergency department her labs were reviewed. She has no significant LFT abnormalities. She was given 1 L of IV fluid given the complaint of vomiting. She is also given Zofran and Haldol which made her nausea markedly improved. Pain was also abated following Dilaudid. - No indication for consultation with surgery at this time. I discussed with patient that at this time she will be discharged home and she feels ready to go home. She reports to me that she is going to call her surgeon tomorrow to discuss this ED visit and to determine if she needs to be seen sooner. Emergent return precautions were discussed. Departure - Departure Disposition: 01 Home, Self Care Condition: Stable Record reviewed to determine appropriate education?: Yes Instructions: Abdominal Pain Comments: Cindy please abstain from drinking any further alcohol. Your labs today do not show any worrisome liver function test. Please follow-up with your surgeon regarding your HIDA scan completed this morning. If your pain worsens, your vomiting is uncontrolled, or you develop fevers please return to the emergency department for further evaluation.
[2019-08-22 17:54] LABS: BASOPHILS % (AUTO) 0.8 %; EOSINOPHILS # (AUTO) 0.2 10^3/uL (0.0-0.7); EOSINOPHILS % (AUTO) 1.8 %; HGB - HEMOGLOBIN 13.4 g/dL (12.0-16.0); LYMPHOCYTES # (AUTO) 4.3 10^3/uL (1.5-3.5); LYMPHOCYTES % (AUTO) 36.2 %; MEAN CORPUSCULAR HEMOGLOBIN 30.9 pg (27.0-31.0); MEAN CORPUSCULAR HGB CONC 32.8 g/dL (32.0-36.0); MEAN CORPUSCULAR VOLUME 94.5 fL (81.0-99.0); MEAN PLATELET VOLUME 9.2 fL (7.9-10.8); MONOCYTES % (AUTO) 5.1 %; NEUTROPHILS # (AUTO) 6.6 10^3/uL (1.5-6.6); NEUTROPHILS % (AUTO) 55.5 %; PLT - PLATELET COUNT 330 10^3/uL (130-450); RED BLOOD COUNT 4.33 10^6/uL (4.20-5.40); WHITE BLOOD COUNT 11.9 x10^3/uL (4.8-10.8)
[2019-08-22] MEDS ORDERED: HYDROmorphone 1 MG/ML CARPUJECT IVP STA ×2 (17:56→19:46)
[2019-08-22] MEDS ORDERED: ONDANSETRON 4 MG/2 ML VIAL IVP STA (17:56)
[2019-08-22] MEDS ORDERED: SODIUM CHLORIDE 0.9% 1,000 ML IV STA ×2 (17:59→19:42)
[2019-08-22 18:04] LABS: ALBUMIN/GLOBULIN RATIO 1.3 (1.0-2.2); BILIRUBIN,TOTAL 0.4 mg/dL (0.2-1.0); CALCIUM 9.2 mg/dL (8.5-10.3); CREATININE 1.1 mg/dL (0.4-1.0); TOTAL PROTEIN 7.1 g/dL (6.7-8.2)
[2019-08-22] MEDS ORDERED: HALOPERIDOL 5 MG/ML VIAL IVP ONE (19:42)
[2019-08-22] MEDS ORDERED: HYDROmorphone 2 MG/ML VIAL IVP STA (19:43)
[2019-08-22 21:25] VITALS: BP 126/79
== END 2019-08-22 21:10 | disposition home or self-care (01) ==
LOC: EDUNIT# → ED 17:06
DX: R10.11 Right upper quadrant pain (principal); G89.29 Other chronic pain; F17.200 Nicotine dependence, unspecified, uncomplicated
CPT/HCPCS: 80053; 83690; 85025; 96361; 96374; 96375; 96376; 99283; 99284; J1170

== ENCOUNTER 2019-08-28 19:39 | Outpatient (CLI) | payer OTHER | END 2019-08-28 19:40 | disposition short-term general hospital (02) | LOC: EMS 19:39 | PROVIDERS: ATTEND Surgery | DX: R10.9 Unspecified abdominal pain (principal) | CPT/HCPCS: A0425; A0427 ==

== ENCOUNTER 2019-09-01 22:39 | Outpatient (CLI) | payer OTHER | END 2019-09-01 22:40 | disposition critical access hospital (66) | LOC: EMS 22:39 | PROVIDERS: ATTEND Surgery | DX: R10.11 Right upper quadrant pain (principal) | CPT/HCPCS: A0425; A0429 ==

== ENCOUNTER 2019-09-01 22:58 | Emergency (ER) | payer OTHER ==
--- NOTE | 2019-09-01 23:14 | ED Physician Documentation ---
History of Present Illness - Stated complaint Stated Complaint: UPPER QUADRANT PAIN - Chief complaint Chief Complaint: Abd Pain - History obtained from History obtained from: Patient (Patient is a 53-year-old female with chronic abdominal pain primarily receives her care at [facility] presents tonight with chronic abdominal pain.Patient reports she has had every test imaginable and has not revealed a cause for her abdominal pain.) Review of Systems Constitutional: reports: Reviewed and negative Eyes: reports: Reviewed and negative Ears: reports: Reviewed and negative Nose: reports: Reviewed and negative Throat: reports: Reviewed and negative Cardiac: reports: Reviewed and negative Respiratory: reports: Reviewed and negative GI: reports: Abdominal Pain, Nausea : reports: Reviewed and negative Skin: reports: Reviewed and negative Musculoskeletal: reports: Reviewed and negative Neurologic: reports: Reviewed and negative Psychiatric: reports: Reviewed and negative Endocrine: reports: Reviewed and negative Immunocompromised: reports: Reviewed and negative PD PAST MEDICAL HISTORY - Past Medical History Cardiovascular: Hypertension Respiratory: None Neuro: None Endocrine/Autoimmune: HyPOthyroidism GI: GERD, Ulcers, Other 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 HEENT: Chronic vision loss Psych: Depression, Anxiety Musculoskeletal: Fibromyalgia, Chronic back pain Derm: None - Past Surgical History Past Surgical History: Yes General: Appendectomy Ortho: Other /FOREMAN OR SUPERVISOR AND OPERATOR: section, Tubal ligation - Present Medications Home Medications: Ambulatory Orders Medication Instructions Recorded Confirmed Levothyroxine [Synthroid] 112 mcg PO QDAC 06/23/12 07/06/18 Omeprazole 20 mg PO BID 06/23/12 07/06/18 PARoxetine HCl [Paxil] 40 mg PO DAILY 08/14/12 07/06/18 Triamterene/Hydrochlorothiazid 1 each PO DAILY 10/07/12 07/06/18 [Triamterene-Hctz 37.5-25 mg Tb] Acetaminophen [Tylenol] 650 mg PO Q6H PRN 12/16/16 06/06/17 Calcium Acetate 667 mg PO DAILY 12/16/16 06/06/17 Cholecalciferol [Vitamin D3] 10,000 unit PO DAILY 12/16/16 06/06/17 Ferrous Sulfate 325 mg PO DAILY 12/16/16 06/06/17 Multivitamin [Multiple Vitamins] 1 each PO DAILY 12/16/16 06/06/17 Atorvastatin [Lipitor] 1 tab PO DAILY 04/09/17 07/06/18 Hydrocodone/Acetaminophen [[place] 1 each PO Q6H PRN #15 tablet 03/14/18 5-325 Tablet] Hydrocodone/Acetaminophen [[place] 1 each PO Q6H PRN #20 tablet 06/11/18 5-325 Tablet] Oxycodone HCl/Acetaminophen 1 - 2 each PO Q6H PRN #10 tablet 07/06/18 [Percocet 5-325 mg Tablet] Morphine Ir [Ms Ir] 15 mg PO Q6H PRN #15 tablet 07/08/18 oxyCODONE [Roxicodone] 5 mg PO Q4-6H PRN #15 tablet 07/14/18 Cephalexin [Keflex] 500 mg PO Q6H #28 capsule 08/28/18 Ondansetron Odt [Zofran] 4 mg TL Q6H PRN #10 tablet 08/28/18 Oxycodone HCl/Acetaminophen 1 - 2 each PO Q6H PRN #10 tablet 08/28/18 [Percocet 5-325 mg Tablet] Phenazopyridine HCl [Pyridium] 200 mg PO TID PRN #6 tablet 08/28/18 Oxycodone HCl/Acetaminophen 1 - 2 each PO Q6H PRN #10 tablet 09/14/18 [Percocet 5-325 mg Tablet] predniSONE [Deltasone] 20 mg PO [id number] #21 tab 09/14/18 Oxycodone HCl/Acetaminophen 1 each PO Q6H PRN #12 tablet 09/23/18 [Percocet 5-325 mg Tablet] Oxycodone HCl/Acetaminophen 1 each PO TID PRN #15 tablet 04/12/19 [Percocet 5-325 mg Tablet] Oxycodone HCl 5 - 10 mg PO Q6H PRN #14 tablet 07/08/19 Sucralfate [Carafate] 1 gm PO ACHS #60 tablet 07/08/19 Dicyclomine [Bentyl] 10 mg PO BID #20 capsule 08/16/19 Docusate Sodium 100 mg PO DAILY #30 capsule 08/16/19 Oxycodone HCl/Acetaminophen 1 each PO TID PRN #12 tablet 08/16/19 [Percocet 5-325 mg Tablet] Pantoprazole Sodium 20 mg PO DAILY #30 tablet. 08/16/19 - Allergies Allergies/Adverse Reactions: Allergies Allergy/AdvReac Type Severity Reaction Status Date / Time felodipine Allergy Severe Respiratory Verified 08/11/19 19:51 Sulfa (Sulfonamide Allergy Intermediate Itching Verified 08/11/19 19:51 Antibiotics) eletriptan [From Relpax] Allergy Unknown Verified 08/11/19 19:51 prednisone Allergy Unknown Verified 08/11/19 19:51 pregabalin Allergy Unknown Verified 08/11/19 19:51 gabapentin AdvReac Edema Verified 08/11/19 19:51 tramadol AdvReac Edema Verified 08/11/19 19:51 plendil Allergy Intermediate Unknown. Uncoded 08/11/19 19:51 depomedrol Allergy Unknown Uncoded 08/11/19 19:51 tape AdvReac Mild Hives Uncoded 08/11/19 19:51 - Social History Does the pt smoke?: Yes Smoking Status: Current every day smoker Does the pt drink ETOH?: Yes Does the pt have substance abuse?: No - Immunizations Immunizations are current?: Yes - POLST Patient has POLST: No PD ED PE NORMAL - Vitals Vital signs reviewed: Yes - General General: No acute distress, Other (Patient tearful and histrionic at times.Unremarkable. I am she is comfortable on) - HEENT HEENT: PERRL - Neck Neck: Supple, no meningeal sign - Cardiac Cardiac: RRR, No murmur - Respiratory Respiratory: Clear bilaterally - Abdomen Abdomen: Normal bowel sounds, Soft, Non tender, Non distended, Other - Derm Derm: Warm and dry - Extremities Extremities: No deformity, No tenderness to palpate, No edema - Neuro Neuro: Alert and oriented X 3, geophysical computer 2-12 intact, No motor deficit, No sensory deficit, Normal speech - Psych Psych: Normal mood, Normal affect Results - Vitals Vitals: Vital Signs - 24 hr 09/01/19 09/01/19 09/01/19 23:03 23:10 23:45 Temperature 37.1 C Heart Rate 94 89 88 Respiratory 18 16 20 Rate Blood Pressure 129/92 H O2 Saturation 96 98 97 09/02/19 09/02/19 09/02/19 00:36 00:42 01:16 Temperature Heart Rate Respiratory 20 20 20 Rate Blood Pressure 123/87 H O2 Saturation 98 07/11/20 07/11/20 07/11/20 01:47 02:21 03:15 Temperature Heart Rate Respiratory 19 15 18 Rate Blood Pressure O2 Saturation 09/02/19 09/02/19 03:21 03:24 Temperature 97.9 C H Heart Rate 110 H Respiratory 16 16 Rate Blood Pressure 148/107 H O2 Saturation 98 Oxygen O2 Source Room air PD MEDICAL DECISION MAKING - ED course Complexity details: re-evaluated patient (resting comfortably, no distress. abd exam benign. patient reqeusting to be dcd home. has f/u at [facility] with GI.), considered differential (chronic abd pain. offered bentyl. patient taking chronic opioids at home. patient requesting to be discharged home.), d/w patient Departure - Departure Disposition: 01 Home, Self Care Clinical Impression: Chronic pain Qualifiers: Chronic pain type: other chronic pain Qualified Code(s): G89.29 - Other chronic pain Abdominal pain Qualifiers: Abdominal location: unspecified location Qualified Code(s): R10.9 - Unspecified abdominal pain Condition: Stable Instructions: ED Chronic Pain Management Follow-Up: SAMY TY [Primary Care Provider] - Tomorrow Comments: Follow-up with your primary care provider And your online program coordinator. Discharge Date/Time: 09/02/19 03:25
[2019-09-02] MEDS ORDERED: DICYCLOMINE 10 MG CAPSULE PO STA (01:31)
[2019-09-02] MEDS ORDERED: ONDANSETRON ODT 4 MG TABLET TL STA (03:05)
[2019-09-02 03:26] VITALS: BP 148/107
== END 2019-09-02 03:25 | disposition home or self-care (01) ==
LOC: EDUNIT# → ED 22:58
DX: R10.9 Unspecified abdominal pain (principal); G89.29 Other chronic pain; F17.200 Nicotine dependence, unspecified, uncomplicated
CPT/HCPCS: 99283; Q0162

== ENCOUNTER 2019-10-18 20:21 | Outpatient (CLI) | payer OTHER | END 2019-10-18 20:22 | disposition critical access hospital (66) | LOC: EMS 20:21 | PROVIDERS: ATTEND Surgery | DX: R10.11 Right upper quadrant pain (principal) | CPT/HCPCS: A0425; A0429 ==

== ENCOUNTER 2019-10-18 20:40 | Emergency (ER) | payer OTHER ==
--- NOTE | 2019-10-18 21:13 | ED Physician Documentation ---
History of Present Illness - Stated complaint Stated Complaint: RUQ PAIN, GALLBLADDER - Chief complaint Chief Complaint: Abd Pain - History obtained from History obtained from: Patient - Additonal information Additional information: 53-year-old female arrives by ambulance reporting that she is having gallbladder pain.She reports nausea and vomiting she reports she has been seen in the emergency department multiple times at our hospital as well as [facility] and [facility] for the same chief complaint presentation. She reports she has outpatient follow-up on Wednesday with her information systems director. She denies any fevers denies any syncope denies any headache or neck pain or chest pain or shortness of breath denies any jaundice-like symptoms she does admit to alcohol use. Review of Systems Constitutional: reports: Reviewed and negative Eyes: reports: Reviewed and negative Ears: reports: Reviewed and negative Nose: reports: Reviewed and negative Throat: reports: Reviewed and negative Cardiac: reports: Reviewed and negative Respiratory: reports: Reviewed and negative GI: reports: Nausea, Vomiting : reports: Reviewed and negative Skin: reports: Reviewed and negative Musculoskeletal: reports: Reviewed and negative Neurologic: reports: Reviewed and negative Psychiatric: reports: Reviewed and negative Endocrine: reports: Reviewed and negative Immunocompromised: reports: Reviewed and negative PD PAST MEDICAL HISTORY - Past Medical History Cardiovascular: Hypertension Respiratory: None Neuro: None Endocrine/Autoimmune: HyPOthyroidism GI: GERD, Ulcers, Other 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 HEENT: Chronic vision loss Psych: Depression, Anxiety Musculoskeletal: Fibromyalgia, Chronic back pain Derm: None - Past Surgical History Past Surgical History: Yes General: Appendectomy 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: 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 /DRAIN LAYER: section, Tubal ligation - Present Medications Home Medications: Ambulatory Orders Medication Instructions Recorded Confirmed Levothyroxine [Synthroid] 112 mcg PO QDAC 06/23/12 07/06/18 Omeprazole 20 mg PO BID 06/23/12 07/06/18 PARoxetine HCl [Paxil] 40 mg PO DAILY 08/14/12 07/06/18 Triamterene/Hydrochlorothiazid 1 each PO DAILY 10/07/12 07/06/18 [Triamterene-Hctz 37.5-25 mg Tb] Acetaminophen [Tylenol] 650 mg PO Q6H PRN 12/16/16 06/06/17 Calcium Acetate 667 mg PO DAILY 12/16/16 06/06/17 Cholecalciferol [Vitamin D3] 10,000 unit PO DAILY 12/16/16 06/06/17 Ferrous Sulfate 325 mg PO DAILY 12/16/16 06/06/17 Multivitamin [Multiple Vitamins] 1 each PO DAILY 12/16/16 06/06/17 Atorvastatin [Lipitor] 1 tab PO DAILY 04/09/17 07/06/18 Hydrocodone/Acetaminophen [[place] 1 each PO Q6H PRN #15 tablet 03/14/18 5-325 Tablet] Hydrocodone/Acetaminophen [[place] 1 each PO Q6H PRN #20 tablet 06/11/18 5-325 Tablet] Oxycodone HCl/Acetaminophen 1 - 2 each PO Q6H PRN #10 tablet 07/06/18 [Percocet 5-325 mg Tablet] Morphine Ir [Ms Ir] 15 mg PO Q6H PRN #15 tablet 07/08/18 oxyCODONE [Roxicodone] 5 mg PO Q4-6H PRN #15 tablet 07/14/18 Cephalexin [Keflex] 500 mg PO Q6H #28 capsule 08/28/18 Ondansetron Odt [Zofran] 4 mg TL Q6H PRN #10 tablet 08/28/18 Oxycodone HCl/Acetaminophen 1 - 2 each PO Q6H PRN #10 tablet 08/28/18 [Percocet 5-325 mg Tablet] Phenazopyridine HCl [Pyridium] 200 mg PO TID PRN #6 tablet 08/28/18 Oxycodone HCl/Acetaminophen 1 - 2 each PO Q6H PRN #10 tablet 09/14/18 [Percocet 5-325 mg Tablet] predniSONE [Deltasone] 20 mg PO [id number] #21 tab 09/14/18 Oxycodone HCl/Acetaminophen 1 each PO Q6H PRN #12 tablet 09/23/18 [Percocet 5-325 mg Tablet] Oxycodone HCl/Acetaminophen 1 each PO TID PRN #15 tablet 04/12/19 [Percocet 5-325 mg Tablet] Oxycodone HCl 5 - 10 mg PO Q6H PRN #14 tablet 07/08/19 Sucralfate [Carafate] 1 gm PO ACHS #60 tablet 07/08/19 Dicyclomine [Bentyl] 10 mg PO BID #20 capsule 08/16/19 Docusate Sodium 100 mg PO DAILY #30 capsule 08/16/19 Oxycodone HCl/Acetaminophen 1 each PO TID PRN #12 tablet 08/16/19 [Percocet 5-325 mg Tablet] Pantoprazole Sodium 20 mg PO DAILY #30 tablet. 08/16/19 - Allergies Allergies/Adverse Reactions: Allergies Allergy/AdvReac Type Severity Reaction Status Date / Time felodipine Allergy Severe Respiratory Verified 08/11/19 19:51 Sulfa (Sulfonamide Allergy Intermediate Itching Verified 08/11/19 19:51 Antibiotics) eletriptan [From Relpax] Allergy Unknown Verified 08/11/19 19:51 prednisone Allergy Unknown Verified 08/11/19 19:51 pregabalin Allergy Unknown Verified 08/11/19 19:51 gabapentin AdvReac Edema Verified 08/11/19 19:51 tramadol AdvReac Edema Verified 08/11/19 19:51 plendil Allergy Intermediate Unknown. Uncoded 08/11/19 19:51 depomedrol Allergy Unknown Uncoded 08/11/19 19:51 tape AdvReac Mild Hives Uncoded 08/11/19 19:51 - Social History Does the pt smoke?: Yes Smoking Status: Current every day smoker Does the pt drink ETOH?: Yes Does the pt have substance abuse?: No - Immunizations Immunizations are current?: Yes - POLST Patient has POLST: No PD ED PE NORMAL - Vitals Vital signs reviewed: Yes - General General: Alert and oriented X 3, No acute distress - HEENT HEENT: PERRL - Neck Neck: Supple, no meningeal sign - Cardiac Cardiac: RRR, No murmur - Respiratory Respiratory: Clear bilaterally - Abdomen Abdomen: Normal bowel sounds, Soft, Non tender, Non distended - Derm Derm: Warm and dry - Extremities Extremities: No deformity - Neuro Neuro: Alert and oriented X 3 - Psych Psych: Normal mood, Normal affect Results - Vitals Vitals: Vital Signs - 24 hr 10/18/19 10/18/19 10/18/19 20:48 21:12 23:13 Temperature 37.5 C Heart Rate 97 99 90 Respiratory 21 28 H 22 Rate Blood Pressure 151/77 H 148/92 H 157/102 H O2 Saturation 100 99 97 Oxygen O2 Source Room air - Labs Labs: Laboratory Tests 10/18/19 10/18/19 10/18/19 20:56 20:56 20:56 WBC 11.8 H RBC 4.51 Hgb 14.7 Hct 41.9 MCV 92.9 MCH 32.6 H MCHC 35.1 RDW 13.2 Plt Count 333 MPV 9.1 Neut # (Auto) 5.9 Lymph # (Auto) 4.7 H [place] # (Auto) 0.7 Eos # (Auto) 0.4 Baso # (Auto) 0.1 Absolute Nucleated RBC 0.00 Nucleated RBC % 0.0 Sodium 138 Potassium 2.7 L Chloride 102 Carbon Dioxide 19 L Anion Gap 17.0 H BUN 15 Creatinine 0.6 Estimated GFR (MDRD) 105 Glucose 107 H Calcium 9.5 Total Bilirubin 0.6 AST 29 ALT 30 Alkaline Phosphatase 69 Total Protein 8.0 Albumin 4.1 Globulin 3.9 Albumin/Globulin Ratio 1.1 Lipase 45 Ethyl Alcohol 86.9 PD MEDICAL DECISION MAKING - ED course Complexity details: reviewed old records, reviewed results, re-evaluated patient (23:24 Pain and nausea resolved. Patient tolerated p.o. challenge patient will be discharged home with close follow-up.), considered differential (Pancreatitis, cholelithiasis, cholecystitis.), d/w patient, other ED course: 53-year-old female who is been seen here multiple times for abdominal pain her ultrasound and CT scan the abdomen were reviewed they are unremarkable she has good follow-up this week with her information systems director. Labs sent today are unremarkable she is afebrile her pain is resolved her abdomen soft on exam patient will be encouraged to follow-up with her primary care provider tomorrow. Departure - Departure Disposition: 01 Home, Self Care Clinical Impression: Abdominal pain Qualifiers: Abdominal location: unspecified location Qualified Code(s): R10.9 - Unspecified abdominal pain Condition: Stable Instructions: Abdominal Pain Follow-Up: SAMY TY [Primary Care Provider] - Tomorrow Comments: Please follow-up with your primary care provider tomorrow.
[2019-10-18] MEDS ORDERED: SODIUM CHLORIDE 0.9% 1,000 ML IV STA (21:24)
[2019-10-18] MEDS ORDERED: ONDANSETRON 4 MG/2 ML VIAL IVP STA (21:24)
[2019-10-18 21:27] LABS: BASOPHILS # (AUTO) 0.1 10^3/uL (0.0-0.1); BASOPHILS % (AUTO) 0.8 %; EOSINOPHILS # (AUTO) 0.4 10^3/uL (0.0-0.7); EOSINOPHILS % (AUTO) 3.3 %; HGB - HEMOGLOBIN 14.7 g/dL (12.0-16.0); LYMPHOCYTES # (AUTO) 4.7 10^3/uL (1.5-3.5); LYMPHOCYTES % (AUTO) 39.9 %; MEAN CORPUSCULAR HEMOGLOBIN 32.6 pg (27.0-31.0); MEAN CORPUSCULAR HGB CONC 35.1 g/dL (32.0-36.0); MEAN CORPUSCULAR VOLUME 92.9 fL (81.0-99.0); MEAN PLATELET VOLUME 9.1 fL (7.9-10.8); MONOCYTES # (AUTO) 0.7 10^3/uL (0.0-1.0); MONOCYTES % (AUTO) 5.5 %; NEUTROPHILS # (AUTO) 5.9 10^3/uL (1.5-6.6); NEUTROPHILS % (AUTO) 49.7 %; PLT - PLATELET COUNT 333 10^3/uL (130-450); RED BLOOD COUNT 4.51 10^6/uL (4.20-5.40); RED CELL DISTRIBUTION WIDTH 13.2 % (12.0-15.0); WHITE BLOOD COUNT 11.8 x10^3/uL (4.8-10.8)
[2019-10-18 21:33] LABS: ALBUMIN 4.1 g/dL (3.2-5.5); ALBUMIN/GLOBULIN RATIO 1.1 (1.0-2.2); BILIRUBIN,TOTAL 0.6 mg/dL (0.2-1.0); CALCIUM 9.5 mg/dL (8.5-10.3); CREATININE 0.6 mg/dL (0.4-1.0)
[2019-10-18] MEDS ORDERED: PROMETHAZINE INJ 25 MG in SODIUM CHLORIDE 0.9% 50 ML IV STA (22:37)
[2019-10-18] MEDS ORDERED: PROMETHAZINE 25 MG/1 ML VIAL ONE (22:46)
[2019-10-18 23:41] VITALS: BP 143/99
== END 2019-10-18 23:43 | disposition home or self-care (01) ==
LOC: EDUNIT# → ED 20:40
DX: R10.9 Unspecified abdominal pain (principal); F17.200 Nicotine dependence, unspecified, uncomplicated
CPT/HCPCS: 36415; 80053; 80320; 83690; 85025; 96361; 96365; 96375; 99283; 99284; J7040

== ENCOUNTER 2019-11-26 12:07 | Emergency (ER) | payer OTHER ==
[2019-11-26 12:39] VITALS: BP 130/106
--- NOTE | 2019-11-26 14:03 | XRAY Report ---
PROCEDURE: Chest 2 View X-Ray INDICATIONS: cough TECHNIQUE: 2 view(s) of the chest. COMPARISON: February 27, 2014 chest and rib radiographs. FINDINGS: Surgical changes and devices: None. Lungs and pleura: No pleural effusions or pneumothorax. Lungs are clear. Mediastinum: Mediastinal contours are normal. Heart size is normal. Bones and chest wall: No suspicious bony abnormalities. No displaced rib fracture or suggestion of a nondisplaced rib fracture. Degenerative changes of the spine. Soft tissues appear unremarkable. IMPRESSION: No pneumothorax. No displaced rib fracture or suggestion of nondisplaced rib fracture. Reviewed by: Guillaume Medina on 11/26/2019 1:02 PM MARTÍN Approved by: Guillaume Medina on 11/26/2019 1:02 PM MARTÍN Station ID: [id number]
[2019-11-26] MEDS ORDERED: KETOROLAC 30 MG/ML VIAL IVP STA (14:09)
--- NOTE | 2019-11-26 14:14 | ED Physician Documentation ---
History of Present Illness - Stated complaint Stated Complaint: CHEST INJURY - Chief complaint Chief Complaint: Trauma Ch/Bk - History obtained from History obtained from: Patient - Additonal information Additional information: Patient comes emergency department complaining of chest wall pain for the last 3 days since tripping over her dog and falling on a suitcase. Patient states she bruised her left arm but this seems to be doing okay. She states she has had pain in her sternal area since the fall, which is worse with deep breaths and certain movements. She denies cough. No fever or chills. No shortness of breath. Patient was not injured in any other way. Review of Systems Ten Systems: 10 systems reviewed and negative Constitutional: reports: Reviewed and negative Eyes: reports: Reviewed and negative Ears: reports: Reviewed and negative Nose: reports: Reviewed and negative Throat: reports: Reviewed and negative Cardiac: reports: Chest pain / pressure Respiratory: reports: Reviewed and negative. denies: Dyspnea, Cough GI: reports: Reviewed and negative. denies: Abdominal Pain : reports: Reviewed and negative Skin: reports: Reviewed and negative Musculoskeletal: reports: Reviewed and negative Neurologic: reports: Reviewed and negative Psychiatric: reports: Reviewed and negative Endocrine: reports: Reviewed and negative Immunocompromised: reports: Reviewed and negative PD PAST MEDICAL HISTORY - Past Medical History Cardiovascular: Hypertension Respiratory: None Neuro: None Endocrine/Autoimmune: HyPOthyroidism GI: GERD, Ulcers, Other BLOCK LAYER: None : None HEENT: Chronic vision loss Psych: Depression, Anxiety Musculoskeletal: Fibromyalgia, Chronic back pain Derm: None - Past Surgical History Past Surgical History: Yes General: Appendectomy Ortho: Other /BLOCK LAYER: section, Tubal ligation - Present Medications Home Medications: Ambulatory Orders Medication Instructions Recorded Confirmed Levothyroxine [Synthroid] 112 mcg PO QDAC 06/23/12 07/06/18 Omeprazole 20 mg PO BID 06/23/12 07/06/18 PARoxetine HCl [Paxil] 40 mg PO DAILY 08/14/12 07/06/18 Triamterene/Hydrochlorothiazid 1 each PO DAILY 10/07/12 07/06/18 [Triamterene-Hctz 37.5-25 mg Tb] Acetaminophen [Tylenol] 650 mg PO Q6H PRN 12/16/16 06/06/17 Atorvastatin [Lipitor] 1 tab PO DAILY 04/09/17 07/06/18 Pantoprazole Sodium 20 mg PO DAILY #30 tablet. 08/16/19 Acetaminophen/Cod 300/30 [Tylenol 1 each PO Q4-6H PRN #6 tablet 11/26/19 #3] - Allergies Allergies/Adverse Reactions: Allergies Allergy/AdvReac Type Severity Reaction Status Date / Time felodipine Allergy Severe Respiratory Verified 08/11/19 19:51 Sulfa (Sulfonamide Allergy Intermediate Itching Verified 08/11/19 19:51 Antibiotics) eletriptan [From Relpax] Allergy Unknown Verified 08/11/19 19:51 prednisone Allergy Unknown Verified 08/11/19 19:51 pregabalin Allergy Unknown Verified 08/11/19 19:51 gabapentin AdvReac Edema Verified 08/11/19 19:51 tramadol AdvReac Edema Verified 08/11/19 19:51 plendil Allergy Intermediate Unknown. Uncoded 08/11/19 19:51 depomedrol Allergy Unknown Uncoded 08/11/19 19:51 tape AdvReac Mild Hives Uncoded 08/11/19 19:51 - Social History Does the pt smoke?: Yes Smoking Status: Current every day smoker Does the pt drink ETOH?: Yes Does the pt have substance abuse?: No - Immunizations Immunizations are current?: Yes - POLST Patient has POLST: No PD ED PE NORMAL - Vitals Vital signs reviewed: Yes - General General: Alert and oriented X 3, No acute distress - HEENT HEENT: Atraumatic, PERRL, EOMI, Moist mucous membranes - Neck Neck: Supple, no meningeal sign - Cardiac Cardiac: RRR, No murmur, Strong equal pulses - Respiratory Respiratory: No respiratory distress, Clear bilaterally - Abdomen Abdomen: Soft, Non tender, Non distended - Derm Derm: Normal color, Warm and dry, No rash - Extremities Extremities: No deformity, No edema, No calf tenderness / cord - Neuro Neuro: Alert and oriented X 3, branch officer 2-12 intact, No motor deficit, No sensory deficit - Psych Psych: Normal mood, Normal affect - Free text exam Free text exam: Mild contusion over her central sternum. No deformity of sternum. Minimal edema, though patient is quite obese and this is somewhat difficult to discern. Results - Vitals Vitals: Vital Signs - 24 hr 11/26/19 12:32 Temperature 37.1 C Heart Rate 104 H Respiratory 20 Rate Blood Pressure 130/106 H O2 Saturation 98 Oxygen O2 Source Room air - Rads (name of study) CXR Radiology: Final report received, EMP read indepedently, See rad report (neg) PD MEDICAL DECISION MAKING - ED course Complexity details: reviewed old records, reviewed results, re-evaluated patient, considered differential, d/w patient ED course: Patient was treated symptomatically with Toradol in the emergency department. Her X-ray was negative. We have discussed the usual indications for return. Departure - Departure Disposition: 01 Home, Self Care Clinical Impression: Contusion, chest wall Qualifiers: Encounter type: initial encounter Laterality: unspecified laterality Qualified Code(s): S20.219A - Contusion of unspecified front wall of thorax, initial encounter Condition: Stable Instructions: ED Contusion Chest Wall Prescriptions: Acetaminophen/Cod 300/30 [Tylenol #3] 1 each PO Q4-6H PRN #6 tablet PRN Reason: Pain Comments: Your chest x-ray looks good. There is no evidence of broken bone or injury to the tissues inside. At this point, this would be evident, and there is no indication for a CT scan at this time. Please take your home pain medications, as well as applying ice and heat as needed. You may follow-up with your primary care physician as needed. Discharge Date/Time: 11/26/19 14:50
[2019-11-26] MEDS ORDERED: KETOROLAC 60 MG/2 ML VIAL IM STA (14:15)
== END 2019-11-26 14:50 | disposition home or self-care (01) ==
LOC: ED 12:07
DX: S20.219A Contusion of unspecified front wall of thorax, initial encounter (principal); W01.198A Fall on same level from slipping, tripping and stumbling with subsequent striking against other object, initial encounter; F17.200 Nicotine dependence, unspecified, uncomplicated
CPT/HCPCS: 71046; 96372; 99282; 99283

== ENCOUNTER 2020-10-11 18:00 | Emergency (ER) | payer OTHER ==
[2020-10-11] MEDS ORDERED: oxyCODONE 5 MG TABLET PO STA (18:54)
--- NOTE | 2020-10-11 19:32 | XRAY Report ---
PROCEDURE: Elbow 3 View RT INDICATIONS: fall, elbow pain TECHNIQUE: 3 views of the elbow were acquired. COMPARISON: None. FINDINGS: Bones: No fractures or dislocations. No suspicious bony lesions. Soft tissues: No elbow joint effusion. No suspicious soft tissue calcifications. IMPRESSION: No definite fracture however follow-up radiographs in 10 days could be performed if the patient's sym ptoms do not improve to exclude occult fracture/assess for healing sclerosis. Reviewed by: Jose Kevin MD on 10/11/2020 7:31 PM PDT Approved by: Jose Kevin MD on 10/11/2020 7:31 PM PDT Station ID: [id number]
--- NOTE | 2020-10-11 19:33 | XRAY Report ---
PROCEDURE: Humerus RT INDICATIONS: fall, arm pain TECHNIQUE: 2 views of the humerus were acquired. COMPARISON: None. FINDINGS: Bones: No fractures or dislocations. No suspicious bony lesions. Soft tissues: No suspicious soft tissue calcifications. IMPRESSION: No fracture Reviewed by: Jose Kevin MD on 10/11/2020 7:32 PM PDT Approved by: Jose Kevin MD on 10/11/2020 7:32 PM PDT Station ID: [id number]
--- NOTE | 2020-10-11 19:43 | ED Physician Documentation ---
PD HPI UPPER EXT INJURY - Stated complaint Stated Complaint: FALL, RIGHT ARM PX - Chief complaint Chief Complaint: Trauma Ext - History obtained from History obtained from: Patient - History of Present Illness Location: Right, Arm, Elbow Type of injury: Fall Where injury occurred: Home Timing - onset: How many days ago (2) Timing - duration: Days (2) Timing - details: Gradual onset Pain level max: 7 Pain level now: 5 Improved by: Rest, Ice Worsened by: Moving, Palpating Associated symptoms: Tingling. No: Weakness, Numbness, Swelling, Discolored Contributing factors: No: Anticoagulated Recently seen: Not recently seen - Additonal information Additional information: Patient is a 54-year-old female who states that she was on a sidewalk 2 days ago when she tripped and fell, landing on the right elbow causing pain to the right arm. She states that she initially had a headache but this is since resolved. She states she hit her head and bark dust. Worse with movement, better with rest. No loss of consciousness. No vomiting. No seizure activity. Feels better with rest. Occasionally has tingling to the fingers. Patient is right- handed. Most of the pain is centered around the elbow and humerus. No neck or back pain. 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 : None HEENT: Chronic vision loss Psych: Depression, Anxiety Musculoskeletal: Fibromyalgia, Chronic back pain Derm: None - Past Surgical History Past Surgical History: Yes General: Appendectomy Ortho: Other /TELECOMMUNICATIONS SWITCH TECHNICIAN: section, Tubal ligation - Present Medications Home Medications: Ambulatory Orders Medication Instructions Recorded Confirmed Levothyroxine [Synthroid] 112 mcg PO QDAC 06/23/12 10/11/20 Omeprazole 20 mg PO BID 06/23/12 10/11/20 PARoxetine HCl [Paxil] 40 mg PO DAILY 08/14/12 10/11/20 Triamterene/Hydrochlorothiazid 1 each PO DAILY 10/07/12 10/11/20 [Triamterene-Hctz 37.5-25 mg Tb] Acetaminophen [Tylenol] 650 mg PO Q6H PRN 12/16/16 10/11/20 Atorvastatin [Lipitor] 1 tab PO DAILY 04/09/17 10/11/20 Duloxetine HCl [Cymbalta] 60 mg PO DAILY 10/11/20 10/11/20 Lisinopril [Zestril] 20 mg PO DAILY 10/11/20 10/11/20 Trazodone HCl 100 mg PO HS PRN 10/11/20 10/11/20 oxyCODONE [Roxicodone] 5 - 10 mg PO Q6H PRN #12 tablet 10/11/20 - Allergies Allergies/Adverse Reactions: Allergies Allergy/AdvReac Type Severity Reaction Status Date / Time felodipine Allergy Severe Respiratory Verified 08/11/19 19:51 Sulfa (Sulfonamide Allergy Intermediate Itching Verified 08/11/19 19:51 Antibiotics) eletriptan [From Relpax] Allergy Unknown Verified 08/11/19 19:51 prednisone Allergy Unknown Verified 08/11/19 19:51 pregabalin Allergy Unknown Verified 08/11/19 19:51 gabapentin AdvReac Edema Verified 08/11/19 19:51 tramadol AdvReac Edema Verified 08/11/19 19:51 plendil Allergy Intermediate Unknown. Uncoded 08/11/19 19:51 depomedrol Allergy Unknown Uncoded 08/11/19 19:51 tape AdvReac Mild Hives Uncoded 08/11/19 19:51 - Social History Does the pt smoke?: Yes Smoking Status: Current every day smoker Does the pt drink ETOH?: Yes Does the pt have substance abuse?: No - Immunizations Immunizations are current?: Yes - POLST Patient has POLST: No PD ED PE NORMAL - Vitals Vital signs reviewed: Yes - General General: Alert and oriented X 3, No acute distress, Well developed/nourished - HEENT HEENT: Atraumatic, PERRL, Moist mucous membranes - Neck Neck: Supple, no meningeal sign, No bony TTP - Cardiac Cardiac: RRR, Strong equal pulses - Respiratory Respiratory: No respiratory distress, Clear bilaterally - Abdomen Abdomen: Soft, Non tender, Non distended - Back Back: No spinal TTP - Derm Derm: Warm and dry - Extremities Extremities: No deformity, Other (Mild tenderness over the dorsum of the right elbow near the olecranon. Also mild tenderness at the distal humerus. Neurovascularly intact. Mild ecchymosis. No swelling. Full range of motion, but with pain at extremes. Otherwise normal examination of the shoulder, wrist and hand.) - Neuro Neuro: Alert and oriented X 3 - Psych Psych: Normal mood, Normal affect Results - Vitals Vitals: Vital Signs - 24 hr 10/11/20 10/11/20 18:03 19:50 Temperature 36.1 C L 36.5 C Heart Rate 105 H 99 Respiratory 20 16 Rate Blood Pressure 123/96 H 136/79 H O2 Saturation 100 99 Oxygen O2 Source Room air - Rads (name of study) Right elbow x-ray Radiology: Final report received, EMP read contemporaneously, See rad report (No acute abnormality) Right Humerus x-ray Radiology: Final report received, EMP read contemporaneously, See rad report (No acute abnormality) PD MEDICAL DECISION MAKING - ED course Complexity details: reviewed results, re-evaluated patient, considered differential, d/w patient ED course: No acute findings on x-ray. Pain well controlled. We will have her continue to gently move the arm at home. Appears to be soft tissue contusion. I am prescribing a short course of short-acting opioid pain medication for this patient. I have reviewed the patients CERAMICS ENGINEER and no concerning findings were noted. I have discussed that the opioids are for short term therapy only, and will not be refilled from the ED. Patient counseled regarding signs and symptoms for which I believe and urgent re-evaluation would be necessary. Patient with good understanding of and agreement to plan and is comfortable going home at this time This document was made in part using voice recognition software. While efforts are made to proofread this document, sound alike and grammatical errors may occur. Departure - Departure Disposition: 01 Home, Self Care Clinical Impression: Arm pain Qualifiers: Laterality: right Qualified Code(s): M79.601 - Pain in right arm Condition: Good Instructions: ED Contusion Upper Ext Follow-Up: SAMY TY [Primary Care Provider] - Within 1 week Prescriptions: oxyCODONE [Roxicodone] 5 - 10 mg PO Q6H PRN #12 tablet PRN Reason: arm pain Comments: Thankfully your x-rays do not show any acute abnormalities tonight. Please follow-up with your doctor for further care. Continue to gently move the arm at home. Your prescriptions were sent to [facility] in [place]. I am prescribing a short course of narcotic pain medication for you. These are potentially dangerous and addictive medications that should be used carefully. These medications may constipate you. Take an dpaz-ucj-ykhqzqa stool softener (docusate) twice daily with plenty of water while taking these medications. If you go 24 hours without a bowel movement, take [id number] miralax, per package instructions. Do not drink or drive while taking these medications. If you received narcotic or sedating medications while in the emergency department, do not drive for 24 hours. Store this medication in a safe, secure place and out of reach of children. It is a violation of federal law to give or sell this medication to another person or to use in a manner other than prescribed. The ED will not refill narcotic prescriptions, including prescriptions lost or stolen. To dispose of unwanted medications: 1. [facility] at [address] in [place] has a medication drop box. They accept prescription medications (in pill form) Wednesday through Wednesday 9:00 a.m. to 5:00 p.m. 2. The [facility] [employer] accepts prescription medications (in pill form only) for disposal year round. Call for more information. 3. Contact the [facility] for the next [facility] sponsored prescription drug collection event. , [phone], or [phone]; Discharge Date/Time: 10/11/20 19:52
[2020-10-11 19:52] VITALS: BP 136/79
== END 2020-10-11 19:52 | disposition home or self-care (01) ==
LOC: ED 18:00
DX: S50.01XA Contusion of right elbow, initial encounter (principal); M79.601 Pain in right arm; W01.0XXA Fall on same level from slipping, tripping and stumbling without subsequent striking against object, initial encounter; Y92.480 Sidewalk as the place of occurrence of the external cause; I10 Essential (primary) hypertension; F17.200 Nicotine dependence, unspecified, uncomplicated
CPT/HCPCS: 73060; 73080; 99283; 99284; A9270

== ENCOUNTER 2020-11-26 16:06 | Emergency (ER) | payer OTHER ==
--- NOTE | 2020-11-26 16:31 | ED Physician Documentation ---
PD HPI LOWER EXT INJURY - Stated complaint Stated Complaint: LT KNEE PX/INJ - Chief complaint Chief Complaint: Trauma Ext - History obtained from History obtained from: Patient - History of Present Illness PD HPI LOW EXT INJURY LOCATION: Left, Knee Type of injury: Fall (tripped and fell directly to left knee. Pain and swelling with bruising. Seems to be more swollen the past day. Pain with ROM, walking up and down steps. No giving out nor locking.) Where injury occurred: Home Timing - onset: How many days ago (3) Timing - duration: Days (3) Timing - details: Abrupt onset (She states she tripped and fell while getting up and landed directly onto her left kneecap. It has pain swelling and bruising subsequently. Increased swelling and pain today.), Still present Worsened by: Moving, Palpating, Other (walking up and down steps.) Associated symptoms: Swelling, Discolored (brusing anteriorly). 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 HEENT: Chronic vision loss Psych: Depression, Anxiety Musculoskeletal: Fibromyalgia, Chronic back pain Derm: None - Past Surgical History Past Surgical History: Yes General: Appendectomy Ortho: Other /SEWING TEACHER: section, Tubal ligation - Present Medications Home Medications: Ambulatory Orders Medication Instructions Recorded Confirmed Levothyroxine [Synthroid] 112 mcg PO QDAC 06/23/12 11/26/20 Omeprazole 20 mg PO BID 06/23/12 11/26/20 PARoxetine HCl [Paxil] 20 mg PO DAILY 08/14/12 11/26/20 Triamterene/Hydrochlorothiazid 1 each PO DAILY 10/07/12 11/26/20 [Triamterene-Hctz 37.5-25 mg Tb] Acetaminophen [Tylenol] 650 mg PO Q6H PRN 12/16/16 11/26/20 Atorvastatin [Lipitor] 40 mg PO DAILY 04/09/17 11/26/20 Duloxetine HCl [Cymbalta] 60 mg PO DAILY 10/11/20 11/26/20 Lisinopril [Zestril] 20 mg PO DAILY 10/11/20 11/26/20 Trazodone HCl 100 mg PO HS PRN 10/11/20 11/26/20 Cyclobenzaprine [Flexeril] 10 mg PO HS PRN 11/26/20 11/26/20 Meloxicam [Mobic] 7.5 mg PO HS 11/26/20 11/26/20 oxyCODONE [Roxicodone] 5 mg PO Q6H PRN #12 tablet 11/26/20 - Allergies Allergies/Adverse Reactions: Allergies Allergy/AdvReac Type Severity Reaction Status Date / Time felodipine Allergy Severe Respiratory Verified 11/26/20 16:23 Sulfa (Sulfonamide Allergy Intermediate Itching Verified 11/26/20 16:23 Antibiotics) eletriptan [From Relpax] Allergy Unknown Verified 11/26/20 16:23 prednisone Allergy Unknown Verified 11/26/20 16:23 pregabalin Allergy Unknown Verified 11/26/20 16:23 gabapentin AdvReac Edema Verified 11/26/20 16:23 tramadol AdvReac Edema Verified 11/26/20 16:23 plendil Allergy Intermediate Unknown. Uncoded 08/11/19 19:51 depomedrol Allergy Unknown Uncoded 08/11/19 19:51 tape AdvReac Mild Hives Uncoded 08/11/19 19:51 - Social History Does the pt smoke?: Yes Smoking Status: Current every day smoker Does the pt drink ETOH?: No Does the pt have substance abuse?: No - Immunizations Immunizations are current?: No Immunizations: Other immun not current - POLST Patient has POLST: No PD ED PE NORMAL - Vitals Vital signs reviewed: Yes - General General: Alert and oriented X 3, No acute distress, Well developed/nourished - Cardiac Cardiac: Other (mild dusky color in both lower extremities without edema; she states this is baseline coloration/circulation. ) - Derm Derm: Normal color, Warm and dry - Extremities Extremities: Other (The left anterior knee shows purple bruising with some swelling in the anterior region. No obvious effusion per se. There is tenderness over the inferior patella without deformity. Able to extend at the knee though painful. Cruciate and collateral testing without any laxity or noted pain.) - Neuro Neuro: Alert and oriented X 3, No motor deficit, No sensory deficit, Normal speech Results - Vitals Vitals: Vital Signs - 24 hr 11/26/20 16:23 Temperature 36 C L Heart Rate 98 Respiratory 18 Rate Blood Pressure 147/115 H O2 Saturation 100 Oxygen O2 Source Room air - Rads (name of study) left knee Radiology: Prelim report reviewed (no fractures), See rad report PD MEDICAL DECISION MAKING - ED course Complexity details: reviewed old records (has had just one visit in Sep 2020 for musculoskeletal problem. Prior to that, had not been to ER for about a year. CHELSI noted. ), reviewed results, considered differential, d/w patient Departure - Departure Disposition: 01 Home, Self Care Clinical Impression: Fall from slip, trip, or stumble Qualifiers: Encounter type: initial encounter Qualified Code(s): W01.0XXA - Fall on same level from slipping, tripping and stumbling without subsequent striking against object, initial encounter Knee contusion Qualifiers: Encounter type: initial encounter Laterality: left Qualified Code(s): S80.02XA - Contusion of left knee, initial encounter Condition: Stable Record reviewed to determine appropriate education?: Yes Instructions: ED Contusion Lower Ext Follow-Up: SAMY TY [Primary Care Provider] - Prescriptions: oxyCODONE [Roxicodone] 5 mg PO Q6H PRN #12 tablet PRN Reason: Pain Comments: Use the hinged knee brace when up and around for the next week or 2 while this is healing. This will allow some range of motion of the knee while supporting it from going too flexed nor rotated. Your x-ray is good without any signs of fractures. Obviously there is still bruising and swelling in the front of the knee in the area of the patellar tendon and the bursa, which is a cushion in the front part of the knee. These can take awhile to heal up sometimes. Use Tylenol every 6 hours or so for the next several days to week regularly. Add oxycodone every 6 hours if needed for worse pain over next few days. I would anticipate not needing it beyond that timeframe. Follow-up with your primary care if not improved well over the next 1-2 weeks. I transmitted your prescription to [facility] pharmacy. I am prescribing a short course of narcotic pain medication for you. These are potentially dangerous and addictive medications that should be used carefully. These medications may constipate you. Take an dinl-sxs-dkfkydj stool softener such as docusate twice daily with plenty of water while taking these medications. If you go 24 hours without a bowel movement, take [id number] MiraLAX, per package instructions. Do not drink or drive while taking these medications. If you received narcotic or sedating medications while in the emergency department do not drive for 24 hours. Store this medication in a safe, secure place and out of reach of children. It is a violation of federal law to give or sell this medication to another person or to use in a manner other than prescribed. The ED will not refill narcotic prescriptions, including prescriptions lost or stolen. You can dispose of unwanted medications at the [facility]'s office or at several pharmacies such as [facility].
[2020-11-26] MEDS ORDERED: oxyCODONE 5 MG TABLET PO STA (16:40)
--- NOTE | 2020-11-26 17:11 | XRAY Report ---
PROCEDURE: Knee 3 View LT INDICATIONS: fell onto left knee; pain/bruising TECHNIQUE: 3 views of the left knee were acquired. COMPARISON: None. FINDINGS: Bones: No acute fractures or dislocations. No suspicious bony lesions. Soft tissues: Possible small joint effusion. No suspicious soft tissue calcifications. IMPRESSION: No acute osseous abnormality. If there is clinical concern or persistent symptoms, addit ional imaging such as repeat radiographs or advanced imaging (e.g. CT, MRI) may be helpful for furthe r evaluation. Reviewed by: Emmanuel Azar MD on 11/26/2020 5:10 PM PDT Approved by: Emmanuel Azar MD on 11/26/2020 5:10 PM PDT Station ID: [id number]
[2020-11-26] MEDS ORDERED: KETOROLAC 30 MG/ML VIAL IM STA (17:13)
[2020-11-26 17:44] VITALS: BP 181/100
== END 2020-11-26 17:50 | disposition home or self-care (01) ==
LOC: ED 16:06
DX: S80.02XA Contusion of left knee, initial encounter (principal); W01.0XXA Fall on same level from slipping, tripping and stumbling without subsequent striking against object, initial encounter; Y92.009 Unspecified place in unspecified non-institutional (private) residence as the place of occurrence of the external cause; I10 Essential (primary) hypertension; F17.200 Nicotine dependence, unspecified, uncomplicated
CPT/HCPCS: 73562; 96372; 99283; 99284; A9270

== ENCOUNTER 2020-12-02 18:50 | Outpatient (CLI) | payer OTHER | END 2020-12-02 18:51 | disposition critical access hospital (66) | LOC: EMS 18:50 | DX: R40.4 Transient alteration of awareness (principal) | CPT/HCPCS: A0425; A0427 ==

== ENCOUNTER 2020-12-02 19:05 | Emergency (ER) | payer OTHER ==
--- NOTE | 2020-12-02 19:29 | ED Physician Documentation ---
PD HPI ALTERED MENTAL STATUS - Stated complaint Stated Complaint: AMS - Chief complaint Chief Complaint: Neuro - History obtained from History obtained from: Patient, EMS - Additional information Additional information: 55yo woman found down in yard after drinking one fifth of whiskey. Pt unable to give history d/t intoxication. 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 : None HEENT: Chronic vision loss Psych: Depression, Anxiety Musculoskeletal: Fibromyalgia, Chronic back pain Derm: None - Past Surgical History Past Surgical History: Yes General: Appendectomy Ortho: Other /QUALITY ASSURANCE INTERN: section, Tubal ligation - Present Medications Home Medications: Ambulatory Orders Medication Instructions Recorded Confirmed Levothyroxine [Synthroid] 112 mcg PO QDAC 06/23/12 11/26/20 Omeprazole 20 mg PO BID 06/23/12 11/26/20 PARoxetine HCl [Paxil] 20 mg PO DAILY 08/14/12 11/26/20 Triamterene/Hydrochlorothiazid 1 each PO DAILY 10/07/12 11/26/20 [Triamterene-Hctz 37.5-25 mg Tb] Acetaminophen [Tylenol] 650 mg PO Q6H PRN 12/16/16 11/26/20 Atorvastatin [Lipitor] 40 mg PO DAILY 04/09/17 11/26/20 Duloxetine HCl [Cymbalta] 60 mg PO DAILY 10/11/20 11/26/20 Lisinopril [Zestril] 20 mg PO DAILY 10/11/20 11/26/20 Trazodone HCl 100 mg PO HS PRN 10/11/20 11/26/20 Cyclobenzaprine [Flexeril] 10 mg PO HS PRN 11/26/20 11/26/20 Meloxicam [Mobic] 7.5 mg PO HS 11/26/20 11/26/20 oxyCODONE [Roxicodone] 5 mg PO Q6H PRN #12 tablet 11/26/20 - Allergies Allergies/Adverse Reactions: Allergies Allergy/AdvReac Type Severity Reaction Status Date / Time felodipine Allergy Severe Respiratory Verified 12/02/20 19:17 Sulfa (Sulfonamide Allergy Intermediate Itching Verified 12/02/20 19:17 Antibiotics) eletriptan [From Relpax] Allergy Unknown Verified 12/02/20 19:17 prednisone Allergy Unknown Verified 12/02/20 19:17 pregabalin Allergy Unknown Verified 12/02/20 19:17 gabapentin AdvReac Edema Verified 12/02/20 19:17 tramadol AdvReac Edema Verified 12/02/20 19:17 plendil Allergy Intermediate Unknown. Uncoded 12/02/20 19:17 depomedrol Allergy Unknown Uncoded 12/02/20 19:17 tape AdvReac Mild Hives Uncoded 12/02/20 19:17 - Social History Does the pt smoke?: Yes Smoking Status: Current every day smoker Does the pt drink ETOH?: No Does the pt have substance abuse?: No - Immunizations Immunizations are current?: No Immunizations: Other immun not current - POLST Patient has POLST: No PD ED PE NORMAL - Vitals Vital signs reviewed: Yes - General General: Other (A and O x 1) - HEENT HEENT: PERRL, EOMI - Neck Neck: No bony TTP (in c-collar) - Cardiac Cardiac: RRR, No murmur - Respiratory Respiratory: No respiratory distress, Clear bilaterally - Abdomen Abdomen: Normal bowel sounds, Soft, Non tender - Back Back: No CVA TTP, No spinal TTP - Derm Derm: Normal color, Warm and dry - Neuro Neuro: No motor deficit, No sensory deficit Eye Opening: Spontaneous Motor: Obeys Commands Verbal: Inappropriate GCS Score: 13 Results - Vitals Vitals: Vital Signs - 24 hr 12/02/20 12/02/20 12/02/20 19:17 19:24 19:29 Temperature 36.6 C 98.4 C H 36.9 C Heart Rate 104 H 100 Respiratory 17 20 22 Rate Blood Pressure 138/92 H 138/92 H 120/104 H O2 Saturation 93 98 98 12/02/20 12/02/20 12/02/20 20:09 20:30 21:00 Temperature 37.0 C 36.5 C Heart Rate 101 H 100 100 Respiratory 20 16 209 H Rate Blood Pressure 142/102 H 141/97 H 120/90 H O2 Saturation 99 97 98 12/02/20 12/02/20 12/02/20 21:30 22:00 22:25 Temperature 36.5 C 36.5 C Heart Rate 100 100 102 H Respiratory 18 18 20 Rate Blood Pressure 116/83 H 112/75 112/75 O2 Saturation 96 96 97 12/02/20 22:37 Temperature 36.6 C Heart Rate 118 H Respiratory 20 Rate Blood Pressure 150/108 H O2 Saturation 100 Oxygen O2 Source Room air - Labs Labs: Laboratory Tests 12/02/20 12/02/20 12/02/20 19:30 19:30 21:24 WBC 13.0 H RBC 4.34 Hgb 13.8 Hct 42.3 MCV 97.5 MCH 31.8 H MCHC 32.6 RDW 12.3 Plt Count 339 MPV 8.8 Neut # (Auto) 7.2 H Lymph # (Auto) 4.7 H [place] # (Auto) 0.7 Eos # (Auto) 0.3 Baso # (Auto) 0.1 Absolute Nucleated RBC 0.00 Band Neuts % (Manual) Not Reportable Abnorm Lymph % (Manual) Not Reportable Nucleated RBC % 0.0 Neutrophils # (Manual) Not Reportable Lymphocytes # (Manual) Not Reportable Monocytes # (Manual) Not Reportable Eosinophils # (Manual) Not Reportable Basophils # (Manual) Not Reportable Differential Comment MANUAL=AUTO DIFF Manual Slide Review Indicated Platelet Estimate NORMAL (130-450,000) Platelet Morphology NORMAL APPEARANCE RBC Morph Micro Appear NORMAL APPEARANCE Sodium 133 L Potassium 3.4 L Chloride 98 L Carbon Dioxide 21 Anion Gap 14.0 H BUN 29 H Creatinine 0.9 Estimated GFR (MDRD) 65 L Glucose 106 H Calcium 8.9 Total Bilirubin 0.4 AST 32 ALT 29 Alkaline Phosphatase 76 Total Protein 7.8 Albumin 4.1 Globulin 3.7 Albumin/Globulin Ratio 1.1 Lipase 50 Urine Color YELLOW Urine Clarity CLEAR Urine pH 6.0 Ur Specific [place] <=1.005 Urine Protein NEGATIVE Urine Glucose (UA) NEGATIVE Urine Ketones NEGATIVE Urine Occult Blood TRACE-INTA Urine Nitrite NEGATIVE Urine Bilirubin NEGATIVE Urine Urobilinogen 0.2 (NORMAL) Ur Leukocyte Esterase NEGATIVE Ur Microscopic Review NOT INDICATED Urine Culture Comments NOT INDICATED Urine Opiates Screen NEGATIVE Ur Oxycodone Screen NEGATIVE Urine Methadone Screen NEGATIVE Ur Propoxyphene Screen NEGATIVE Ur Barbiturates Screen NEGATIVE Ur Tricyclics Screen NEGATIVE Ur Phencyclidine Scrn NEGATIVE Ur Amphetamine Screen NEGATIVE U Methamphetamines Scrn NEGATIVE U Benzodiazepines Scrn POSITIVE H Urine Cocaine Screen NEGATIVE U Cannabinoids Screen NEGATIVE Ethyl Alcohol 373.6 PD MEDICAL DECISION MAKING - ED course ED course: 55 yo female with AMS s/p ETOH and possible head injury. CT Head and Cspine Neg. Care to overnight ED MD pending clinical sobriety. Departure - Departure Clinical Impression: Accidental fall Qualifiers: Encounter type: initial encounter Qualified Code(s): W19.XXXA - Unspecified fall, initial encounter Head injury Qualifiers: Encounter type: initial encounter Qualified Code(s): S09.90XA - Unspecified injury of head, initial encounter Alcohol intoxication Qualifiers: Complication of substance-induced condition: with delirium Qualified Code(s): F10.921 - Alcohol use, unspecified with intoxication delirium Condition: Stable Record reviewed to determine appropriate education?: Yes Instructions: ED Alcohol Intoxication, ED Head Injury Closed
[2020-12-02 19:42] LABS: BASOPHILS # (AUTO) 0.1 10^3/uL (0.0-0.1); BASOPHILS % (AUTO) 0.8 %; MONOCYTES % (AUTO) 5.1 %
[2020-12-02 19:46] LABS: EOSINOPHILS # (AUTO) 0.3 10^3/uL (0.0-0.7); EOSINOPHILS % (AUTO) 2.1 %; HCT - HEMATOCRIT 42.3 % (37.0-47.0); HGB - HEMOGLOBIN 13.8 g/dL (12.0-16.0); LYMPHOCYTES # (AUTO) 4.7 10^3/uL (1.5-3.5); LYMPHOCYTES % (AUTO) 36.4 %; MEAN CORPUSCULAR HEMOGLOBIN 31.8 pg (27.0-31.0); MEAN CORPUSCULAR HGB CONC 32.6 g/dL (32.0-36.0); MEAN CORPUSCULAR VOLUME 97.5 fL (81.0-99.0); MEAN PLATELET VOLUME 8.8 fL (7.9-10.8); MONOCYTES # (AUTO) 0.7 10^3/uL (0.0-1.0); NEUTROPHILS # (AUTO) 7.2 10^3/uL (1.5-6.6); NEUTROPHILS % (AUTO) 54.9 %; PLT - PLATELET COUNT 339 10^3/uL (130-450); RED BLOOD COUNT 4.34 10^6/uL (4.20-5.40); RED CELL DISTRIBUTION WIDTH 12.3 % (12.0-15.0)
[2020-12-02 19:55] LABS: ALBUMIN 4.1 g/dL (3.2-5.5); ALBUMIN/GLOBULIN RATIO 1.1 (1.0-2.2); BILIRUBIN,TOTAL 0.4 mg/dL (0.2-1.0); CALCIUM 8.9 mg/dL (8.5-10.3); CREATININE 0.9 mg/dL (0.4-1.0); ETOH - ETHANOL 373.6 mg/dL; POTASSIUM 3.4 mmol/L (3.5-5.0); TOTAL PROTEIN 7.8 g/dL (6.7-8.2)
[2020-12-02 20:11] LABS: SLIDE REVIEW? Indicated
[2020-12-02 20:22] LABS: DIFFERENTIAL COMMENT MANUAL=AUTO DIFF; PLATELET ESTIMATE, MANUAL NORMAL (130-450,000) (NORMAL); PLATELET MORPHOLOGY NORMAL APPEARANCE (NORMAL); RBC MORPHOLOGY (MULTIPLE) NORMAL APPEARANCE (NORMAL)
--- NOTE | 2020-12-02 21:08 | CT Report ---
PROCEDURE: No acute intracranial abnormality. INDICATIONS: Head trauma, mod-severe TECHNIQUE: Noncontrast 4.5 mm thick angled axial sections acquired from the foramen magnum to the vertex. For r adiation dose reduction, the following was used: automated exposure control, adjustment of mA and/or kV according to patient size. COMPARISON: None. FINDINGS: Image quality: Excellent. CSF spaces: Basal cisterns are patent. No extra-axial fluid collections. Ventricles are normal in size and shape. Brain: No midline shift. No intracranial masses or hemorrhage. Pinto-white matter interface is norm al. Skull and face: Calvarium and visualized facial bones are intact, without suspicious lesions. Sinuses: Visualized sinuses and mastoids are clear. IMPRESSION: No acute intracranial abnormality. Reviewed by: Los Chen on 12/02/2020 9:07 PM PDT Approved by: Los Chen on 12/02/2020 9:07 PM PDT Station ID: [id number]
--- NOTE | 2020-12-02 21:10 | CT Report ---
PROCEDURE: CERVICAL SPINE WO INDICATIONS: Neck trauma, midline tenderness TECHNIQUE: Noncontrast 3 mm thick sections acquired from the skull base to the T4 level. Sagittal and coronal r eformats were then constructed. For radiation dose reduction, the following was used: automated exp osure control, adjustment of mA and/or kV according to patient size. COMPARISON: None. FINDINGS: Image quality: Excellent. Bones: No fractures or dislocations. Visualized superior ribs are intact. There are multilevel deg enerative changes. Soft tissues: Prevertebral soft tissues are normal in thickness. No paravertebral hematomas. No ap ical pneumothoraces. IMPRESSION: No acute abnormality of the cervical spine. Reviewed by: Los Chen on 12/02/2020 9:08 PM PDT Approved by: Los Chen on 12/02/2020 9:08 PM PDT Station ID: [id number]
[2020-12-02 21:32] LABS: BILIRUBIN,URINE NEGATIVE (NEGATIVE); GLUCOSE, URINE (UA) NEGATIVE (NEGATIVE); KETONES,URINE (UA) NEGATIVE (NEGATIVE); LEUKOCYTE ESTERASE, URINE NEGATIVE (NEGATIVE); MUDS CUTOFF CONCENTRATIONS CUTOFF CONC BELOW:; NITRITE,URINE NEGATIVE (NEGATIVE); OCCULT BLOOD,URINE TRACE-INTA (NEGATIVE); PROTEIN,URINE NEGATIVE (NEGATIVE); UROBILINOGEN,URINE 0.2 (NORMAL) E.U./dL (NORMAL)
[2020-12-02 21:35] LABS: CLARITY,URINE CLEAR (CLEAR)
[2020-12-02 21:48] LABS: AMPHETAMINE SCREEN,URINE NEGATIVE (NEGATIVE); BARBITURATE SCREEN,UR NEGATIVE (NEGATIVE); BENZODIAZEPINES SCREEN, URINE POSITIVE (NEGATIVE); COCAINE SCREEN URINE NEGATIVE (NEGATIVE); METHADONE SCREEN, URINE NEGATIVE (NEGATIVE); METHAMPHETAMINES SCREEN, URINE NEGATIVE (NEGATIVE); OPIATE SCREEN, URINE NEGATIVE (NEGATIVE); OXYCODONE SCREEN, URINE NEGATIVE (NEGATIVE); PROPOXYPHENE SCREEN, URINE NEGATIVE (NEGATIVE); THC CANNABINOID SCREEN, URINE NEGATIVE (NEGATIVE); TRICYCLIC ANTIDEPRESSANT,URINE NEGATIVE (NEGATIVE)
[2020-12-02] MEDS ORDERED: OLANZapine ODT 5 MG TABLET TL ONE (23:42)
[2020-12-03 08:01] VITALS: BP 120/70
== END 2020-12-03 08:01 | disposition home or self-care (01) ==
LOC: ED 19:05
DX: S09.90XA Unspecified injury of head, initial encounter (principal); W19.XXXA Unspecified fall, initial encounter; F10.121 Alcohol abuse with intoxication delirium; Y90.8 Blood alcohol level of 240 mg/100 ml or more; I10 Essential (primary) hypertension; F17.200 Nicotine dependence, unspecified, uncomplicated
CPT/HCPCS: 36415; 70450; 72125; 80053; 80306; 80320; 81003; 83690; 85025; 99281; 99284; A9270; 81001; 87086

== ENCOUNTER → 2022-02-01 | Outpatient (CLI) | payer OTHER | END | disposition short-term general hospital (02) | LOC: EMS 14:38 | DX: R30.9 Painful micturition, unspecified (principal); R19.7 Diarrhea, unspecified; R10.31 Right lower quadrant pain | CPT/HCPCS: A0425; A0429 ==

== ENCOUNTER 2023-04-17 11:22 | Emergency (ER) | payer BC, OTHER ==
--- NOTE | 2023-04-17 11:32 | ED Physician Documentation ---
PD HPI UPPER EXT INJURY - Stated complaint Stated Complaint: LT ARM INJ - Chief complaint Chief Complaint: Trauma Ext - History obtained from History obtained from: Patient - History of Present Illness Location: Left, Forearm, Wrist Type of injury: Fall (She states she tripped on her son's game electrical cord and fell forward catching her left wrist and forearm against the edge of furniture.) Where injury occurred: Home Timing - onset: How many days ago (2) Timing - duration: Days (2) PD PAST MEDICAL HISTORY - Past Medical History Past Medical History: Yes Cardiovascular: Hypertension, High cholesterol Respiratory: None Neuro: Migraines Endocrine/Autoimmune: HyPOthyroidism GI: GERD, Ulcers, Other 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 : None HEENT: Chronic vision loss Psych: Depression, Anxiety Musculoskeletal: Fibromyalgia, Chronic back pain Derm: None - Past Surgical History Past Surgical History: Yes General: Appendectomy Ortho: Other /WELDER PLASTIC: section, Tubal ligation - Present Medications Home Medications: Ambulatory Orders Medication Instructions Recorded Confirmed Levothyroxine [Synthroid] 112 mcg PO QDAC 06/23/12 04/17/23 Omeprazole 20 mg PO BID 06/23/12 04/17/23 PARoxetine HCL [Paxil] 20 mg PO DAILY 08/14/12 04/17/23 Triamterene/Hydrochlorothiazid 1 each PO DAILY 10/07/12 04/17/23 [Triamterene-Hctz 37.5-25 mg Tb] Acetaminophen [Tylenol] 650 mg PO Q6H PRN 12/16/16 04/17/23 Atorvastatin [Lipitor] 40 mg PO DAILY 04/09/17 04/17/23 Trazodone HCl 100 mg PO HS PRN 10/11/20 04/17/23 Lisinopril [Zestril] 40 mg PO DAILY 04/17/23 04/17/23 - Allergies Allergies/Adverse Reactions: Allergies Allergy/AdvReac Type Severity Reaction Status Date / Time felodipine Allergy Severe Respiratory Verified 04/17/23 11:27 Sulfa (Sulfonamide Allergy Intermediate Itching Verified 04/17/23 11:27 Antibiotics) eletriptan [From Relpax] Allergy Unknown Verified 04/17/23 11:27 prednisone Allergy Unknown Verified 04/17/23 11:27 pregabalin Allergy Unknown Verified 04/17/23 11:27 gabapentin AdvReac Edema Verified 04/17/23 11:27 tramadol AdvReac Edema Verified 12/02/20 19:17 plendil Allergy Intermediate Unknown. Uncoded 04/17/23 11:27 depomedrol Allergy Unknown Uncoded 04/17/23 11:27 tape AdvReac Mild Hives Uncoded 04/17/23 11:27 - Social History Does the pt smoke?: Yes Smoking Status: Current every day smoker Does the pt drink ETOH?: Yes Does the pt have substance abuse?: No - Immunizations Immunizations are current?: No Immunizations: Other immun not current - POLST Patient has POLST: No PD ED PE NORMAL - Vitals Vital signs reviewed: Yes - General General: Alert and oriented X 3, Well developed/nourished - Derm Derm: Normal color, Warm and dry - Extremities Extremities: Other (left distal forearm with tenderness and swelling with bruising ulnar side. No noted deformity other than local swelling. ) - Neuro Neuro: No motor deficit, No sensory deficit Results - Vitals Vitals: Vital Signs - 24 hr 04/17/23 11:27 Temperature 36.5 C Heart Rate 100 Respiratory 16 Rate Blood Pressure 150/100 H O2 Saturation 100 Oxygen O2 Source Room air - Rads (name of study) left wrist Relevant Findings:: Prelim report reviewed, EMP independent interpretation of test (wrist xray with enough forearm to include area in question, without fractures. ) PD Medical Decision Making - ED course Complexity details: considered differential (fall with ulnar side forearm i njury. Xray obtained without fracture. velcro wrist splint given. ), d/w patient Departure - Departure Disposition: 01 Home, Self Care Clinical Impression: Fall from slip, trip, or stumble, Forearm contusion Condition: Stable Record reviewed to determine appropriate education?: Yes Instructions: ED Contusion Upper Ext Follow-Up: SAMY TY [Primary Care Provider] - Comments: Your x-ray is normal without any signs of bony injury/fracture. Obviously there is bruising and swelling in the area with localized lumpiness most likely consistent with small hematomas/local bleeding. These typically will go down and soften and be less tender gradually over a week or 2. The bruising will slowly fade away. Use the wrist splint to help protect the area and cushion and protect it. Less motion in the wrist will be helpful as well. Warm towels to the area to help soften some of the bruising to absorb more easily. Tylenol or ibuprofen as needed for pains. Forms: PCP List Discharge Date/Time: 04/17/23 12:30
[2023-04-17 11:39] VITALS: BP 150/100; O2SAT 100
--- NOTE | 2023-04-17 12:03 | XRAY Report ---
PROCEDURE: Wrist 3+V LT INDICATIONS: pain TECHNIQUE: 4 views of the wrist were acquired. COMPARISON: None. FINDINGS: Bones: No fractures or dislocations. No scaphoid fractures are seen. No suspicious bony lesions. Focal degenerative change is seen involving the first carpometacarpal joint, with milder degenerative changes seen elsewhere. Soft tissues: No suspicious soft tissue calcifications or masses. IMPRESSION: No displaced fractures are seen on this plain film study. In this patient with a given history of trauma, please correlate with focal tenderness. If clinically appropriate, please consider a short-term follow-up plain films series versus a dedicated CT study. Reviewed by: Oumar Lloyd MD on 04/17/2023 11:02 AM [facility] [place] Approved by: Oumar Lloyd MD on 04/17/2023 11:02 AM [facility] [place] Station ID: [id number]
== END 2023-04-17 12:30 | disposition home or self-care (01) ==
LOC: ED 11:22
DX: S50.12XA Contusion of left forearm, initial encounter (principal); W01.190A Fall on same level from slipping, tripping and stumbling with subsequent striking against furniture, initial encounter; F17.200 Nicotine dependence, unspecified, uncomplicated
CPT/HCPCS: 99283